=== PATIENT | female | born 1960 | race Caucasian/White ===

== ENCOUNTER 2017-08-28 04:09 | Inpatient (IN) | payer MEDICARE, MEDICAID ==
[2017-08-28] MEDS ORDERED: LORazepam INJ* 2 MG/ML 1 ML VIAL IV PUSH ONE ×2 (04:27→15:10)
[2017-08-28] MEDS ORDERED: Albuterol/Ipratropium NEB.SOL* Albuterol 2.5 MG/Ipratropium 0.5 MG 3 ML INH ONE (04:27)
[2017-08-28] MEDS ORDERED: NS 0.9% 1000 ML* 1,000 ML IV ONE (04:27)
[2017-08-28 05:10] LABS: Hematocrit 49 % (35-47); Hemoglobin 17.2 g/dl (12.0-16.0); Mean Corpuscular HGB Conc 35 g/dl (31-36); Mean Corpuscular Hemoglobin 32 pg (27-31); Mean Corpuscular Volume 91 fL (80-97); Red Blood Count 5.37 10^6/ul (4.00-5.40); Red Cell Distribution Width 15 % (10.5-15); White Blood Count 14.3 10^3/ul (3.5-10.8)
[2017-08-28 05:19] LABS: INR 1.14 (0.77-1.02)
[2017-08-28 05:28] LABS: EGFR Non-African American 117.2 (>60)
[2017-08-28 05:31] LABS: ABS Basophils 0 10^3/ul (0-0.2); ABS Eosinophils 0 10^3/ul (0-0.6); ABS Lymphocytes 0.9 10^3/ul (1.0-4.8); ABS Monocytes 0.6 10^3/ul (0-0.8); ABS Neutrophils 12.7 10^3/ul (1.5-7.7); ABS Nucleated RBC 0 10^3/ul; Eosinophil % 0.2 % (0-6); Lymphocyte % 6.5 % (25-47); Mean Platelet Volume 8.6 um3 (7.4-10.4); Nucleated Red Blood Cells % 0.1; Platelet Count 86 10^3/ul (150-450)
[2017-08-28] MEDS ORDERED: Aspirin 81 mg CHEW TAB* 81 MG TAB.CHEW PO ONE (05:32)
[2017-08-28] MEDS ORDERED: Metoprolol Tartrate IV* 1 MG/ML 5 ML VIAL IV ONE (05:37)
[2017-08-28] MEDS ORDERED: Azithromycin IV(*) 500 MG in NS 0.9% 250 ML* 250 ML IVPB ONE (05:37)
[2017-08-28] MEDS ORDERED: DOXYcycline IV* 100 MG in NS 0.9% 250 ML* 250 ML IVPB ONE (05:37)
[2017-08-28 05:42] LABS: Urine Appearance Cloudy; Urine Blood Negative (Negative); Urine Color Yellow; Urine Ketones 1+ (Negative); Urine Protein 2+(100 mg/dL) (Negative); Urine Red Blood Cell Trace(0-2/hpf) (Absent); Urine Specific Gravity 1.013 (1.010-1.030); Urine Urobilinogen Positive (Negative); Urine White Blood Cell Trace(0-5/hpf) (Absent)
[2017-08-28] MEDS ORDERED: Heparin DRIP 25,000 UNITS(*) 25,000 UNITS/500 ML BAG IV SCH (05:45)
[2017-08-28] MEDS ORDERED: Heparin DRIP 25,000 UNITS(*) 25,000 UNITS/500 ML BAG ONE (05:53)
[2017-08-28] MEDS ORDERED: Al Hydrox/Mg Hydrox/Simet LIQ* 30 ML UDC PO PRN (05:58)
[2017-08-28] MEDS ORDERED: Senna TAB PO PRN (05:58)
[2017-08-28] MEDS ORDERED: Docusate CAP* 100 MG PO PRN (05:58)
[2017-08-28] MEDS ORDERED: Albuterol/Ipratropium NEB.SOL* Albuterol 2.5 MG/Ipratropium 0.5 MG 3 ML INH PRN (06:01)
[2017-08-28] MEDS ORDERED: methylPREDNISolone 125 MG* 2 ML VIAL IV ONE (06:01)
[2017-08-28] MEDS ORDERED: Heparin VIAL(*) 5000 UNITS/ML VIAL (FIVE THOUSAND) ONE (06:04)
[2017-08-28] MEDS ORDERED: Heparin VIAL(*) 5000 UNITS/ML VIAL (FIVE THOUSAND) IV PRN (06:31)
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
--- NOTE | 2017-08-28 08:32 | RAD ---
INDICATION: Change in mental status. Possible seizure COMPARISON: CT brain March 23, 2015 TECHNIQUE: Noncontrast axial source images were acquired from the skull base to the vertex. There is minor motion artifact despite the fact that images were repeated. FINDINGS: Ventricles/sulci: The ventricles and cisterns are normal in size and configuration for age. Brain parenchyma: There is no focal parenchymal finding, evidence of intracranial mass, or intracranial mass effect. Intracranial hemorrhage:None. Extra-axial spaces: There are no abnormal extra axial fluid collections or evidence of extra-axial mass. Calvarium: There is no calvarial fracture or other calvarial abnormality. Scalp: There is no evidence of scalp or extracalvarial soft tissue abnormality. Paranasal sinuses/mastoid: The paranasal sinuses and mastoid air cells are clear. Other: None. IMPRESSION: MILDLY LIMITED EXAMINATION DUE TO MOTION ARTIFACT. NO ACUTE CT ABNORMALITIES ARE SEEN.
--- NOTE | 2017-08-28 08:34 | RAD ---
Indication: Nausea and vomiting. Question seizures. History of COPD. Comparison: March 23, 2015 Technique: Sitting AP chest 0532 hours Report: Elevated lung volumes and both diffuse moderate prominence of the interstitial markings and mild patchy rarefaction of the mid to upper lung zone interstitial markings. Asymmetric patchy alveolar consolidation at the RIGHT lung base is concerning for pneumonia. Negative for pleural effusion or pneumothorax. The heart, pulmonary vasculature, and mediastinal contours are unremarkable. IMPRESSION: 1. Patchy alveolar consolidation at the RIGHT lung base is concerning for pneumonia. 2. Chronic obstructive pulmonary disease.
--- NOTE | 2017-08-28 09:05 | ECHO ---
Patient: LAYO DE JESUS Rec#: [id number] : 1960 Date: 08/28/2017 Age: 57y Height: 162.56 cm / 64.0 in Weight: 63.5 kg / 140.0 lbs Sex: F BSA: 1.68 Room#: [id number] Admit Date#: 08/28/2017 Type: Inpatient Referring: Vicky Diaz Reading: Josefina Campbell MD Client Specialist: Rena Isbell RDCS CC: Abe Pino MD Transthoracic Echocardiogram Indication: Altered mental status, ACS BP: 135/81 HR: 98 Rhythm: NSR Findings History: Smoker, marijuana use, COPD, cirrhosis, seizures. Technical Comments: The study quality is fair. The study was technically limited due to the patient's inability to lay in the left lateral decubitus position. Completed at 0845. Left Ventricle: The left ventricular chamber size is normal. Mild concentric left ventricular hypertrophy is observed. There are multiple regional wall motion abnormalities. The base of the lateral and posterior perez is hyperdynamic. Akinesis and dyskinesis of the apical 2/3's of the inferior-posterior wall. Septum akinetic and dyskinetic. The apical portion of the anterior and lateral wall is hypokinetic. There is moderate to severely decreased left ventricular systolic function. The estimated ejection fraction is 35-40%. Abnormal left ventricular diastolic function is observed. Left Atrium: The left atrial chamber size is normal. Right Ventricle: The right ventricular cavity size is normal. The right ventricular global systolic function is low normal. Right Atrium: The right atrial cavity size is normal. Aortic Valve: The aortic valve is trileaflet. The aortic valve leaflets are mildly thickened. There is no evidence of aortic regurgitation. There is no evidence of aortic stenosis. Mitral Valve: The mitral valve leaflets are mildly thickened. There is mild to moderate mitral regurgitation. The mitral regurgitant jet is laterally directed. There is no evidence of mitral stenosis. Tricuspid Valve: The tricuspid valve leaflets are normal. There is mild tricuspid regurgitation. The right ventricular systolic pressure is estimated at 30 mmHg. There is evidence that pulmonary hypertension may be underestimated. There is no tricuspid stenosis. Pulmonic Valve: The pulmonic valve structure is not well visualized. There is a trace pulmonic regurgitation. There is no pulmonic stenosis. Pericardium: There is no significant pericardial effusion. Aorta: There is no dilatation of the ascending aorta. There is no dilatation of the aortic arch. The aortic root is normal in size. Pulmonary Artery: The main pulmonary artery is not well visualized. Venous: The inferior vena cava appears normal in size. There is a greater than 50% respiratory change in the inferior vena cava dimension. Conclusions The study was technically limited and difficult. Mild concentric left ventricular hypertrophy is observed. Inferior posterior infarct, hypokinesis of the anterior lateral wall, base of the heart is hyperdynamic. The estimated ejection fraction is 35-40%. The right ventricular global systolic function is low normal. The aortic valve leaflets are sclerotic. There is mild to moderate mitral regurgitation. There is mild tricuspid regurgitation. The right ventricular systolic pressure is estimated at 30 mmHg, possibly underestimated. Compared with prior echo of 10/03/14, EF has decreased from 60-65%, wall motion abnormalities are new, RV function decreased from normal, MR is new, TR has increased from trace. Measurements Name Value Normal Range RVIDd (AP) 2D 3 cm (0.9 - 2.6) RVDdMajor (2D) 3.5 cm (2.2 - 4.4) RAd ISD 4CH 4 cm (3.4 - 4.9) RA (A4C)W 4.2 cm (2.9 - 4.6) IVSd (2D) 1.1 cm (0.6 - 1) LVPWd (2D) 1.2 cm (0.6 - 1) LVIDd (2D) 3.9 cm (3.6 - 5.4) LVIDs (2D) 3 cm - LV FS (2D) 25 % (25 - 45) Aortic Annulus 2 cm (1.4 - 2.6) Ao root diameter (2D) 3.2 cm (2.1 - 3.5) Ascending Ao 2.9 cm (2.1 - 3.4) Aortic arch 2.4 cm (1.8 - 3.4) LA dimension (AP) 2D 3.7 cm (2.3 - 3.8) LAd ISD 4CH 3.9 cm (2.9 - 5.3) LA ISD 4CH W 3.3 cm (2.5 - 4.5) Name Value Normal Range LA ESV SP 4CH (A/L) 18 ml - LA ESV SP 2CH (A/L) 43 ml - LA ESV BP (A/L) 28 ml - LA ESV BP (A/L) index 17 ml/m2 - LA ESV SP 4CH (MOD) 17 ml - LA ESV SP 2CH (MOD) 37 ml - Name Value Normal Range MV E-wave Vmax 0.84 m/sec - MV deceleration time 211.5 msec - MV A-wave Vmax 0.33 m/sec - MV E:A ratio 2.5 ratio - LV septal e' Vmax 0.1 m/sec - LV lateral e' Vmax 0.09 m/sec - LV E:e' septal ratio 8.4 ratio - LV E:e' lateral ratio 9.33 ratio - Name Value Normal Range AV Vmax 1.1 m/sec - AV VTI 20 cm - AV peak gradient 4.26 mmHg - AV mean gradient 2.34 mmHg - LVOT Vmax 0.77 m/sec - LVOT VTI 14.27 cm - LVOT peak gradient 2.37 mmHg - LVOT mean gradient 1.36 mmHg - TONY Vmax 0.9 m/sec - Name Value Normal Range TR Vmax 2.6 m/sec - TR peak gradient 27 mmHg - RAP 3 mmHg - RVSP 30 mmHg - IVC diameter 1.9 cm - Name Value Normal Range PV Vmax 0.88 m/sec - PV peak gradient 3.11 mmHg -
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
--- NOTE | 2017-08-28 10:21 | PN ---
Subjective Date of Service: 08/28/17 Interval History: Pt reportedly has been speaking non-stop. She talks about things that seem to make sense but have no context to what I am trying to ask her. She states over and over that she is confused. She is able to tell me she stopped all of her medications about 2 weeks ago. Objective Active Medications: Acetaminophen (Tylenol Tab*) 650 mg PO Q4H PRN PRN Reason: FEVER/PAIN Al Hydrox/Mg Hydrox/Simethicone (Maalox Plus*) 30 ml PO Q6H PRN PRN Reason: INDIGESTION Albuterol (Ventolin 2.5 Mg/3 Ml Neb.Christin*) 2.5 mg INH Q2H PRN PRN Reason: SOB/WHEEZING Albuterol/Ipratropium (Duoneb (Albuterol 2.5 Mg/Ipratropium 0.5 Mg)) 1 neb INH Q4H PRN PRN Reason: SOB/WHEEZING Docusate Sodium (Colace Cap*) 100 mg PO BID PRN PRN Reason: CONSTIPATION Heparin Sodium (Porcine) (Heparin Vial(*)) 0 units IV .FOR BOLUSES PRN PRN Reason: HEPARIN DRIP BOLUSES Heparin Sodium/Dextrose (Heparin Drip 25,000 Units(*)) 25,000 units in 500 mls @ 0 mls/hr IV PER RATE SASKIA; Per Protocol PRN Reason: Protocol Last Admin: 08/28/17 05:56 Dose: 15 mls/hr Sodium Chloride (Ns 0.9% 1000 Ml*) 1,000 mls @ 100 mls/hr IV PER RATE SASKIA Morphine Sulfate (Morphine Vial*) 2 mg IV Q4H PRN PRN Reason: PAIN Ondansetron HCl (Zofran 40 Mg Vial*) 4 mg IV Q4H PRN PRN Reason: NAUSEA/VOMITING Prednisone (Deltasone Tab*) 40 mg PO DAILY SASKIA Senna (Senokot Tab*) 1 tab PO BID PRN PRN Reason: CONSTIPATION Vital Signs - 8 hr 08/28/17 08/28/17 08/28/17 06:09 06:17 06:19 Temperature 100.7 F 101.6 F Pulse Rate 91 96 94 Respiratory 25 25 27 Rate Blood Pressure 135/81 107/78 112/77 (mmHg) O2 Sat by Pulse 94 92 96 Oximetry 08/28/17 08/28/17 08/28/17 06:42 06:48 06:54 Temperature 100.7 F Pulse Rate 91 90 95 Respiratory 25 27 26 Rate Blood Pressure 135/81 123/78 112/77 (mmHg) O2 Sat by Pulse 94 94 96 Oximetry 08/28/17 08/28/17 08/28/17 07:00 07:30 07:47 Temperature Pulse Rate 98 96 94 Respiratory 24 28 39 Rate Blood Pressure 118/81 104/69 104/69 (mmHg) O2 Sat by Pulse 95 89 89 Oximetry 08/28/17 08/28/17 08/28/17 07:48 08:00 08:09 Temperature 102 F 102.7 F Pulse Rate 94 85 Respiratory 37 39 Rate Blood Pressure 104/69 101/68 (mmHg) O2 Sat by Pulse 88 96 Oximetry 08/28/17 08/28/17 08/28/17 08:30 08:32 08:36 Temperature Pulse Rate 84 85 88 Respiratory 24 22 27 Rate Blood Pressure 104/71 108/68 108/72 (mmHg) O2 Sat by Pulse 96 96 94 Oximetry 08/28/17 08/28/17 08/28/17 08:37 08:38 09:00 Temperature Pulse Rate 88 89 87 Respiratory 31 27 28 Rate Blood Pressure 111/69 106/68 106/70 (mmHg) O2 Sat by Pulse 95 96 97 Oximetry 08/28/17 09:30 Temperature Pulse Rate 93 Respiratory 24 Rate Blood Pressure 113/87 (mmHg) O2 Sat by Pulse 97 Oximetry Oxygen Devices in Use Now: High Flow Heated Nasal Cannula - 30L 40% FiO2; O2 sat 97% Appearance: Middle aged female sitting up in bed, nu complexion, confused, moderately tachypnic, but in NAD Eyes: No Scleral Icterus Ears/Nose/Mouth/Throat: Mucous Membranes Moist, - - poor oral dentition Respiratory: Symmetrical Chest Expansion and Respiratory Effort, - - coarse breath sounds heard on R side of chest Cardiovascular: RRR, No Edema Abdominal: NL Sounds; No Tenderness; No Distention Extremities: No Clubbing, Cyanosis Skin: No Nodules or Sclerosis, - - skin appears diffusely erythematous Neurological: - - alert, speaks almost continuously until I ask her to be quite so I can listen to her chest, later on during my eval the patient appears to have fragmented speech and difficulty getting her words out Result Diagrams: 08/28/17 05:02 08/28/17 05:02 Additional Lab and Data: Lab Results 08/28/17 Range/Units 04:45 ABG pH 7.44 (7.35-7.45) ABG pCO2 38 (35-45) mmHg ABG pO2 64 L (80-100) mmHg ABG HCO3 25.9 (19-31) mmol/L ABG O2 Saturation 95.5 (95-98) % ABG Base Excess 1.7 (-2.0-2.0) Microbiology and Other Data: Microbiology 08/28/17 08:40 Nasal Screen MRSA (PCR)([facility]) - Final Nasal Mrsa Not Detected Assess/Plan/Problems-Billing Ms Cruz is a 57 yo F who has a past h/o polysubstance abuse including alcohol, ongoing tobacco abuse, past h/o status epilepticus related to abrupt withdrawal of benzodiazepines, depression and alcoholic cirrhosis who presented to the ER with concerns for seizure and was admitted for evaluation of seizure, possible sepsis secondary to pneumonia and NSTEMI. - Patient Problems (1) Seizure Current Visit: Yes Status: Acute Code(s): R56.9 - UNSPECIFIED CONVULSIONS SNOMED Code(s): 91364925 Comment: The patient reportedly had a seizure at home and again once she arrived to the ER. She has had her EEG and the results are pending. She is not on any antiepileptics as previously her seizures have been felt to be secondary to benzodiazepine withdrawal. She was able to state she stopped all of her medications about 2 weeks ago including her xanax. Neurology consultation pending. (2) Sepsis Current Visit: Yes Status: Acute Comment: On admission the patient was felt to be severely septic secondary to possible RLL pneumonia. Check procalcitonin level. Continue doxycycline 100mg q12h and await ID consultation. Given her AMS , fever and seizure I feel she also needs a lumbar puncture to r/o meningitis. I spoke with Dr. Harris who has agreed to attempt the LP. (3) Pneumonia Current Visit: Yes Status: Acute Code(s): J18.9 - PNEUMONIA, UNSPECIFIED ORGANISM SNOMED Code(s): 981322139 Comment: Will continue doxycyline for now and await further input from Dr. Qureshi. Procalcitonin to be checked. Attempt to get sputum culture. (4) NSTEMI (non-ST elevated myocardial infarction) Current Visit: Yes Status: Acute Code(s): I21.4 - NON-ST ELEVATION (NSTEMI) MYOCARDIAL INFARCTION SNOMED Code(s): 352329544 Comment: The patient initially with trop of 0.79, now up to 2.4. She is on a heparin drip but this will need to be stopped for the LP. Cardiology consult has been requested especially given her changes on echo. (5) Alcohol abuse Current Visit: Yes Status: Acute Code(s): F10.10 - ALCOHOL ABUSE, UNCOMPLICATED SNOMED Code(s): 48119048 Comment: Pt reports no EtOH use for several years but the validity of her answer is questioned. (6) Cannabis abuse Current Visit: Yes Status: Acute Code(s): F12.10 - CANNABIS ABUSE, UNCOMPLICATED SNOMED Code(s): 15241970 Comment: Pt uses on a regular basis. (7) Depression Current Visit: Yes Status: Acute Priority: High Onset Date: 03/26/15 Code(s): F32.9 - MAJOR DEPRESSIVE DISORDER, SINGLE EPISODE, UNSPECIFIED SNOMED Code(s): 21218030 Comment: Pt was on celexa previously. Hold off on starting antidepressant currently. (8) DVT prophylaxis Current Visit: Yes Status: Acute Code(s): KNY5194 - SNOMED Code(s): 630819030 Comment: Heparin drip (stopped for LP) (9) Full code status Current Visit: Yes Status: Acute Code(s): Z78.9 - OTHER SPECIFIED HEALTH STATUS SNOMED Code(s): 184345058 Sepsis Event Evaluation Date of Evaluation: 08/28/17 Time of Evaluation: 10:30 Current Stage of Sepsis: Severe Sepsis Vital Signs - Last 12 Hours: Vital Signs - 12 hr Temp Pulse Resp BP Pulse Ox 08/28/17 10:00 87 26 103/68 96 08/28/17 09:51 23 08/28/17 09:30 93 24 113/87 97 08/28/17 09:00 87 28 106/70 97 08/28/17 08:38 89 27 106/68 96 08/28/17 08:37 88 31 111/69 95 08/28/17 08:36 88 27 108/72 94 08/28/17 08:32 85 22 108/68 96 08/28/17 08:30 84 24 104/71 96 08/28/17 08:09 102.7 F 08/28/17 08:00 102 F 85 39 101/68 96 08/28/17 07:48 94 37 104/69 88 08/28/17 07:47 94 39 104/69 89 08/28/17 07:30 96 28 104/69 89 08/28/17 07:00 98 24 118/81 95 08/28/17 06:54 95 26 112/77 96 08/28/17 06:48 90 27 123/78 94 08/28/17 06:42 100.7 F 91 25 135/81 94 08/28/17 06:19 101.6 F 94 27 112/77 96 08/28/17 06:17 96 25 107/78 92 08/28/17 06:09 100.7 F 91 25 135/81 94 Lactic Acid: 08/28/17 08:39 Lactic Acid 0.9 - Cardiopulmonary Exam Capillary Refill: < or = to 5 seconds Respiratory: Symmetrical Chest Expansion and Respiratory Effort, - - coarse breath sounds in R>L Cardiovascular: NL Sounds; No Murmurs; No JVD, RRR, No Edema - Peripheral Pulse Exam Radial Pulses: Bilateral Normal - Skin Exam Skin Exam: Flushed - Jesús Coma Scale Best Eye Response: 4 - Spontaneous Best Motor Response: 6 - Obeys Commands Best Verbal Response: 4 - Confused Coma Scale Total: 14
--- NOTE | 2017-08-28 13:20 | PN ---
Cardiology Progress Note Date of Service: 08/28/17 - CC: SOB, change in mentation Full noted dictated. Pt seen today. 57 yo presented with seizures, N/V, fever 102.7, mentation changes,?phycosis, low PO2, mildly elevate NH3, moderate to severe CM, mild elevation in troponins. PMHx of Alcoholic cirrhosis, COPD/active smoker, LBP with chronic narcotic and benzodiazipine use, orthopedic issues and hx orthopedic surgery. For elevated troponins: -Cardiac protection: consider ASA, beta roxy compatible with cirrhosis. Future cath vs stress testing, not a candidate now. -Consider V/Q or CTA to rule in or out PE. For CM: Beta roxy now. If BP improves ACEI and/or resume aldactone. Repeat echo in a week+, looks ischemic but metabolic issues could cause, contribute. Contributing considerations: -if benzodiazipine and narcotic w/drawel, this will increase the work/stress on the heart. -Oxygenation and infection will increase cardiac stress.
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
--- NOTE | 2017-08-28 15:44 | CONS ---
CONSULTATION REPORT: DATE OF CONSULTATION: 08/28/17. REQUESTING PHYSICIAN: Dr. Harris. CONSULTING SERVICE: Infectious Disease. REASON FOR CONSULTATION: Fever. IMPRESSION: 1. Recent seizures and encephalopathy, though she is awake and alert, answers some questions and follows commands. She is talking continuously and not making complete sense. She has no focal neurologic deficits. She has had fevers. Possibilities include, a central nervous system infection other than meningitis, i.e., encephalitis, which could be viral including [place] in this time year, she has some outdoor exposure; HSV1, or varicella, though this seems less likely. She could have a systemic infection causing central nervous system dysfunction, though so far no clear evidence of pneumonia or urinary tract infection. Her blood cultures are negative at this point. She cannot provide a ton of other details on any focal symptoms she is having. 2. Cirrhosis. 3. Acute hypoxemic respiratory failure. 4. Cardiomyopathy with ejection fraction 35% to 40% with wall motion abnormality. 5. Apparent recent discontinuation of benzodiazepine and history of alcohol abuse and cirrhosis. She denies recent alcohol use. RECOMMENDATIONS: 1. When she has a lumbar puncture include the [place] Encephalitis Panel , HSV1, and varicella PCR. 2. We will await the blood cultures. Continue doxycycline. 3. HIV antibody. HISTORY OF PRESENT ILLNESS: This 57-year-old woman with a history of alcohol abuse and cirrhosis, and long-standing benzodiazepine use, which she apparently stopped in the last week or two. She then had a seizure at home and a seizure in the [facility] emergency room. She was transferred here this morning, febrile to 102. She is awake, but not focused or able to make a lot of sense apparently. She was found to be hypoxic. S he is on high-flow oxygen now. She had a troponin that was initially 0.7, now 2.4. She had an echocardiogram that showed the decreased ejection fraction. Her C-reactive protein was 5. She cannot give as much history on recent substance use or discontinuation. Most of the history was obtained from review of the medical record and discussion with Dr. Harris. Her workup here included a white count of 14. Urinalysis that showed ketones. No white cells or red cells. Her creatinine is normal. Toxicology screen showed cannabinoids, otherwise negative. She does endorse significant amount of time outdoors this time of the year. She says she does not drink any alcohol and has not for years, and that she does not have cirrhosis. She notes living with her daughter and grandchildren, none of whom are ill. She has a new dog. No travel. PAST MEDICAL HISTORY: 1. Alcohol abuse, in remission. 2. Cirrhosis. 3. History of status epilepticus during benzodiazepine withdrawal. 4. History of depression with suicidal ideation. 5. Polysubstance abuse. 6. Cognitive impairment. 7. Chronic low back pain. 8. History of rotator cuff repair. 9. Status post right patellar fracture. MEDICATIONS: 1. Tylenol. 2. Albuterol inhaler. 3. Aspirin. 4. Docusate. 5. Doxycycline 100 mg by mouth twice daily. 6. Zofran. ALLERGIES: Listed as CARBAPENEM, CEPHALOSPORINS, CIPROFLOXACIN, PENICILLIN. FAMILY HISTORY: No tuberculosis or recurrent infections. She cannot provide much more than that. SOCIAL HISTORY: She lives in [place] with her daughter and grandchildren and a dog. No travel. No injection drugs. No alcohol. REVIEW OF SYSTEMS: Unobtainable. PHYSICAL EXAM: Vital Signs: Temperature 97, heart rate 80, respiratory rate 20 , blood pressure 108/73, oxygen saturation 97% with an FiO2 of 40% high-flow oxygen. General: She is awake, not in apparent distress. Neurologic: She is oriented x2. She is talking continuously and making some sense with some historical facts. She answers questions, some appropriately. She follows some commands. Moves all of her extremities. Would not participate with the cranial nerve exam. HEENT: There is no conjunctival hemorrhage. Oropharynx without lesions. Neck is supple without mass. There is no nuchal rigidity. Lymph Nodes: There is no cervical, supraclavicular, inguinal, axillary, or epitrochlear lymphadenopathy. Heart has a regular rate and rhythm without murmurs, rubs, or gallops. Lungs are clear to auscultation bilaterally. Abdomen: Soft, nontender, nondistended. There is bowel sounds present. Skin: There is no rash or splinter hemorrhages. Musculoskeletal: There is no spine tenderness to palpation. No joint synovitis. LABORATORY DATA: White blood cell count 14, hemoglobin 17, platelets 86, creatinine is 0.5. Troponin 2.4. Ammonia 62. Cortisol 20. INR 1. Bilirubin 1.9. Please see impressions and recommendations outlined above, which I have discussed with Dr. Harris. Thanks for asking me to see Ms. Cruz in consultation. [id number]/[facility] #: [id number] LALO
[2017-08-28] MEDS ORDERED: Lidocaine 2% PF * 5 ML VIAL ONE (17:46)
[2017-08-28 18:10] LABS: Body Fluid Source Cerebral Spinal
[2017-08-28] MEDS: NS 0.9% 1000 ML* 1,000 ML IV SCH (18:25)
[2017-08-28] MEDS: DOXYcycline CAP(*) 100 MG PO SCH (18:38)
[2017-08-28] MEDS ORDERED: Vancomycin(*) 1,000 MG in NS 0.9% 250 ML* 250 ML IVPB ONE ×2 (20:56→22:00)
[2017-08-28] MEDS: Aztreonam (*) 2 GM in NS 0.9% 50 ML* 50 ML IVPB SCH (21:46)
[2017-08-28] MEDS: Morphine VIAL* 4 MG/ML VIAL (1 ml vial) IV PRN (23:26)
[2017-08-29] MEDS: NS 0.9% 1000 ML* 1,000 ML IV SCH ×2 (03:21→14:30)
--- NOTE | 2017-08-29 05:23 | EEG ---
ELECTROENCEPHALOGRAPHY: DATE OF STUDY: 08/28/17 - ROOM #KICU-09 LOCATION: The patient is an inpatient. ORDERING PHYSICIAN: Dr. Diaz. CLINICAL PROBLEM: This is a 57-year-old woman with history of status epilepticus in 2016 related to benzodiazepine withdrawal. She was brought in to the emergency department yesterday reportedly with 2 seizure-like episodes witnessed at home. On arrival in the emergency department, she was diagnosed with pneumonia and has been febrile. She has also had elevated troponins and EKG changes. She was not able to contribute significantly to the history, was speaking gibberish and was given lorazepam in the emergency department. Give her history of status epilepticus, there was concern for possible nonconvulsive status epilepticus and EEG was requested to evaluate. MEDICATIONS: The patient received 1 mg of lorazepam in the emergency department at approximately 4:50 a.m. prior to the start of this EEG. She also received azithromycin, aspirin, and Solu-Medrol. Her home medications are listed as thiamine, oxycodone, multivitamin, gabapentin, folic acid, and alprazolam. REPORT: The waking background showed appropriate organization with clearly defined pqmsctbh-je-ykszspwpm voltage and frequency gradients. There was a well -defined posterior dominant rhythm of 9 Hz, which was symmetrical and showed normal reactivity. Anteriorly, there was an expected pattern of lower voltage, irregular, mixed faster frequencies. There was excess theta activity consistent with recent benzodiazepine administration. There was also frequent eye movement artifact as well as muscle artifact, which somewhat obscured the background in certain portions of the tracing. The patient did not become significantly drowsy during the study. Throughout the recording, there were no epileptiform discharges, focal features, paroxysmal features, or significant interhemispheric asymmetries. CLINICAL IMPRESSION: This is a normal waking EEG. There are no epileptiform abnormalities. [id number]/[facility] #: [id number] [facility]
[2017-08-29 05:46] LABS: ABS Basophils 0 10^3/ul (0-0.2); ABS Eosinophils 0 10^3/ul (0-0.6); ABS Lymphocytes 1.5 10^3/ul (1.0-4.8); ABS Monocytes 0.7 10^3/ul (0-0.8); ABS Neutrophils 7.8 10^3/ul (1.5-7.7); ABS Nucleated RBC 0 10^3/ul; Eosinophil % 0 % (0-6); Hematocrit 42 % (35-47); Hemoglobin 14.3 g/dl (12.0-16.0); Lymphocyte % 14.9 % (25-47); Mean Corpuscular HGB Conc 34 g/dl (31-36); Mean Corpuscular Hemoglobin 32 pg (27-31); Mean Corpuscular Volume 93 fL (80-97); Mean Platelet Volume 8.9 um3 (7.4-10.4); Nucleated Red Blood Cells % 0; Platelet Count 71 10^3/ul (150-450); Red Blood Count 4.51 10^6/ul (4.00-5.40); Red Cell Distribution Width 15 % (10.5-15)
[2017-08-29] MEDS: DOXYcycline CAP(*) 100 MG PO SCH ×2 (05:47→17:48)
[2017-08-29] MEDS: Aztreonam (*) 2 GM in NS 0.9% 50 ML* 50 ML IVPB SCH (05:47)
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
[2017-08-29] MEDS ORDERED: Vancomycin per Pharmacy* NOTE FOLLOW UP PRN (07:44)
[2017-08-29] MEDS ORDERED: VANCOMYCIN IVPB ONE ×2 (08:00)
--- NOTE | 2017-08-29 08:10 | RAD ---
HISTORY: eval for infiltrate COMPARISONS: August 28, 2017 VIEWS: 1: frontal portable view of the chest at 7:50 AM FINDINGS: LINES AND TUBES: None. CARDIOMEDIASTINAL SILHOUETTE: The cardiomediastinal silhouette is normal for portable technique. PLEURA: The costophrenic angles are sharp. No pleural abnormalities are noted. LUNG PARENCHYMA: There is persistent patchy alveolar opacification. ABDOMEN: The upper abdomen is clear. There is no subphrenic gas. BONES AND SOFT TISSUES: Degenerative changes are noted of the spine and shoulders. IMPRESSION: PERSISTENT PATCHY AIRSPACE DISEASE OF THE RIGHT LUNG BASE
[2017-08-29] MEDS ORDERED: predniSONE TAB* 20 MG PO SCH (09:00)
[2017-08-29] MEDS: Aspirin EC TAB* 81 MG TAB.EC PO SCH ×2 (11:02)
[2017-08-29] MEDS: Carvedilol TAB* 3.125 MG PO SCH ×2 (11:02→22:09)
[2017-08-29] MEDS: Nicotine Inhaler* 10 MG AMP INH PRN (14:00)
[2017-08-29] MEDS: Mouth Piece, Nicotine* 1 EACH CARTRIDGE INH PRN (14:01)
[2017-08-29] MEDS: Heparin VIAL(*) 5000 UNITS/ML VIAL (FIVE THOUSAND) SUBCUT SCH ×2 (14:19→22:09)
--- NOTE | 2017-08-29 14:42 | PRO ---
PROCEDURE NOTE: DATE OF PROCEDURE: 08/28/17 PROCEDURE: Lumbar puncture. INDICATIONS: The patient is a 57-year-old female admitted with fever and altered mental status. To rule out a ST[employer] STEW[employer] infectious process, a lumbar puncture was performed. PROCEDURE IN DETAIL: With the patient in the left lateral decubitus position, the L5-S1 interspace was entered after the area was cleaned and anesthetized with 2% lidocaine. Approximately 5 cc of clear fluid was collected without incident. There were no adverse events noted during, or immediately after the procedure. [id number]/[facility] #: [id number] [facility]
[2017-08-29] MEDS ORDERED: NS 0.9% 250 ML* 250 ML ONE (16:00)
[2017-08-29] MEDS: Vancomycin(*) 1,000 MG in NS 0.9% 250 ML* 250 ML IVPB SCH (16:32)
[2017-08-30] MEDS: Vancomycin(*) 1,000 MG in NS 0.9% 250 ML* 250 ML IVPB SCH ×2 (00:44→08:25)
[2017-08-30] MEDS: Heparin VIAL(*) 5000 UNITS/ML VIAL (FIVE THOUSAND) SUBCUT SCH ×3 (05:33→22:08)
[2017-08-30] MEDS: DOXYcycline CAP(*) 100 MG PO SCH ×2 (05:33→18:49)
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
[2017-08-30] MEDS: NS 0.9% 1000 ML* 1,000 ML IV SCH ×2 (07:15→18:50)
[2017-08-30] MEDS ORDERED: Vancomycin Trough Check NOTE FOLLOW UP ONE (07:30)
[2017-08-30] MEDS: Carvedilol TAB* 3.125 MG PO SCH ×2 (08:26→21:23)
[2017-08-30] MEDS: Aspirin EC TAB* 81 MG TAB.EC PO SCH (08:26)
--- NOTE | 2017-08-30 08:29 | PN ---
Subjective Date of Service: 08/30/17 Interval History: Pt is feeling ok. Nursing states overnight and again this AM the patient would have spells where she stares but tracks a person in the room with her eyes but will not follow commands or respond to questions. Objective Active Medications: Acetaminophen (Tylenol Tab*) 650 mg PO Q4H PRN PRN Reason: FEVER/PAIN Al Hydrox/Mg Hydrox/Simethicone (Maalox Plus*) 30 ml PO Q6H PRN PRN Reason: INDIGESTION Albuterol (Ventolin 2.5 Mg/3 Ml Neb.Christin*) 2.5 mg INH Q2H PRN PRN Reason: SOB/WHEEZING Aspirin (Aspirin Ec Tab*) 81 mg PO DAILY [facility] Last Admin: 08/29/17 11:02 Dose: 81 mg Carvedilol (Coreg Tab*) 3.125 mg PO BID [facility] Last Admin: 08/29/17 22:09 Dose: 3.125 mg Device (Nicotine Mouth Piece*) 1 each INH .USE WITH NICOTROL PRN PRN Reason: CRAVING Last Admin: 08/29/17 14:01 Dose: 1 each Docusate Sodium (Colace Cap*) 100 mg PO BID PRN PRN Reason: CONSTIPATION Doxycycline Hyclate (Vibramycin Cap(*)) 100 mg PO Q12H [facility] Last Admin: 08/30/17 05:33 Dose: 100 mg Heparin Sodium (Porcine) (Heparin Vial(*)) 5,000 units SUBCUT Q8HR [facility] Last Admin: 08/30/17 05:33 Dose: 5,000 units Sodium Chloride (Ns 0.9% 1000 Ml*) 1,000 mls @ 100 mls/hr IV PER RATE [facility] Last Admin: 08/30/17 07:15 Dose: 100 mls/hr Vancomycin HCl 1,000 mg/ (Sodium Chloride) 250 mls @ 166.667 mls/hr IVPB Q8H [facility] Last Admin: 08/30/17 00:44 Dose: 166.667 mls/hr Morphine Sulfate (Morphine Vial*) 2 mg IV Q4H PRN PRN Reason: PAIN Last Admin: 08/28/17 23:26 Dose: 2 mg Nicotine (Nicotine Inhaler*) 10 mg INH Q2H PRN PRN Reason: CRAVING Last Admin: 08/29/17 14:00 Dose: 10 mg Ondansetron HCl (Zofran 40 Mg Vial*) 4 mg IV Q4H PRN PRN Reason: NAUSEA/VOMITING Senna (Senokot Tab*) 1 tab PO BID PRN PRN Reason: CONSTIPATION Vital Signs - 8 hr 08/30/17 08/30/17 03:53 07:32 Temperature 98.4 F 98.5 F Pulse Rate 72 80 Respiratory 16 22 Rate Blood Pressure 122/68 130/68 (mmHg) O2 Sat by Pulse 92 91 Oximetry Oxygen Devices in Use Now: None Appearance: Middle aged female sitting up in bed, NAD Eyes: No Scleral Icterus Ears/Nose/Mouth/Throat: Mucous Membranes Moist Respiratory: Symmetrical Chest Expansion and Respiratory Effort, Clear to Auscultation Cardiovascular: NL Sounds; No Murmurs; No JVD, RRR, No Edema Abdominal: NL Sounds; No Tenderness; No Distention Extremities: No Clubbing, Cyanosis Skin: No Nodules or Sclerosis Neurological: - - oriented to being in a hospital, August, states 21st, poor historian, when asked what happended to land her here in the hospital shes states Pat (her ) when I asked her about him dying 3 years ago she states that is true but she is still having a hard time getting over his Result Diagrams: 08/29/17 05:22 08/29/17 05:22 Additional Lab and Data: Lab Results 08/28/17 Range/Units 04:45 ABG pH 7.44 (7.35-7.45) ABG pCO2 38 (35-45) mmHg ABG pO2 64 L (80-100) mmHg ABG HCO3 25.9 (19-31) mmol/L ABG O2 Saturation 95.5 (95-98) % ABG Base Excess 1.7 (-2.0-2.0) Microbiology and Other Data: Microbiology 08/28/17 08:40 Nasal Screen MRSA (PCR)([facility]) - Final Nasal Mrsa Not Detected Assess/Plan/Problems-Billing Ms Cruz is a 57 yo F who has a past h/o polysubstance abuse including alcohol, ongoing tobacco abuse, past h/o status epilepticus related to abrupt withdrawal of benzodiazepines, depression and alcoholic cirrhosis who presented to the ER with concerns for seizure and was admitted for evaluation of seizure, possible sepsis secondary to pneumonia and NSTEMI. - Patient Problems (1) Toxic metabolic encephalopathy Current Visit: Yes Status: Acute Code(s): G92 - TOXIC ENCEPHALOPATHY SNOMED Code(s): 705607636 Comment: The patient's mental status is dramatically better today than yesterday. The cause to her encephalopathy not completely clear. ? infectious source vs metabolic vs hyperammonemia vs benzodiazepine withdrawal. Additionally the patient finally slept yesterday afternoon into the evening after receiving ativan (had received a dose prior in the ER without the same response). (2) Seizure Current Visit: Yes Status: Acute Code(s): R56.9 - UNSPECIFIED CONVULSIONS SNOMED Code(s): 19449430 Comment: Likely benzodiazepine withdrawal. Pt should never have benzos again. She reportedly has been having starring spells overnight and this AM. ? seizure activity this AM. Will discuss with neuro. For now no antiepileptic medications. (3) Sepsis Current Visit: Yes Status: Acute Comment: On admission the patient was felt to be severely septic secondary to possible RLL pneumonia. The patient is now coughing up some yellowish sputum. She remains on vanco and doxycycline. Will discuss case with Dr. Qureshi. She also had acute hypoxic respiratory failure on admission requiring vapotherm. She has since been weaned from the vapotherm and is no longer requiring supplemental O2. (4) Pneumonia Current Visit: Yes Status: Acute Code(s): J18.9 - PNEUMONIA, UNSPECIFIED ORGANISM SNOMED Code(s): 820521349 Comment: Will continue doxycyline and vanco as above. Repeat CXR yesterday showed increase in RLL infiltrate. (5) NSTEMI (non-ST elevated myocardial infarction) Current Visit: Yes Status: Acute Code(s): I21.4 - NON-ST ELEVATION (NSTEMI) MYOCARDIAL INFARCTION SNOMED Code(s): 390587584 Comment: The patient's trop peaked at 2.4. Continue ASA and coreg. Monitor BP as it has been soft. If BP remains in good range will add low dose lisinopril. She will need repeat echo next week to eval wall motion abnormalities and EF as her infectious/metabolic derrangements could have contributed to her abnormal echo. If still abnormal will need ischemic work up. (6) Alcohol abuse Current Visit: Yes Status: Acute Code(s): F10.10 - ALCOHOL ABUSE, UNCOMPLICATED SNOMED Code(s): 52027208 Comment: Pt reports no EtOH use for several years. She has a h/o alcoholic cirrhosis and is on lactulose at home but unclear how frequently she was using that medication. (7) Cannabis abuse Current Visit: Yes Status: Acute Code(s): F12.10 - CANNABIS ABUSE, UNCOMPLICATED SNOMED Code(s): 16895788 Comment: Pt uses on a regular basis. (8) Depression Current Visit: Yes Status: Acute Onset Date: 03/26/15 Code(s): F32.9 - MAJOR DEPRESSIVE DISORDER, SINGLE EPISODE, UNSPECIFIED SNOMED Code(s): 01252168 Comment: Pt was on celexa previously. Will resume celexa at previous dose. (9) DVT prophylaxis Current Visit: Yes Status: Acute Code(s): TTB6997 - SNOMED Code(s): 360353265 Comment: SQ heparin (10) Full code status Current Visit: Yes Status: Acute Code(s): Z78.9 - OTHER SPECIFIED HEALTH STATUS SNOMED Code(s): 850050957
[2017-08-30] MEDS ORDERED: LORazepam INJ* 2 MG/ML 1 ML VIAL IV PUSH ONE ×2 (09:22→18:33)
[2017-08-30] MEDS ORDERED: LORazepam INJ* 2 MG/ML 1 ML VIAL ONE (09:27)
[2017-08-30] MEDS ORDERED: NS 0.9% IVPB ONE (12:30)
[2017-08-30] MEDS ORDERED: FOSPHENYTOIN IVPB ONE (12:30)
[2017-08-30] MEDS: Acyclovir IV(*) 500 MG in NS 0.9% 100 ML* 100 ML IVPB SCH ×2 (14:26→21:29)
[2017-08-30] MEDS: Fosphenytoin(*) 100 MG/2 ML VIAL IVPB SCH (21:42)
[2017-08-31] MEDS: Acyclovir IV(*) 500 MG in NS 0.9% 100 ML* 100 ML IVPB SCH (04:54)
[2017-08-31] MEDS: Fosphenytoin(*) 100 MG/2 ML VIAL IVPB SCH (04:55)
--- NOTE | 2017-08-31 05:29 | PN ---
PROGRESS NOTE: DATE OF FOLLOWUP: 08/30/17 HISTORY: Natalia has reportedly had a couple of unresponsive/staring spells this morning. The first was noted by her nurse and the second was noted by her daughter. Her daughter reports that they had been looking at the breakfast menu together when she suddenly stopped responding, began staring, could not speak and could not follow commands. Dr. Harris alerted me to this and I went and saw her during the time when was symptomatic. She was able to direct her gaze toward voices in the room and attempted to raise her arms on command, but was not fully able to do so and was very jerky in her movements. She was not able to casino worker on command. After about 10 minutes, the episode resolved, but she continued to say that she felt generally weak. MEDICATIONS: Reviewed and include: 1. Aspirin 81 mg daily. 2. Coreg 3.125 mg twice daily. 3. Doxycycline 100 mg twice daily. 4. Heparin 5000 units q.8 hours. 5. Normal saline at 100 mL per hour. 6. She also received vancomycin this morning at approximately 8:25. PHYSICAL EXAM: Vital Signs: Temperature 98.5, blood pressure 130/68, heart rate 80, oxygen saturation 91% on room air. On my initial evaluation, the patient was sitting in bed with her eyes open and her mouth partially open. She was able to direct her gauze toward the examiner' s voice and towards her daughter's voice as well as the nurse, but was not able to follow commands to close her eyes, protrude her tongue, raise her arms or squeeze. She was given a 2-word phrase to remember, blue ball. When asked to raise her arms, she was able to do so partially, but had some jerky movements and was not able to sustain them. She otherwise had no abnormal movements noted aside from when she was asked to follow commands. Later when I evaluated her after she had come out of the spell, she was fully conversant and stated that she remembers me talking with her but could not remember the phrase she was given. She said she still felt weak and so, she could not casino worker, but when asked to raise her hands and casino worker my hand, she had a strong casino worker. There were no focal deficits noted. DIAGNOSTIC STUDIES/LAB DATA: No new laboratory data is available today aside from a vanco trough of 18.2. Her CSF culture has shown no growth. I reviewed the first portion of her EEG, which was hooked up after she had come out of the spell and it showed a normally-organized background with clearly defined anterior to posterior voltage and frequency gradients and a normal posterior dominant rhythm. There were no areas of focal slowing or epileptiform discharges noted. IMPRESSION AND PLAN: Natalia Cruz is a 57-year-old woman with a history of status epilepticus in March 2015 related to benzodiazepine withdrawal who came in with encephalopathy and seizures in the setting of fever. She did have abnormal CSF studies, but had recovered quite a bit as of yesterday in terms of her mental status to the point where a viral encephalitis or meningitis is considered quite unlikely. She is now having recurrent episodes of possible focal seizure activity, though her EEG immediately after the spell was very normal. I confirmed with her daughter today that she has never been known to have seizures outside of attempting to reduce or stop her Xanax. We are going to keep the EEG running at this point in hopes of capturing another one of these spells since she has had two this morning. Lorazepam was ordered, but not given since she spontaneously came out of the spell, but her nurse is aware to administer this should she go into another of these spells. Staff is also aware of the button at the bedside to be pushed if she should have another spell. [id number]/[facility] #: [id number] [facility]
--- NOTE | 2017-08-31 05:56 | PN ---
FOLLOWUP NOTE: DATE OF FOLLOWUP: 08/30/17. HISTORY: The patient experienced an additional event of staring and unresponsiveness at approximately 11:15 this morning. This was accompanied by electrographic seizure activity, which on very brief review, appeared to emanate from the left hemisphere primarily, but then spread diffusely with bursts of polyspike activity. During this time, she was not normally responsive. She was given a milligram of Ativan and within about 3-4 minutes after that the seizure activity terminated with the EEG is now notable for frequent independent discharges in the bilateral temporal regions. On very brief exam, Natalia is sedated after the Ativan. She is able to wake up briefly to answer questions and has no clear focal deficits. No new vital signs have been taken since the last progress note. IMPRESSION: A 57-year-old woman, who is now having intermittent recurrent seizures documented on EEG characterized by unresponsiveness rather characterized by altered responsiveness. This activity terminated after a milligram of Ativan, but she now has bilateral independent discharges evident in her temporal regions. We are going to load her with 20 mg/kg of fosphenytoin and check a level 1 hour after the load. The goal for the level is between 10 and 20, and we will supplement if she does not attain this. We will then start fosphenytoin IV 100 mg 3 times daily. She will be transferred to the ICU for closer monitoring and continuation of her EEG monitoring to evaluate for whether she could be having any subclinical seizures. In addition , given her abnormal CSF and these recurrent seizures, which seem to be out of the appropriate timeframe for benzodiazepine withdrawal seizures, we will start empiric acyclovir treatment until her PCRs come back negative for HSV and VZV. [id number]/[facility] #: [id number] [facility]
[2017-08-31] MEDS: NS 0.9% 1000 ML* 1,000 ML IV SCH (06:16)
[2017-08-31] MEDS: Mouth Piece, Nicotine* 1 EACH CARTRIDGE INH PRN (06:28)
[2017-08-31] MEDS: Heparin VIAL(*) 5000 UNITS/ML VIAL (FIVE THOUSAND) SUBCUT SCH ×3 (06:31→21:09)
[2017-08-31] MEDS: DOXYcycline CAP(*) 100 MG PO SCH ×2 (06:32→17:57)
--- NOTE | 2017-08-31 06:36 | PN ---
Subjective Date of Service: 08/31/17 Interval History: Last night, she had another staring spell after phosphenytoin load. She was given ativan which broke the spell and I have started her on a standing order of Ativan for seizure like activity. 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 Nurse reports no further seizure activity. She has been afebrile and is without any major complaints this am. She does note right shoulder pain and left knee pain (more chronic). Afebrile. VSS Objective Active Medications: Acetaminophen (Tylenol Tab*) 650 mg PO Q4H PRN PRN Reason: FEVER/PAIN Al Hydrox/Mg Hydrox/Simethicone (Maalox Plus*) 30 ml PO Q6H PRN PRN Reason: INDIGESTION Albuterol (Ventolin 2.5 Mg/3 Ml Neb.Christin*) 2.5 mg INH Q2H PRN PRN Reason: SOB/WHEEZING Aspirin (Aspirin Ec Tab*) 81 mg PO DAILY [facility] Last Admin: 08/30/17 08:26 Dose: 81 mg Carvedilol (Coreg Tab*) 3.125 mg PO BID [facility] Last Admin: 08/30/17 21:23 Dose: Not Given Device (Nicotine Mouth Piece*) 1 each INH .USE WITH NICOTROL PRN PRN Reason: CRAVING Last Admin: 08/29/17 14:01 Dose: 1 each Docusate Sodium (Colace Cap*) 100 mg PO BID PRN PRN Reason: CONSTIPATION Doxycycline Hyclate (Vibramycin Cap(*)) 100 mg PO Q12H [facility] Last Admin: 08/30/17 18:49 Dose: 100 mg Heparin Sodium (Porcine) (Heparin Vial(*)) 5,000 units SUBCUT Q8HR [facility] Last Admin: 08/30/17 22:08 Dose: 5,000 units Sodium Chloride (Ns 0.9% 1000 Ml*) 1,000 mls @ 100 mls/hr IV PER RATE [facility] Last Admin: 08/31/17 06:16 Dose: 100 mls/hr Lorazepam (Ativan Inj*) 1 mg IV PUSH Q8H PRN PRN Reason: SEIZURE ACTIVITY Morphine Sulfate (Morphine Vial*) 2 mg IV Q4H PRN PRN Reason: PAIN Last Admin: 08/28/17 23:26 Dose: 2 mg Nicotine (Nicotine Inhaler*) 10 mg INH Q2H PRN PRN Reason: CRAVING Last Admin: 08/29/17 14:00 Dose: 10 mg Ondansetron HCl (Zofran 40 Mg Vial*) 4 mg IV Q4H PRN PRN Reason: NAUSEA/VOMITING Phenytoin Sodium (Dilantin Cap(*)) 300 mg PO BEDTIME [facility] Senna (Senokot Tab*) 1 tab PO BID PRN PRN Reason: CONSTIPATION Vital Signs 08/30/17 08/30/17 08/30/17 07:32 08:00 11:31 Temperature 98.5 F Pulse Rate 80 Respiratory 22 18 15 Rate Blood Pressure 130/68 (mmHg) O2 Sat by Pulse 91 91 Oximetry 08/30/17 08/30/17 08/30/17 13:18 13:29 13:30 Temperature 99.6 F Pulse Rate 79 67 69 Respiratory 22 20 20 Rate Blood Pressure 108/76 103/72 103/72 (mmHg) O2 Sat by Pulse 93 96 96 Oximetry 08/30/17 08/30/17 08/30/17 13:32 13:45 14:00 Temperature Pulse Rate 70 67 Respiratory 26 15 25 Rate Blood Pressure 100/71 (mmHg) O2 Sat by Pulse 97 98 Oximetry 08/30/17 08/30/17 08/30/17 14:01 14:31 14:46 Temperature Pulse Rate 65 92 79 Respiratory 21 32 21 Rate Blood Pressure 108/72 110/75 93/66 (mmHg) O2 Sat by Pulse 99 91 95 Oximetry 08/30/17 08/30/17 08/30/17 15:00 15:01 15:15 Temperature Pulse Rate 71 80 78 Respiratory 25 21 22 Rate Blood Pressure 85/58 90/53 (mmHg) O2 Sat by Pulse 96 96 96 Oximetry 08/30/17 08/30/17 08/30/17 15:31 15:45 15:47 Temperature Pulse Rate 72 71 83 Respiratory 25 22 15 Rate Blood Pressure 78/51 75/54 80/52 (mmHg) O2 Sat by Pulse 95 95 96 Oximetry 08/30/17 08/30/17 08/30/17 16:00 16:02 16:15 Temperature 97.7 F Pulse Rate 72 68 66 Respiratory 18 21 23 Rate Blood Pressure 83/54 83/58 (mmHg) O2 Sat by Pulse 95 96 97 Oximetry 08/30/17 08/30/17 08/30/17 16:31 16:46 17:00 Temperature Pulse Rate 67 69 67 Respiratory 22 18 25 Rate Blood Pressure 90/61 82/62 (mmHg) O2 Sat by Pulse 97 95 95 Oximetry 08/30/17 08/30/17 08/30/17 17:01 17:31 17:42 Temperature Pulse Rate 66 71 65 Respiratory 25 21 20 Rate Blood Pressure 86/45 87/53 (mmHg) O2 Sat by Pulse 95 96 95 Oximetry 08/30/17 08/30/17 08/30/17 18:00 18:30 18:49 Temperature Pulse Rate 76 71 Respiratory 27 24 20 Rate Blood Pressure 85/59 (mmHg) O2 Sat by Pulse 89 89 Oximetry 08/30/17 08/30/17 08/30/17 19:00 19:01 19:15 Temperature 99.3 F Pulse Rate 70 72 Respiratory 25 24 Rate Blood Pressure 84/48 (mmHg) O2 Sat by Pulse 91 90 Oximetry 08/30/17 08/30/17 08/30/17 19:30 20:00 20:30 Temperature Pulse Rate 71 67 67 Respiratory 22 23 24 Rate Blood Pressure 83/63 93/65 99/69 (mmHg) O2 Sat by Pulse 95 95 95 Oximetry 08/30/17 08/30/17 08/30/17 21:00 21:30 21:59 Temperature Pulse Rate 69 69 Respiratory 24 23 22 Rate Blood Pressure 89/65 95/68 (mmHg) O2 Sat by Pulse 94 94 Oximetry 08/30/17 08/30/17 08/30/17 22:00 22:31 23:00 Temperature Pulse Rate 75 70 68 Respiratory 24 18 17 Rate Blood Pressure 94/65 115/73 (mmHg) O2 Sat by Pulse 91 97 95 Oximetry 08/30/17 08/30/17 08/30/17 23:01 23:29 23:30 Temperature 98.4 F Pulse Rate 68 67 Respiratory 19 21 Rate Blood Pressure 93/54 83/63 (mmHg) O2 Sat by Pulse 95 96 Oximetry 08/31/17 08/31/17 08/31/17 00:00 00:10 00:31 Temperature Pulse Rate 73 69 69 Respiratory 23 19 17 Rate Blood Pressure 100/65 104/65 (mmHg) O2 Sat by Pulse 96 95 95 Oximetry 08/31/17 08/31/17 08/31/17 01:00 01:01 01:30 Temperature Pulse Rate 67 67 68 Respiratory 23 24 22 Rate Blood Pressure 96/54 97/70 (mmHg) O2 Sat by Pulse 95 94 96 Oximetry 08/31/17 08/31/17 08/31/17 02:00 02:30 03:00 Temperature Pulse Rate 71 67 95 Respiratory 25 26 16 Rate Blood Pressure 94/69 89/69 (mmHg) O2 Sat by Pulse 90 97 96 Oximetry 08/31/17 08/31/17 08/31/17 03:03 03:30 03:47 Temperature 97.2 F Pulse Rate 74 66 Respiratory 27 21 Rate Blood Pressure 91/73 98/76 (mmHg) O2 Sat by Pulse 93 93 Oximetry 08/31/17 08/31/17 08/31/17 04:00 04:30 04:56 Temperature Pulse Rate 67 70 Respiratory 21 20 20 Rate Blood Pressure 99/64 90/63 (mmHg) O2 Sat by Pulse 96 96 Oximetry 08/31/17 08/31/17 08/31/17 05:00 05:30 06:00 Temperature Pulse Rate 65 68 71 Respiratory 21 18 20 Rate Blood Pressure 87/62 102/68 89/61 (mmHg) O2 Sat by Pulse 96 96 92 Oximetry Oxygen Devices in Use Now: Nasal Cannula Neurology Exam: General: HEENT: Normocephelic/atraumatic, sclera anicteric, mucous membranes moist. Poor dentition. Disheveled Neck: Supple, No brutis Chest: Clear to auscultation bilaterally Cardiovascular: Regular rate and rhythm without murmurs, rubs, gallops Abdomen: Soft, nontender/nondistended Extremities: No clubbing, cyanosis, or edema. Prior surgery Left knee with pain. Some pain with rotation of the RUE Neurological Findings: Awake, Alert, Oriented x3 Speech: fluent without dysarthria, repetition intact, recall generally intact but does not remember events Cranial Nerve: PEERL, EOM intact, VFF, no nystagmus, face symmetric bilaterally , facial sensation intact, hearing intact to finger rub bilaterally, palate elevates symmetrically, tongue midline Motor: Antigravity with good effort, limited exam RUE due to shoulder pain. Generally 5/5 throughout otherwise with normal tone Sensation: intact to LT/PP bilaterally upper and lower extremities Deep Tendon Reflex: 1+ symmetric in the upper/lower extremities, Babinski - equivocal Finger to nose, rapid alternating movements intact without tremor, no dysdiadochokinesia Result Diagrams: 08/29/17 05:22 08/29/17 05:22 Additional Lab and Data: Lab Results 08/28/17 Range/Units 04:45 ABG pH 7.44 (7.35-7.45) ABG pCO2 38 (35-45) mmHg ABG pO2 64 L (80-100) mmHg ABG HCO3 25.9 (19-31) mmol/L ABG O2 Saturation 95.5 (95-98) % ABG Base Excess 1.7 (-2.0-2.0) Dilantin level: 24.3 Microbiology and Other Data: Microbiology 08/28/17 08:40 Nasal Screen MRSA (PCR)([facility]) - Final Nasal Mrsa Not Detected VZV and HSV negative CSF cultures negative Assessment/Plan 57 year old with a history of substance abuse, prior status earlier this year after abrupt BZD stopped. She has a history of alcoholic cirrhosis as well. Admitted with seizure like activity, fever, CSF with pleocytosis, initially thought to be infective but more likely reactive. Her CSF studies have otherwise been ok. Yesterday, a seizure was observed on continuous EEG, as well as bi-temporal spikes, she was loaded on phosphenytoin and started on maintenance with a level of 24. She had one further episode last night as shift change and was given Ativan which I changed to standing order prn seizure like activity. Overnight, she has had no further events: Plan: 1. Seizures --VZV and HSV negative: will d/c Acyclovir --Continued seizure activity of unknown origin: Unlikely due to encephalitis. Possible related to another attempted BZD withdraw. --Continue Dilantin as O/P. Will switch to PO today --Check level in am --If stable today, we can schedule o/p MRI with close neuro follow. --Given history of BZD abuse, I do not think she should go home on these. Monitor for response to Dilantin 2. NSTEMI: Medicine following. Blood pressures remain soft 3. PNA: On Doxycycline. Appears to be stable. 4. Depression: stable 5. History of polysubstance and BZD abuse: Will need outpatient follow. Avoid BZD at time of d/c
--- NOTE | 2017-08-31 07:45 | PN ---
Subjective Date of Service: 08/31/17 Interval History: Cough improved but still some yellow sputum. She denies SOB. Fair appetite. Anxious to go home. No pain, no bowel c/o. Objective Active Medications: Acetaminophen (Tylenol Tab*) 650 mg PO Q4H PRN PRN Reason: FEVER/PAIN Al Hydrox/Mg Hydrox/Simethicone (Maalox Plus*) 30 ml PO Q6H PRN PRN Reason: INDIGESTION Albuterol (Ventolin 2.5 Mg/3 Ml Neb.Christin*) 2.5 mg INH Q2H PRN PRN Reason: SOB/WHEEZING Aspirin (Aspirin Ec Tab*) 81 mg PO DAILY [facility] Last Admin: 08/30/17 08:26 Dose: 81 mg Carvedilol (Coreg Tab*) 3.125 mg PO BID [facility] Last Admin: 08/30/17 21:23 Dose: Not Given Device (Nicotine Mouth Piece*) 1 each INH .USE WITH NICOTROL PRN PRN Reason: CRAVING Last Admin: 08/31/17 06:28 Dose: 1 each Docusate Sodium (Colace Cap*) 100 mg PO BID PRN PRN Reason: CONSTIPATION Doxycycline Hyclate (Vibramycin Cap(*)) 100 mg PO Q12H [facility] Last Admin: 08/31/17 06:32 Dose: 100 mg Heparin Sodium (Porcine) (Heparin Vial(*)) 5,000 units SUBCUT Q8HR [facility] Last Admin: 08/31/17 06:31 Dose: 5,000 units Lactulose (Lactulose*) 15 ml PO BID [facility] Lorazepam (Ativan Inj*) 1 mg IV PUSH Q8H PRN PRN Reason: SEIZURE ACTIVITY Morphine Sulfate (Morphine Vial*) 2 mg IV Q4H PRN PRN Reason: PAIN Last Admin: 08/28/17 23:26 Dose: 2 mg Nicotine (Nicotine Inhaler*) 10 mg INH Q2H PRN PRN Reason: CRAVING Last Admin: 08/29/17 14:00 Dose: 10 mg Ondansetron HCl (Zofran 40 Mg Vial*) 4 mg IV Q4H PRN PRN Reason: NAUSEA/VOMITING Phenytoin Sodium (Dilantin Cap(*)) 300 mg PO BEDTIME [facility] Vital Signs - 8 hr 08/31/17 08/31/17 08/31/17 00:00 00:10 00:31 Temperature Pulse Rate 73 69 69 Respiratory 23 19 17 Rate Blood Pressure 100/65 104/65 (mmHg) O2 Sat by Pulse 96 95 95 Oximetry 08/31/17 08/31/17 08/31/17 01:00 01:01 01:30 Temperature Pulse Rate 67 67 68 Respiratory 23 24 22 Rate Blood Pressure 96/54 97/70 (mmHg) O2 Sat by Pulse 95 94 96 Oximetry 08/31/17 08/31/17 08/31/17 02:00 02:30 03:00 Temperature Pulse Rate 71 67 95 Respiratory 25 26 16 Rate Blood Pressure 94/69 89/69 (mmHg) O2 Sat by Pulse 90 97 96 Oximetry 08/31/17 08/31/17 08/31/17 03:03 03:30 03:47 Temperature 97.2 F Pulse Rate 74 66 Respiratory 27 21 Rate Blood Pressure 91/73 98/76 (mmHg) O2 Sat by Pulse 93 93 Oximetry 08/31/17 08/31/17 08/31/17 04:00 04:30 04:56 Temperature Pulse Rate 67 70 Respiratory 21 20 20 Rate Blood Pressure 99/64 90/63 (mmHg) O2 Sat by Pulse 96 96 Oximetry 08/31/17 08/31/17 08/31/17 05:00 05:30 06:00 Temperature Pulse Rate 65 68 71 Respiratory 21 18 20 Rate Blood Pressure 87/62 102/68 89/61 (mmHg) O2 Sat by Pulse 96 96 92 Oximetry Oxygen Devices in Use Now: Nasal Cannula Appearance: Alert, partly up on ICU bed. Somewhat irritable, depressed, otherwise looks comfortable. Eyes: No Scleral Icterus Respiratory: Symmetrical Chest Expansion and Respiratory Effort, Clear to Percussion, - - mild rhonchi BL Cardiovascular: NL Sounds; No Murmurs; No JVD, RRR, No Edema, - Extremities: No Edema, No Clubbing, Cyanosis, - Skin: No Rash or Ulcers, No Nodules or Sclerosis, - Neurological: Alert and Oriented x 3, NL Sensation - No tremor. Result Diagrams: 08/29/17 05:22 08/29/17 05:22 Additional Lab and Data: Lab Results 08/28/17 Range/Units 04:45 ABG pH 7.44 (7.35-7.45) ABG pCO2 38 (35-45) mmHg ABG pO2 64 L (80-100) mmHg ABG HCO3 25.9 (19-31) mmol/L ABG O2 Saturation 95.5 (95-98) % ABG Base Excess 1.7 (-2.0-2.0) Dilantin level: 24.3 Microbiology and Other Data: Microbiology 08/28/17 08:40 Nasal Screen MRSA (PCR)([facility]) - Final Nasal Mrsa Not Detected VZV and HSV negative CSF cultures negative Assess/Plan/Problems-Billing 57 year old with a history of substance abuse, prior status earlier this year after abrupt BZD stopped. She has a history of alcoholic cirrhosis as well. Admitted with seizure like activity, fever, CSF with pleocytosis, initially thought to be infective but more likely reactive. Her CSF studies have otherwise been ok. Yesterday, a seizure was observed on continuous EEG, as well as bi-temporal spikes, she was loaded on phosphenytoin and started on maintenance with a level of 24. She had one further episode last night as shift change and was given Ativan which I changed to standing order prn seizure like activity. Overnight, she has had no further events: Plan: 1. Seizures --VZV and HSV negative: will d/c Acyclovir --Continued seizure activity of unknown origin: Unlikely due to encephalitis. Possible related to another attempted BZD withdraw. --Continue Dilantin as O/P. Will switch to PO today --Check level in am --If stable today, we can schedule o/p MRI with close neuro follow. --Given history of BZD abuse, I do not think she should go home on these. Monitor for response to Dilantin 2. NSTEMI: Medicine following. Blood pressures remain soft 3. PNA: On Doxycycline. Appears to be stable. 4. Depression: stable 5. History of polysubstance and BZD abuse: Will need outpatient follow. Avoid BZD at time of d/c - Patient Problems (1) Seizure Current Visit: Yes Status: Acute Code(s): R56.9 - UNSPECIFIED CONVULSIONS SNOMED Code(s): 69969880 Comment: Likely benzodiazepine withdrawal. Seizure documented on EEG. Fosphenytoin given total 1500 mg IV 08/30 through 08/31 04:55 hrs. Phenytoin level 24.3 after initial 1300 mg load. Repeat level 08/31 1500 hrs. I will discuss with Dr. Khan. (2) Alcohol abuse Current Visit: Yes Status: Acute Code(s): F10.10 - ALCOHOL ABUSE, UNCOMPLICATED SNOMED Code(s): 91537515 Comment: Pt reports no EtOH use for several years. She has a h/o alcoholic cirrhosis and is on lactulose at home but unclear how frequently she was using that medication. Start lactulose 15 ml bid 08/31 AM. Note NH4+ level 62 on 08/28. (3) NSTEMI (non-ST elevated myocardial infarction) Current Visit: Yes Status: Acute Code(s): I21.4 - NON-ST ELEVATION (NSTEMI) MYOCARDIAL INFARCTION SNOMED Code(s): 202969887 Comment: The patient's trop peaked at 2.4. Continue ASA and carvdilol. Echo 08/28 showed LVEF 35-40%. AWMI uncertain age. Dr. Campbell recommended against statin or heparin. Eventually will need either stress test or cath. (4) Tobacco abuse Current Visit: Yes Status: Acute Code(s): Z72.0 - TOBACCO USE SNOMED Code( s): 769339727 Comment: Continue PRN nicotine inhaler. (5) COPD (chronic obstructive pulmonary disease) Current Visit: Yes Status: Acute Code(s): J44.9 - CHRONIC OBSTRUCTIVE PULMONARY DISEASE, UNSPECIFIED SNOMED Code(s): 08445512 Comment: Patient does not want inhaled pulm meds.
[2017-08-31] MEDS: Aspirin EC TAB* 81 MG TAB.EC PO SCH (09:00)
[2017-08-31] MEDS: Lactulose* 15 ML UDC PO SCH ×2 (09:01→20:56)
[2017-08-31] MEDS: Carvedilol TAB* 3.125 MG PO SCH ×2 (09:01→20:56)
[2017-08-31 16:46] LABS: ABS Basophils 0 10^3/ul (0-0.2); ABS Eosinophils 0.1 10^3/ul (0-0.6); ABS Lymphocytes 1.4 10^3/ul (1.0-4.8); ABS Monocytes 0.4 10^3/ul (0-0.8); ABS Nucleated RBC 0 10^3/ul; Eosinophil % 1.7 % (0-6); Hematocrit 47 % (35-47); Hemoglobin 16.4 g/dl (12.0-16.0); Lymphocyte % 23.7 % (25-47); Mean Corpuscular HGB Conc 35 g/dl (31-36); Mean Corpuscular Hemoglobin 32 pg (27-31); Mean Corpuscular Volume 93 fL (80-97); Mean Platelet Volume 8.8 um3 (7.4-10.4); Nucleated Red Blood Cells % 0.1; Platelet Count 67 10^3/ul (150-450); Red Cell Distribution Width 15 % (10.5-15); White Blood Count 5.9 10^3/ul (3.5-10.8)
[2017-08-31 16:48] LABS: EGFR Non-African American 112.4 (>60)
[2017-08-31] MEDS: Potassium Chlor TAB* 20 MEQ TAB.ER PO SCH (17:57)
[2017-08-31] MEDS: Phenytoin CAP(*) 100 MG CAP.ER PO SCH (21:09)
[2017-09-01] MEDS: Heparin VIAL(*) 5000 UNITS/ML VIAL (FIVE THOUSAND) SUBCUT SCH ×3 (05:49→21:59)
[2017-09-01] MEDS: DOXYcycline CAP(*) 100 MG PO SCH ×2 (05:49→17:31)
[2017-09-01] MEDS: Nicotine Inhaler* 10 MG AMP INH PRN (05:54)
[2017-09-01] MEDS: Mouth Piece, Nicotine* 1 EACH CARTRIDGE INH PRN (05:54)
--- NOTE | 2017-09-01 07:10 | PN ---
Subjective Date of Service: 09/01/17 Interval History: Overnight stable but nurse reports several episodes on day shift. When I asked her about them, she states she "spaces out" at times. No GTC activity reported. Her dilantin is therapeutic this am. Tolerating medication. No ativan given overnight. The daughter called yesterday concerned that the patient was not making sense on the phone. Episode of incontinence with liquid stool. No reported seizure activity at the time. She has been ambulating to the bedside toilet. Objective Active Medications: Acetaminophen (Tylenol Tab*) 650 mg PO Q4H PRN PRN Reason: FEVER/PAIN Al Hydrox/Mg Hydrox/Simethicone (Maalox Plus*) 30 ml PO Q6H PRN PRN Reason: INDIGESTION Albuterol (Ventolin 2.5 Mg/3 Ml Neb.Christin*) 2.5 mg INH Q2H PRN PRN Reason: SOB/WHEEZING Aspirin (Aspirin Ec Tab*) 81 mg PO DAILY [facility] Last Admin: 08/31/17 09:00 Dose: 81 mg Carvedilol (Coreg Tab*) 3.125 mg PO BID [facility] Last Admin: 08/31/17 20:56 Dose: Not Given Device (Nicotine Mouth Piece*) 1 each INH .USE WITH NICOTROL PRN PRN Reason: CRAVING Last Admin: 09/01/17 05:54 Dose: 1 each Docusate Sodium (Colace Cap*) 100 mg PO BID PRN PRN Reason: CONSTIPATION Doxycycline Hyclate (Vibramycin Cap(*)) 100 mg PO Q12H [facility] Last Admin: 09/01/17 05:49 Dose: 100 mg Heparin Sodium (Porcine) (Heparin Vial(*)) 5,000 units SUBCUT Q8HR [facility] Last Admin: 09/01/17 05:49 Dose: 5,000 units Lactulose (Lactulose*) 15 ml PO BID [facility] Last Admin: 08/31/17 20:56 Dose: Not Given Lorazepam (Ativan Inj*) 1 mg IV PUSH Q8H PRN PRN Reason: SEIZURE ACTIVITY Morphine Sulfate (Morphine Vial*) 2 mg IV Q4H PRN PRN Reason: PAIN Last Admin: 08/28/17 23:26 Dose: 2 mg Nicotine (Nicotine Inhaler*) 10 mg INH Q2H PRN PRN Reason: CRAVING Last Admin: 09/01/17 05:54 Dose: 10 mg Ondansetron HCl (Zofran 40 Mg Vial*) 4 mg IV Q4H PRN PRN Reason: NAUSEA/VOMITING Phenytoin Sodium (Dilantin Cap(*)) 300 mg PO BEDTIME [facility] Last Admin: 08/31/17 21:09 Dose: 300 mg Potassium Chloride (Klor Con Er Tab*) 20 meq PO DAILY [facility] Last Admin: 08/31/17 17:57 Dose: 20 meq Vital Signs 08/31/17 08/31/17 08/31/17 07:00 07:31 07:43 Temperature Pulse Rate 71 91 Respiratory 23 24 24 Rate Blood Pressure 99/61 84/75 (mmHg) O2 Sat by Pulse 100 100 100 Oximetry 08/31/17 08/31/17 08/31/17 08:00 08:30 09:00 Temperature 100.3 F Pulse Rate 65 73 Respiratory 16 28 Rate Blood Pressure 97/62 107/79 (mmHg) O2 Sat by Pulse 100 93 Oximetry 08/31/17 08/31/17 08/31/17 09:01 10:00 10:01 Temperature Pulse Rate 81 77 71 Respiratory 17 23 18 Rate Blood Pressure 101/64 96/66 (mmHg) O2 Sat by Pulse 94 94 94 Oximetry 08/31/17 08/31/17 08/31/17 11:00 11:01 11:34 Temperature Pulse Rate 67 68 Respiratory 22 14 14 Rate Blood Pressure 104/75 (mmHg) O2 Sat by Pulse 97 95 Oximetry 08/31/17 08/31/17 08/31/17 12:00 13:00 14:00 Temperature 98.7 F Pulse Rate 67 75 Respiratory 22 22 22 Rate Blood Pressure 110/73 94/72 (mmHg) O2 Sat by Pulse 96 97 Oximetry 08/31/17 08/31/17 08/31/17 15:00 16:00 17:00 Temperature 98.7 F Pulse Rate 76 Respiratory 28 19 23 Rate Blood Pressure 85/64 100/62 (mmHg) O2 Sat by Pulse 93 Oximetry 08/31/17 08/31/17 08/31/17 17:08 17:09 18:00 Temperature Pulse Rate 73 77 73 Respiratory 21 23 18 Rate Blood Pressure 106/76 (mmHg) O2 Sat by Pulse 95 93 95 Oximetry 08/31/17 08/31/17 08/31/17 18:01 19:00 19:25 Temperature 98.4 F Pulse Rate 73 82 Respiratory 16 21 Rate Blood Pressure 95/64 (mmHg) O2 Sat by Pulse 95 93 Oximetry 08/31/17 08/31/17 08/31/17 20:00 20:05 21:00 Temperature Pulse Rate 76 73 74 Respiratory 23 22 24 Rate Blood Pressure 87/59 (mmHg) O2 Sat by Pulse 94 92 98 Oximetry 08/31/17 08/31/17 08/31/17 21:01 21:52 22:00 Temperature Pulse Rate 75 73 Respiratory 20 24 23 Rate Blood Pressure 79/44 (mmHg) O2 Sat by Pulse 94 98 Oximetry 08/31/17 08/31/17 08/31/17 22:01 22:03 22:06 Temperature Pulse Rate 78 75 69 Respiratory 17 25 16 Rate Blood Pressure 63/31 75/35 90/61 (mmHg) O2 Sat by Pulse 98 99 97 Oximetry 08/31/17 09/01/17 09/01/17 23:00 00:00 00:05 Temperature 97.8 F Pulse Rate 67 65 69 Respiratory 27 23 27 Rate Blood Pressure 93/59 101/64 (mmHg) O2 Sat by Pulse 93 95 94 Oximetry 09/01/17 09/01/17 09/01/17 01:00 02:00 03:00 Temperature Pulse Rate 65 71 63 Respiratory 23 24 24 Rate Blood Pressure 89/59 102/68 93/60 (mmHg) O2 Sat by Pulse 94 94 97 Oximetry 09/01/17 09/01/17 09/01/17 03:17 03:24 04:00 Temperature 97.4 F Pulse Rate 67 69 Respiratory 20 18 Rate Blood Pressure (mmHg) O2 Sat by Pulse 94 98 Oximetry 09/01/17 09/01/17 09/01/17 05:00 05:01 05:52 Temperature Pulse Rate 67 73 Respiratory 10 12 19 Rate Blood Pressure 94/59 (mmHg) O2 Sat by Pulse 96 97 Oximetry 09/01/17 06:00 Temperature Pulse Rate 70 Respiratory 19 Rate Blood Pressure 101/69 (mmHg) O2 Sat by Pulse 96 Oximetry Oxygen Devices in Use Now: Nasal Cannula Neurology Exam: General: HEENT: Normocephalic/atraumatic, sclera anicteric, mucous membranes moist Neck: Supple Chest: Clear to auscultation bilaterally Cardiovascular: Regular rate and rhythm without murmurs, rubs, gallops Abdomen: Soft, nontender/nondistended Extremities: No clubbing, cyanosis, or edema Neurological Findings: Awake, Alert, Oriented x3 Speech: fluent without dysarthria, repetition intact. Following all commands. Pleasant but slightly anxious this am Cranial Nerve: PEERL, EOM intact, VFF, no nystagmus, face symmetric bilaterally , facial sensation intact, hearing intact to finger rub bilaterally, palate elevates symmetrically, tongue midline Motor: Good resistance throughout with normal tone. Has some pain in the left knee limiting exam of that extremity Sensation: intact to LT/PP bilaterally upper and lower extremities Deep Tendon Reflex: 1+ symmetric in the upper/lower extremities, symmetric, equivocal Babinski Finger to nose, rapid alternating movements intact without tremor Result Diagrams: 08/31/17 15:19 08/31/17 15:19 Additional Lab and Data: Lab Results 08/28/17 Range/Units 04:45 ABG pH 7.44 (7.35-7.45) ABG pCO2 38 (35-45) mmHg ABG pO2 64 L (80-100) mmHg ABG HCO3 25.9 (19-31) mmol/L ABG O2 Saturation 95.5 (95-98) % ABG Base Excess 1.7 (-2.0-2.0) Dilantin level: 24.3 Microbiology and Other Data: Microbiology 08/28/17 08:40 Nasal Screen MRSA (PCR)([facility]) - Final Nasal Mrsa Not Detected VZV and HSV negative CSF cultures negative Assessment/Plan 57 year old with a history of substance abuse, prior status earlier this year after abrupt BZD stopped. She has a history of alcoholic cirrhosis as well. Admitted with seizure like activity, fever, CSF with pleocytosis, initially thought to be infective but more likely reactive. Her CSF studies have otherwise been ok now off Acyclovir after HSV/VZV negative, culture negative. 2 days ago, a seizure was observed on continuous EEG, as well as bi-temporal spikes, she was loaded on phosphenytoin and started on maintenance with a level of 24. She is now therapeutic but has had several suspicious episodes yesterday and notes occasional "spacing out" spells. She is anxious to go home but is reasonable about the timing. Plan: 1. Seizures: CPS with history of GTC as well. --VZV and HSV negative: now off Acyclovir --Prior history of seizures likely secondary to BZD w/d. My suspicion that these are W/D remains low but is certainly possible --Dilantin level therapeutic. Continue 300mg qhs --Plan for MRI tomorrow with contrast --She has Ativan for sustained seizure activity in ICU but no BZD on d/c due to history of abuse 2. NSTEMI: Medicine following. Stable. Watching BPs 3. PNA: On Doxycycline. Stable 4. Depression: stable 5. History of polysubstance and BZD abuse: Will need outpatient follow. At this point, she may be having some continued seizure activity, the semiology is unclear. I would like to monitor her one more day in ICU for further activity. If she continues to have these, consider another EEG tomorrow. We will go ahead and schedule for MRI as well since she will be here. She does have family at home that will be monitoring her. We discussed seizure precautions including: no driving, no baths, only showers, no swimming, no heights and no open flames/campfires. She verbalized understanding.
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
[2017-09-01] MEDS: Carvedilol TAB* 3.125 MG PO SCH ×2 (09:06→21:58)
[2017-09-01] MEDS: Aspirin EC TAB* 81 MG TAB.EC PO SCH (09:07)
[2017-09-01] MEDS: Potassium Chlor TAB* 20 MEQ TAB.ER PO SCH (09:07)
[2017-09-01] MEDS: Lactulose* 15 ML UDC PO SCH ×3 (09:07→22:01)
[2017-09-01] MEDS: Phenytoin CAP(*) 100 MG CAP.ER PO SCH (21:58)
[2017-09-02] MEDS: DOXYcycline CAP(*) 100 MG PO SCH (05:49)
[2017-09-02] MEDS: Heparin VIAL(*) 5000 UNITS/ML VIAL (FIVE THOUSAND) SUBCUT SCH ×3 (05:52→22:04)
[2017-09-02] MEDS: Mouth Piece, Nicotine* 1 EACH CARTRIDGE INH PRN ×2 (05:55→12:19)
[2017-09-02] MEDS: Nicotine Inhaler* 10 MG AMP INH PRN ×2 (05:56→12:19)
[2017-09-02 06:17] LABS: EGFR Non-African American 125.2 (>60)
[2017-09-02] MEDS ORDERED: LORazepam INJ* 2 MG/ML 1 ML VIAL IV PUSH PRN (08:56)
[2017-09-02] MEDS: Lactulose* 15 ML UDC PO SCH ×2 (09:30→23:05)
[2017-09-02] MEDS: Potassium Chlor TAB* 20 MEQ TAB.ER PO SCH (09:30)
[2017-09-02] MEDS: Aspirin EC TAB* 81 MG TAB.EC PO SCH (09:31)
[2017-09-02] MEDS: Carvedilol TAB* 3.125 MG PO SCH ×2 (09:31→22:08)
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
[2017-09-02] MEDS: Ondansetron 40 MG VIAL* 2 MG/ML 20 ML VIAL IV PRN (11:58)
[2017-09-02] MEDS: ZONISAMIDE 50 MG PO SCH (12:55)
[2017-09-02] MEDS ORDERED: Gadoteridol* (CONTRAST) 279.3 MG/ML 10 ML IV ONE (13:34)
[2017-09-02] MEDS ORDERED: Haloperidol INJ IV/IM* 5 MG/ML AMP IM PRN (14:04)
--- NOTE | 2017-09-02 14:43 | PN ---
Subjective Date of Service: 09/02/17 Interval History: Pt seen and examined. Meds and labs reviewed. Been called earlier in the AM by RN given pt wants to leave AMA. On visit, found daughter at bedside who mentions that her mother needs psychiatric help for her medication non- compliance that she feels maybe due to some form of psychiatric d/o. She did have previous history of depression and anxiety that needed hospitalization in the past. She requests a psych consult prior to any disposition plan. Pt was convinced not to sign out AMA. ROS: Denied BARROW/dizziness, F/C, N/V, CP, SOB, increased cough, sputum production , abd pain, diarrhea, constipation, dysuria, myalgias, arthralgias, throat pain , and new skin lesions. The rest of the 14 point ROS are unremarkable. PHYSICAL EXAM: GEN APPEARANCE: Awake, not in acute distress HEENT: NC/AT, PERRLA, moist oral mucosa, (-) throat erythema NECK: Soft, supple, (-) cervical LAD, (-)JVD HEART: S1S2 WNL, RRR, No MRG CHEST: CTA, BL, GAE, No W/R/R ABD: Soft, ND/NT, NABS 4x Q EXT: No C/C/E SKIN: Warm to touch PSYCH: Pt very anxious about MRI giving her cancer; pt reassured as to risks and benefits Objective Active Medications: Acetaminophen (Tylenol Tab*) 650 mg PO Q4H PRN PRN Reason: FEVER/PAIN Al Hydrox/Mg Hydrox/Simethicone (Maalox Plus*) 30 ml PO Q6H PRN PRN Reason: INDIGESTION Albuterol (Ventolin 2.5 Mg/3 Ml Neb.Christin*) 2.5 mg INH Q2H PRN PRN Reason: SOB/WHEEZING Aspirin (Aspirin Ec Tab*) 81 mg PO DAILY [facility] Last Admin: 09/02/17 09:31 Dose: 81 mg Carvedilol (Coreg Tab*) 3.125 mg PO BID SASKIA Last Admin: 09/02/17 09:31 Dose: 3.125 mg Device (Nicotine Mouth Piece*) 1 each INH .USE WITH NICOTROL PRN PRN Reason: CRAVING Last Admin: 09/02/17 12:19 Dose: 1 each Docusate Sodium (Colace Cap*) 100 mg PO BID PRN PRN Reason: CONSTIPATION Haloperidol Lactate (Haldol Inj Iv/Im*) 2.5 mg IM ONCE PRN PRN Reason: AGITATION Heparin Sodium (Porcine) (Heparin Vial(*)) 5,000 units SUBCUT Q8HR [facility] Last Admin: 09/02/17 14:13 Dose: 5,000 units Lactulose (Lactulose*) 15 ml PO BID [facility] Last Admin: 09/02/17 09:30 Dose: 15 ml Lorazepam (Ativan Inj*) 1 mg IV PUSH Q8H PRN PRN Reason: SEIZURE ACTIVITY Lorazepam (Ativan Inj*) 1 mg IV PUSH ONCE PRN PRN Reason: ANXIETY Last Admin: 09/02/17 14:11 Dose: 1 mg Morphine Sulfate (Morphine Vial*) 2 mg IV Q4H PRN PRN Reason: PAIN Last Admin: 08/28/17 23:26 Dose: 2 mg Nicotine (Nicotine Inhaler*) 10 mg INH Q2H PRN PRN Reason: CRAVING Last Admin: 09/02/17 12:19 Dose: 10 mg Ondansetron HCl (Zofran 40 Mg Vial*) 4 mg IV Q4H PRN PRN Reason: NAUSEA/VOMITING Last Admin: 09/02/17 11:58 Dose: 4 mg Phenytoin Sodium (Dilantin Cap(*)) 300 mg PO BEDTIME [facility] Last Admin: 09/01/17 21:58 Dose: 300 mg Potassium Chloride (Klor Con Er Tab*) 20 meq PO DAILY [facility] Last Admin: 09/02/17 09:30 Dose: 20 meq Rifaximin (Xifaxan*) 550 mg PO BID [facility] Zonisamide (Zonegran (Nf)) 100 mg PO DAILY [facility] Last Admin: 09/02/17 12:55 Dose: Not Given Vital Signs - 8 hr 09/02/17 09/02/17 09/02/17 07:00 07:01 08:00 Temperature 99.6 F Pulse Rate 76 67 88 Respiratory 18 20 16 Rate Blood Pressure 131/81 (mmHg) O2 Sat by Pulse 98 96 91 Oximetry 09/02/17 09/02/17 09/02/17 08:49 09:00 10:00 Temperature Pulse Rate 80 82 69 Respiratory 19 26 20 Rate Blood Pressure 104/64 102/94 (mmHg) O2 Sat by Pulse 93 96 94 Oximetry 0609/02/17 09/02/17 11:00 12:00 13:00 Temperature 98.5 F Pulse Rate 71 72 75 Respiratory 22 14 21 Rate Blood Pressure 93/66 104/67 100/76 (mmHg) O2 Sat by Pulse 96 95 95 Oximetry 09/02/17 14:11 Temperature Pulse Rate Respiratory 22 Rate Blood Pressure (mmHg) O2 Sat by Pulse Oximetry Oxygen Devices in Use Now: None, Nasal Cannula Result Diagrams: 08/31/17 15:19 09/02/17 05:40 Additional Lab and Data: Lab Results 08/28/17 Range/Units 04:45 ABG pH 7.44 (7.35-7.45) ABG pCO2 38 (35-45) mmHg ABG pO2 64 L (80-100) mmHg ABG HCO3 25.9 (19-31) mmol/L ABG O2 Saturation 95.5 (95-98) % ABG Base Excess 1.7 (-2.0-2.0) Dilantin level: 16 Microbiology and Other Data: Microbiology 08/28/17 08:40 Nasal Screen MRSA (PCR)(GLORIA) - Final Nasal Mrsa Not Detected VZV and HSV negative CSF cultures negative Diagnostic Imaging: No new imaging. Pending MRI brain study Assess/Plan/Problems-Billing Ms. Natalia Cruz is a 57-year-old female with a history of depression, anxiety, and polysubstance abuse who had status epilepticus related to benzodiazepine withdrawal in 2016 who presented on August 28, 2017 with recurrent seizure likel activity. The patient was found to have electrographic seizures correlating with the clinical symptoms of staring and unresponsive spells lasting from 4-15 minutes. She had a CSF analysis that revealed pleocytosis that was thought to be related to reactivity from her seizures. Her neurological examination has improved the last few days especially since starting phenytoin on 08/31/2017. the phenytoin level is within therapeutic range. The patient continues to have less seizure episodes but she did have an event this morning lasting for about 4 minutes. She is being treated for pneumonia and NSTEMI. - Patient Problems (1) Seizure Current Visit: Yes Status: Acute Code(s): R56.9 - UNSPECIFIED CONVULSIONS SNOMED Code(s): 88691561 Comment: -Recurrent -May have been triggered by BZD non-compliance due to possible uncontrolled psychiatric issues such as anxiety and known depression? -Appreciate Dr. Jones F/U; pt started on Zonisamide 100 mg daily today, which can be increased to 200 mg if she still has seizures; Continue Phenytoin -Continue Lorazepam q8H -Left a message in Dr. Faith voicemail and informed physician office secretary of consult elsa await any future recommendations (2) Anxiety disorder, unspecified Current Visit: No Status: Acute Priority: High Onset Date: 10/03/14 Code (s): F41.9 - ANXIETY DISORDER, UNSPECIFIED SNOMED Code(s): 587235682 Comment: -Please see above discussion -Psych eval pending -Will give extra PRN Ativan and 2.5 mgPRN x1 of Haldol prior to planned MRI of head today (3) Cirrhosis Current Visit: Yes Status: Acute Comment: -Will order INR and CMP in AM to calculate for MELD score -Although with mildly elevated ammonia level, subsequent repeat was normal and pt has no asterixis consistent with hepatic encephalopathy at this time -Continue to encourage PO lactulose -Will add Xifaxan given non-compliance with lactulose -Likely cause of thrombocytopenia (4) Alcohol abuse Current Visit: Yes Status: Acute Code(s): F10.10 - ALCOHOL ABUSE, UNCOMPLICATED SNOMED Code(s): 43866971 Comment: -Pt reports no EtOH use for several years. She has a h/o alcoholic cirrhosis and is on lactulose at home but unclear how frequently she was using that medication. Start lactulose 15 ml bid 08/31 AM. Note NH4+ level 62 on 08/28/17. Patient refused all doses of lactulose as of 09/01 AM. Repeat ammonia level . (5) NSTEMI (non-ST elevated myocardial infarction) Current Visit: Yes Status: Acute Code(s): I21.4 - NON-ST ELEVATION (NSTEMI) MYOCARDIAL INFARCTION SNOMED Code(s): 770292455 Comment: -The patient's trop peaked at 2.4. Continue ASA and carvdilol. Echo 08/28 showed LVEF 35-40%. AWMI uncertain age. Dr. Campbell recommended against statin or heparin. Eventually will need either stress test or cath---which can be done as an outpatient (6) Tobacco abuse Current Visit: Yes Status: Acute Code(s): Z72.0 - TOBACCO USE SNOMED Code( s): 509191087 Comment: -Continue PRN nicotine inhaler. (7) COPD (chronic obstructive pulmonary disease) Current Visit: Yes Status: Acute Code(s): J44.9 - CHRONIC OBSTRUCTIVE PULMONARY DISEASE, UNSPECIFIED SNOMED Code(s): 69384781 Comment: -Patient does not want inhaled pulm meds. Status and Disposition: -Spoke and touched base with daughter today at bedside who agrees with the above assessment and plan -As above
--- NOTE | 2017-09-02 16:57 | RAD ---
Indication: Seizures. Image Sequences: Sagittal and axial T1, axial T2, FLAIR, diffusion and susceptibility weighted images of the brain were obtained. Thirteen mL of ProHance was injected and axial, sagittal and coronal T1-weighted postcontrast images were obtained. Ventricular structures are midline. No midline shift is noted. Central and cortical atrophy is noted. There is no restriction of diffusion. Coronal images demonstrate no evidence of hippocampal abnormality. Postcontrast images demonstrate no evidence of abnormally enhancing lesions. The orbits and paranasal sinuses are otherwise unremarkable. IMPRESSION: No intracranial lesion is identified.
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
[2017-09-02] MEDS: RiFAXimin* 550 MG TAB PO SCH (22:05)
[2017-09-02] MEDS: Mirtazapine TAB* 15 MG PO SCH (22:05)
[2017-09-02] MEDS: Phenytoin CAP(*) 100 MG CAP.ER PO SCH (22:11)
[2017-09-03] MEDS: LORazepam INJ* 2 MG/ML 1 ML VIAL IV PUSH PRN ×2 (00:21→15:21)
[2017-09-03] MEDS: Heparin VIAL(*) 5000 UNITS/ML VIAL (FIVE THOUSAND) SUBCUT SCH ×3 (06:18→20:56)
[2017-09-03] MEDS: Mouth Piece, Nicotine* 1 EACH CARTRIDGE INH PRN (06:19)
[2017-09-03] MEDS: Nicotine Inhaler* 10 MG AMP INH PRN (06:19)
[2017-09-03 07:07] LABS: INR 0.91 (0.77-1.02)
[2017-09-03 07:24] LABS: EGFR Non-African American 107.9 (>60)
[2017-09-03 07:29] LABS: Hematocrit 46 % (35-47); Hemoglobin 16.1 g/dl (12.0-16.0); Mean Corpuscular HGB Conc 35 g/dl (31-36); Mean Corpuscular Hemoglobin 32 pg (27-31); Mean Corpuscular Volume 94 fL (80-97); Mean Platelet Volume 9.6 um3 (7.4-10.4); Platelet Count 83 10^3/ul (150-450); Red Blood Count 4.96 10^6/ul (4.00-5.40); Red Cell Distribution Width 15 % (10.5-15); White Blood Count 6.2 10^3/ul (3.5-10.8)
--- NOTE | 2017-09-03 08:59 | EEG ---
[facility] VIDEO/EEG MONITORING - Monitoring Monitoring Start Date: 08/30/17 Current Monitoring Session: 08/30/17 from 09:29 to 13:03 and 13:20 to 17:59 EEG Clinical Indication: Natalia Cruz is a 57 year-old woman admitted on 08/28/17 with seizures and fever. CSF is abnormal. She has a history of status epilepticus related to benzodiazepine withdrawal in 2016. This morning, 08/30/17 around 0830, Pt began having episodes of suddenly not being able to follow commands or respond to questions. Pt's eyes would remain open and she would be able to track people in the room. EEG is requested to evaluate for epileptiform abnormalities and characterize these spells. Introduction: INTRODUCTION: The EEG was monitored from 19 scalp electrodes which consisted of the standard parasagittal, temporal and midline leads of the International 10-20 system. EEG data were recorded on an [employer] system with simultaneous MPEG-4 digital video recording of patient behavior. EEG recording was in a monopolar montage with all electrodes referenced to FCz. Significant behavioral events were signaled by an event button, or putative electrical seizure events were detected by a computer program. All EEG data were reviewed in their entirety on a monitor with reconstruction of montages and adjustments of sensitivity and filtering. Simultaneous patient behavior was viewed on an adjacent monitor and correlated with the EEG. - Medications Active Medications: aspirin (81mg) ventolin maalox acetaminophen carvedilol doxycycline docusate nicotine inhaler ondansetron senna morphine vancomycin heparin - Description Background: The waking background showed appropriate organization with clearly defined anterior-posterior voltage and frequency gradients. There was a defined posterior dominant rhythm of 9 Hertz, which was symmetrical and showed normal reactivity. Anteriorly, there was the expected pattern of lower voltage and more irregular theta and beta rhythms. The sleep background was appropriately organized with well-developed spindles and vertex waves indicative of stage 2 sleep. These sleep transients showed appropriate morphology and were bilaterally synchronous and symmetrical. Deeper stages of sleep were not observed during this recording. Intericatal Epileptiform Activity: After the patient experienced the seizure described below and was administered Ativan, she fell asleep and independent, bilateral epileptiform discharges were seen. These were of moderate voltage with spike and sometimes polyspike morphology. They were maximal on the left at F7, T3 with a field to T5 and sometimes more frontally to FP1 and F3. On the right, discharges exhibited a homologous distribution with maximal expression at F8, T4 with a field to T6 and sometimes more frontally to FP2 and F4. Ictal Activity: The patient experienced a seizure which began around 11:14. She was alone in the room and did not seem to have any warning prior to the onset. Electrographically, the seizure began with a gradual buildup of low to moderate voltage 3 to 4 Hz rhythmic activity in the left frontal region at F3 and FP1. After about 30 seconds, this spread to involve the left temporal and central regions and began to spread to the right frontal region as well. After another 30 seconds, the ictal activity evolved into rhythmic 1 to 2 Hz spike and slow wave which was maximal in the left frontal region. This activity increased in amplitude, spread to the right frontal region and polyspike activity replaced the spiking activity. After another 1.5 to 2 minutes, this activity became diffusely represented but remained maximal in the frontocentral regions, with 6- 10 Hz polyspike activity followed by aftergoing slow waves. After another 2 to 3 minutes, this activity was noted in bursts lasting less than 1 second followed by periods of diffuse voltage suppression lasting 0.5 to 1 second. A nurse entered the room and noted her abnormal behavior around 11:29 and 1mg IV lorazepam was given at 11:33. Almost immediately, the ictal activity began to break up, first with the return of mixed frequency background activity in between bursts of epileptiform activity. As the ictal activity waned, it remained maximal in the left hemisphere with rhythmic moderate voltage 5 Hz activity which eventually was most prominently expressed in the left frontal region before finally terminating completely. The background quickly returned to normal after the seizure ended, with the exception of emergence of bilateral , independent discharges in the temporal regions as described above. The seizure lasted about 25 minutes. Clinically, she was alone in the room and still for the majority of the seizure. More than 10 minutes into the seizure, she was noted to intermittently hold her left arm extended out in front of her, then would put it down, then extend it again. She sometimes readjusted her blankets with her left hand. When the nurse entered the room around 11:28, the patient could not respond to him but was able to direct her gaze toward him, and he pressed the event button. Later in the seizure, prior to Ativan being given, she was given a recall phrase and later could not recall it. She was not able to appropriately answer questions and sometimes said "um" in a delayed fashion, but was able to ask "will it hurt" after Ativan was given but seizure activity had not yet terminated. Speech was slurred and sometimes difficult to understand. - Impression Impression: This is an abnormal long-term monitoring session. The patient experienced a prolonged electroclinical seizure lasting 25 minutes which appeared to arise from the left frontal region, but then was diffusely represented with polyspike and slow wave discharges. As the ictal activity waned , it was last noted to maximally expressed in the left frontal region. Clinically, the patient was staring and confused, unable to appropriately respond and answer questions, and sometimes had purposeless, slow and sustained movements of the left arm. After lorazepam was administered and the patient fell asleep, the interictal EEG was notable for bilateral, independent epileptiform discharges in the temporal regions. These findings are suggestive of bilateral, independent increased epileptic potential in the temporal regions and a single, prolonged seizure arising from the left hemisphere, initially maximal in the left frontal region but then diffusely represented.
[2017-09-03] MEDS: Carvedilol TAB* 3.125 MG PO SCH ×2 (09:51→20:55)
[2017-09-03] MEDS: Aspirin EC TAB* 81 MG TAB.EC PO SCH (09:51)
[2017-09-03] MEDS: Potassium Chlor TAB* 20 MEQ TAB.ER PO SCH (09:51)
[2017-09-03] MEDS: RiFAXimin* 550 MG TAB PO SCH ×2 (09:52→20:55)
[2017-09-03] MEDS: ZONISAMIDE 50 MG PO SCH (09:52)
[2017-09-03] MEDS: Lactulose* 15 ML UDC PO SCH ×2 (09:53→20:55)
[2017-09-03] MEDS: Morphine VIAL* 4 MG/ML VIAL (1 ml vial) IV PRN (11:16)
--- NOTE | 2017-09-03 12:55 | CONSULT ---
Identification - Patient Identification Reason for Psychiatric Consultation: Incapacitating Symptoms -: Patient is a 57 year old, F admitted on 08/28/17. - MHU Identification Employment Status: Disabled Hx Psychiatric Hospitalization: Yes History - Objective HPI: Psychiatry returns to see Natalia today and she is found in her new hospital room on . Her nurse, Paty, indicates that the patient has been consistently requesting discharge and has needed encouragement to be adherent with anti-seizure medications. On exam the patient remembers me from yesterday but cannot recall my role on the team. She is unable to answer questions related to day, date, month, year or even season. She is able to state that [facility] but is unaware of the town, county, State or floor. "It 's the damn meds" she complains. The patient continues to endorse depressive symptoms but denies SI. "No, I want to live. I want to see my grandchildren. I'm done with the drugs. The only thing I want to take is medical marijuana. My doctor won't give it to me but I can get a new doctor." She goes on to say that she knows that she needs to see a mental health provider, but is anxious about leaving her home in [place], [place], explaining that she is basically a shut-in because of her anxiety. "Is there a psychiatrist who can see me at home ?" I inform her about [facility] and that I will make inquiries as to her eligibility for that service. Lab Results: Laboratory Tests 08/28/17 08/28/17 08/28/17 04:45 05:02 05:02 WBC 14.3 H RBC 5.37 Hgb 17.2 H Hct 49 H MCV 91 MCH 32 H MCHC 35 RDW 15 Plt Count 86 L MPV 8.6 Neut % (Auto) 88.8 H Lymph % (Auto) 6.5 L [place] % (Auto) 4.3 Eos % (Auto) 0.2 Baso % (Auto) 0.2 Absolute Neuts (auto) 12.7 H Absolute Lymphs (auto) 0.9 L Absolute Monos (auto) 0.6 Absolute Eos (auto) 0 Absolute Basos (auto) 0 Absolute Nucleated RBC 0 Nucleated RBC % 0.1 INR (Anticoag Therapy) 1.14 H APTT 27.8 ABG pH 7.44 ABG pCO2 38 ABG pO2 64 L ABG HCO3 25.9 ABG O2 Saturation 95.5 ABG Base Excess 1.7 Sodium Potassium Chloride Carbon Dioxide Anion Gap BUN Creatinine Est GFR ( Amer) Est GFR (Non-Af Amer) BUN/Creatinine Ratio Glucose Lactic Acid Calcium Phosphorus Magnesium Total Bilirubin AST ALT Alkaline Phosphatase Ammonia Troponin I C-Reactive Protein B-Natriuretic Peptide Total Protein Albumin Globulin Albumin/Globulin Ratio Triglycerides Cholesterol LDL Cholesterol HDL Cholesterol Procalcitonin Cortisol Urine Color Urine Appearance Urine pH Ur Specific [place] Urine Protein Urine Ketones Urine Blood Urine Nitrate Urine Bilirubin Urine Urobilinogen Ur Leukocyte Esterase Urine WBC (Auto) Urine RBC (Auto) Ur Squamous Epith Cells Amorphous Crystals Urine Bacteria Urine Glucose Fluid Source Fluid Volume Fluid Color Fluid Appearance Fluid WBC Fluid RBC Fluid Tot Cell Count Fluid Neutrophils Fluid Band Neutrophils Fluid Lymphocytes Fluid Monocytes Fluid Metamyelocytes Fluid Cell Count Rvw By CSF Cell Count Tube # CSF Glucose CSF Total Protein CSF HSV I (PCR) CSF Herpes II DNA (PCR) Vancomycin Trough Salicylates Urine Opiates Screen Acetaminophen Ur Barbiturates Screen Phenytoin Ur Phencyclidine Scrn Ur Amphetamines Screen U Benzodiazepines Scrn Urine Cocaine Screen U Cannabinoids Screen Serum Alcohol HIV-1 RNA (PCR) VZV DNA (PCR) 08/28/17 08/28/17 08/28/17 05:02 05:02 05:02 WBC RBC Hgb Hct MCV MCH MCHC RDW Plt Count MPV Neut % (Auto) Lymph % (Auto) [place] % (Auto) Eos % (Auto) Baso % (Auto) Absolute Neuts (auto) Absolute Lymphs (auto) Absolute Monos (auto) Absolute Eos (auto) Absolute Basos (auto) Absolute Nucleated RBC Nucleated RBC % INR (Anticoag Therapy) APTT ABG pH ABG pCO2 ABG pO2 ABG HCO3 ABG O2 Saturation ABG Base Excess Sodium 135 Potassium 3.5 Chloride 98 L Carbon Dioxide 25 Anion Gap 12 H BUN 9 Creatinine 0.54 Est GFR ( Amer) 150.7 Est GFR (Non-Af Amer) 117.2 BUN/Creatinine Ratio 16.7 Glucose 137 H Lactic Acid 1.6 Calcium 9.0 Phosphorus Magnesium Total Bilirubin 1.90 H AST 24 ALT 13 Alkaline Phosphatase 58 Ammonia Troponin I 0.79 H* C-Reactive Protein 6.81 B-Natriuretic Peptide 142 H Total Protein 6.8 Albumin 4.1 Globulin 2.7 Albumin/Globulin Ratio 1.5 Triglycerides Cholesterol LDL Cholesterol HDL Cholesterol Procalcitonin Cortisol Urine Color Urine Appearance Urine pH Ur Specific [place] Urine Protein Urine Ketones Urine Blood Urine Nitrate Urine Bilirubin Urine Urobilinogen Ur Leukocyte Esterase Urine WBC (Auto) Urine RBC (Auto) Ur Squamous Epith Cells Amorphous Crystals Urine Bacteria Urine Glucose Fluid Source Fluid Volume Fluid Color Fluid Appearance Fluid WBC Fluid RBC Fluid Tot Cell Count Fluid Neutrophils Fluid Band Neutrophils Fluid Lymphocytes Fluid Monocytes Fluid Metamyelocytes Fluid Cell Count Rvw By CSF Cell Count Tube # CSF Glucose CSF Total Protein CSF HSV I (PCR) CSF Herpes II DNA (PCR) Vancomycin Trough Salicylates < 2.50 Urine Opiates Screen Acetaminophen < 15 Ur Barbiturates Screen Phenytoin Ur Phencyclidine Scrn Ur Amphetamines Screen U Benzodiazepines Scrn Urine Cocaine Screen U Cannabinoids Screen Serum Alcohol HIV-1 RNA (PCR) VZV DNA (PCR) 08/28/17 08/28/17 08/28/17 05:02 05:26 05:26 WBC RBC Hgb Hct MCV MCH MCHC RDW Plt Count MPV Neut % (Auto) Lymph % (Auto) [place] % (Auto) Eos % (Auto) Baso % (Auto) Absolute Neuts (auto) Absolute Lymphs (auto) Absolute Monos (auto) Absolute Eos (auto) Absolute Basos (auto) Absolute Nucleated RBC Nucleated RBC % INR (Anticoag Therapy) APTT ABG pH ABG pCO2 ABG pO2 ABG HCO3 ABG O2 Saturation ABG Base Excess Sodium Potassium Chloride Carbon Dioxide Anion Gap BUN Creatinine Est GFR ( Amer) Est GFR (Non-Af Amer) BUN/Creatinine Ratio Glucose Lactic Acid Calcium Phosphorus Magnesium Total Bilirubin AST ALT Alkaline Phosphatase Ammonia Troponin I C-Reactive Protein B-Natriuretic Peptide Total Protein Albumin Globulin Albumin/Globulin Ratio Triglycerides Cholesterol LDL Cholesterol HDL Cholesterol Procalcitonin Cortisol Urine Color Yellow Urine Appearance Cloudy Urine pH 7.0 Ur Specific [place] 1.013 Urine Protein 2+(100 mg/dl) A Urine Ketones 1+ A Urine Blood Negative Urine Nitrate Negative Urine Bilirubin Negative Urine Urobilinogen Positive A Ur Leukocyte Esterase Negative Urine WBC (Auto) Trace(0-5/hpf) Urine RBC (Auto) Trace(0-2/hpf) Ur Squamous Epith Cells Present A Amorphous Crystals Present A Urine Bacteria Absent Urine Glucose Negative Fluid Source Fluid Volume Fluid Color Fluid Appearance Fluid WBC Fluid RBC Fluid Tot Cell Count Fluid Neutrophils Fluid Band Neutrophils Fluid Lymphocytes Fluid Monocytes Fluid Metamyelocytes Fluid Cell Count Rvw By CSF Cell Count Tube # CSF Glucose CSF Total Protein CSF HSV I (PCR) CSF Herpes II DNA (PCR) Vancomycin Trough Salicylates Urine Opiates Screen None detected Acetaminophen Ur Barbiturates Screen None detected Phenytoin Ur Phencyclidine Scrn None detected Ur Amphetamines Screen None detected U Benzodiazepines Scrn None detected Urine Cocaine Screen None detected U Cannabinoids Screen Presumptive positive A Serum Alcohol HIV-1 RNA (PCR) Undetected VZV DNA (PCR) 08/28/17 08/28/17 08/28/17 06:07 06:07 06:07 WBC RBC Hgb Hct MCV MCH MCHC RDW Plt Count MPV Neut % (Auto) Lymph % (Auto) [place] % (Auto) Eos % (Auto) Baso % (Auto) Absolute Neuts (auto) Absolute Lymphs (auto) Absolute Monos (auto) Absolute Eos (auto) Absolute Basos (auto) Absolute Nucleated RBC Nucleated RBC % INR (Anticoag Therapy) APTT ABG pH ABG pCO2 ABG pO2 ABG HCO3 ABG O2 Saturation ABG Base Excess Sodium Potassium Chloride Carbon Dioxide Anion Gap BUN Creatinine Est GFR ( Amer) Est GFR (Non-Af Amer) BUN/Creatinine Ratio Glucose Lactic Acid Calcium Phosphorus Magnesium Total Bilirubin AST ALT Alkaline Phosphatase Ammonia 62 H Troponin I C-Reactive Protein B-Natriuretic Peptide Total Protein Albumin Globulin Albumin/Globulin Ratio Triglycerides Cholesterol LDL Cholesterol HDL Cholesterol Procalcitonin < 0.1 Cortisol Urine Color Urine Appearance Urine pH Ur Specific [place] Urine Protein Urine Ketones Urine Blood Urine Nitrate Urine Bilirubin Urine Urobilinogen Ur Leukocyte Esterase Urine WBC (Auto) Urine RBC (Auto) Ur Squamous Epith Cells Amorphous Crystals Urine Bacteria Urine Glucose Fluid Source Fluid Volume Fluid Color Fluid Appearance Fluid WBC Fluid RBC Fluid Tot Cell Count Fluid Neutrophils Fluid Band Neutrophils Fluid Lymphocytes Fluid Monocytes Fluid Metamyelocytes Fluid Cell Count Rvw By CSF Cell Count Tube # CSF Glucose CSF Total Protein CSF HSV I (PCR) CSF Herpes II DNA (PCR) Vancomycin Trough Salicylates Urine Opiates Screen Acetaminophen Ur Barbiturates Screen Phenytoin Ur Phencyclidine Scrn Ur Amphetamines Screen U Benzodiazepines Scrn Urine Cocaine Screen U Cannabinoids Screen Serum Alcohol < 10 HIV-1 RNA (PCR) VZV DNA (PCR) 08/28/17 08/28/17 08/28/17 08:39 08:39 11:27 WBC RBC Hgb Hct MCV MCH MCHC RDW Plt Count MPV Neut % (Auto) Lymph % (Auto) [place] % (Auto) Eos % (Auto) Baso % (Auto) Absolute Neuts (auto) Absolute Lymphs (auto) Absolute Monos (auto) Absolute Eos (auto) Absolute Basos (auto) Absolute Nucleated RBC Nucleated RBC % INR (Anticoag Therapy) APTT ABG pH ABG pCO2 ABG pO2 ABG HCO3 ABG O2 Saturation ABG Base Excess Sodium Potassium Chloride Carbon Dioxide Anion Gap BUN Creatinine Est GFR ( Amer) Est GFR (Non-Af Amer) BUN/Creatinine Ratio Glucose Lactic Acid 0.9 Calcium Phosphorus Magnesium Total Bilirubin AST ALT Alkaline Phosphatase Ammonia Troponin I 2.40 H* C-Reactive Protein B-Natriuretic Peptide Total Protein Albumin Globulin Albumin/Globulin Ratio Triglycerides 50 Cholesterol 118 LDL Cholesterol 65 HDL Cholesterol 43.4 Procalcitonin Cortisol 20.60 Urine Color Urine Appearance Urine pH Ur Specific [place] Urine Protein Urine Ketones Urine Blood Urine Nitrate Urine Bilirubin Urine Urobilinogen Ur Leukocyte Esterase Urine WBC (Auto) Urine RBC (Auto) Ur Squamous Epith Cells Amorphous Crystals Urine Bacteria Urine Glucose Fluid Source Fluid Volume Fluid Color Fluid Appearance Fluid WBC Fluid RBC Fluid Tot Cell Count Fluid Neutrophils Fluid Band Neutrophils Fluid Lymphocytes Fluid Monocytes Fluid Metamyelocytes Fluid Cell Count Rvw By CSF Cell Count Tube # CSF Glucose CSF Total Protein CSF HSV I (PCR) CSF Herpes II DNA (PCR) Vancomycin Trough Salicylates Urine Opiates Screen Acetaminophen Ur Barbiturates Screen Phenytoin Ur Phencyclidine Scrn Ur Amphetamines Screen U Benzodiazepines Scrn Urine Cocaine Screen U Cannabinoids Screen Serum Alcohol HIV-1 RNA (PCR) VZV DNA (PCR) 08/28/17 08/28/17 08/28/17 15:45 17:55 17:55 WBC RBC Hgb Hct MCV MCH MCHC RDW Plt Count MPV Neut % (Auto) Lymph % (Auto) [place] % (Auto) Eos % (Auto) Baso % (Auto) Absolute Neuts (auto) Absolute Lymphs (auto) Absolute Monos (auto) Absolute Eos (auto) Absolute Basos (auto) Absolute Nucleated RBC Nucleated RBC % INR (Anticoag Therapy) APTT 30.2 ABG pH ABG pCO2 ABG pO2 ABG HCO3 ABG O2 Saturation ABG Base Excess Sodium Potassium Chloride Carbon Dioxide Anion Gap BUN Creatinine Est GFR ( Amer) Est GFR (Non-Af Amer) BUN/Creatinine Ratio Glucose Lactic Acid Calcium Phosphorus Magnesium Total Bilirubin AST ALT Alkaline Phosphatase Ammonia Troponin I C-Reactive Protein B-Natriuretic Peptide Total Protein Albumin Globulin Albumin/Globulin Ratio Triglycerides Cholesterol LDL Cholesterol HDL Cholesterol Procalcitonin Cortisol Urine Color Urine Appearance Urine pH Ur Specific [place] Urine Protein Urine Ketones Urine Blood Urine Nitrate Urine Bilirubin Urine Urobilinogen Ur Leukocyte Esterase Urine WBC (Auto) Urine RBC (Auto) Ur Squamous Epith Cells Amorphous Crystals Urine Bacteria Urine Glucose Fluid Source Cerebral spinal Fluid Volume 1.3 Fluid Color Colorless Fluid Appearance Clear Fluid WBC 36 H* Fluid RBC 3 Fluid Tot Cell Count 100 Fluid Neutrophils 89 Fluid Band Neutrophils 2 Fluid Lymphocytes 2 Fluid Monocytes 3 Fluid Metamyelocytes 4 Fluid Cell Count Rvw By CSF Cell Count Tube # 2 CSF Glucose 86 H CSF Total Protein 50 H CSF HSV I (PCR) CSF Herpes II DNA (PCR) Vancomycin Trough Salicylates Urine Opiates Screen Acetaminophen Ur Barbiturates Screen Phenytoin Ur Phencyclidine Scrn Ur Amphetamines Screen U Benzodiazepines Scrn Urine Cocaine Screen U Cannabinoids Screen Serum Alcohol HIV-1 RNA (PCR) VZV DNA (PCR) 08/28/17 08/28/17 08/28/17 17:55 17:55 18:34 WBC RBC Hgb Hct MCV MCH MCHC RDW Plt Count MPV Neut % (Auto) Lymph % (Auto) [place] % (Auto) Eos % (Auto) Baso % (Auto) Absolute Neuts (auto) Absolute Lymphs (auto) Absolute Monos (auto) Absolute Eos (auto) Absolute Basos (auto) Absolute Nucleated RBC Nucleated RBC % INR (Anticoag Therapy) APTT ABG pH ABG pCO2 ABG pO2 ABG HCO3 ABG O2 Saturation ABG Base Excess Sodium Potassium Chloride Carbon Dioxide Anion Gap BUN Creatinine Est GFR ( Amer) Est GFR (Non-Af Amer) BUN/Creatinine Ratio Glucose Lactic Acid Calcium Phosphorus Magnesium Total Bilirubin AST ALT Alkaline Phosphatase Ammonia Troponin I 1.77 H* C-Reactive Protein B-Natriuretic Peptide Total Protein Albumin Globulin Albumin/Globulin Ratio Triglycerides Cholesterol LDL Cholesterol HDL Cholesterol Procalcitonin Cortisol Urine Color Urine Appearance Urine pH Ur Specific [place] Urine Protein Urine Ketones Urine Blood Urine Nitrate Urine Bilirubin Urine Urobilinogen Ur Leukocyte Esterase Urine WBC (Auto) Urine RBC (Auto) Ur Squamous Epith Cells Amorphous Crystals Urine Bacteria Urine Glucose Fluid Source Fluid Volume Fluid Color Fluid Appearance Fluid WBC Fluid RBC Fluid Tot Cell Count Fluid Neutrophils Fluid Band Neutrophils Fluid Lymphocytes Fluid Monocytes Fluid Metamyelocytes Fluid Cell Count Rvw By CSF Cell Count Tube # CSF Glucose CSF Total Protein CSF HSV I (PCR) Negative CSF Herpes II DNA (PCR) Negative Vancomycin Trough Salicylates Urine Opiates Screen Acetaminophen Ur Barbiturates Screen Phenytoin Ur Phencyclidine Scrn Ur Amphetamines Screen U Benzodiazepines Scrn Urine Cocaine Screen U Cannabinoids Screen Serum Alcohol HIV-1 RNA (PCR) VZV DNA (PCR) Negative 08/29/17 08/29/17 08/30/17 05:22 05:22 06:59 WBC 10.0 RBC 4.51 Hgb 14.3 Hct 42 MCV 93 MCH 32 H MCHC 34 RDW 15 Plt Count 71 L MPV 8.9 Neut % (Auto) 78.1 Lymph % (Auto) 14.9 L [place] % (Auto) 6.8 Eos % (Auto) 0 Baso % (Auto) 0.2 Absolute Neuts (auto) 7.8 H Absolute Lymphs (auto) 1.5 Absolute Monos (auto) 0.7 Absolute Eos (auto) 0 Absolute Basos (auto) 0 Absolute Nucleated RBC 0 Nucleated RBC % 0 INR (Anticoag Therapy) APTT ABG pH ABG pCO2 ABG pO2 ABG HCO3 ABG O2 Saturation ABG Base Excess Sodium 138 Potassium 3.6 Chloride 108 Carbon Dioxide 24 Anion Gap 6 BUN 13 Creatinine 0.46 L Est GFR ( Amer) 170.7 Est GFR (Non-Af Amer) 141.0 BUN/Creatinine Ratio 28.3 H Glucose 103 H Lactic Acid Calcium 7.9 L Phosphorus Magnesium Total Bilirubin AST ALT Alkaline Phosphatase Ammonia Troponin I C-Reactive Protein B-Natriuretic Peptide Total Protein Albumin Globulin Albumin/Globulin Ratio Triglycerides Cholesterol LDL Cholesterol HDL Cholesterol Procalcitonin Cortisol Urine Color Urine Appearance Urine pH Ur Specific [place] Urine Protein Urine Ketones Urine Blood Urine Nitrate Urine Bilirubin Urine Urobilinogen Ur Leukocyte Esterase Urine WBC (Auto) Urine RBC (Auto) Ur Squamous Epith Cells Amorphous Crystals Urine Bacteria Urine Glucose Fluid Source Fluid Volume Fluid Color Fluid Appearance Fluid WBC Fluid RBC Fluid Tot Cell Count Fluid Neutrophils Fluid Band Neutrophils Fluid Lymphocytes Fluid Monocytes Fluid Metamyelocytes Fluid Cell Count Rvw By CSF Cell Count Tube # CSF Glucose CSF Total Protein CSF HSV I (PCR) CSF Herpes II DNA (PCR) Vancomycin Trough 18.2 Salicylates Urine Opiates Screen Acetaminophen Ur Barbiturates Screen Phenytoin Ur Phencyclidine Scrn Ur Amphetamines Screen U Benzodiazepines Scrn Urine Cocaine Screen U Cannabinoids Screen Serum Alcohol HIV-1 RNA (PCR) VZV DNA (PCR) 08/30/17 08/31/17 08/31/17 14:34 15:19 15:19 WBC 5.9 RBC 5.10 Hgb 16.4 H Hct 47 MCV 93 MCH 32 H MCHC 35 RDW 15 Plt Count 67 L MPV 8.8 Neut % (Auto) 67.6 Lymph % (Auto) 23.7 L [place] % (Auto) 6.4 Eos % (Auto) 1.7 Baso % (Auto) 0.6 Absolute Neuts (auto) 4.0 Absolute Lymphs (auto) 1.4 Absolute Monos (auto) 0.4 Absolute Eos (auto) 0.1 Absolute Basos (auto) 0 Absolute Nucleated RBC 0 Nucleated RBC % 0.1 INR (Anticoag Therapy) APTT ABG pH ABG pCO2 ABG pO2 ABG HCO3 ABG O2 Saturation ABG Base Excess Sodium 138 Potassium 3.3 L Chloride 102 Carbon Dioxide 28 Anion Gap 8 BUN 11 Creatinine 0.56 Est GFR ( Amer) 136.0 Est GFR (Non-Af Amer) 112.4 BUN/Creatinine Ratio 19.6 Glucose 105 H Lactic Acid Calcium 8.6 Phosphorus Magnesium Total Bilirubin AST ALT Alkaline Phosphatase Ammonia Troponin I C-Reactive Protein B-Natriuretic Peptide Total Protein Albumin Globulin Albumin/Globulin Ratio Triglycerides Cholesterol LDL Cholesterol HDL Cholesterol Procalcitonin Cortisol Urine Color Urine Appearance Urine pH Ur Specific [place] Urine Protein Urine Ketones Urine Blood Urine Nitrate Urine Bilirubin Urine Urobilinogen Ur Leukocyte Esterase Urine WBC (Auto) Urine RBC (Auto) Ur Squamous Epith Cells Amorphous Crystals Urine Bacteria Urine Glucose Fluid Source Fluid Volume Fluid Color Fluid Appearance Fluid WBC Fluid RBC Fluid Tot Cell Count Fluid Neutrophils Fluid Band Neutrophils Fluid Lymphocytes Fluid Monocytes Fluid Metamyelocytes Fluid Cell Count Rvw By CSF Cell Count Tube # CSF Glucose CSF Total Protein CSF HSV I (PCR) CSF Herpes II DNA (PCR) Vancomycin Trough Salicylates Urine Opiates Screen Acetaminophen Ur Barbiturates Screen Phenytoin 24.3 H 16.2 Ur Phencyclidine Scrn Ur Amphetamines Screen U Benzodiazepines Scrn Urine Cocaine Screen U Cannabinoids Screen Serum Alcohol HIV-1 RNA (PCR) VZV DNA (PCR) 09/01/17 09/02/17 09/02/17 04:10 05:40 05:40 WBC RBC Hgb Hct MCV MCH MCHC RDW Plt Count MPV Neut % (Auto) Lymph % (Auto) [place] % (Auto) Eos % (Auto) Baso % (Auto) Absolute Neuts (auto) Absolute Lymphs (auto) Absolute Monos (auto) Absolute Eos (auto) Absolute Basos (auto) Absolute Nucleated RBC Nucleated RBC % INR (Anticoag Therapy) APTT ABG pH ABG pCO2 ABG pO2 ABG HCO3 ABG O2 Saturation ABG Base Excess Sodium 141 Potassium 3.6 Chloride 106 Carbon Dioxide 28 Anion Gap 7 BUN 9 Creatinine 0.51 Est GFR ( Amer) 151.5 Est GFR (Non-Af Amer) 125.2 BUN/Creatinine Ratio 17.6 Glucose 125 H Lactic Acid Calcium 9.0 Phosphorus Magnesium Total Bilirubin AST ALT Alkaline Phosphatase Ammonia 49 Troponin I C-Reactive Protein B-Natriuretic Peptide Total Protein Albumin Globulin Albumin/Globulin Ratio Triglycerides Cholesterol LDL Cholesterol HDL Cholesterol Procalcitonin Cortisol Urine Color Urine Appearance Urine pH Ur Specific [place] Urine Protein Urine Ketones Urine Blood Urine Nitrate Urine Bilirubin Urine Urobilinogen Ur Leukocyte Esterase Urine WBC (Auto) Urine RBC (Auto) Ur Squamous Epith Cells Amorphous Crystals Urine Bacteria Urine Glucose Fluid Source Fluid Volume Fluid Color Fluid Appearance Fluid WBC Fluid RBC Fluid Tot Cell Count Fluid Neutrophils Fluid Band Neutrophils Fluid Lymphocytes Fluid Monocytes Fluid Metamyelocytes Fluid Cell Count Rvw By CSF Cell Count Tube # CSF Glucose CSF Total Protein CSF HSV I (PCR) CSF Herpes II DNA (PCR) Vancomycin Trough Salicylates Urine Opiates Screen Acetaminophen Ur Barbiturates Screen Phenytoin 16.0 Ur Phencyclidine Scrn Ur Amphetamines Screen U Benzodiazepines Scrn Urine Cocaine Screen U Cannabinoids Screen Serum Alcohol HIV-1 RNA (PCR) VZV DNA (PCR) 09/03/17 09/03/17 09/03/17 06:24 06:24 06:24 WBC 6.2 RBC 4.96 Hgb 16.1 H Hct 46 MCV 94 MCH 32 H MCHC 35 RDW 15 Plt Count 83 L MPV 9.6 Neut % (Auto) Lymph % (Auto) [place] % (Auto) Eos % (Auto) Baso % (Auto) Absolute Neuts (auto) Absolute Lymphs (auto) Absolute Monos (auto) Absolute Eos (auto) Absolute Basos (auto) Absolute Nucleated RBC Nucleated RBC % INR (Anticoag Therapy) 0.91 APTT ABG pH ABG pCO2 ABG pO2 ABG HCO3 ABG O2 Saturation ABG Base Excess Sodium 141 Potassium 4.0 Chloride 105 Carbon Dioxide 28 Anion Gap 8 BUN 12 Creatinine 0.58 Est GFR ( Amer) 130.6 Est GFR (Non-Af Amer) 107.9 BUN/Creatinine Ratio 20.7 H Glucose 95 Lactic Acid Calcium 8.7 Phosphorus 5.1 H Magnesium 1.7 L Total Bilirubin 0.60 AST 21 ALT 19 Alkaline Phosphatase 69 Ammonia Troponin I C-Reactive Protein B-Natriuretic Peptide Total Protein 5.6 L Albumin 3.3 Globulin 2.3 Albumin/Globulin Ratio 1.4 Triglycerides Cholesterol LDL Cholesterol HDL Cholesterol Procalcitonin Cortisol Urine Color Urine Appearance Urine pH Ur Specific [place] Urine Protein Urine Ketones Urine Blood Urine Nitrate Urine Bilirubin Urine Urobilinogen Ur Leukocyte Esterase Urine WBC (Auto) Urine RBC (Auto) Ur Squamous Epith Cells Amorphous Crystals Urine Bacteria Urine Glucose Fluid Source Fluid Volume Fluid Color Fluid Appearance Fluid WBC Fluid RBC Fluid Tot Cell Count Fluid Neutrophils Fluid Band Neutrophils Fluid Lymphocytes Fluid Monocytes Fluid Metamyelocytes Fluid Cell Count Rvw By CSF Cell Count Tube # CSF Glucose CSF Total Protein CSF HSV I (PCR) CSF Herpes II DNA (PCR) Vancomycin Trough Salicylates Urine Opiates Screen Acetaminophen Ur Barbiturates Screen Phenytoin 10.6 Ur Phencyclidine Scrn Ur Amphetamines Screen U Benzodiazepines Scrn Urine Cocaine Screen U Cannabinoids Screen Serum Alcohol HIV-1 RNA (PCR) VZV DNA (PCR) Exam Appearance: Well Developed/Nourished Hygiene: Normal Grooming: Disheveled Psychomotor Activities: Normal Exhibits Abnormal Movement: No Attitude and Relatedness: Cooperative Eye Contact: Fair - Speech Quality: Unpressured Latencies: Normal Quantity: Appropriate Patient's Decription of Mood: "Sad" Observed Affect: Depressed Affect Consistent with: Dysphoria Patient's Thought Process: Circumstantial Thought Content: No Passive Wish, No Suicidal Planning, No Homicidal Ideation, No Paranoid Ideation Experiencing Hallucinations: No, Sensorium is Clear Type of Hallucinations: Visual: No, Auditory: No, Command: No Level of Consciousness: Alert Orientation: Yes Intact, Yes Orientated to Time, Yes Orientated to Place, Yes Orientated to Person Impulse Control: Tenuous Insight and Judgement: Poor - likely close to baseline Impression - Impression Clinical Impression: 57 y.o. , white female with a history of chronic alcoholism, now in sustained remission, cirrhosis, anxiety and depression, several psychiatric hospitalizations as well as serial non-adherence with outpatient mental health services, who is currently admitted to the hospitalist service due to seizures related to rapid self-discontinuation of prescribed alprazolam treatment. Inpatient DSM-V Dx: R41.0 Problem List - U Problems Type of Problem: Mood Status of Problem: Active Plan - Treatment Plan Treatment Plan: The patient has been started on a trial of mirtazapine 15mg PO qhs. She is skeptical about her ability to follow through with standard outpatient care at [facility]. We will explore referral to the [facility] Treatment team. I've given their office number ([phone]) to unit [facility] to explore referral. The patient remains delirious and lacks capacity to choose discharge AMA. Psychiatry will continue to follow. Continued Medication Management: Start Medication Medications: Current Medications Acetaminophen (Tylenol Tab*) 650 mg PO Q4H PRN PRN Reason: FEVER/PAIN Al Hydrox/Mg Hydrox/Simethicone (Maalox Plus*) 30 ml PO Q6H PRN PRN Reason: INDIGESTION Albuterol (Ventolin 2.5 Mg/3 Ml Neb.Christin*) 2.5 mg INH Q2H PRN PRN Reason: SOB/WHEEZING Aspirin (Aspirin Ec Tab*) 81 mg PO DAILY [facility] Last Admin: 09/03/17 09:51 Dose: 81 mg Carvedilol (Coreg Tab*) 3.125 mg PO BID [facility] Last Admin: 09/03/17 09:51 Dose: 3.125 mg Device (Nicotine Mouth Piece*) 1 each INH .USE WITH NICOTROL PRN PRN Reason: CRAVING Last Admin: 09/03/17 06:19 Dose: 1 each Docusate Sodium (Colace Cap*) 100 mg PO BID PRN PRN Reason: CONSTIPATION Haloperidol Lactate (Haldol Inj Iv/Im*) 2.5 mg IM ONCE PRN PRN Reason: AGITATION Heparin Sodium (Porcine) (Heparin Vial(*)) 5,000 units SUBCUT Q8HR [facility] Last Admin: 09/03/17 06:18 Dose: 5,000 units Lactulose (Lactulose*) 15 ml PO BID [facility] Last Admin: 09/03/17 09:53 Dose: 15 ml Lorazepam (Ativan Inj*) 1 mg IV PUSH Q8H PRN PRN Reason: SEIZURE ACTIVITY Last Admin: 09/03/17 00:21 Dose: 1 mg Lorazepam (Ativan Inj*) 1 mg IV PUSH ONCE PRN PRN Reason: ANXIETY Last Admin: 09/02/17 14:11 Dose: 1 mg Mirtazapine (Remeron Tab*) 15 mg PO BEDTIME [facility] Last Admin: 09/02/17 22:05 Dose: 15 mg Morphine Sulfate (Morphine Vial*) 2 mg IV Q4H PRN PRN Reason: PAIN Last Admin: 09/03/17 11:16 Dose: 2 mg Nicotine (Nicotine Inhaler*) 10 mg INH Q2H PRN PRN Reason: CRAVING Last Admin: 09/03/17 06:19 Dose: 10 mg Ondansetron HCl (Zofran 40 Mg Vial*) 4 mg IV Q4H PRN PRN Reason: NAUSEA/VOMITING Last Admin: 09/02/17 11:58 Dose: 4 mg Phenytoin Sodium (Dilantin Cap(*)) 300 mg PO BEDTIME SASKIA Last Admin: 09/02/17 22:11 Dose: 300 mg Potassium Chloride (Klor Con Er Tab*) 20 meq PO DAILY [facility] Last Admin: 09/03/17 09:51 Dose: 20 meq Rifaximin (Xifaxan*) 550 mg PO BID [facility] Last Admin: 09/03/17 09:52 Dose: 550 mg Zonisamide (Zonegran (Nf)) 100 mg PO DAILY [facility] Last Admin: 09/03/17 09:52 Dose: 100 mg
--- NOTE | 2017-09-03 15:50 | PN ---
Subjective Date of Service: 09/03/17 Interval History: Pt seen and examined. Meds and labs reviewed. ROS: Denied BARROW/dizziness, F/C, N/V, CP, SOB, increased cough, sputum production , abd pain, diarrhea, constipation, dysuria, myalgias, arthralgias, throat pain , and new skin lesions. The rest of the 14 point ROS are unremarkable. PHYSICAL EXAM: GEN APPEARANCE: Awake, not in acute distress HEENT: NC/AT, PERRLA, moist oral mucosa, (-) throat erythema NECK: Soft, supple, (-) cervical LAD, (-)JVD HEART: S1S2 WNL, RRR, No MRG CHEST: CTA, BL, GAE, No W/R/R ABD: Soft, ND/NT, NABS 4x Q EXT: No C/C/E SKIN: Warm to touch PSYCH: No active psychosis, hallucinations, depression, SI/HI Objective Active Medications: Acetaminophen (Tylenol Tab*) 650 mg PO Q4H PRN PRN Reason: FEVER/PAIN Al Hydrox/Mg Hydrox/Simethicone (Maalox Plus*) 30 ml PO Q6H PRN PRN Reason: INDIGESTION Albuterol (Ventolin 2.5 Mg/3 Ml Neb.Christin*) 2.5 mg INH Q2H PRN PRN Reason: SOB/WHEEZING Aspirin (Aspirin Ec Tab*) 81 mg PO DAILY [facility] Last Admin: 09/03/17 09:51 Dose: 81 mg Carvedilol (Coreg Tab*) 3.125 mg PO BID [facility] Last Admin: 09/03/17 09:51 Dose: 3.125 mg Device (Nicotine Mouth Piece*) 1 each INH .USE WITH NICOTROL PRN PRN Reason: CRAVING Last Admin: 09/03/17 06:19 Dose: 1 each Docusate Sodium (Colace Cap*) 100 mg PO BID PRN PRN Reason: CONSTIPATION Haloperidol Lactate (Haldol Inj Iv/Im*) 2.5 mg IM ONCE PRN PRN Reason: AGITATION Last Admin: 09/03/17 15:11 Dose: 2.5 mg Heparin Sodium (Porcine) (Heparin Vial(*)) 5,000 units SUBCUT Q8HR [facility] Last Admin: 09/03/17 15:02 Dose: 5,000 units Lactulose (Lactulose*) 15 ml PO BID [facility] Last Admin: 06/26/18 09:53 Dose: 15 ml Lorazepam (Ativan Inj*) 1 mg IV PUSH Q8H PRN PRN Reason: SEIZURE ACTIVITY Last Admin: 09/03/17 15:21 Dose: 1 mg Lorazepam (Ativan Inj*) 1 mg IV PUSH ONCE PRN PRN Reason: ANXIETY Last Admin: 09/02/17 14:11 Dose: 1 mg Mirtazapine (Remeron Tab*) 15 mg PO BEDTIME [facility] Last Admin: 09/02/17 22:05 Dose: 15 mg Morphine Sulfate (Morphine Vial*) 2 mg IV Q4H PRN PRN Reason: PAIN Last Admin: 09/03/17 11:16 Dose: 2 mg Nicotine (Nicotine Inhaler*) 10 mg INH Q2H PRN PRN Reason: CRAVING Last Admin: 09/03/17 06:19 Dose: 10 mg Ondansetron HCl (Zofran 40 Mg Vial*) 4 mg IV Q4H PRN PRN Reason: NAUSEA/VOMITING Last Admin: 09/02/17 11:58 Dose: 4 mg Phenytoin Sodium (Dilantin Cap(*)) 300 mg PO BEDTIME [facility] Last Admin: 09/02/17 22:11 Dose: 300 mg Potassium Chloride (Klor Con Er Tab*) 20 meq PO DAILY [facility] Last Admin: 09/03/17 09:51 Dose: 20 meq Rifaximin (Xifaxan*) 550 mg PO BID [facility] Last Admin: 09/03/17 09:52 Dose: 550 mg Zonisamide (Zonegran (Nf)) 100 mg PO DAILY [facility] Last Admin: 09/03/17 09:52 Dose: 100 mg Vital Signs - 8 hr 09/03/17 09/03/17 09/03/17 09:00 09:49 11:16 Temperature 99.3 F Pulse Rate 103 Respiratory 18 18 20 Rate Blood Pressure 102/58 (mmHg) O2 Sat by Pulse 96 96 Oximetry 09/03/17 15:21 Temperature Pulse Rate Respiratory 20 Rate Blood Pressure (mmHg) O2 Sat by Pulse Oximetry Oxygen Devices in Use Now: None Result Diagrams: 09/03/17 06:24 09/03/17 06:24 Additional Lab and Data: Lab Results 08/28/17 Range/Units 04:45 ABG pH 7.44 (7.35-7.45) ABG pCO2 38 (35-45) mmHg ABG pO2 64 L (80-100) mmHg ABG HCO3 25.9 (19-31) mmol/L ABG O2 Saturation 95.5 (95-98) % ABG Base Excess 1.7 (-2.0-2.0) Dilantin level: 16 Microbiology and Other Data: Microbiology 08/28/17 08:40 Nasal Screen MRSA (PCR)([facility]) - Final Nasal Mrsa Not Detected VZV and HSV negative CSF cultures negative Diagnostic Imaging: No new imaging. Pending MRI brain study Assess/Plan/Problems-Billing Ms. Natalia Cruz is a 57-year-old female with a history of depression, anxiety, and polysubstance abuse who had status epilepticus related to benzodiazepine withdrawal in 2016 who presented on August 28, 2017 with recurrent seizure likel activity. The patient was found to have electrographic seizures correlating with the clinical symptoms of staring and unresponsive spells lasting from 4-15 minutes. She had a CSF analysis that revealed pleocytosis that was thought to be related to reactivity from her seizures. Her neurological examination has improved the last few days especially since starting phenytoin on 08/31/2017. the phenytoin level is within therapeutic range. The patient continues to have less seizure episodes but she did have an event this morning lasting for about 4 minutes. She is being treated for pneumonia and NSTEMI. - Patient Problems (1) Seizure Current Visit: Yes Status: Acute Code(s): R56.9 - UNSPECIFIED CONVULSIONS SNOMED Code(s): 71658063 Comment: -Recurrent -May have been triggered by BZD non-compliance due to possible uncontrolled psychiatric issues such as anxiety and known depression? -Continue on Zonisamide 100 mg daily today, which can be increased to 200 mg if she still has seizures; Continue Phenytoin -Continue Lorazepam q8H (2) Anxiety disorder, unspecified Current Visit: No Status: Acute Priority: High Onset Date: 10/03/14 Code (s): F41.9 - ANXIETY DISORDER, UNSPECIFIED SNOMED Code(s): 573452973 Comment: -Please see above discussion -Appreciate Dr. Faith input -Continue Mirtazapine -Dr. Brush exploring referral to [facility] team and will defer (3) Cirrhosis Current Visit: Yes Status: Acute Comment: -Well-compensated with MELD =5 -Will order INR and CMP in AM to calculate for MELD score -Although with mildly elevated ammonia level, subsequent repeat was normal and pt has no asterixis consistent with hepatic encephalopathy at this time -Continue to encourage PO lactulose -Continue Xifaxan given non-compliance with lactulose -Likely cause of thrombocytopenia (4) Alcohol abuse Current Visit: Yes Status: Acute Code(s): F10.10 - ALCOHOL ABUSE, UNCOMPLICATED SNOMED Code(s): 64633230 Comment: -Pt reports no EtOH use for several years. She has a h/o alcoholic cirrhosis and is on lactulose at home but unclear how frequently she was using that medication. Start lactulose 15 ml bid 08/31 AM. Note NH4+ level 62 on 08/28/17. Patient refused all doses of lactulose as of 09/01 AM. Repeat ammonia level . (5) NSTEMI (non-ST elevated myocardial infarction) Current Visit: Yes Status: Acute Code(s): I21.4 - NON-ST ELEVATION (NSTEMI) MYOCARDIAL INFARCTION SNOMED Code(s): 478905170 Comment: -The patient's trop peaked at 2.4. Continue ASA and carvdilol. Echo 08/28 showed LVEF 35-40%. AWMI uncertain age. Dr. Campbell recommended against statin or heparin. Eventually will need either stress test or cath---which can be done as an outpatient (6) Tobacco abuse Current Visit: Yes Status: Acute Code(s): Z72.0 - TOBACCO USE SNOMED Code( s): 578409718 Comment: -Continue PRN nicotine inhaler. (7) COPD (chronic obstructive pulmonary disease) Current Visit: Yes Status: Acute Code(s): J44.9 - CHRONIC OBSTRUCTIVE PULMONARY DISEASE, UNSPECIFIED SNOMED Code(s): 41375248 Comment: -Patient does not want inhaled pulm meds. Status and Disposition: -As above
[2017-09-03] MEDS: Phenytoin CAP(*) 100 MG CAP.ER PO SCH (20:55)
[2017-09-03] MEDS: Mirtazapine TAB* 15 MG PO SCH (20:55)
[2017-09-03] MEDS ORDERED: Phenytoin CHEW TAB(*) 50 MG PO SCH (21:00)
[2017-09-04] MEDS: Mouth Piece, Nicotine* 1 EACH CARTRIDGE INH PRN (03:47)
[2017-09-04] MEDS: Nicotine Inhaler* 10 MG AMP INH PRN ×3 (03:47→16:34)
[2017-09-04] MEDS: Heparin VIAL(*) 5000 UNITS/ML VIAL (FIVE THOUSAND) SUBCUT SCH ×3 (05:28→21:48)
[2017-09-04] MEDS: RiFAXimin* 550 MG TAB PO SCH (09:36)
[2017-09-04] MEDS: Potassium Chlor TAB* 20 MEQ TAB.ER PO SCH (09:40)
[2017-09-04] MEDS: Aspirin EC TAB* 81 MG TAB.EC PO SCH (09:41)
[2017-09-04] MEDS: CMC:Zonisamide (NF) 50 MG CAP PO SCH (09:42)
[2017-09-04] MEDS: Carvedilol TAB* 3.125 MG PO SCH ×2 (09:42→20:16)
[2017-09-04] MEDS ORDERED: Fosphenytoin(*) 100 MG/2 ML VIAL IVPB ONE (10:00)
[2017-09-04] MEDS ORDERED: Fosphenytoin(*) 400 MG in NS 0.9% 50 ML* 50 ML IVPB ONE (10:00)
[2017-09-04] MEDS: Lactulose* 15 ML UDC PO SCH (10:06)
--- NOTE | 2017-09-04 11:22 | PN ---
NEUROLOGY PROGRESS NOTE: DATE OF SERVICE: 09/03/17 PRIMARY PROVIDER: Js Membreno MD Neurology is following for the evaluation and treatment of seizures. SUBJECTIVE: The patient is awake today and states that she has not had any seizure- like activity. She refused to take zonisamide last night, but does not recall and thinks that she was having seizures at that time. She wants to go home. She relayed complete compliance and adherence to her medications once she is discharged. REVIEW OF SYSTEMS: The patient denied any chest pain, shortness of breath, or palpitations. She denied any focal weakness or paresthesias. She was walking around with the nursing staff. MEDICATIONS: 1. Acetaminophen. 2. Albuterol. 3. Aspirin. 4. Carvedilol. 5. Haldol 2.5 mg IV once p.r.n. for agitation, the patient received Haldol today at 1511. 6. Lorazepam 1 mg IV push for seizure activity where the patient did receive it today as well at 1521. 7. Ondansetron. 8. Phenytoin 300 mg at nighttime. 9. Zonisamide 100 mg p.o. daily, she received the dose today at 9:52. PHYSICAL EXAMINATION: Frail ill-appearing female, in no acute distress. She is resting in a chair without any complaints. Neck is supple with no nuchal rigidity. Atraumatic, normocephalic. Chest: Crackles in the bibasilar region bilaterally. Extremities: No hammertoes or high arches. Neurological Findings : Awake, alert, oriented to person, place, time and general circumstances. She does have tangential and circumferential speech. Cranial Nerves: Pupils are equal, round, reactive to light with no nystagmus. No facial asymmetry. Motor : 5/5 throughout without any asymmetry except for restriction in range of motion of the right shoulder. Sensation is intact to light touch in the upper and lower extremities. Deep tendon reflexes 2+ and symmetric in the upper and lower extremities with flexor plantar response bilaterally. [id number] and rapid alternating movement was intact. Gait was wide based with no ataxia. LABORATORY FINDINGS: WBC 6.2, hemoglobin of 16, hematocrit of 46, platelet count of 83,000. INR 0.91, ammonia 49, glucose 95, phenytoin 10.6. The patient had an MRI of the brain with and without contrast completed on 09/02. There were no intracranial lesions identified. ASSESSMENT AND PLAN: 1. Ms. Natalia Cruz is a 57-year-old female with a history of depression, anxiety , polysubstance abuse who had status epilepticus related to benzodiazepine withdrawal in 2016, who presented on 08/28/17 with recurrent seizure-like activity. The patient continues to have both behavioral abnormalities, agitation, and possible seizure-like activity with staring spells. Her last spell was last night. It is very difficult to discern between possible behavioral problems or are these spells actual seizures. She refused her zonisamide last night, but was able to take it today. Her phenytoin level was within lower range of normal. I recommend given her dose of 350 mg of phenytoin today and rechecking the level tomorrow morning. In addition, I have increased the zonisamide to 200 mg tomorrow. I recommend seizure precautions. Continue the Ativan 1 mg p.r.n. for seizure activity that lasts longer than 5 minutes. 2. Depression and anxiety. She is being evaluated by Psychiatry. She was started on antidepressant. I will continue to follow. [id number]/CPS #: [id number] LALO
[2017-09-04] MEDS: Acetaminophen TAB* 325 MG PO PRN ×2 (11:48→20:16)
--- NOTE | 2017-09-04 13:27 | CONSULT ---
Identification - Patient Identification Reason for Psychiatric Consultation: Incapacitating Symptoms -: Patient is a 57 year old, F admitted on 08/28/17. - MHU Identification Employment Status: Disabled Hx Psychiatric Hospitalization: Yes History - Objective HPI: Psychiatry returns to see Natalia and I find her in her room, accompanied by her daughter, Erendira. The patient remains confused. For example, she cannot recall seeing her attending physician today, despite Dr. Membreno having just left her room 30 minutes prior, per daughter. I ask her basic orienting questions, including the date, and she cannot answer, even when referred to the calendar on the wall. There are several times during the encounter that she will stop speaking, mid-sentence, appearing to lose her train of thought. Mrs. Cruz reiterates her desire to be discharged home and needs redirecting by myself and her daughter as to why this would be unsafe. "I'll get better in my own bed. I 'm not going to take the opioids or none of that anymore." The patient and her daughter are given some basic information about the [facility] ACT team and express an interest. I was able to touch base with unit SW Haley Crawford, who indicates that the SPOA application has been submitted and that the patient should qualify for ACT, given her previous failure with intensive case management services when served by one of the [facility] in [facility]. Natalia continues to deny SI or HI. Lab Results: Laboratory Tests 08/28/17 08/28/17 08/28/17 04:45 05:02 05:02 WBC 14.3 H RBC 5.37 Hgb 17.2 H Hct 49 H MCV 91 MCH 32 H MCHC 35 RDW 15 Plt Count 86 L MPV 8.6 Neut % (Auto) 88.8 H Lymph % (Auto) 6.5 L [place] % (Auto) 4.3 Eos % (Auto) 0.2 Baso % (Auto) 0.2 Absolute Neuts (auto) 12.7 H Absolute Lymphs (auto) 0.9 L Absolute Monos (auto) 0.6 Absolute Eos (auto) 0 Absolute Basos (auto) 0 Absolute Nucleated RBC 0 Nucleated RBC % 0.1 INR (Anticoag Therapy) 1.14 H APTT 27.8 ABG pH 7.44 ABG pCO2 38 ABG pO2 64 L ABG HCO3 25.9 ABG O2 Saturation 95.5 ABG Base Excess 1.7 Sodium Potassium Chloride Carbon Dioxide Anion Gap BUN Creatinine Est GFR ( Amer) Est GFR (Non-Af Amer) BUN/Creatinine Ratio Glucose Lactic Acid Calcium Phosphorus Magnesium Total Bilirubin AST ALT Alkaline Phosphatase Ammonia Troponin I C-Reactive Protein B-Natriuretic Peptide Total Protein Albumin Globulin Albumin/Globulin Ratio Triglycerides Cholesterol LDL Cholesterol HDL Cholesterol Procalcitonin Cortisol Urine Color Urine Appearance Urine pH Ur Specific [place] Urine Protein Urine Ketones Urine Blood Urine Nitrate Urine Bilirubin Urine Urobilinogen Ur Leukocyte Esterase Urine WBC (Auto) Urine RBC (Auto) Ur Squamous Epith Cells Amorphous Crystals Urine Bacteria Urine Glucose Fluid Source Fluid Volume Fluid Color Fluid Appearance Fluid WBC Fluid RBC Fluid Tot Cell Count Fluid Neutrophils Fluid Band Neutrophils Fluid Lymphocytes Fluid Monocytes Fluid Metamyelocytes Fluid Cell Count Rvw By CSF Cell Count Tube # CSF Glucose CSF Total Protein CSF HSV I (PCR) CSF Herpes II DNA (PCR) Vancomycin Trough Salicylates Urine Opiates Screen Acetaminophen Ur Barbiturates Screen Phenytoin Ur Phencyclidine Scrn Ur Amphetamines Screen U Benzodiazepines Scrn Urine Cocaine Screen U Cannabinoids Screen Serum Alcohol HIV-1 RNA (PCR) VZV DNA (PCR) 08/28/17 08/28/17 08/28/17 05:02 05:02 05:02 WBC RBC Hgb Hct MCV MCH MCHC RDW Plt Count MPV Neut % (Auto) Lymph % (Auto) Con[place] % (Auto) Eos % (Auto) Baso % (Auto) Absolute Neuts (auto) Absolute Lymphs (auto) Absolute Monos (auto) Absolute Eos (auto) Absolute Basos (auto) Absolute Nucleated RBC Nucleated RBC % INR (Anticoag Therapy) APTT ABG pH ABG pCO2 ABG pO2 ABG HCO3 ABG O2 Saturation ABG Base Excess Sodium 135 Potassium 3.5 Chloride 98 L Carbon Dioxide 25 Anion Gap 12 H BUN 9 Creatinine 0.54 Est GFR ( Amer) 150.7 Est GFR (Non-Af Amer) 117.2 BUN/Creatinine Ratio 16.7 Glucose 137 H Lactic Acid 1.6 Calcium 9.0 Phosphorus Magnesium Total Bilirubin 1.90 H AST 24 ALT 13 Alkaline Phosphatase 58 Ammonia Troponin I 0.79 H* C-Reactive Protein 6.81 B-Natriuretic Peptide 142 H Total Protein 6.8 Albumin 4.1 Globulin 2.7 Albumin/Globulin Ratio 1.5 Triglycerides Cholesterol LDL Cholesterol HDL Cholesterol Procalcitonin Cortisol Urine Color Urine Appearance Urine pH Ur Specific [place] Urine Protein Urine Ketones Urine Blood Urine Nitrate Urine Bilirubin Urine Urobilinogen Ur Leukocyte Esterase Urine WBC (Auto) Urine RBC (Auto) Ur Squamous Epith Cells Amorphous Crystals Urine Bacteria Urine Glucose Fluid Source Fluid Volume Fluid Color Fluid Appearance Fluid WBC Fluid RBC Fluid Tot Cell Count Fluid Neutrophils Fluid Band Neutrophils Fluid Lymphocytes Fluid Monocytes Fluid Metamyelocytes Fluid Cell Count Rvw By CSF Cell Count Tube # CSF Glucose CSF Total Protein CSF HSV I (PCR) CSF Herpes II DNA (PCR) Vancomycin Trough Salicylates < 2.50 Urine Opiates Screen Acetaminophen < 15 Ur Barbiturates Screen Phenytoin Ur Phencyclidine Scrn Ur Amphetamines Screen U Benzodiazepines Scrn Urine Cocaine Screen U Cannabinoids Screen Serum Alcohol HIV-1 RNA (PCR) VZV DNA (PCR) 08/28/17 08/28/17 08/28/17 05:02 05:26 05:26 WBC RBC Hgb Hct MCV MCH MCHC RDW Plt Count MPV Neut % (Auto) Lymph % (Auto) [place] % (Auto) Eos % (Auto) Baso % (Auto) Absolute Neuts (auto) Absolute Lymphs (auto) Absolute Monos (auto) Absolute Eos (auto) Absolute Basos (auto) Absolute Nucleated RBC Nucleated RBC % INR (Anticoag Therapy) APTT ABG pH ABG pCO2 ABG pO2 ABG HCO3 ABG O2 Saturation ABG Base Excess Sodium Potassium Chloride Carbon Dioxide Anion Gap BUN Creatinine Est GFR ( Amer) Est GFR (Non-Af Amer) BUN/Creatinine Ratio Glucose Lactic Acid Calcium Phosphorus Magnesium Total Bilirubin AST ALT Alkaline Phosphatase Ammonia Troponin I C-Reactive Protein B-Natriuretic Peptide Total Protein Albumin Globulin Albumin/Globulin Ratio Triglycerides Cholesterol LDL Cholesterol HDL Cholesterol Procalcitonin Cortisol Urine Color Yellow Urine Appearance Cloudy Urine pH 7.0 Ur Specific [place] 1.013 Urine Protein 2+(100 mg/dl) A Urine Ketones 1+ A Urine Blood Negative Urine Nitrate Negative Urine Bilirubin Negative Urine Urobilinogen Positive A Ur Leukocyte Esterase Negative Urine WBC (Auto) Trace(0-5/hpf) Urine RBC (Auto) Trace(0-2/hpf) Ur Squamous Epith Cells Present A Amorphous Crystals Present A Urine Bacteria Absent Urine Glucose Negative Fluid Source Fluid Volume Fluid Color Fluid Appearance Fluid WBC Fluid RBC Fluid Tot Cell Count Fluid Neutrophils Fluid Band Neutrophils Fluid Lymphocytes Fluid Monocytes Fluid Metamyelocytes Fluid Cell Count Rvw By CSF Cell Count Tube # CSF Glucose CSF Total Protein CSF HSV I (PCR) CSF Herpes II DNA (PCR) Vancomycin Trough Salicylates Urine Opiates Screen None detected Acetaminophen Ur Barbiturates Screen None detected Phenytoin Ur Phencyclidine Scrn None detected Ur Amphetamines Screen None detected U Benzodiazepines Scrn None detected Urine Cocaine Screen None detected U Cannabinoids Screen Presumptive positive A Serum Alcohol HIV-1 RNA (PCR) Undetected VZV DNA (PCR) 08/28/17 08/28/17 08/28/17 06:07 06:07 06:07 WBC RBC Hgb Hct MCV MCH MCHC RDW Plt Count MPV Neut % (Auto) Lymph % (Auto) Con[place] % (Auto) Eos % (Auto) Baso % (Auto) Absolute Neuts (auto) Absolute Lymphs (auto) Absolute Monos (auto) Absolute Eos (auto) Absolute Basos (auto) Absolute Nucleated RBC Nucleated RBC % INR (Anticoag Therapy) APTT ABG pH ABG pCO2 ABG pO2 ABG HCO3 ABG O2 Saturation ABG Base Excess Sodium Potassium Chloride Carbon Dioxide Anion Gap BUN Creatinine Est GFR ( Amer) Est GFR (Non-Af Amer) BUN/Creatinine Ratio Glucose Lactic Acid Calcium Phosphorus Magnesium Total Bilirubin AST ALT Alkaline Phosphatase Ammonia 62 H Troponin I C-Reactive Protein B-Natriuretic Peptide Total Protein Albumin Globulin Albumin/Globulin Ratio Triglycerides Cholesterol LDL Cholesterol HDL Cholesterol Procalcitonin < 0.1 Cortisol Urine Color Urine Appearance Urine pH Ur Specific [place] Urine Protein Urine Ketones Urine Blood Urine Nitrate Urine Bilirubin Urine Urobilinogen Ur Leukocyte Esterase Urine WBC (Auto) Urine RBC (Auto) Ur Squamous Epith Cells Amorphous Crystals Urine Bacteria Urine Glucose Fluid Source Fluid Volume Fluid Color Fluid Appearance Fluid WBC Fluid RBC Fluid Tot Cell Count Fluid Neutrophils Fluid Band Neutrophils Fluid Lymphocytes Fluid Monocytes Fluid Metamyelocytes Fluid Cell Count Rvw By CSF Cell Count Tube # CSF Glucose CSF Total Protein CSF HSV I (PCR) CSF Herpes II DNA (PCR) Vancomycin Trough Salicylates Urine Opiates Screen Acetaminophen Ur Barbiturates Screen Phenytoin Ur Phencyclidine Scrn Ur Amphetamines Screen U Benzodiazepines Scrn Urine Cocaine Screen U Cannabinoids Screen Serum Alcohol < 10 HIV-1 RNA (PCR) VZV DNA (PCR) 08/28/17 08/28/17 08/28/17 08:39 08:39 11:27 WBC RBC Hgb Hct MCV MCH MCHC RDW Plt Count MPV Neut % (Auto) Lymph % (Auto) [place] % (Auto) Eos % (Auto) Baso % (Auto) Absolute Neuts (auto) Absolute Lymphs (auto) Absolute Monos (auto) Absolute Eos (auto) Absolute Basos (auto) Absolute Nucleated RBC Nucleated RBC % INR (Anticoag Therapy) APTT ABG pH ABG pCO2 ABG pO2 ABG HCO3 ABG O2 Saturation ABG Base Excess Sodium Potassium Chloride Carbon Dioxide Anion Gap BUN Creatinine Est GFR ( Amer) Est GFR (Non-Af Amer) BUN/Creatinine Ratio Glucose Lactic Acid 0.9 Calcium Phosphorus Magnesium Total Bilirubin AST ALT Alkaline Phosphatase Ammonia Troponin I 2.40 H* C-Reactive Protein B-Natriuretic Peptide Total Protein Albumin Globulin Albumin/Globulin Ratio Triglycerides 50 Cholesterol 118 LDL Cholesterol 65 HDL Cholesterol 43.4 Procalcitonin Cortisol 20.60 Urine Color Urine Appearance Urine pH Ur Specific [place] Urine Protein Urine Ketones Urine Blood Urine Nitrate Urine Bilirubin Urine Urobilinogen Ur Leukocyte Esterase Urine WBC (Auto) Urine RBC (Auto) Ur Squamous Epith Cells Amorphous Crystals Urine Bacteria Urine Glucose Fluid Source Fluid Volume Fluid Color Fluid Appearance Fluid WBC Fluid RBC Fluid Tot Cell Count Fluid Neutrophils Fluid Band Neutrophils Fluid Lymphocytes Fluid Monocytes Fluid Metamyelocytes Fluid Cell Count Rvw By CSF Cell Count Tube # CSF Glucose CSF Total Protein CSF HSV I (PCR) CSF Herpes II DNA (PCR) Vancomycin Trough Salicylates Urine Opiates Screen Acetaminophen Ur Barbiturates Screen Phenytoin Ur Phencyclidine Scrn Ur Amphetamines Screen U Benzodiazepines Scrn Urine Cocaine Screen U Cannabinoids Screen Serum Alcohol HIV-1 RNA (PCR) VZV DNA (PCR) 08/28/17 08/28/17 08/28/17 15:45 17:55 17:55 WBC RBC Hgb Hct MCV MCH MCHC RDW Plt Count MPV Neut % (Auto) Lymph % (Auto) Con[place] % (Auto) Eos % (Auto) Baso % (Auto) Absolute Neuts (auto) Absolute Lymphs (auto) Absolute Monos (auto) Absolute Eos (auto) Absolute Basos (auto) Absolute Nucleated RBC Nucleated RBC % INR (Anticoag Therapy) APTT 30.2 ABG pH ABG pCO2 ABG pO2 ABG HCO3 ABG O2 Saturation ABG Base Excess Sodium Potassium Chloride Carbon Dioxide Anion Gap BUN Creatinine Est GFR ( Amer) Est GFR (Non-Af Amer) BUN/Creatinine Ratio Glucose Lactic Acid Calcium Phosphorus Magnesium Total Bilirubin AST ALT Alkaline Phosphatase Ammonia Troponin I C-Reactive Protein B-Natriuretic Peptide Total Protein Albumin Globulin Albumin/Globulin Ratio Triglycerides Cholesterol LDL Cholesterol HDL Cholesterol Procalcitonin Cortisol Urine Color Urine Appearance Urine pH Ur Specific [place] Urine Protein Urine Ketones Urine Blood Urine Nitrate Urine Bilirubin Urine Urobilinogen Ur Leukocyte Esterase Urine WBC (Auto) Urine RBC (Auto) Ur Squamous Epith Cells Amorphous Crystals Urine Bacteria Urine Glucose Fluid Source Cerebral spinal Fluid Volume 1.3 Fluid Color Colorless Fluid Appearance Clear Fluid WBC 36 H* Fluid RBC 3 Fluid Tot Cell Count 100 Fluid Neutrophils 89 Fluid Band Neutrophils 2 Fluid Lymphocytes 2 Fluid Monocytes 3 Fluid Metamyelocytes 4 Fluid Cell Count Rvw By CSF Cell Count Tube # 2 CSF Glucose 86 H CSF Total Protein 50 H CSF HSV I (PCR) CSF Herpes II DNA (PCR) Vancomycin Trough Salicylates Urine Opiates Screen Acetaminophen Ur Barbiturates Screen Phenytoin Ur Phencyclidine Scrn Ur Amphetamines Screen U Benzodiazepines Scrn Urine Cocaine Screen U Cannabinoids Screen Serum Alcohol HIV-1 RNA (PCR) VZV DNA (PCR) 08/28/17 08/28/17 08/28/17 17:55 17:55 18:34 WBC RBC Hgb Hct MCV MCH MCHC RDW Plt Count MPV Neut % (Auto) Lymph % (Auto) Con[place] % (Auto) Eos % (Auto) Baso % (Auto) Absolute Neuts (auto) Absolute Lymphs (auto) Absolute Monos (auto) Absolute Eos (auto) Absolute Basos (auto) Absolute Nucleated RBC Nucleated RBC % INR (Anticoag Therapy) APTT ABG pH ABG pCO2 ABG pO2 ABG HCO3 ABG O2 Saturation ABG Base Excess Sodium Potassium Chloride Carbon Dioxide Anion Gap BUN Creatinine Est GFR ( Amer) Est GFR (Non-Af Amer) BUN/Creatinine Ratio Glucose Lactic Acid Calcium Phosphorus Magnesium Total Bilirubin AST ALT Alkaline Phosphatase Ammonia Troponin I 1.77 H* C-Reactive Protein B-Natriuretic Peptide Total Protein Albumin Globulin Albumin/Globulin Ratio Triglycerides Cholesterol LDL Cholesterol HDL Cholesterol Procalcitonin Cortisol Urine Color Urine Appearance Urine pH Ur Specific [place] Urine Protein Urine Ketones Urine Blood Urine Nitrate Urine Bilirubin Urine Urobilinogen Ur Leukocyte Esterase Urine WBC (Auto) Urine RBC (Auto) Ur Squamous Epith Cells Amorphous Crystals Urine Bacteria Urine Glucose Fluid Source Fluid Volume Fluid Color Fluid Appearance Fluid WBC Fluid RBC Fluid Tot Cell Count Fluid Neutrophils Fluid Band Neutrophils Fluid Lymphocytes Fluid Monocytes Fluid Metamyelocytes Fluid Cell Count Rvw By CSF Cell Count Tube # CSF Glucose CSF Total Protein CSF HSV I (PCR) Negative CSF Herpes II DNA (PCR) Negative Vancomycin Trough Salicylates Urine Opiates Screen Acetaminophen Ur Barbiturates Screen Phenytoin Ur Phencyclidine Scrn Ur Amphetamines Screen U Benzodiazepines Scrn Urine Cocaine Screen U Cannabinoids Screen Serum Alcohol HIV-1 RNA (PCR) VZV DNA (PCR) Negative 08/29/17 08/29/17 08/30/17 05:22 05:22 06:59 WBC 10.0 RBC 4.51 Hgb 14.3 Hct 42 MCV 93 MCH 32 H MCHC 34 RDW 15 Plt Count 71 L MPV 8.9 Neut % (Auto) 78.1 Lymph % (Auto) 14.9 L Con[place] % (Auto) 6.8 Eos % (Auto) 0 Baso % (Auto) 0.2 Absolute Neuts (auto) 7.8 H Absolute Lymphs (auto) 1.5 Absolute Monos (auto) 0.7 Absolute Eos (auto) 0 Absolute Basos (auto) 0 Absolute Nucleated RBC 0 Nucleated RBC % 0 INR (Anticoag Therapy) APTT ABG pH ABG pCO2 ABG pO2 ABG HCO3 ABG O2 Saturation ABG Base Excess Sodium 138 Potassium 3.6 Chloride 108 Carbon Dioxide 24 Anion Gap 6 BUN 13 Creatinine 0.46 L Est GFR ( Amer) 170.7 Est GFR (Non-Af Amer) 141.0 BUN/Creatinine Ratio 28.3 H Glucose 103 H Lactic Acid Calcium 7.9 L Phosphorus Magnesium Total Bilirubin AST ALT Alkaline Phosphatase Ammonia Troponin I C-Reactive Protein B-Natriuretic Peptide Total Protein Albumin Globulin Albumin/Globulin Ratio Triglycerides Cholesterol LDL Cholesterol HDL Cholesterol Procalcitonin Cortisol Urine Color Urine Appearance Urine pH Ur Specific [place] Urine Protein Urine Ketones Urine Blood Urine Nitrate Urine Bilirubin Urine Urobilinogen Ur Leukocyte Esterase Urine WBC (Auto) Urine RBC (Auto) Ur Squamous Epith Cells Amorphous Crystals Urine Bacteria Urine Glucose Fluid Source Fluid Volume Fluid Color Fluid Appearance Fluid WBC Fluid RBC Fluid Tot Cell Count Fluid Neutrophils Fluid Band Neutrophils Fluid Lymphocytes Fluid Monocytes Fluid Metamyelocytes Fluid Cell Count Rvw By CSF Cell Count Tube # CSF Glucose CSF Total Protein CSF HSV I (PCR) CSF Herpes II DNA (PCR) Vancomycin Trough 18.2 Salicylates Urine Opiates Screen Acetaminophen Ur Barbiturates Screen Phenytoin Ur Phencyclidine Scrn Ur Amphetamines Screen U Benzodiazepines Scrn Urine Cocaine Screen U Cannabinoids Screen Serum Alcohol HIV-1 RNA (PCR) VZV DNA (PCR) 08/30/17 08/31/17 08/31/17 14:34 15:19 15:19 WBC 5.9 RBC 5.10 Hgb 16.4 H Hct 47 MCV 93 MCH 32 H MCHC 35 RDW 15 Plt Count 67 L MPV 8.8 Neut % (Auto) 67.6 Lymph % (Auto) 23.7 L [place] % (Auto) 6.4 Eos % (Auto) 1.7 Baso % (Auto) 0.6 Absolute Neuts (auto) 4.0 Absolute Lymphs (auto) 1.4 Absolute Monos (auto) 0.4 Absolute Eos (auto) 0.1 Absolute Basos (auto) 0 Absolute Nucleated RBC 0 Nucleated RBC % 0.1 INR (Anticoag Therapy) APTT ABG pH ABG pCO2 ABG pO2 ABG HCO3 ABG O2 Saturation ABG Base Excess Sodium 138 Potassium 3.3 L Chloride 102 Carbon Dioxide 28 Anion Gap 8 BUN 11 Creatinine 0.56 Est GFR ( Amer) 136.0 Est GFR (Non-Af Amer) 112.4 BUN/Creatinine Ratio 19.6 Glucose 105 H Lactic Acid Calcium 8.6 Phosphorus Magnesium Total Bilirubin AST ALT Alkaline Phosphatase Ammonia Troponin I C-Reactive Protein B-Natriuretic Peptide Total Protein Albumin Globulin Albumin/Globulin Ratio Triglycerides Cholesterol LDL Cholesterol HDL Cholesterol Procalcitonin Cortisol Urine Color Urine Appearance Urine pH Ur Specific [place] Urine Protein Urine Ketones Urine Blood Urine Nitrate Urine Bilirubin Urine Urobilinogen Ur Leukocyte Esterase Urine WBC (Auto) Urine RBC (Auto) Ur Squamous Epith Cells Amorphous Crystals Urine Bacteria Urine Glucose Fluid Source Fluid Volume Fluid Color Fluid Appearance Fluid WBC Fluid RBC Fluid Tot Cell Count Fluid Neutrophils Fluid Band Neutrophils Fluid Lymphocytes Fluid Monocytes Fluid Metamyelocytes Fluid Cell Count Rvw By CSF Cell Count Tube # CSF Glucose CSF Total Protein CSF HSV I (PCR) CSF Herpes II DNA (PCR) Vancomycin Trough Salicylates Urine Opiates Screen Acetaminophen Ur Barbiturates Screen Phenytoin 24.3 H 16.2 Ur Phencyclidine Scrn Ur Amphetamines Screen U Benzodiazepines Scrn Urine Cocaine Screen U Cannabinoids Screen Serum Alcohol HIV-1 RNA (PCR) VZV DNA (PCR) 09/01/17 09/02/17 09/02/17 04:10 05:40 05:40 WBC RBC Hgb Hct MCV MCH MCHC RDW Plt Count MPV Neut % (Auto) Lymph % (Auto) [place] % (Auto) Eos % (Auto) Baso % (Auto) Absolute Neuts (auto) Absolute Lymphs (auto) Absolute Monos (auto) Absolute Eos (auto) Absolute Basos (auto) Absolute Nucleated RBC Nucleated RBC % INR (Anticoag Therapy) APTT ABG pH ABG pCO2 ABG pO2 ABG HCO3 ABG O2 Saturation ABG Base Excess Sodium 141 Potassium 3.6 Chloride 106 Carbon Dioxide 28 Anion Gap 7 BUN 9 Creatinine 0.51 Est GFR ( Amer) 151.5 Est GFR (Non-Af Amer) 125.2 BUN/Creatinine Ratio 17.6 Glucose 125 H Lactic Acid Calcium 9.0 Phosphorus Magnesium Total Bilirubin AST ALT Alkaline Phosphatase Ammonia 49 Troponin I C-Reactive Protein B-Natriuretic Peptide Total Protein Albumin Globulin Albumin/Globulin Ratio Triglycerides Cholesterol LDL Cholesterol HDL Cholesterol Procalcitonin Cortisol Urine Color Urine Appearance Urine pH Ur Specific [place] Urine Protein Urine Ketones Urine Blood Urine Nitrate Urine Bilirubin Urine Urobilinogen Ur Leukocyte Esterase Urine WBC (Auto) Urine RBC (Auto) Ur Squamous Epith Cells Amorphous Crystals Urine Bacteria Urine Glucose Fluid Source Fluid Volume Fluid Color Fluid Appearance Fluid WBC Fluid RBC Fluid Tot Cell Count Fluid Neutrophils Fluid Band Neutrophils Fluid Lymphocytes Fluid Monocytes Fluid Metamyelocytes Fluid Cell Count Rvw By CSF Cell Count Tube # CSF Glucose CSF Total Protein CSF HSV I (PCR) CSF Herpes II DNA (PCR) Vancomycin Trough Salicylates Urine Opiates Screen Acetaminophen Ur Barbiturates Screen Phenytoin 16.0 Ur Phencyclidine Scrn Ur Amphetamines Screen U Benzodiazepines Scrn Urine Cocaine Screen U Cannabinoids Screen Serum Alcohol HIV-1 RNA (PCR) VZV DNA (PCR) 09/03/17 09/03/17 09/03/17 06:24 06:24 06:24 WBC 6.2 RBC 4.96 Hgb 16.1 H Hct 46 MCV 94 MCH 32 H MCHC 35 RDW 15 Plt Count 83 L MPV 9.6 Neut % (Auto) Lymph % (Auto) [place] % (Auto) Eos % (Auto) Baso % (Auto) Absolute Neuts (auto) Absolute Lymphs (auto) Absolute Monos (auto) Absolute Eos (auto) Absolute Basos (auto) Absolute Nucleated RBC Nucleated RBC % INR (Anticoag Therapy) 0.91 APTT ABG pH ABG pCO2 ABG pO2 ABG HCO3 ABG O2 Saturation ABG Base Excess Sodium 141 Potassium 4.0 Chloride 105 Carbon Dioxide 28 Anion Gap 8 BUN 12 Creatinine 0.58 Est GFR ( Amer) 130.6 Est GFR (Non-Af Amer) 107.9 BUN/Creatinine Ratio 20.7 H Glucose 95 Lactic Acid Calcium 8.7 Phosphorus 5.1 H Magnesium 1.7 L Total Bilirubin 0.60 AST 21 ALT 19 Alkaline Phosphatase 69 Ammonia Troponin I C-Reactive Protein B-Natriuretic Peptide Total Protein 5.6 L Albumin 3.3 Globulin 2.3 Albumin/Globulin Ratio 1.4 Triglycerides Cholesterol LDL Cholesterol HDL Cholesterol Procalcitonin Cortisol Urine Color Urine Appearance Urine pH Ur Specific [place] Urine Protein Urine Ketones Urine Blood Urine Nitrate Urine Bilirubin Urine Urobilinogen Ur Leukocyte Esterase Urine WBC (Auto) Urine RBC (Auto) Ur Squamous Epith Cells Amorphous Crystals Urine Bacteria Urine Glucose Fluid Source Fluid Volume Fluid Color Fluid Appearance Fluid WBC Fluid RBC Fluid Tot Cell Count Fluid Neutrophils Fluid Band Neutrophils Fluid Lymphocytes Fluid Monocytes Fluid Metamyelocytes Fluid Cell Count Rvw By CSF Cell Count Tube # CSF Glucose CSF Total Protein CSF HSV I (PCR) CSF Herpes II DNA (PCR) Vancomycin Trough Salicylates Urine Opiates Screen Acetaminophen Ur Barbiturates Screen Phenytoin 10.6 Ur Phencyclidine Scrn Ur Amphetamines Screen U Benzodiazepines Scrn Urine Cocaine Screen U Cannabinoids Screen Serum Alcohol HIV-1 RNA (PCR) VZV DNA (PCR) 09/04/17 09/04/17 05:35 09:53 WBC RBC Hgb Hct MCV MCH MCHC RDW Plt Count MPV Neut % (Auto) Lymph % (Auto) [place] % (Auto) Eos % (Auto) Baso % (Auto) Absolute Neuts (auto) Absolute Lymphs (auto) Absolute Monos (auto) Absolute Eos (auto) Absolute Basos (auto) Absolute Nucleated RBC Nucleated RBC % INR (Anticoag Therapy) APTT ABG pH ABG pCO2 ABG pO2 ABG HCO3 ABG O2 Saturation ABG Base Excess Sodium Potassium Chloride Carbon Dioxide Anion Gap BUN Creatinine Est GFR ( Amer) Est GFR (Non-Af Amer) BUN/Creatinine Ratio Glucose Lactic Acid Calcium Phosphorus Magnesium Total Bilirubin AST ALT Alkaline Phosphatase Ammonia Troponin I C-Reactive Protein B-Natriuretic Peptide Total Protein Albumin Globulin Albumin/Globulin Ratio Triglycerides Cholesterol LDL Cholesterol HDL Cholesterol Procalcitonin Cortisol Urine Color Urine Appearance Urine pH Ur Specific [place] Urine Protein Urine Ketones Urine Blood Urine Nitrate Urine Bilirubin Urine Urobilinogen Ur Leukocyte Esterase Urine WBC (Auto) Urine RBC (Auto) Ur Squamous Epith Cells Amorphous Crystals Urine Bacteria Urine Glucose Fluid Source Fluid Volume Fluid Color Fluid Appearance Fluid WBC Fluid RBC Fluid Tot Cell Count Fluid Neutrophils Fluid Band Neutrophils Fluid Lymphocytes Fluid Monocytes Fluid Metamyelocytes Fluid Cell Count Rvw By CSF Cell Count Tube # CSF Glucose CSF Total Protein CSF HSV I (PCR) CSF Herpes II DNA (PCR) Vancomycin Trough Salicylates Urine Opiates Screen Acetaminophen Ur Barbiturates Screen Phenytoin 7.6 L 10.3 Ur Phencyclidine Scrn Ur Amphetamines Screen U Benzodiazepines Scrn Urine Cocaine Screen U Cannabinoids Screen Serum Alcohol HIV-1 RNA (PCR) VZV DNA (PCR) Exam Appearance: Well Developed/Nourished Hygiene: Normal Grooming: Disheveled Psychomotor Activities: Normal Exhibits Abnormal Movement: No Attitude and Relatedness: Cooperative Eye Contact: Fair - Speech Quality: Unpressured Latencies: Normal Quantity: Appropriate Patient's Decription of Mood: "Sad" Observed Affect: Depressed Affect Consistent with: Dysphoria Patient's Thought Process: Circumstantial Thought Content: No Passive Wish, No Suicidal Planning, No Homicidal Ideation, No Paranoid Ideation Experiencing Hallucinations: No, Sensorium is Clear Type of Hallucinations: Visual: No, Auditory: No, Command: No Level of Consciousness: Alert Orientation: Yes Orientated to Person, No Intact, No Orientated to Time, No Orientated to Place Impulse Control: Tenuous Insight and Judgement: Poor - likely close to baseline Impression - Impression Clinical Impression: 57 y.o. , white female with a history of chronic alcoholism, now in sustained remission, cirrhosis, anxiety and depression, several psychiatric hospitalizations as well as serial non-adherence with outpatient mental health services, who is currently admitted to the hospitalist service due to seizures related to rapid self-discontinuation of prescribed alprazolam treatment. Inpatient DSM-V Dx: R41.0 Merits Inpatient Hospitalization: No Plan - Treatment Plan Treatment Plan: The patient has been started on a trial of mirtazapine 15mg PO qhs. She would benefit from [facility] at her home in [place], [place]. Social work is working on the referral process, which could take at least a week. For now, the patient remains delirious and lacks capacity to choose discharge AMA. Psychiatry will continue to follow. Uncertain whether patient is still having seizures. Neurology is following. Continued Medication Management: Start Medication Medications: Current Medications Acetaminophen (Tylenol Tab*) 650 mg PO Q4H PRN PRN Reason: FEVER/PAIN Last Admin: 09/04/17 11:48 Dose: 650 mg Al Hydrox/Mg Hydrox/Simethicone (Maalox Plus*) 30 ml PO Q6H PRN PRN Reason: INDIGESTION Albuterol (Ventolin 2.5 Mg/3 Ml Neb.Christin*) 2.5 mg INH Q2H PRN PRN Reason: SOB/WHEEZING Aspirin (Aspirin Ec Tab*) 81 mg PO DAILY [facility] Last Admin: 09/04/17 09:41 Dose: 81 mg Carvedilol (Coreg Tab*) 3.125 mg PO BID [facility] Last Admin: 09/04/17 09:42 Dose: 3.125 mg Device (Nicotine Mouth Piece*) 1 each INH .USE WITH NICOTROL PRN PRN Reason: CRAVING Last Admin: 09/04/17 03:47 Dose: 1 each Docusate Sodium (Colace Cap*) 100 mg PO BID PRN PRN Reason: CONSTIPATION Haloperidol Lactate (Haldol Inj Iv/Im*) 2.5 mg IM ONCE PRN PRN Reason: AGITATION Last Admin: 09/03/17 15:11 Dose: 2.5 mg Heparin Sodium (Porcine) (Heparin Vial(*)) 5,000 units SUBCUT Q8HR [facility] Last Admin: 09/04/17 05:28 Dose: 5,000 units Lorazepam (Ativan Inj*) 1 mg IV PUSH Q8H PRN PRN Reason: SEIZURE ACTIVITY Last Admin: 09/03/17 15:21 Dose: 1 mg Lorazepam (Ativan Inj*) 1 mg IV PUSH ONCE PRN PRN Reason: ANXIETY Last Admin: 09/02/17 14:11 Dose: 1 mg Mirtazapine (Remeron Tab*) 15 mg PO BEDTIME [facility] Last Admin: 09/03/17 20:55 Dose: 15 mg Nicotine (Nicotine Inhaler*) 10 mg INH Q2H PRN PRN Reason: CRAVING Last Admin: 09/04/17 10:49 Dose: 10 mg Ondansetron HCl (Zofran 40 Mg Vial*) 4 mg IV Q4H PRN PRN Reason: NAUSEA/VOMITING Last Admin: 09/02/17 11:58 Dose: 4 mg Phenytoin Sodium (Dilantin Cap(*)) 300 mg PO BEDTIME [facility] Last Admin: 09/03/17 20:55 Dose: 300 mg Potassium Chloride (Klor Con Er Tab*) 20 meq PO DAILY [facility] Last Admin: 09/04/17 09:40 Dose: 20 meq Zonisamide (Zonegran (Nf)) 200 mg PO DAILY [facility] Last Admin: 09/04/17 09:42 Dose: 200 mg - Discharge Plan Discharge Plan: Outpatient Follow Up Outpatient Program: [facility] ACT Team
[2017-09-04] MEDS: LORazepam INJ* 2 MG/ML 1 ML VIAL IV PUSH PRN (16:34)
--- NOTE | 2017-09-04 17:03 | PN ---
Subjective Date of Service: 09/04/17 Interval History: Pt seen and examined. Meds and labs reviewed. ROS: Denied BARROW/dizziness, F/C, N/V, CP, SOB, increased cough, sputum production , abd pain, diarrhea, constipation, dysuria, myalgias, arthralgias, throat pain , and new skin lesions. The rest of the 14 point ROS are unremarkable. PHYSICAL EXAM: GEN APPEARANCE: Awake, not in acute distress HEENT: NC/AT, PERRLA, moist oral mucosa, (-) throat erythema NECK: Soft, supple, (-) cervical LAD, (-)JVD HEART: S1S2 WNL, RRR, No MRG CHEST: CTA, BL, GAE, No W/R/R ABD: Soft, ND/NT, NABS 4x Q EXT: No C/C/E SKIN: Warm to touch PSYCH: No active psychosis, hallucinations, depression, SI/HI Objective Active Medications: Acetaminophen (Tylenol Tab*) 650 mg PO Q4H PRN PRN Reason: FEVER/PAIN Last Admin: 09/04/17 11:48 Dose: 650 mg Al Hydrox/Mg Hydrox/Simethicone (Maalox Plus*) 30 ml PO Q6H PRN PRN Reason: INDIGESTION Albuterol (Ventolin 2.5 Mg/3 Ml Neb.Christin*) 2.5 mg INH Q2H PRN PRN Reason: SOB/WHEEZING Aspirin (Aspirin Ec Tab*) 81 mg PO DAILY REPLACED BY [facility] Last Admin: 09/04/17 09:41 Dose: 81 mg Carvedilol (Coreg Tab*) 3.125 mg PO BID [facility]PL[facility] Last Admin: 09/04/17 09:42 Dose: 3.125 mg Device (Nicotine Mouth Piece*) 1 each INH .USE WITH NICOTROL PRN PRN Reason: CRAVING Last Admin: 09/04/17 03:47 Dose: 1 each Docusate Sodium (Colace Cap*) 100 mg PO BID PRN PRN Reason: CONSTIPATION Haloperidol Lactate (Haldol Inj Iv/Im*) 2.5 mg IM ONCE PRN PRN Reason: AGITATION Last Admin: 09/03/17 15:11 Dose: 2.5 mg Heparin Sodium (Porcine) (Heparin Vial(*)) 5,000 units SUBCUT Q8HR [facility]PL[facility] Last Admin: 09/04/17 13:52 Dose: 5,000 units Lorazepam (Ativan Inj*) 1 mg IV PUSH Q8H PRN PRN Reason: SEIZURE ACTIVITY Last Admin: 09/04/17 16:34 Dose: 1 mg Lorazepam (Ativan Inj*) 1 mg IV PUSH ONCE PRN PRN Reason: ANXIETY Last Admin: 09/02/17 14:11 Dose: 1 mg Mirtazapine (Remeron Tab*) 15 mg PO BEDTIME [facility] Last Admin: 09/03/17 20:55 Dose: 15 mg Nicotine (Nicotine Inhaler*) 10 mg INH Q2H PRN PRN Reason: CRAVING Last Admin: 09/04/17 16:34 Dose: 10 mg Ondansetron HCl (Zofran 40 Mg Vial*) 4 mg IV Q4H PRN PRN Reason: NAUSEA/VOMITING Last Admin: 09/02/17 11:58 Dose: 4 mg Phenytoin Sodium (Dilantin Cap(*)) 300 mg PO BEDTIME [facility] Last Admin: 09/03/17 20:55 Dose: 300 mg Potassium Chloride (Klor Con Er Tab*) 20 meq PO DAILY [facility] Last Admin: 09/04/17 09:40 Dose: 20 meq Zonisamide (Zonegran (Nf)) 200 mg PO DAILY [facility]PL[facility] Last Admin: 09/04/17 09:42 Dose: 200 mg Vital Signs - 8 hr 09/04/17 09/04/17 09/04/17 11:25 15:01 16:34 Temperature 97.9 F 97.4 F Pulse Rate 97 95 Respiratory 20 24 20 Rate Blood Pressure 111/67 106/67 (mmHg) O2 Sat by Pulse 95 96 Oximetry Oxygen Devices in Use Now: None Result Diagrams: 09/03/17 06:24 09/03/17 06:24 Additional Lab and Data: Lab Results 08/28/17 Range/Units 04:45 ABG pH 7.44 (7.35-7.45) ABG pCO2 38 (35-45) mmHg ABG pO2 64 L (80-100) mmHg ABG HCO3 25.9 (19-31) mmol/L ABG O2 Saturation 95.5 (95-98) % ABG Base Excess 1.7 (-2.0-2.0) Dilantin level: 16 Microbiology and Other Data: Microbiology 08/28/17 08:40 Nasal Screen MRSA (PCR)([facility]) - Final Nasal Mrsa Not Detected VZV and HSV negative CSF cultures negative Diagnostic Imaging: No new imaging. Pending MRI brain study Assess/Plan/Problems-Billing Ms. Natalia Cruz is a 57-year-old female with a history of depression, anxiety, and polysubstance abuse who had status epilepticus related to benzodiazepine withdrawal in 2016 who presented on August 28, 2017 with recurrent seizure likel activity. The patient was found to have electrographic seizures correlating with the clinical symptoms of staring and unresponsive spells lasting from 4-15 minutes. She had a CSF analysis that revealed pleocytosis that was thought to be related to reactivity from her seizures. Her neurological examination has improved the last few days especially since starting phenytoin on 08/31/2017. the phenytoin level is within therapeutic range. The patient continues to have less seizure episodes but she did have an event this morning lasting for about 4 minutes. She is being treated for pneumonia and NSTEMI. - Patient Problems (1) Seizure Current Visit: Yes Status: Acute Code(s): R56.9 - UNSPECIFIED CONVULSIONS SNOMED Code(s): 54838074 Comment: -Spoke with Dr. Singh and will d/C lactulose and xifaxan; he believes that xifaxan might be lowering the dose of Phenytoin -Reviewed video EEG with Dr. Singh who observed her this AM -Dr. Singh saw pt today where she stared for a few seconds in a distance then proceeded to go back to enjoy her breakfastalthough not on EEG is very similar to her recorded events in her video EEG, where a spike followed by a gradual decline of tracings were seen as she stares blanklyindicative of complex partial seizures -Dr. Brush spoke with MARILIN Crawford, who indicates that the SPOA application has been submitted and that the patient should qualify for ACT, given her previous failure with intensive case management services when served by one of the [facility]. -May have been triggered by BZD non-compliance due to possible uncontrolled psychiatric issues such as anxiety and known depression? -Continue on Zonisamide 200 mg daily today, which can be increased to 200 mg if she still has seizures; Continue Phenytoin -Continue Lorazepam q8H (2) Anxiety disorder, unspecified Current Visit: No Status: Acute Priority: High Onset Date: 10/03/14 Code (s): F41.9 - ANXIETY DISORDER, UNSPECIFIED SNOMED Code(s): 091934901 Comment: -Please see above discussion -Appreciate Dr. Faith input -Continue Mirtazapine -Dr. Brush exploring referral to the [facility] Treatment team and will defer (3) Cirrhosis Current Visit: Yes Status: Acute Comment: -Well-compensated with MELD =5 -Will order INR and CMP in AM to calculate for MELD score -Although with mildly elevated ammonia level, subsequent repeat was normal and pt has no asterixis consistent with hepatic encephalopathy at this time -Will D/C Lactulose given absence of astirexis and normal ammonia level and will D/C Xifaxan due to its effect on Phenytoin levels -Likely cause of thrombocytopenia (4) Alcohol abuse Current Visit: Yes Status: Acute Code(s): F10.10 - ALCOHOL ABUSE, UNCOMPLICATED SNOMED Code(s): 74929259 Comment: -Pt reports no EtOH use for several years. She has a h/o alcoholic cirrhosis and is on lactulose at home but unclear how frequently she was using that medication. Start lactulose 15 ml bid 08/31 AM. Note NH4+ level 62 on 08/28/17. Patient refused all doses of lactulose as of 09/01 AM. Repeat ammonia level . (5) NSTEMI (non-ST elevated myocardial infarction) Current Visit: Yes Status: Acute Code(s): I21.4 - NON-ST ELEVATION (NSTEMI) MYOCARDIAL INFARCTION SNOMED Code(s): 088322941 Comment: -The patient's trop peaked at 2.4. Continue ASA and carvdilol. Echo 08/28 showed LVEF 35-40%. AWMI uncertain age. Dr. Campbell recommended against statin or heparin. Eventually will need either stress test or cath---which can be done as an outpatient (6) Tobacco abuse Current Visit: Yes Status: Acute Code(s): Z72.0 - TOBACCO USE SNOMED Code( s): 750380368 Comment: -Continue PRN nicotine inhaler. (7) COPD (chronic obstructive pulmonary disease) Current Visit: Yes Status: Acute Code(s): J44.9 - CHRONIC OBSTRUCTIVE PULMONARY DISEASE, UNSPECIFIED SNOMED Code(s): 60962890 Comment: -Patient does not want inhaled pulm meds. Status and Disposition: -As above
[2017-09-04] MEDS: Phenytoin CAP(*) 100 MG CAP.ER PO SCH (20:16)
[2017-09-04] MEDS: Mirtazapine TAB* 15 MG PO SCH (20:16)
[2017-09-04] MEDS ORDERED: Lactulose* 15 ML UDC PO SCH (21:00)
[2017-09-05] MEDS: Acetaminophen TAB* 325 MG PO PRN (00:52)
--- NOTE | 2017-09-05 01:59 | PN ---
NEUROLOGY PROGRESS REPORT: DATE OF SERVICE: 09/04/17 - ROOM #438 PRIMARY PROVIDER: Js Membreno MD Neurology is following for the evaluation and management of seizures. CHIEF COMPLAINT: "I'm not taking any oxycodone or smoking marijuana ever again. " SUBJECTIVE: The patient is resting comfortably. She is having breakfast. She stated that she had an episode this morning lasted for about 1 minute. She still continues to have episodes of staring spell and confusions, but she reports these episodes have decreased in frequency and duration. She is taking Xifaxan and lactulose for hyperammonemia. She is tolerating zonisamide without any reported agitation or aggressive behavior. She took the dose of phenytoin 350 mg last night. Her total phenytoin level this morning is low at 7.6. MEDICATIONS: 1. Acetaminophen. 2. Albuterol. 3. Aspirin. 4. Carvedilol. 5. Docusate. 6. Haldol. 7. Lactulose. 8. Ativan. 9. Mirtazapine. 10. Ondansetron. 11. Phenytoin 350 mg p.o. at bedtime. 12. Xifaxan. 13. Zonisamide 200 mg p.o. daily. REVIEW OF SYSTEMS: The patient denied any chest pain, shortness of breath, or palpitations. PHYSICAL EXAMINATION: Vitals: Temperature of 97.3, pulse of 86, respiratory rate of 16, oxygen saturation 99% on room air, and blood pressure 131/78. General: Ill- appearing female, in no acute distress. She appears a little confused this morning, was having one of her episodes. Head is normocephalic without any obvious abnormality. Eyes: Conjunctivae/corneas are clear. Neck is supple and symmetrical without any nuchal rigidity. Cardiovascular: Regular rate and rhythm. Normal S1, S2. Neurological Examination: Mental Status: Awake. She is alert and oriented to self and place, but not year. She appears to be having one of her confusion spells that resolved after 1 minute. Then she was able to answer complex questions on command. Cranial Nerves: Pupils are equal, round, reactive to light. Extraocular muscles are intact. No facial asymmetry. Tongue is symmetrical with no atrophy. Motor Examination: She is able to move all 4 extremities. Reflexes: 2+ throughout the upper and lower extremities, 0 at the ankles. Sensation is intact to light touch and pinprick. Coordination: Normal [id number] bilaterally. Gait: Did not assess as the patient appears slightly disoriented this morning. ASSESSMENT AND PLAN: 1. Complex partial seizures - she continues to have brief seizures. It is difficult to assess which of her behavior is related to seizures or personality/ psychiatric related. I can say that the episodes where she stares off into space for a few seconds are likely small seizures. Her phenytoin level was subtherapeutic. I suspect the subtherapeutic level was related to rifaximin and lactulose. I spoke Dr. Membreno, who will discontinue the rifaximin and lactulose. I gave her a dose of fosphenytoin 400 mg IV x1. We will repeat total level 2 hours after the fosphenytoin dose. Continue zonisamide 200 mg daily. I decreased the phenytoin level to 300 mg nightly since the rifaximin has been discontinued. 2. Depression and anxiety - Psychiatry is following. 3. Encephalopathy, most likely related to recurrent seizures. Ammonia level is within normal range at this point. I will continue to follow. Disposition hopefully within the next 24 to 48 hours. This is a complicated patient with recurrent uncontrolled seizures at this point. She will need hospitalization until her seizures are under good control. TIME SPENT: I spent a total of 35 minutes and greater than 50% was spent directly reviewing the medical chart, examining the patient, and discussing the treatment plan with Dr. Membreno and the bedside nurse. [id number]/[facility] #: [id number] LALO
--- NOTE | 2017-09-05 03:48 | EEG ---
ELECTROENCEPHALOGRAPHY REPORT: DATE OF SERVICE: 09/04/17 - ROOM #438 DATE READ: 09/04/17 SEX: Female. ROOM: Inpatient. REFERRING PHYSICIAN: Nidia Singh MD MEDICATIONS: Include: 1. Acetaminophen. 2. Albuterol. 3. Aspirin. 4. Carvedilol. 5. Docusate. 6. Haldol. 7. Lorazepam. 8. Mirtazapine. 9. Ondansetron. 10. Phenytoin. 11. Zonisamide. TIME OF TRACING: From 1400 to 1420. CLINICAL PROBLEM: Mrs. Natalia Cruz is a 57-year-old female with history of polysubstance abuse, who abruptly discontinued benzodiazepine and had developed seizures and confusion episodes. The patient has a history of status epilepticus. She continues to have intermittent episodes where she stares into space and does not answer to examiner. This EEG was obtained to evaluate for epileptiform abnormalities or nonconvulsive seizures. CLINICAL STATE: Awake. REPORT: The waking background showed appropriate organization with clearly defined anterior-posterior voltage and frequency gradient. When she closes her eyes in rest, there was a well-defined posterior dominant rhythm of 9 Hz, which was symmetrical and showed normal activity. Anteriorly, there was an expected pattern of lower voltage, irregular, mixed faster frequencies. There was a paroxysm of semi-arrhythmic right frontal slowing at 14:16:34 that lasted for 7 seconds. The morphology of this pattern showed a sharp and slow wave activity with a frequency of 1-2 Hz maximally seen at Fz with field extending to C4 and FP2. There were multiple episodes where the patient stares off into space, does not respond to examiner quickly, substitute inappropriate words, and appears to be slightly confused during these intervals. There were no EEG changes of epileptiform abnormalities correlating with these intervals. Photic stimulation and hyperventilation were not performed. Single electrode EKG showed normal sinus rhythm with a rate of 100 beats per minute. Throughout the recording, there were no clear electrographic seizures. CLINICAL IMPRESSION: This is mildly abnormal awake EEG due to the presence of semi- arrhythmic polymorphic slowing in the right frontal lobe, which suggests focal neuronal dysfunction in that region. The paroxysm was too short to raise suspicion for seizures. The patient had multiple documented episodes where she was confused, not answering appropriately, and staring/glaring into space that was recorded and noted by the technologist. In a majority of these episodes, especially when she is talking and answering questions inappropriately, there were no EEG correlation or changes. [id number]/[facility] #: [id number] LALO
[2017-09-05] MEDS: Albuterol 2.5 MG/3 ML NEB.SOL* (0.083%) INH PRN ×2 (05:46→23:50)
[2017-09-05 05:54] LABS: ABS Basophils 0.1 10^3/ul (0-0.2); ABS Eosinophils 0.2 10^3/ul (0-0.6); ABS Lymphocytes 1.9 10^3/ul (1.0-4.8); ABS Monocytes 1.1 10^3/ul (0-0.8); ABS Neutrophils 7.7 10^3/ul (1.5-7.7); ABS Nucleated RBC 0 10^3/ul; Eosinophil % 1.9 % (0-6); Hematocrit 45 % (35-47); Hemoglobin 15.1 g/dl (12.0-16.0); Lymphocyte % 17.4 % (25-47); Mean Corpuscular HGB Conc 34 g/dl (31-36); Mean Corpuscular Hemoglobin 31 pg (27-31); Mean Corpuscular Volume 93 fL (80-97); Mean Platelet Volume 9.2 um3 (7.4-10.4); Nucleated Red Blood Cells % 0; Platelet Count 99 10^3/ul (150-450); Red Blood Count 4.84 10^6/ul (4.00-5.40); Red Cell Distribution Width 15 % (10.5-15)
[2017-09-05] MEDS: Heparin VIAL(*) 5000 UNITS/ML VIAL (FIVE THOUSAND) SUBCUT SCH ×3 (05:56→21:47)
[2017-09-05 06:03] LABS: EGFR Non-African American 128.1 (>60)
[2017-09-05] MEDS ORDERED: Magnesium Sulfate 1 GM IV* 1 GM/100 ML BAG IV ONE (09:05)
[2017-09-05] MEDS: Aspirin EC TAB* 81 MG TAB.EC PO SCH (09:33)
[2017-09-05] MEDS: Potassium Chlor TAB* 20 MEQ TAB.ER PO SCH (09:35)
[2017-09-05] MEDS: Carvedilol TAB* 3.125 MG PO SCH ×2 (09:36→21:47)
[2017-09-05] MEDS: CMC:Zonisamide (NF) 50 MG CAP PO SCH (09:37)
--- NOTE | 2017-09-05 09:45 | RAD ---
INDICATION: Confusion. Leukocytosis. COMPARISON: Chest x-ray August 29, 2017 TECHNIQUE: An AP portable view obtained at 0922 hours is submitted. FINDINGS: Bones/Soft Tissues: There are no acute bony findings. Cardiomediastinal: The cardiomediastinal silhouette is normal. Lungs: There are no infiltrates. Pleura: There are no pleural effusions. Other: None IMPRESSION: NO ACTIVE DISEASE.
[2017-09-05 11:12] LABS: Urine Appearance Clear; Urine Blood Negative (Negative); Urine Color Yellow; Urine Ketones Negative (Negative); Urine Protein Negative (Negative); Urine Specific Gravity 1.006 (1.010-1.030); Urine Urobilinogen Negative (Negative)
[2017-09-05] MEDS: Haloperidol INJ IV/IM* 5 MG/ML AMP IVPB PRN ×2 (14:34→23:29)
[2017-09-05] MEDS: Nicotine Inhaler* 10 MG AMP INH PRN (14:55)
[2017-09-05] MEDS: Mouth Piece, Nicotine* 1 EACH CARTRIDGE INH PRN (14:56)
[2017-09-05] MEDS ORDERED: NS 0.9% 500 ML* 500 ML IV ONE (15:49)
--- NOTE | 2017-09-05 16:01 | PN ---
Subjective Date of Service: 09/05/17 Interval History: Pt seen and examined. Meds and labs reviewed. ROS: Denied BARROW/dizziness, F/C, N/V, CP, SOB, increased cough, sputum production , abd pain, diarrhea, constipation, dysuria, myalgias, arthralgias, throat pain , and new skin lesions. The rest of the 14 point ROS are unremarkable. PHYSICAL EXAM: Mild hypotension noted this AM; ordered CXR, U/A, and repeat cultures. Please see discussion below GEN APPEARANCE: Awake, not in acute distress HEENT: NC/AT, PERRLA, moist oral mucosa, (-) throat erythema NECK: Soft, supple, (-) cervical LAD, (-)JVD HEART: S1S2 WNL, RRR, No MRG CHEST: CTA, BL, GAE, No W/R/R ABD: Soft, ND/NT, NABS 4x Q EXT: No C/C/E SKIN: Warm to touch PSYCH: No active psychosis, hallucinations, depression, SI/HI Objective Active Medications: Acetaminophen (Tylenol Tab*) 650 mg PO Q4H PRN PRN Reason: FEVER/PAIN Last Admin: 09/05/17 00:52 Dose: 650 mg Al Hydrox/Mg Hydrox/Simethicone (Maalox Plus*) 30 ml PO Q6H PRN PRN Reason: INDIGESTION Albuterol (Ventolin 2.5 Mg/3 Ml Neb.Christin*) 2.5 mg INH Q2H PRN PRN Reason: SOB/WHEEZING Last Admin: 09/05/17 05:46 Dose: 2.5 mg Aspirin (Aspirin Ec Tab*) 81 mg PO DAILY [facility] Last Admin: 09/05/17 09:33 Dose: 81 mg Carvedilol (Coreg Tab*) 3.125 mg PO BID [facility] Last Admin: 09/05/17 09:36 Dose: 3.125 mg Device (Nicotine Mouth Piece*) 1 each INH .USE WITH NICOTROL PRN PRN Reason: CRAVING Last Admin: 09/05/17 14:56 Dose: 1 each Docusate Sodium (Colace Cap*) 100 mg PO BID PRN PRN Reason: CONSTIPATION Haloperidol Lactate (Haldol Inj Iv/Im*) 2.5 mg IVPB Q6H PRN PRN Reason: AGITATION Last Admin: 09/05/17 14:34 Dose: 2.5 mg Heparin Sodium (Porcine) (Heparin Vial(*)) 5,000 units SUBCUT Q8HR [facility] Last Admin: 09/05/17 13:22 Dose: 5,000 units Sodium Chloride (Ns 0.9% 1000 Ml*) 1,000 mls @ 75 mls/hr IV PER RATE SASKIA Sodium Chloride (Ns 0.9% 500 Ml*) 500 mls @ 1,000 mls/hr IV ONCE ONE Stop: 09/05/17 16:18 Lorazepam (Ativan Inj*) 1 mg IV PUSH Q8H PRN PRN Reason: SEIZURE ACTIVITY Last Admin: 09/04/17 16:34 Dose: 1 mg Lorazepam (Ativan Inj*) 1 mg IV PUSH ONCE PRN PRN Reason: ANXIETY Last Admin: 09/02/17 14:11 Dose: 1 mg Mirtazapine (Remeron Tab*) 15 mg PO BEDTIME [facility] Last Admin: 09/04/17 20:16 Dose: 15 mg Nicotine (Nicotine Inhaler*) 10 mg INH Q2H PRN PRN Reason: CRAVING Last Admin: 09/05/17 14:55 Dose: 10 mg Ondansetron HCl (Zofran 40 Mg Vial*) 4 mg IV Q4H PRN PRN Reason: NAUSEA/VOMITING Last Admin: 09/02/17 11:58 Dose: 4 mg Phenytoin Sodium (Dilantin Cap(*)) 300 mg PO BEDTIME SASKIA Last Admin: 09/04/17 20:16 Dose: 300 mg Potassium Chloride (Klor Con Er Tab*) 20 meq PO DAILY [facility] Last Admin: 09/05/17 09:35 Dose: 20 meq Zonisamide (Zonegran (Nf)) 200 mg PO DAILY [facility] Last Admin: 09/05/17 09:37 Dose: 200 mg Vital Signs - 8 hr 09/05/17 09/05/17 09/05/17 08:00 11:23 12:17 Temperature 97.5 F Pulse Rate 89 99 Respiratory 20 20 Rate Blood Pressure 93/56 88/56 (mmHg) O2 Sat by Pulse 98 Oximetry 09/05/17 15:35 Temperature 98.9 F Pulse Rate 99 Respiratory 14 Rate Blood Pressure 92/80 (mmHg) O2 Sat by Pulse 99 Oximetry Oxygen Devices in Use Now: None Result Diagrams: 09/05/17 05:34 09/05/17 05:34 Additional Lab and Data: Lab Results 08/28/17 Range/Units 04:45 ABG pH 7.44 (7.35-7.45) ABG pCO2 38 (35-45) mmHg ABG pO2 64 L (80-100) mmHg ABG HCO3 25.9 (19-31) mmol/L ABG O2 Saturation 95.5 (95-98) % ABG Base Excess 1.7 (-2.0-2.0) Dilantin level: 16 Microbiology and Other Data: Microbiology 08/28/17 08:40 Nasal Screen MRSA (PCR)([place]ORIA) - Final Nasal Mrsa Not Detected VZV and HSV negative CSF cultures negative Diagnostic Imaging: No new imaging. Pending MRI brain study Assess/Plan/Problems-Billing Ms. Natalia Cruz is a 57-year-old female with a history of depression, anxiety, and polysubstance abuse who had status epilepticus related to benzodiazepine withdrawal in 2016 who presented on August 28, 2017 with recurrent seizure likel activity. The patient was found to have electrographic seizures correlating with the clinical symptoms of staring and unresponsive spells lasting from 4-15 minutes. She had a CSF analysis that revealed pleocytosis that was thought to be related to reactivity from her seizures. Her neurological examination has improved the last few days especially since starting phenytoin on 08/31/2017. the phenytoin level is within therapeutic range. The patient continues to have less seizure episodes but she did have an event this morning lasting for about 4 minutes. She is being treated for pneumonia and NSTEMI. - Patient Problems (1) Hypotension Current Visit: Yes Status: Acute Comment: -Pt otherwise asymptomatic and clinically looks no different than yesterday -Given her mild leukocytosis, sepsis W/U ordered during pre-rounds early in AM; subsequently RN reported mild hypotension of unclear cause -Possibly due to polypharmacy??? -Will await lactic acid level -CXR and U/A unremarkable -Repeat blood cultures pending -Give bolus of 500 cc NS x1 now then 75 cc/hr thereafter (2) Seizure Current Visit: Yes Status: Acute Code(s): R56.9 - UNSPECIFIED CONVULSIONS SNOMED Code(s): 79002076 Comment: -Spoke with Dr. Singh lactulose and xifaxan D/Cd; he believes that xifaxan might be lowering the dose of Phenytoin -Dr. Singh saw pt on 09/04, where she stared for a few seconds in a distance then proceeded to go back to enjoy her breakfastalthough not on EEG is very similar to her recorded events in her video EEG, where a spike followed by a gradual decline of tracings were seen as she stares blanklyindicative of complex partial seizures -Dr. Brush spoke with SW Haley Crawford, who indicates that the SPOA application has been submitted and that the patient should qualify for ACT, given her previous failure with intensive case management services when served by one of the [facility]. -May have been triggered by BZD non-compliance due to possible uncontrolled psychiatric issues such as anxiety and known depression? -Continue on Zonisamide 200 mg daily Continue Phenytoin at 300 mg -Continue Lorazepam q8H (3) Anxiety disorder, unspecified Current Visit: No Status: Acute Priority: High Onset Date: 10/03/14 Code (s): F41.9 - ANXIETY DISORDER, UNSPECIFIED SNOMED Code(s): 878271849 Comment: -Please see above discussion -Appreciate Dr. Faith input -Continue Mirtazapine -Dr. Brush exploring referral to the [facility] Treatment team and will defer (4) Cirrhosis Current Visit: Yes Status: Acute Comment: -Well-compensated with MELD =5 -Will order INR and CMP in AM to calculate for MELD score -Although with mildly elevated ammonia level, subsequent repeat was normal and pt has no asterixis consistent with hepatic encephalopathy at this time -Will D/C Lactulose given absence of astirexis and normal ammonia level and will D/C Xifaxan due to its effect on Phenytoin levels -Likely cause of thrombocytopenia (5) Alcohol abuse Current Visit: Yes Status: Acute Code(s): F10.10 - ALCOHOL ABUSE, UNCOMPLICATED SNOMED Code(s): 18818538 Comment: -Pt reports no EtOH use for several years. She has a h/o alcoholic cirrhosis and is on lactulose at home but unclear how frequently she was using that medication. Start lactulose 15 ml bid 08/31 AM. Note NH4+ level 62 on 08/28/17. Patient refused all doses of lactulose as of 09/01 AM. Repeat ammonia level . (6) NSTEMI (non-ST elevated myocardial infarction) Current Visit: Yes Status: Acute Code(s): I21.4 - NON-ST ELEVATION (NSTEMI) MYOCARDIAL INFARCTION SNOMED Code(s): 761937269 Comment: -The patient's trop peaked at 2.4. Continue ASA and carvdilol. Echo 08/28 showed LVEF 35-40%. AWMI uncertain age. Dr. Campbell recommended against statin or heparin. Eventually will need either stress test or cath---which can be done as an outpatient (7) Tobacco abuse Current Visit: Yes Status: Acute Code(s): Z72.0 - TOBACCO USE SNOMED Code( s): 605805053 Comment: -Continue PRN nicotine inhaler. (8) COPD (chronic obstructive pulmonary disease) Current Visit: Yes Status: Acute Code(s): J44.9 - CHRONIC OBSTRUCTIVE PULMONARY DISEASE, UNSPECIFIED SNOMED Code(s): 32207354 Comment: -Patient does not want inhaled pulm meds. Status and Disposition: -As above
[2017-09-05] MEDS: NS 0.9% 1000 ML* 1,000 ML IV SCH (18:30)
[2017-09-05] MEDS: Phenytoin CAP(*) 100 MG CAP.ER PO SCH (21:47)
[2017-09-05] MEDS: Mirtazapine TAB* 15 MG PO SCH (21:47)
--- NOTE | 2017-09-05 23:07 | PN ---
NEUROLOGY PROGRESS REPORT: DATE OF SERVICE: 09/05/17 PRIMARY PROVIDER: Dr. Js Membreno. CHIEF COMPLAINT: "I feel better now and I haven't had serious seizures." SUBJECTIVE: The patient is resting comfortably. She is more awake and cooperative this morning. She was able to walk over 3 laps with [id number] assist with occasionally using a walker. The patient is eager to go home. I have had a long discussion with the patient today. The patient relayed to me that she has been having seizures for well over a year now. Every time she senses that a seizure is coming, she would take a Xanax. This is not a new problem. I also discussed the case with Dr. Telles yesterday, who is concerned about her CSF analysis. The patient's WBC is not high enough nor does she have any evidence of viral or bacterial cultures growing to suspect an infectious process. A paraneoplastic syndrome is also in the case, but the issue is that the patient has been having seizures for quite some time now, but they were never controlled. So, I doubt that this is related to paraneoplastic syndrome in the absence of tumor or a source, although this can be the preceding neurologic problem prior to discovering malignancy. MEDICATIONS: 1. Albuterol 2.5 mg inhaler every 2 hours. 2. Aspirin 81 mg p.o. daily. 3. Coreg 3.125 p.o. b.i.d. 4. Heparin 5000 units every 8 hours. 5. Lorazepam 1 mg IV push p.r.n. for seizure activity; she has used lorazepam yesterday at 16:34. 6. Mirtazapine 15 mg p.o. at bedtime. 7. Phenytoin 300 p.o. at bedtime. 8. Zonisamide 200 mg p.o. daily. 9. Potassium chloride 20 mEq p.o. daily. REVIEW OF SYSTEMS: She denied any headaches, visual disturbance, or focal weakness/paresthesias. PHYSICAL EXAMINATION: Vitals: Temperature of 97.9, pulse rate 101, respiratory rate 20, oxygen saturation 97% and blood pressure 106/67. General: Frail- appearing female, in no acute distress. She is more awake and cooperative this morning. She still has flight of ideas and tangential thought process. She was telling me how she is going to be staying with her daughter, but making sure that she is not a burden on her daughter's life. Head is normocephalic without any obvious abnormality. Neurological Examination: She is awake. She is alert and oriented to self, place, year, and time. She did not have any episodes of confusion while I was there today. Pupils are equal, round, and reactive to light. Extraocular muscles are intact. No facial asymmetry. Tongue is symmetrical without no atrophy. She is able to move all 4 extremities with full strength and symmetrical. Reflexes are 2+ throughout the upper and lower extremities. 0 at the ankles. Sensation is intact to light touch and pinprick. Coordination: Normal [id number]. Gait is wide- based with minimal to no assist, but does use a walker when needed. LABORATORY DATA: The patient has a WBC of 11, platelets of 99. Sodium level of 133, magnesium of 1.8. Phenytoin level this morning is 14.9. ASSESSMENT AND PLAN: 1. This is a 57-year-old female with complex partial seizures manifesting as staring spells. Her seizure frequency and duration had significantly improved since phenytoin is within therapeutic range and after increasing zonisamide to 200 mg daily. It is difficult to discern between the episode of seizures vs her psychiatric behavior. It is clear that the EEG yesterday captured 2 certain types of behavior. The patient had a staring spell that lasted about 8 seconds that was correlating with semi-rhythmic epileptiform discharges that seemed similar to the epileptiform discharges seen when she had the recorded electrographic seizure on long-term monitoring. The semi-rhythmic activity though did not evolve this time and was not long enough to be called an ictal phenomenon. Then, she has had episodes where she is rambling off gibberishly and sometimes incoherently. This behavior did not correlate with any electrographic seizures. At this point, from the Neurology standpoint, we will continue the phenytoin as 300 mg at night and zonisamide 200 mg a day. She needs to follow up with Dr. Adrian Khan as an outpatient. We discussed seizures precautions, which include no alcohol use, discontinuing any drug use. She should not be on benzodiazepine on discharge and she should not operate any heavy machinery, swim unattended, bathe unattended, or try to climb rooftops or ladders. She should not be driving. There are concerns regarding medical compliance which is going to be an issue, but I made it clear that if she doesn' t take her seizure medications then she will be back with seizures. I don't suspect she has any underlying infection or autoimmune condition as the patient has had seizures on and off that are not treated for well over a year. 2. Depression and anxiety. She is on mirtazapine. Psychiatry is following. Defer capacity testing to Psychiatry. 3. Encephalopathy. Slowly improving. This is most likely related to her recurrent seizures. 4. Mild leukocytosis- defer to Dr. Membreno. I will sign off. Please again schedule an appointment with Dr. Adrian Khan in 6 to 8 weeks for followup. The patient can contact [facility] for an appointment. [id number]/[facility] #: [id number] LALO
[2017-09-06] MEDS: Acetaminophen TAB* 325 MG PO PRN ×2 (01:21→08:23)
[2017-09-06] MEDS ORDERED: Ziprasidone IM INJ* 20 MG/ML VIAL IM ONE ×2 (03:19→20:27)
[2017-09-06] MEDS: Heparin VIAL(*) 5000 UNITS/ML VIAL (FIVE THOUSAND) SUBCUT SCH ×3 (05:43→21:09)
[2017-09-06 06:02] LABS: Hematocrit 38 % (35-47); Hemoglobin 12.8 g/dl (12.0-16.0); Mean Corpuscular HGB Conc 34 g/dl (31-36); Mean Corpuscular Hemoglobin 31 pg (27-31); Mean Corpuscular Volume 94 fL (80-97); Mean Platelet Volume 8.8 um3 (7.4-10.4); Platelet Count 80 10^3/ul (150-450); Red Blood Count 4.07 10^6/ul (4.00-5.40); Red Cell Distribution Width 15 % (10.5-15)
[2017-09-06] MEDS: NS 0.9% 1000 ML* 1,000 ML IV SCH ×2 (08:22→21:06)
[2017-09-06] MEDS: Potassium Chlor TAB* 20 MEQ TAB.ER PO SCH (08:24)
[2017-09-06] MEDS: Carvedilol TAB* 3.125 MG PO SCH ×2 (08:24→21:09)
[2017-09-06] MEDS: CMC:Zonisamide (NF) 50 MG CAP PO SCH (08:25)
[2017-09-06] MEDS: Aspirin EC TAB* 81 MG TAB.EC PO SCH (08:25)
[2017-09-06] MEDS: hydrOXYzine HCL TAB* 25 MG PO PRN ×2 (13:19→19:35)
--- NOTE | 2017-09-06 15:38 | PN ---
NEUROLOGY PROGRESS REPORT: DATE OF SERVICE: 09/06/17 PRIMARY PROVIDER: Js Membreno MD CHIEF COMPLAINT: "I feel better now, I would like to go home. Neurology is following for the evalua tion of seizures." SUBJECTIVE: The patient is resting comfortably. She had her breakfast this morning. She is clearin g up every single day I see her. She is definitely much more better in regards to being appropriate and having a long conversation without any interruption or pauses. She offered me breakfast. She wo uld like to go home. MEDICATIONS: 1. Albuterol 2.5 mg. 2. Aspirin 81 mg p.o. daily. 3. Coreg 3.125 p.o. twice daily. 4. Heparin 5000 units every 8 hours. 5. Lorazepam 1 mg IV push p.r.n. for seizure activity. 6. Mirtazapine 50 mg p.o. at bedtime. 7. Phenytoin 300 mg p.o. at bedtime. 8. Zonisamide 200 mg p.o. daily. REVIEW OF SYSTEMS: The patient denied any headaches, visual disturbances or focal weakness. She is concerned that she still has intermittent episodes of confusion that are less now in frequency and in duration. LABORATORY DATA: WBC 5.0, this has improved from 11 on yesterday. Hemoglobin of 12.8, hematocrit of 38, platelets of 80,000. Sodium 140, potassium 3.9, chloride 110, carbon dioxide of 23 and creatini ne of 0.46. Magnesium level is low at 1.8. Free phenytoin level is 1.1. Total phenytoin level was 1 1.3. This was on 09/04/17. Last phenytoin level was 14.9 on 09/05/17. PHYSICAL EXAMINATION: Vitals: Temperature 97.9, pulse rate of 70, respiratory rate of 20, oxygen sa turation 99%, blood pressure 101/59. General: Frail appearing female in no acute distress. She is cooperative this morning. Minimal flight of ideas or circumferential thought process. Neurological Examination: She is awake, oriented to person, place, time and year. She has no episodes of confusi on while I was there today. Pupils are equal, round, reactive to light. Extraocular muscles are inta ct. There is no facial asymmetry. She is moving all 4 extremities with normal strength and symmetry . Gait is wide based requiring minimal to no assist. ASSESSMENT AND PLAN: Mrs. Natalia Cruz is a 57-year-old female with complex partial seizures manifestin g as staring spells. Seizure frequency and duration had significantly improved. She is much more aw gena and cooperative on examination. She still has a slight anxiety and intermittent episodes of confu latosha that she has noticed and she informed me that are getting better. She is tolerating both zonisa mide and phenytoin. What we recommend at this point is continue the zonisamide 200 mg a day and phen ytoin 300 mg nightly. She needs a followup with Dr. Adrian Khan as an outpatient. Please provi de her contact information for the [facility] to schedule an appointment. Seizure pre cautions were discussed in detail. I informed her it is so important to be compliant with the seizur e medications to prevent any further episodes of confusion. We do not have any further recommendations from the neurology standpoint. The patient should be eval uated by Psychiatry to assess for capacity testing and see if she would be okay with going home. Oth claude, she may be a candidate for physical therapy. [id number]/[facility] #: [id number]
--- NOTE | 2017-09-06 16:07 | PN ---
Subjective Date of Service: 09/06/17 Interval History: Pt seen and examined. Meds and labs reviewed. ROS: Denied BARROW/dizziness, F/C, N/V, CP, SOB, increased cough, sputum production , abd pain, diarrhea, constipation, dysuria, myalgias, arthralgias, throat pain , and new skin lesions. The rest of the 14 point ROS are unremarkable. PHYSICAL EXAM: GEN APPEARANCE: Awake, Oriented x3, not in acute distress HEENT: NC/AT, PERRLA, moist oral mucosa, (-) throat erythema NECK: Soft, supple, (-) cervical LAD, (-)JVD HEART: S1S2 WNL, RRR, No MRG CHEST: CTA, BL, GAE, No W/R/R ABD: Soft, ND/NT, NABS 4x Q EXT: No C/C/E SKIN: Warm to touch PSYCH: No active psychosis, hallucinations, depression, SI/HI Objective Active Medications: Acetaminophen (Tylenol Tab*) 650 mg PO Q4H PRN PRN Reason: FEVER/PAIN Last Admin: 09/06/17 08:23 Dose: 650 mg Al Hydrox/Mg Hydrox/Simethicone (Maalox Plus*) 30 ml PO Q6H PRN PRN Reason: INDIGESTION Albuterol (Ventolin 2.5 Mg/3 Ml Neb.Christin*) 2.5 mg INH Q2H PRN PRN Reason: SOB/WHEEZING Last Admin: 09/05/17 23:50 Dose: 2.5 mg Aspirin (Aspirin Ec Tab*) 81 mg PO DAILY [facility] Last Admin: 09/06/17 08:25 Dose: 81 mg Carvedilol (Coreg Tab*) 3.125 mg PO BID [facility] Last Admin: 09/06/17 08:24 Dose: 3.125 mg Device (Nicotine Mouth Piece*) 1 each INH .USE WITH NICOTROL PRN PRN Reason: CRAVING Last Admin: 09/05/17 14:56 Dose: 1 each Docusate Sodium (Colace Cap*) 100 mg PO BID PRN PRN Reason: CONSTIPATION Heparin Sodium (Porcine) (Heparin Vial(*)) 5,000 units SUBCUT Q8HR [facility] Last Admin: 09/06/17 13:19 Dose: 5,000 units Hydroxyzine HCl (Atarax Tab*) 25 mg PO Q6H PRN PRN Reason: ANXIETY Last Admin: 09/06/17 13:19 Dose: 25 mg Sodium Chloride (Ns 0.9% 1000 Ml*) 1,000 mls @ 75 mls/hr IV PER RATE [facility] Last Admin: 09/06/17 08:22 Dose: 75 mls/hr Lorazepam (Ativan Inj*) 1 mg IV PUSH Q8H PRN PRN Reason: SEIZURE ACTIVITY Last Admin: 09/04/17 16:34 Dose: 1 mg Lorazepam (Ativan Inj*) 1 mg IV PUSH ONCE PRN PRN Reason: ANXIETY Last Admin: 09/02/17 14:11 Dose: 1 mg Mirtazapine (Remeron Tab*) 15 mg PO BEDTIME [facility] Last Admin: 09/05/17 21:47 Dose: 15 mg Nicotine (Nicotine Inhaler*) 10 mg INH Q2H PRN PRN Reason: CRAVING Last Admin: 09/05/17 14:55 Dose: 10 mg Ondansetron HCl (Zofran 40 Mg Vial*) 4 mg IV Q4H PRN PRN Reason: NAUSEA/VOMITING Last Admin: 09/02/17 11:58 Dose: 4 mg Phenytoin Sodium (Dilantin Cap(*)) 300 mg PO BEDTIME [facility] Last Admin: 09/05/17 21:47 Dose: 300 mg Potassium Chloride (Klor Con Er Tab*) 20 meq PO DAILY [facility] Last Admin: 09/06/17 08:24 Dose: 20 meq Zonisamide (Zonegran (Nf)) 200 mg PO DAILY [facility] Last Admin: 09/06/17 08:25 Dose: 200 mg Vital Signs - 8 hr 09/06/17 12:38 Temperature 97.9 F Pulse Rate 78 Respiratory 16 Rate Blood Pressure 107/62 (mmHg) O2 Sat by Pulse 100 Oximetry Oxygen Devices in Use Now: None Result Diagrams: 09/06/17 05:41 09/06/17 05:41 Additional Lab and Data: Lab Results 08/28/17 Range/Units 04:45 ABG pH 7.44 (7.35-7.45) ABG pCO2 38 (35-45) mmHg ABG pO2 64 L (80-100) mmHg ABG HCO3 25.9 (19-31) mmol/L ABG O2 Saturation 95.5 (95-98) % ABG Base Excess 1.7 (-2.0-2.0) Dilantin level: 16 Microbiology and Other Data: Microbiology 08/28/17 08:40 Nasal Screen MRSA (PCR)([facility]) - Final Nasal Mrsa Not Detected VZV and HSV negative CSF cultures negative Diagnostic Imaging: No new imaging. Pending MRI brain study Assess/Plan/Problems-Billing Ms. Natalia Cruz is a 57-year-old female with a history of depression, anxiety, and polysubstance abuse who had status epilepticus related to benzodiazepine withdrawal in 2016 who presented on August 28, 2017 with recurrent seizure likel activity. The patient was found to have electrographic seizures correlating with the clinical symptoms of staring and unresponsive spells lasting from 4-15 minutes. She had a CSF analysis that revealed pleocytosis that was thought to be related to reactivity from her seizures. Her neurological examination has improved the last few days especially since starting phenytoin on 08/31/2017. the phenytoin level is within therapeutic range. The patient continues to have less seizure episodes but she did have an event this morning lasting for about 4 minutes. She is being treated for pneumonia and NSTEMI. - Patient Problems (1) Hypotension Current Visit: Yes Status: Acute Comment: -Resolved -Likely pre-renal in the setting of polypharmacy (2) Seizure Current Visit: Yes Status: Acute Code(s): R56.9 - UNSPECIFIED CONVULSIONS SNOMED Code(s): 17554971 Comment: -Complex partial seizures improved today and patient more oriented and reasonable -Will await for any further psych recommendations -Spoke with Dr. Singh lactulose and xifaxan D/Cd; he believes that xifaxan might be lowering the dose of Phenytoin -Dr. Singh saw pt on 09/04, where she stared for a few seconds in a distance then proceeded to go back to enjoy her breakfastalthough not on EEG is very similar to her recorded events in her video EEG, where a spike followed by a gradual decline of tracings were seen as she stares blanklyindicative of complex partial seizures -Dr. Brush spoke with MARILIN Crawford, who indicates that the SPOA application has been submitted and that the patient should qualify for ACT, given her previous failure with intensive case management services when served by one of the [facility]. -May have been triggered by BZD non-compliance due to possible uncontrolled psychiatric issues such as anxiety and known depression? -Continue on Zonisamide 200 mg daily Continue Phenytoin at 300 mg -Continue Lorazepam q8H (3) Anxiety disorder, unspecified Current Visit: No Status: Acute Priority: High Onset Date: 10/03/14 Code (s): F41.9 - ANXIETY DISORDER, UNSPECIFIED SNOMED Code(s): 960574154 Comment: -Please see above discussion -Appreciate Dr. Faith input -Continue Mirtazapine -Dr. Brush exploring referral to the [facility] Treatment team and will defer (4) Cirrhosis Current Visit: Yes Status: Acute Comment: -Well-compensated with MELD =5 -Will order INR and CMP in AM to calculate for MELD score -Although with mildly elevated ammonia level, subsequent repeat was normal and pt has no asterixis consistent with hepatic encephalopathy at this time -Will D/C Lactulose given absence of astirexis and normal ammonia level and will D/C Xifaxan due to its effect on Phenytoin levels -Likely cause of thrombocytopenia (5) Alcohol abuse Current Visit: Yes Status: Acute Code(s): F10.10 - ALCOHOL ABUSE, UNCOMPLICATED SNOMED Code(s): 12246541 Comment: -Pt reports no EtOH use for several years. She has a h/o alcoholic cirrhosis and is on lactulose at home but unclear how frequently she was using that medication. Start lactulose 15 ml bid 08/31 AM. Note NH4+ level 62 on 08/28/17. Patient refused all doses of lactulose as of 09/01 AM. Repeat ammonia level . (6) NSTEMI (non-ST elevated myocardial infarction) Current Visit: Yes Status: Acute Code(s): I21.4 - NON-ST ELEVATION (NSTEMI) MYOCARDIAL INFARCTION SNOMED Code(s): 325319969 Comment: -The patient's trop peaked at 2.4. Continue ASA and carvdilol. Echo 08/28 showed LVEF 35-40%. AWMI uncertain age. Dr. Campbell recommended against statin or heparin. Eventually will need either stress test or cath---which can be done as an outpatient (7) Tobacco abuse Current Visit: Yes Status: Acute Code(s): Z72.0 - TOBACCO USE SNOMED Code( s): 459908133 Comment: -Continue PRN nicotine inhaler. (8) COPD (chronic obstructive pulmonary disease) Current Visit: Yes Status: Acute Code(s): J44.9 - CHRONIC OBSTRUCTIVE PULMONARY DISEASE, UNSPECIFIED SNOMED Code(s): 13605614 Comment: -Patient does not want inhaled pulm meds. Status and Disposition: -As above -Will ask Psych to re-evaluate pt prior to possible D/C
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
[2017-09-06] MEDS: Ondansetron 40 MG VIAL* 2 MG/ML 20 ML VIAL IV PRN (21:07)
[2017-09-06] MEDS: Phenytoin CAP(*) 100 MG CAP.ER PO SCH (21:09)
[2017-09-06] MEDS: Mirtazapine TAB* 15 MG PO SCH (21:09)
[2017-09-07 05:32] LABS: Hematocrit 39 % (35-47); Hemoglobin 13.3 g/dl (12.0-16.0); Mean Corpuscular HGB Conc 34 g/dl (31-36); Mean Corpuscular Hemoglobin 32 pg (27-31); Mean Corpuscular Volume 94 fL (80-97); Mean Platelet Volume 8.6 um3 (7.4-10.4); Platelet Count 94 10^3/ul (150-450); Red Blood Count 4.13 10^6/ul (4.00-5.40); Red Cell Distribution Width 15 % (10.5-15); White Blood Count 5.2 10^3/ul (3.5-10.8)
[2017-09-07 05:45] LABS: EGFR Non-African American 114.8 (>60)
[2017-09-07] MEDS: Heparin VIAL(*) 5000 UNITS/ML VIAL (FIVE THOUSAND) SUBCUT SCH ×3 (05:54→20:14)
[2017-09-07] MEDS: hydrOXYzine HCL TAB* 25 MG PO PRN (05:54)
[2017-09-07] MEDS: Carvedilol TAB* 3.125 MG PO SCH ×2 (08:44→20:14)
[2017-09-07] MEDS: Potassium Chlor TAB* 20 MEQ TAB.ER PO SCH (08:44)
[2017-09-07] MEDS: CMC:Zonisamide (NF) 50 MG CAP PO SCH (08:44)
[2017-09-07] MEDS: Aspirin EC TAB* 81 MG TAB.EC PO SCH (08:44)
--- NOTE | 2017-09-07 13:05 | CONS ---
NEUROLOGY FOLLOWUP NOTE AND CONSULTATION: DATE OF CONSULT: 09/07/17 LOCATION: She is inpatient, room 438. HOSPITALIST: Dr. Membreno. CHIEF COMPLAINT: Seizures, confusion. INTERVAL HISTORY: I was asked to reevaluate Natalia because of continued delirium and difficulty decidi ng disposition. She has been evaluated by Psychiatry and felt not to have adequate capacity to sign out against medical advice. MEDICATIONS: Medications are reviewed and she is currently on: 1. Mirtazapine 15 mg p.o. q.h.s. 2. Zofran 4 mg IV q.4 hours as needed for nausea. 3. Phenytoin 300 mg p.o. q.h.s. 4. Zonisamide 200 mg p.o. every day. 5. Potassium supplementation. 6. Hydroxyzine 25 mg p.o. q.6 hours as needed for anxiety. 7. Heparin 5000 units subcu q.8 hours. 8. Colace 100 mg p.o. b.i.d. 9. Coreg 3.125 mg p.o. b.i.d. 10. Aspirin 81 mg p.o. every day. PHYSICAL EXAM: On examination, most recent blood pressure 104/75, temperature 100.4 by temporal scan , heart rate 80 and regular, respiratory rate 18. Oxygen saturation is 96% on room air. Neurological exam: She is awake and alert. She is extremely tangential, but does answer direct ques tions. She covers her eyes and says that she cannot look at me because I am a man. I do not see any asterixis, but she is not very cooperative. There are no lapses in attention and concentration césar g my visit with her. She knows that she is in the hospital and says that she wants to go home. She tells me that her son and the family are out boating on the [place] as she looks out the window at the [place]. She makes several comments completely out of context. LABORATORY DATA: Laboratory data today is notable for ammonia level elevated at 81, glucose 119 toda y. Liver enzymes when checked on 09/03/17 were normal. INR on 09/03/17 was 0.91. IMPRESSION: History of seizures but no clinical events recently. She has nonepileptic staring spell s in some of her EEG recordings. She also had epileptic discharges earlier in her hospitalization. Currently she just seems very confused and tangential. She has hyperammonemia and cirrhosis and that should be addressed. I would also recommend stopping Remeron as it can lower seizure threshold. I w ill continue to follow her along with you. I would not recommend changing her anticonvulsant regimen at this point as she does not appear to be having any clinical seizures. [id number]/[facility] #: [id number]
--- NOTE | 2017-09-07 17:11 | PN ---
Subjective Date of Service: 09/07/17 Interval History: Pt seen and examined. Meds and labs reviewed. Pt seen today in pts room and looks and acts very differently from yesterday. Sent for ammonia levels this AM and touched base with Dr. Ybarra and left message in Psych unit for F/U with Dr. Balderas. Called again later in the afternoon. Please see discussion below. ROS: Denied BARROW/dizziness, F/C, N/V, CP, SOB, increased cough, sputum production , abd pain, diarrhea, constipation, dysuria, myalgias, arthralgias, throat pain , and new skin lesions. The rest of the 14 point ROS are unremarkable. PHYSICAL EXAM: GEN APPEARANCE: Awake, not in acute distress HEENT: NC/AT, PERRLA, moist oral mucosa, (-) throat erythema NECK: Soft, supple, (-) cervical LAD, (-)JVD HEART: S1S2 WNL, RRR, No MRG CHEST: CTA, BL, GAE, No W/R/R ABD: Soft, ND/NT, NABS 4x Q EXT: No C/C/E SKIN: Warm to touch PSYCH: Pt has flights of ideas and with disorganized thoughts, re-directable but will have to repeat instructions for her to follow Objective Active Medications: Acetaminophen (Tylenol Tab*) 650 mg PO Q4H PRN PRN Reason: FEVER/PAIN Last Admin: 09/06/17 08:23 Dose: 650 mg Al Hydrox/Mg Hydrox/Simethicone (Maalox Plus*) 30 ml PO Q6H PRN PRN Reason: INDIGESTION Albuterol (Ventolin 2.5 Mg/3 Ml Neb.Christin*) 2.5 mg INH Q2H PRN PRN Reason: SOB/WHEEZING Last Admin: 09/05/17 23:50 Dose: 2.5 mg Aspirin (Aspirin Ec Tab*) 81 mg PO DAILY [facility] Last Admin: 09/07/17 08:44 Dose: 81 mg Carvedilol (Coreg Tab*) 3.125 mg PO BID [facility] Last Admin: 09/07/17 08:44 Dose: 3.125 mg Device (Nicotine Mouth Piece*) 1 each INH .USE WITH NICOTROL PRN PRN Reason: CRAVING Last Admin: 09/05/17 14:56 Dose: 1 each Docusate Sodium (Colace Cap*) 100 mg PO BID PRN PRN Reason: CONSTIPATION Heparin Sodium (Porcine) (Heparin Vial(*)) 5,000 units SUBCUT Q8HR [facility] Last Admin: 09/07/17 13:49 Dose: 5,000 units Hydroxyzine HCl (Atarax Tab*) 25 mg PO Q6H PRN PRN Reason: ANXIETY Last Admin: 09/07/17 05:54 Dose: 25 mg Sodium Chloride (Ns 0.9% 1000 Ml*) 1,000 mls @ 75 mls/hr IV PER RATE [facility] Last Admin: 09/06/17 21:06 Dose: 75 mls/hr Lactulose (Lactulose*) 30 ml PO QID [facility] Last Admin: 09/07/17 16:33 Dose: 30 ml Lorazepam (Ativan Inj*) 1 mg IV PUSH ONCE PRN PRN Reason: ANXIETY Last Admin: 09/02/17 14:11 Dose: 1 mg Nicotine (Nicotine Inhaler*) 10 mg INH Q2H PRN PRN Reason: CRAVING Last Admin: 09/05/17 14:55 Dose: 10 mg Ondansetron HCl (Zofran 40 Mg Vial*) 4 mg IV Q4H PRN PRN Reason: NAUSEA/VOMITING Last Admin: 09/06/17 21:07 Dose: 4 mg Phenytoin Sodium (Dilantin Cap(*)) 300 mg PO BEDTIME [facility] Last Admin: 09/06/17 21:09 Dose: 300 mg Potassium Chloride (Klor Con Er Tab*) 20 meq PO DAILY [facility] Last Admin: 09/07/17 08:44 Dose: 20 meq Zonisamide (Zonegran (Nf)) 200 mg PO DAILY [facility] Last Admin: 09/07/17 08:44 Dose: 200 mg Vital Signs - 8 hr 09/07/17 11:26 Temperature 99.5 F Pulse Rate 77 Respiratory 16 Rate Blood Pressure 89/64 (mmHg) O2 Sat by Pulse 98 Oximetry Oxygen Devices in Use Now: None Result Diagrams: 09/07/17 05:22 09/07/17 05:22 Additional Lab and Data: Lab Results 08/28/17 Range/Units 04:45 ABG pH 7.44 (7.35-7.45) ABG pCO2 38 (35-45) mmHg ABG pO2 64 L (80-100) mmHg ABG HCO3 25.9 (19-31) mmol/L ABG O2 Saturation 95.5 (95-98) % ABG Base Excess 1.7 (-2.0-2.0) Dilantin level: 16 Microbiology and Other Data: Microbiology 08/28/17 08:40 Nasal Screen MRSA (PCR)([facility]) - Final Nasal Mrsa Not Detected VZV and HSV negative CSF cultures negative Diagnostic Imaging: No new imaging. Pending MRI brain study Assess/Plan/Problems-Billing Ms. Natalia Cruz is a 57-year-old female with a history of depression, anxiety, and polysubstance abuse who had status epilepticus related to benzodiazepine withdrawal in 2016 who presented on August 28, 2017 with recurrent seizure likel activity. The patient was found to have electrographic seizures correlating with the clinical symptoms of staring and unresponsive spells lasting from 4-15 minutes. She had a CSF analysis that revealed pleocytosis that was thought to be related to reactivity from her seizures. Her neurological examination has improved the last few days especially since starting phenytoin on 08/31/2017. the phenytoin level is within therapeutic range. The patient continues to have less seizure episodes but she did have an event this morning lasting for about 4 minutes. She is being treated for pneumonia and NSTEMI. - Patient Problems (1) Mental status change Current Visit: Yes Status: Acute Code(s): R41.82 - ALTERED MENTAL STATUS, UNSPECIFIED SNOMED Code(s): 789887592 Comment: -Likely multifactorial as there seems to be at least 3 issues causing mental status change among which are: -Hepatic encephalopathy: Lactulose D/Cd per reccomendations of Dr. Singh along with Xifaxan given minimally elevated ammonia level on presentation and pt s continued non-compliance. Given non-compliance pt was subsequently placed on Xifaxan which likely caused her Phenytoin level to decrease; however, acute confusion today with elevated ammonia level suggests need to treat encephalopathy. D/W Dr. Ybarra who mentioned that Lactulose would not have significant effects with levels and will therefore re-order -Post-ictal confusion due to complex partial seizures: Pts hospital course is clear that pt was behavioral when her recurrent seizures were previously uncontrolled -Unknown psychiatric behavioral issue: Recent review of EEG by Dr. Ferguson suggests that she also has episodes of blank stares that are not associated with epileptiform changes; pt does have history of depression and wonders whether pt may have depression with psychotic features; Left messages at psych unit and will await further recommendations from psych in regards to medications. -Per Dr. Ybarra, psych meds to avoid that are known to interact with seizure meds are: Trazodone, Remeron, and Clozaril (2) Seizure Current Visit: Yes Status: Acute Code(s): R56.9 - UNSPECIFIED CONVULSIONS SNOMED Code(s): 85846673 Comment: -May have been triggered by BZD non-compliance due to possible uncontrolled psychiatric issues such as anxiety and known depression? -As above; please see previous notes for details -Continue on Zonisamide 200 mg daily Continue Phenytoin at 300 mg -Continue Lorazepam q8H (3) Anxiety disorder, unspecified Current Visit: No Status: Acute Priority: High Onset Date: 10/03/14 Code (s): F41.9 - ANXIETY DISORDER, UNSPECIFIED SNOMED Code(s): 442459789 Comment: -Please see above discussion -Appreciate Dr. Faith input -Mirtazapine D/Cd as discussed -Dr. Brush exploring referral to the [facility] Treatment team and will defer (4) Cirrhosis Current Visit: Yes Status: Acute Comment: -Well-compensated with MELD =5 -Will order INR and CMP in AM to calculate for MELD score -Although with mildly elevated ammonia level, subsequent repeat was normal and pt has no asterixis consistent with hepatic encephalopathy at this time -Will reinstituted Lactulose -Likely cause of thrombocytopenia (5) Alcohol abuse Current Visit: Yes Status: Acute Code(s): F10.10 - ALCOHOL ABUSE, UNCOMPLICATED SNOMED Code(s): 29579324 Comment: -Pt reports no EtOH use for several years. She has a h/o alcoholic cirrhosis and is on lactulose at home but unclear how frequently she was using that medication. Start lactulose 15 ml bid 08/31 AM. Note NH4+ level 62 on 08/28/17. Patient refused all doses of lactulose as of 09/01 AM. Repeat ammonia level . (6) NSTEMI (non-ST elevated myocardial infarction) Current Visit: Yes Status: Acute Code(s): I21.4 - NON-ST ELEVATION (NSTEMI) MYOCARDIAL INFARCTION SNOMED Code(s): 863494100 Comment: -The patient's trop peaked at 2.4. Continue ASA and carvdilol. Echo 08/28 showed LVEF 35-40%. AWMI uncertain age. Dr. Campbell recommended against statin or heparin. Eventually will need either stress test or cath---which can be done as an outpatient (7) Tobacco abuse Current Visit: Yes Status: Acute Code(s): Z72.0 - TOBACCO USE SNOMED Code( s): 406930823 Comment: -Continue PRN nicotine inhaler. (8) COPD (chronic obstructive pulmonary disease) Current Visit: Yes Status: Acute Code(s): J44.9 - CHRONIC OBSTRUCTIVE PULMONARY DISEASE, UNSPECIFIED SNOMED Code(s): 08146922 Comment: -Patient does not want inhaled pulm meds. Status and Disposition: -As above -Will ask Psych to re-evaluate pt prior to possible D/C
[2017-09-07] MEDS: Phenytoin CAP(*) 100 MG CAP.ER PO SCH (20:13)
[2017-09-07] MEDS: Acetaminophen TAB* 325 MG PO PRN (20:20)
[2017-09-07] MEDS ORDERED: Ziprasidone IM INJ* 20 MG/ML VIAL IM ONE (21:13)
[2017-09-08] MEDS: NS 0.9% 1000 ML* 1,000 ML IV SCH ×2 (00:08→14:00)
[2017-09-08] MEDS: hydrOXYzine HCL TAB* 25 MG PO PRN (01:53)
[2017-09-08] MEDS ORDERED: LORazepam INJ* 2 MG/ML 1 ML VIAL IV PUSH ONE ×2 (04:00→21:19)
[2017-09-08] MEDS: Heparin VIAL(*) 5000 UNITS/ML VIAL (FIVE THOUSAND) SUBCUT SCH ×3 (06:07→20:16)
[2017-09-08] MEDS: Carvedilol TAB* 3.125 MG PO SCH ×2 (08:37→20:16)
[2017-09-08] MEDS: Aspirin EC TAB* 81 MG TAB.EC PO SCH (08:37)
[2017-09-08] MEDS: Potassium Chlor TAB* 20 MEQ TAB.ER PO SCH (08:37)
[2017-09-08] MEDS: CMC:Zonisamide (NF) 50 MG CAP PO SCH (08:44)
[2017-09-08] MEDS ORDERED: Haloperidol INJ IV/IM* 5 MG/ML AMP IV SLOW PU ONE (10:02)
[2017-09-08 10:17] LABS: ABS Basophils 0 10^3/ul (0-0.2); ABS Eosinophils 0.2 10^3/ul (0-0.6); ABS Lymphocytes 1.2 10^3/ul (1.0-4.8); ABS Monocytes 0.5 10^3/ul (0-0.8); ABS Neutrophils 4.8 10^3/ul (1.5-7.7); ABS Nucleated RBC 0 10^3/ul; Eosinophil % 2.6 % (0-6); Hematocrit 43 % (35-47); Hemoglobin 14.2 g/dl (12.0-16.0); Lymphocyte % 18.5 % (25-47); Mean Corpuscular HGB Conc 33 g/dl (31-36); Mean Corpuscular Hemoglobin 31 pg (27-31); Mean Corpuscular Volume 94 fL (80-97); Mean Platelet Volume 8.4 um3 (7.4-10.4); Nucleated Red Blood Cells % 0.1; Platelet Count 108 10^3/ul (150-450); Red Blood Count 4.56 10^6/ul (4.00-5.40); Red Cell Distribution Width 15 % (10.5-15); White Blood Count 6.7 10^3/ul (3.5-10.8)
[2017-09-08 10:32] LABS: EGFR Non-African American 137.6 (>60)
[2017-09-08] MEDS ORDERED: Magnesium Sulfate IV* 0.5 GM/ML 2 ML VIAL (1 GM) IVPB ONE (11:00)
[2017-09-08] MEDS ORDERED: Magnesium Sulfate 2 GM IV IVPB ONE (11:30)
--- NOTE | 2017-09-08 12:57 | CONS ---
NEUROLOGY FOLLOWUP NOTE: DATE OF CONSULT: 09/08/17 LOCATION: She is an inpatient in room 438. CHIEF COMPLAINT: Seizures, delirium. INTERVAL HISTORY: Since yesterday, Natalia is about the same. She is talking a blue streak. She is not having any episodes of seizures clinically. She remains on Dilantin and zonisamide. She is now on lactulose as well. MEDICATIONS: Reviewed and she is on: 1. Zonisamide 200 mg p.o. daily. 2. Dilantin 300 mg p.o. q. h.s. 3. Aspirin 81 mg p.o. daily. 4. Acetaminophen 650 mg q. 4 hours as needed for pain. 5. Coreg 3.125 mg p.o. b.i.d. 6. Colace 100 mg p.o. b.i.d. 7. Lactulose 30 mL p.o. q.i.d. 8. Atarax 25 mg p.o. q. 6 hours p.r.n. anxiety. 9. Nicotine inhaler. 10. Potassium. PHYSICAL EXAM: She is awake and alert and somewhat manic. Temperature is 98.5 , blood pressure 87/55, heart rate 92 and regular. She is hyperalert and talks incessantly. She does answer questions but immediately switches off to a tangential topic. She exhibits religiosity. She repeatedly asked that she wants to go home. She admits to having diarrhea. LABORATORY DATA: From today notable for chemistries with an ammonia down to 63 , CBC notable for platelet count up to 108,000. Liver enzymes have spiked with a AST to 109 and ALT to 119 and alkaline phosphatase to 120. Sodium is borderline low at 134. Magnesium is low at 1.7. IMPRESSION: Impression is that of possible delirium, history of bipolar disorder, focal onset seizures currently without any evidence of recurrence. I put in an order to check her phenytoin level tomorrow. I have discontinued acetaminophen because of a rising liver enzymes in the phase of cirrhosis. I would continue lactulose. I wrote orders for supplemental magnesium sulfate and that should be followed as well as it can low her lower seizure threshold if it is too low. We will continue to follow with you. [id number]/[facility] #: [id number] [facility]
--- NOTE | 2017-09-08 15:47 | CONSULT ---
Identification - Patient Identification Reason for Psychiatric Consultation: Other - Acute mental status change. -: Patient is a 57 year old, F admitted on 08/28/17. History - Objective HPI: This is a 57 y/o , WF with remote h/o alcoholism, ongoing depression, anxiety and cirrhosis currently admitted to medical unit due to acute mental status change secondary to possible seizures and high Ammonia level. As of this morning her medical conditions are to totally resolved but she has been exhibiting certain behaviors requiring help from psychiatry. This is 3rd psychiatry FU consult. On todays evaluation Natalia appears to be disorganized in her thinking with total lack of understanding of her medical condition and believes if she just could go home, sleep in her bed and smoke pot she is going to be fine. Moreover we( doctors/ nurses) have been over medicating her and she needs to stop taking them. Psychiatrically she is pressured with rambling speech, disorganized with flight of ideas, tengentiality and circumstantiality. Reports that she cannot fall asleep. Denies hallucinations, delusions, SI or HI. Lab Results: Laboratory Tests 08/28/17 08/28/17 08/28/17 04:45 05:02 05:02 WBC 14.3 H RBC 5.37 Hgb 17.2 H Hct 49 H MCV 91 MCH 32 H MCHC 35 RDW 15 Plt Count 86 L MPV 8.6 Neut % (Auto) 88.8 H Lymph % (Auto) 6.5 L [place] % (Auto) 4.3 Eos % (Auto) 0.2 Baso % (Auto) 0.2 Absolute Neuts (auto) 12.7 H Absolute Lymphs (auto) 0.9 L Absolute Monos (auto) 0.6 Absolute Eos (auto) 0 Absolute Basos (auto) 0 Absolute Nucleated RBC 0 Nucleated RBC % 0.1 INR (Anticoag Therapy) 1.14 H APTT 27.8 ABG pH 7.44 ABG pCO2 38 ABG pO2 64 L ABG HCO3 25.9 ABG O2 Saturation 95.5 ABG Base Excess 1.7 Sodium Potassium Chloride Carbon Dioxide Anion Gap BUN Creatinine Est GFR ( Amer) Est GFR (Non-Af Amer) BUN/Creatinine Ratio Glucose Lactic Acid Calcium Phosphorus Magnesium Total Bilirubin AST ALT Alkaline Phosphatase Ammonia Troponin I C-Reactive Protein B-Natriuretic Peptide Total Protein Albumin Globulin Albumin/Globulin Ratio Triglycerides Cholesterol LDL Cholesterol HDL Cholesterol Procalcitonin Cortisol Urine Color Urine Appearance Urine pH Ur Specific Francis Urine Protein Urine Ketones Urine Blood Urine Nitrate Urine Bilirubin Urine Urobilinogen Ur Leukocyte Esterase Urine WBC (Auto) Urine RBC (Auto) Ur Squamous Epith Cells Amorphous Crystals Urine Bacteria Urine Glucose Fluid Source Fluid Volume Fluid Color Fluid Appearance Fluid WBC Fluid RBC Fluid Tot Cell Count Fluid Neutrophils Fluid Band Neutrophils Fluid Lymphocytes Fluid Monocytes Fluid Metamyelocytes Fluid Cell Count Rvw By CSF Cell Count Tube # CSF Glucose CSF Total Protein CSF HSV I (PCR) CSF Herpes II DNA (PCR) Vancomycin Trough Salicylates Urine Opiates Screen Acetaminophen Ur Barbiturates Screen Phenytoin Free Phenytoin Total Phenytoin Ur Phencyclidine Scrn Ur Amphetamines Screen U Benzodiazepines Scrn Urine Cocaine Screen U Cannabinoids Screen Serum Alcohol HIV-1 RNA (PCR) VZV DNA (PCR) 08/28/17 08/28/17 08/28/17 05:02 05:02 05:02 WBC RBC Hgb Hct MCV MCH MCHC RDW Plt Count MPV Neut % (Auto) Lymph % (Auto) [place] % (Auto) Eos % (Auto) Baso % (Auto) Absolute Neuts (auto) Absolute Lymphs (auto) Absolute Monos (auto) Absolute Eos (auto) Absolute Basos (auto) Absolute Nucleated RBC Nucleated RBC % INR (Anticoag Therapy) APTT ABG pH ABG pCO2 ABG pO2 ABG HCO3 ABG O2 Saturation ABG Base Excess Sodium 135 Potassium 3.5 Chloride 98 L Carbon Dioxide 25 Anion Gap 12 H BUN 9 Creatinine 0.54 Est GFR ( Amer) 150.7 Est GFR (Non-Af Amer) 117.2 BUN/Creatinine Ratio 16.7 Glucose 137 H Lactic Acid 1.6 Calcium 9.0 Phosphorus Magnesium Total Bilirubin 1.90 H AST 24 ALT 13 Alkaline Phosphatase 58 Ammonia Troponin I 0.79 H* C-Reactive Protein 6.81 B-Natriuretic Peptide 142 H Total Protein 6.8 Albumin 4.1 Globulin 2.7 Albumin/Globulin Ratio 1.5 Triglycerides Cholesterol LDL Cholesterol HDL Cholesterol Procalcitonin Cortisol Urine Color Urine Appearance Urine pH Ur Specific Francis Urine Protein Urine Ketones Urine Blood Urine Nitrate Urine Bilirubin Urine Urobilinogen Ur Leukocyte Esterase Urine WBC (Auto) Urine RBC (Auto) Ur Squamous Epith Cells Amorphous Crystals Urine Bacteria Urine Glucose Fluid Source Fluid Volume Fluid Color Fluid Appearance Fluid WBC Fluid RBC Fluid Tot Cell Count Fluid Neutrophils Fluid Band Neutrophils Fluid Lymphocytes Fluid Monocytes Fluid Metamyelocytes Fluid Cell Count Rvw By CSF Cell Count Tube # CSF Glucose CSF Total Protein CSF HSV I (PCR) CSF Herpes II DNA (PCR) Vancomycin Trough Salicylates < 2.50 Urine Opiates Screen Acetaminophen < 15 Ur Barbiturates Screen Phenytoin Free Phenytoin Total Phenytoin Ur Phencyclidine Scrn Ur Amphetamines Screen U Benzodiazepines Scrn Urine Cocaine Screen U Cannabinoids Screen Serum Alcohol HIV-1 RNA (PCR) VZV DNA (PCR) 08/28/17 08/28/17 08/28/17 05:02 05:26 05:26 WBC RBC Hgb Hct MCV MCH MCHC RDW Plt Count MPV Neut % (Auto) Lymph % (Auto) [place] % (Auto) Eos % (Auto) Baso % (Auto) Absolute Neuts (auto) Absolute Lymphs (auto) Absolute Monos (auto) Absolute Eos (auto) Absolute Basos (auto) Absolute Nucleated RBC Nucleated RBC % INR (Anticoag Therapy) APTT ABG pH ABG pCO2 ABG pO2 ABG HCO3 ABG O2 Saturation ABG Base Excess Sodium Potassium Chloride Carbon Dioxide Anion Gap BUN Creatinine Est GFR ( Amer) Est GFR (Non-Af Amer) BUN/Creatinine Ratio Glucose Lactic Acid Calcium Phosphorus Magnesium Total Bilirubin AST ALT Alkaline Phosphatase Ammonia Troponin I C-Reactive Protein B-Natriuretic Peptide Total Protein Albumin Globulin Albumin/Globulin Ratio Triglycerides Cholesterol LDL Cholesterol HDL Cholesterol Procalcitonin Cortisol Urine Color Yellow Urine Appearance Cloudy Urine pH 7.0 Ur Specific Francis 1.013 Urine Protein 2+(100 mg/dl) A Urine Ketones 1+ A Urine Blood Negative Urine Nitrate Negative Urine Bilirubin Negative Urine Urobilinogen Positive A Ur Leukocyte Esterase Negative Urine WBC (Auto) Trace(0-5/hpf) Urine RBC (Auto) Trace(0-2/hpf) Ur Squamous Epith Cells Present A Amorphous Crystals Present A Urine Bacteria Absent Urine Glucose Negative Fluid Source Fluid Volume Fluid Color Fluid Appearance Fluid WBC Fluid RBC Fluid Tot Cell Count Fluid Neutrophils Fluid Band Neutrophils Fluid Lymphocytes Fluid Monocytes Fluid Metamyelocytes Fluid Cell Count Rvw By CSF Cell Count Tube # CSF Glucose CSF Total Protein CSF HSV I (PCR) CSF Herpes II DNA (PCR) Vancomycin Trough Salicylates Urine Opiates Screen None detected Acetaminophen Ur Barbiturates Screen None detected Phenytoin Free Phenytoin Total Phenytoin Ur Phencyclidine Scrn None detected Ur Amphetamines Screen None detected U Benzodiazepines Scrn None detected Urine Cocaine Screen None detected U Cannabinoids Screen Presumptive positive A Serum Alcohol HIV-1 RNA (PCR) Undetected VZV DNA (PCR) 08/28/17 08/28/17 08/28/17 06:07 06:07 06:07 WBC RBC Hgb Hct MCV MCH MCHC RDW Plt Count MPV Neut % (Auto) Lymph % (Auto) [place] % (Auto) Eos % (Auto) Baso % (Auto) Absolute Neuts (auto) Absolute Lymphs (auto) Absolute Monos (auto) Absolute Eos (auto) Absolute Basos (auto) Absolute Nucleated RBC Nucleated RBC % INR (Anticoag Therapy) APTT ABG pH ABG pCO2 ABG pO2 ABG HCO3 ABG O2 Saturation ABG Base Excess Sodium Potassium Chloride Carbon Dioxide Anion Gap BUN Creatinine Est GFR ( Amer) Est GFR (Non-Af Amer) BUN/Creatinine Ratio Glucose Lactic Acid Calcium Phosphorus Magnesium Total Bilirubin AST ALT Alkaline Phosphatase Ammonia 62 H Troponin I C-Reactive Protein B-Natriuretic Peptide Total Protein Albumin Globulin Albumin/Globulin Ratio Triglycerides Cholesterol LDL Cholesterol HDL Cholesterol Procalcitonin < 0.1 Cortisol Urine Color Urine Appearance Urine pH Ur Specific Francis Urine Protein Urine Ketones Urine Blood Urine Nitrate Urine Bilirubin Urine Urobilinogen Ur Leukocyte Esterase Urine WBC (Auto) Urine RBC (Auto) Ur Squamous Epith Cells Amorphous Crystals Urine Bacteria Urine Glucose Fluid Source Fluid Volume Fluid Color Fluid Appearance Fluid WBC Fluid RBC Fluid Tot Cell Count Fluid Neutrophils Fluid Band Neutrophils Fluid Lymphocytes Fluid Monocytes Fluid Metamyelocytes Fluid Cell Count Rvw By CSF Cell Count Tube # CSF Glucose CSF Total Protein CSF HSV I (PCR) CSF Herpes II DNA (PCR) Vancomycin Trough Salicylates Urine Opiates Screen Acetaminophen Ur Barbiturates Screen Phenytoin Free Phenytoin Total Phenytoin Ur Phencyclidine Scrn Ur Amphetamines Screen U Benzodiazepines Scrn Urine Cocaine Screen U Cannabinoids Screen Serum Alcohol < 10 HIV-1 RNA (PCR) VZV DNA (PCR) 08/28/17 08/28/17 08/28/17 08:39 08:39 11:27 WBC RBC Hgb Hct MCV MCH MCHC RDW Plt Count MPV Neut % (Auto) Lymph % (Auto) [place] % (Auto) Eos % (Auto) Baso % (Auto) Absolute Neuts (auto) Absolute Lymphs (auto) Absolute Monos (auto) Absolute Eos (auto) Absolute Basos (auto) Absolute Nucleated RBC Nucleated RBC % INR (Anticoag Therapy) APTT ABG pH ABG pCO2 ABG pO2 ABG HCO3 ABG O2 Saturation ABG Base Excess Sodium Potassium Chloride Carbon Dioxide Anion Gap BUN Creatinine Est GFR ( Amer) Est GFR (Non-Af Amer) BUN/Creatinine Ratio Glucose Lactic Acid 0.9 Calcium Phosphorus Magnesium Total Bilirubin AST ALT Alkaline Phosphatase Ammonia Troponin I 2.40 H* C-Reactive Protein B-Natriuretic Peptide Total Protein Albumin Globulin Albumin/Globulin Ratio Triglycerides 50 Cholesterol 118 LDL Cholesterol 65 HDL Cholesterol 43.4 Procalcitonin Cortisol 20.60 Urine Color Urine Appearance Urine pH Ur Specific Francis Urine Protein Urine Ketones Urine Blood Urine Nitrate Urine Bilirubin Urine Urobilinogen Ur Leukocyte Esterase Urine WBC (Auto) Urine RBC (Auto) Ur Squamous Epith Cells Amorphous Crystals Urine Bacteria Urine Glucose Fluid Source Fluid Volume Fluid Color Fluid Appearance Fluid WBC Fluid RBC Fluid Tot Cell Count Fluid Neutrophils Fluid Band Neutrophils Fluid Lymphocytes Fluid Monocytes Fluid Metamyelocytes Fluid Cell Count Rvw By CSF Cell Count Tube # CSF Glucose CSF Total Protein CSF HSV I (PCR) CSF Herpes II DNA (PCR) Vancomycin Trough Salicylates Urine Opiates Screen Acetaminophen Ur Barbiturates Screen Phenytoin Free Phenytoin Total Phenytoin Ur Phencyclidine Scrn Ur Amphetamines Screen U Benzodiazepines Scrn Urine Cocaine Screen U Cannabinoids Screen Serum Alcohol HIV-1 RNA (PCR) VZV DNA (PCR) 08/28/17 08/28/17 08/28/17 15:45 17:55 17:55 WBC RBC Hgb Hct MCV MCH MCHC RDW Plt Count MPV Neut % (Auto) Lymph % (Auto) [place] % (Auto) Eos % (Auto) Baso % (Auto) Absolute Neuts (auto) Absolute Lymphs (auto) Absolute Monos (auto) Absolute Eos (auto) Absolute Basos (auto) Absolute Nucleated RBC Nucleated RBC % INR (Anticoag Therapy) APTT 30.2 ABG pH ABG pCO2 ABG pO2 ABG HCO3 ABG O2 Saturation ABG Base Excess Sodium Potassium Chloride Carbon Dioxide Anion Gap BUN Creatinine Est GFR ( Amer) Est GFR (Non-Af Amer) BUN/Creatinine Ratio Glucose Lactic Acid Calcium Phosphorus Magnesium Total Bilirubin AST ALT Alkaline Phosphatase Ammonia Troponin I C-Reactive Protein B-Natriuretic Peptide Total Protein Albumin Globulin Albumin/Globulin Ratio Triglycerides Cholesterol LDL Cholesterol HDL Cholesterol Procalcitonin Cortisol Urine Color Urine Appearance Urine pH Ur Specific Francis Urine Protein Urine Ketones Urine Blood Urine Nitrate Urine Bilirubin Urine Urobilinogen Ur Leukocyte Esterase Urine WBC (Auto) Urine RBC (Auto) Ur Squamous Epith Cells Amorphous Crystals Urine Bacteria Urine Glucose Fluid Source Cerebral spinal Fluid Volume 1.3 Fluid Color Colorless Fluid Appearance Clear Fluid WBC 36 H* Fluid RBC 3 Fluid Tot Cell Count 100 Fluid Neutrophils 89 Fluid Band Neutrophils 2 Fluid Lymphocytes 2 Fluid Monocytes 3 Fluid Metamyelocytes 4 Fluid Cell Count Rvw By CSF Cell Count Tube # 2 CSF Glucose 86 H CSF Total Protein 50 H CSF HSV I (PCR) CSF Herpes II DNA (PCR) Vancomycin Trough Salicylates Urine Opiates Screen Acetaminophen Ur Barbiturates Screen Phenytoin Free Phenytoin Total Phenytoin Ur Phencyclidine Scrn Ur Amphetamines Screen U Benzodiazepines Scrn Urine Cocaine Screen U Cannabinoids Screen Serum Alcohol HIV-1 RNA (PCR) VZV DNA (PCR) 08/28/17 08/28/17 08/28/17 17:55 17:55 18:34 WBC RBC Hgb Hct MCV MCH MCHC RDW Plt Count MPV Neut % (Auto) Lymph % (Auto) [place] % (Auto) Eos % (Auto) Baso % (Auto) Absolute Neuts (auto) Absolute Lymphs (auto) Absolute Monos (auto) Absolute Eos (auto) Absolute Basos (auto) Absolute Nucleated RBC Nucleated RBC % INR (Anticoag Therapy) APTT ABG pH ABG pCO2 ABG pO2 ABG HCO3 ABG O2 Saturation ABG Base Excess Sodium Potassium Chloride Carbon Dioxide Anion Gap BUN Creatinine Est GFR ( Amer) Est GFR (Non-Af Amer) BUN/Creatinine Ratio Glucose Lactic Acid Calcium Phosphorus Magnesium Total Bilirubin AST ALT Alkaline Phosphatase Ammonia Troponin I 1.77 H* C-Reactive Protein B-Natriuretic Peptide Total Protein Albumin Globulin Albumin/Globulin Ratio Triglycerides Cholesterol LDL Cholesterol HDL Cholesterol Procalcitonin Cortisol Urine Color Urine Appearance Urine pH Ur Specific Francis Urine Protein Urine Ketones Urine Blood Urine Nitrate Urine Bilirubin Urine Urobilinogen Ur Leukocyte Esterase Urine WBC (Auto) Urine RBC (Auto) Ur Squamous Epith Cells Amorphous Crystals Urine Bacteria Urine Glucose Fluid Source Fluid Volume Fluid Color Fluid Appearance Fluid WBC Fluid RBC Fluid Tot Cell Count Fluid Neutrophils Fluid Band Neutrophils Fluid Lymphocytes Fluid Monocytes Fluid Metamyelocytes Fluid Cell Count Rvw By CSF Cell Count Tube # CSF Glucose CSF Total Protein CSF HSV I (PCR) Negative CSF Herpes II DNA (PCR) Negative Vancomycin Trough Salicylates Urine Opiates Screen Acetaminophen Ur Barbiturates Screen Phenytoin Free Phenytoin Total Phenytoin Ur Phencyclidine Scrn Ur Amphetamines Screen U Benzodiazepines Scrn Urine Cocaine Screen U Cannabinoids Screen Serum Alcohol HIV-1 RNA (PCR) VZV DNA (PCR) Negative 08/29/17 08/29/17 08/30/17 05:22 05:22 06:59 WBC 10.0 RBC 4.51 Hgb 14.3 Hct 42 MCV 93 MCH 32 H MCHC 34 RDW 15 Plt Count 71 L MPV 8.9 Neut % (Auto) 78.1 Lymph % (Auto) 14.9 L [place] % (Auto) 6.8 Eos % (Auto) 0 Baso % (Auto) 0.2 Absolute Neuts (auto) 7.8 H Absolute Lymphs (auto) 1.5 Absolute Monos (auto) 0.7 Absolute Eos (auto) 0 Absolute Basos (auto) 0 Absolute Nucleated RBC 0 Nucleated RBC % 0 INR (Anticoag Therapy) APTT ABG pH ABG pCO2 ABG pO2 ABG HCO3 ABG O2 Saturation ABG Base Excess Sodium 138 Potassium 3.6 Chloride 108 Carbon Dioxide 24 Anion Gap 6 BUN 13 Creatinine 0.46 L Est GFR ( Amer) 170.7 Est GFR (Non-Af Amer) 141.0 BUN/Creatinine Ratio 28.3 H Glucose 103 H Lactic Acid Calcium 7.9 L Phosphorus Magnesium Total Bilirubin AST ALT Alkaline Phosphatase Ammonia Troponin I C-Reactive Protein B-Natriuretic Peptide Total Protein Albumin Globulin Albumin/Globulin Ratio Triglycerides Cholesterol LDL Cholesterol HDL Cholesterol Procalcitonin Cortisol Urine Color Urine Appearance Urine pH Ur Specific Francis Urine Protein Urine Ketones Urine Blood Urine Nitrate Urine Bilirubin Urine Urobilinogen Ur Leukocyte Esterase Urine WBC (Auto) Urine RBC (Auto) Ur Squamous Epith Cells Amorphous Crystals Urine Bacteria Urine Glucose Fluid Source Fluid Volume Fluid Color Fluid Appearance Fluid WBC Fluid RBC Fluid Tot Cell Count Fluid Neutrophils Fluid Band Neutrophils Fluid Lymphocytes Fluid Monocytes Fluid Metamyelocytes Fluid Cell Count Rvw By CSF Cell Count Tube # CSF Glucose CSF Total Protein CSF HSV I (PCR) CSF Herpes II DNA (PCR) Vancomycin Trough 18.2 Salicylates Urine Opiates Screen Acetaminophen Ur Barbiturates Screen Phenytoin Free Phenytoin Total Phenytoin Ur Phencyclidine Scrn Ur Amphetamines Screen U Benzodiazepines Scrn Urine Cocaine Screen U Cannabinoids Screen Serum Alcohol HIV-1 RNA (PCR) VZV DNA (PCR) 08/30/17 08/31/17 08/31/17 14:34 15:19 15:19 WBC 5.9 RBC 5.10 Hgb 16.4 H Hct 47 MCV 93 MCH 32 H MCHC 35 RDW 15 Plt Count 67 L MPV 8.8 Neut % (Auto) 67.6 Lymph % (Auto) 23.7 L [place] % (Auto) 6.4 Eos % (Auto) 1.7 Baso % (Auto) 0.6 Absolute Neuts (auto) 4.0 Absolute Lymphs (auto) 1.4 Absolute Monos (auto) 0.4 Absolute Eos (auto) 0.1 Absolute Basos (auto) 0 Absolute Nucleated RBC 0 Nucleated RBC % 0.1 INR (Anticoag Therapy) APTT ABG pH ABG pCO2 ABG pO2 ABG HCO3 ABG O2 Saturation ABG Base Excess Sodium 138 Potassium 3.3 L Chloride 102 Carbon Dioxide 28 Anion Gap 8 BUN 11 Creatinine 0.56 Est GFR ( Amer) 136.0 Est GFR (Non-Af Amer) 112.4 BUN/Creatinine Ratio 19.6 Glucose 105 H Lactic Acid Calcium 8.6 Phosphorus Magnesium Total Bilirubin AST ALT Alkaline Phosphatase Ammonia Troponin I C-Reactive Protein B-Natriuretic Peptide Total Protein Albumin Globulin Albumin/Globulin Ratio Triglycerides Cholesterol LDL Cholesterol HDL Cholesterol Procalcitonin Cortisol Urine Color Urine Appearance Urine pH Ur Specific Francis Urine Protein Urine Ketones Urine Blood Urine Nitrate Urine Bilirubin Urine Urobilinogen Ur Leukocyte Esterase Urine WBC (Auto) Urine RBC (Auto) Ur Squamous Epith Cells Amorphous Crystals Urine Bacteria Urine Glucose Fluid Source Fluid Volume Fluid Color Fluid Appearance Fluid WBC Fluid RBC Fluid Tot Cell Count Fluid Neutrophils Fluid Band Neutrophils Fluid Lymphocytes Fluid Monocytes Fluid Metamyelocytes Fluid Cell Count Rvw By CSF Cell Count Tube # CSF Glucose CSF Total Protein CSF HSV I (PCR) CSF Herpes II DNA (PCR) Vancomycin Trough Salicylates Urine Opiates Screen Acetaminophen Ur Barbiturates Screen Phenytoin 24.3 H 16.2 Free Phenytoin Total Phenytoin Ur Phencyclidine Scrn Ur Amphetamines Screen U Benzodiazepines Scrn Urine Cocaine Screen U Cannabinoids Screen Serum Alcohol HIV-1 RNA (PCR) VZV DNA (PCR) 09/01/17 09/02/17 09/02/17 04:10 05:40 05:40 WBC RBC Hgb Hct MCV MCH MCHC RDW Plt Count MPV Neut % (Auto) Lymph % (Auto) [place] % (Auto) Eos % (Auto) Baso % (Auto) Absolute Neuts (auto) Absolute Lymphs (auto) Absolute Monos (auto) Absolute Eos (auto) Absolute Basos (auto) Absolute Nucleated RBC Nucleated RBC % INR (Anticoag Therapy) APTT ABG pH ABG pCO2 ABG pO2 ABG HCO3 ABG O2 Saturation ABG Base Excess Sodium 141 Potassium 3.6 Chloride 106 Carbon Dioxide 28 Anion Gap 7 BUN 9 Creatinine 0.51 Est GFR ( Amer) 151.5 Est GFR (Non-Af Amer) 125.2 BUN/Creatinine Ratio 17.6 Glucose 125 H Lactic Acid Calcium 9.0 Phosphorus Magnesium Total Bilirubin AST ALT Alkaline Phosphatase Ammonia 49 Troponin I C-Reactive Protein B-Natriuretic Peptide Total Protein Albumin Globulin Albumin/Globulin Ratio Triglycerides Cholesterol LDL Cholesterol HDL Cholesterol Procalcitonin Cortisol Urine Color Urine Appearance Urine pH Ur Specific Francis Urine Protein Urine Ketones Urine Blood Urine Nitrate Urine Bilirubin Urine Urobilinogen Ur Leukocyte Esterase Urine WBC (Auto) Urine RBC (Auto) Ur Squamous Epith Cells Amorphous Crystals Urine Bacteria Urine Glucose Fluid Source Fluid Volume Fluid Color Fluid Appearance Fluid WBC Fluid RBC Fluid Tot Cell Count Fluid Neutrophils Fluid Band Neutrophils Fluid Lymphocytes Fluid Monocytes Fluid Metamyelocytes Fluid Cell Count Rvw By CSF Cell Count Tube # CSF Glucose CSF Total Protein CSF HSV I (PCR) CSF Herpes II DNA (PCR) Vancomycin Trough Salicylates Urine Opiates Screen Acetaminophen Ur Barbiturates Screen Phenytoin 16.0 Free Phenytoin Total Phenytoin Ur Phencyclidine Scrn Ur Amphetamines Screen U Benzodiazepines Scrn Urine Cocaine Screen U Cannabinoids Screen Serum Alcohol HIV-1 RNA (PCR) VZV DNA (PCR) 09/03/17 09/03/17 09/03/17 06:24 06:24 06:24 WBC 6.2 RBC 4.96 Hgb 16.1 H Hct 46 MCV 94 MCH 32 H MCHC 35 RDW 15 Plt Count 83 L MPV 9.6 Neut % (Auto) Lymph % (Auto) [place] % (Auto) Eos % (Auto) Baso % (Auto) Absolute Neuts (auto) Absolute Lymphs (auto) Absolute Monos (auto) Absolute Eos (auto) Absolute Basos (auto) Absolute Nucleated RBC Nucleated RBC % INR (Anticoag Therapy) 0.91 APTT ABG pH ABG pCO2 ABG pO2 ABG HCO3 ABG O2 Saturation ABG Base Excess Sodium 141 Potassium 4.0 Chloride 105 Carbon Dioxide 28 Anion Gap 8 BUN 12 Creatinine 0.58 Est GFR ( Amer) 130.6 Est GFR (Non-Af Amer) 107.9 BUN/Creatinine Ratio 20.7 H Glucose 95 Lactic Acid Calcium 8.7 Phosphorus 5.1 H Magnesium 1.7 L Total Bilirubin 0.60 AST 21 ALT 19 Alkaline Phosphatase 69 Ammonia Troponin I C-Reactive Protein B-Natriuretic Peptide Total Protein 5.6 L Albumin 3.3 Globulin 2.3 Albumin/Globulin Ratio 1.4 Triglycerides Cholesterol LDL Cholesterol HDL Cholesterol Procalcitonin Cortisol Urine Color Urine Appearance Urine pH Ur Specific Francis Urine Protein Urine Ketones Urine Blood Urine Nitrate Urine Bilirubin Urine Urobilinogen Ur Leukocyte Esterase Urine WBC (Auto) Urine RBC (Auto) Ur Squamous Epith Cells Amorphous Crystals Urine Bacteria Urine Glucose Fluid Source Fluid Volume Fluid Color Fluid Appearance Fluid WBC Fluid RBC Fluid Tot Cell Count Fluid Neutrophils Fluid Band Neutrophils Fluid Lymphocytes Fluid Monocytes Fluid Metamyelocytes Fluid Cell Count Rvw By CSF Cell Count Tube # CSF Glucose CSF Total Protein CSF HSV I (PCR) CSF Herpes II DNA (PCR) Vancomycin Trough Salicylates Urine Opiates Screen Acetaminophen Ur Barbiturates Screen Phenytoin 10.6 Free Phenytoin Total Phenytoin Ur Phencyclidine Scrn Ur Amphetamines Screen U Benzodiazepines Scrn Urine Cocaine Screen U Cannabinoids Screen Serum Alcohol HIV-1 RNA (PCR) VZV DNA (PCR) 09/04/17 09/04/17 09/04/17 05:35 09:53 09:53 WBC RBC Hgb Hct MCV MCH MCHC RDW Plt Count MPV Neut % (Auto) Lymph % (Auto) [place] % (Auto) Eos % (Auto) Baso % (Auto) Absolute Neuts (auto) Absolute Lymphs (auto) Absolute Monos (auto) Absolute Eos (auto) Absolute Basos (auto) Absolute Nucleated RBC Nucleated RBC % INR (Anticoag Therapy) APTT ABG pH ABG pCO2 ABG pO2 ABG HCO3 ABG O2 Saturation ABG Base Excess Sodium Potassium Chloride Carbon Dioxide Anion Gap BUN Creatinine Est GFR ( Amer) Est GFR (Non-Af Amer) BUN/Creatinine Ratio Glucose Lactic Acid Calcium Phosphorus Magnesium Total Bilirubin AST ALT Alkaline Phosphatase Ammonia Troponin I C-Reactive Protein B-Natriuretic Peptide Total Protein Albumin Globulin Albumin/Globulin Ratio Triglycerides Cholesterol LDL Cholesterol HDL Cholesterol Procalcitonin Cortisol Urine Color Urine Appearance Urine pH Ur Specific Francis Urine Protein Urine Ketones Urine Blood Urine Nitrate Urine Bilirubin Urine Urobilinogen Ur Leukocyte Esterase Urine WBC (Auto) Urine RBC (Auto) Ur Squamous Epith Cells Amorphous Crystals Urine Bacteria Urine Glucose Fluid Source Fluid Volume Fluid Color Fluid Appearance Fluid WBC Fluid RBC Fluid Tot Cell Count Fluid Neutrophils Fluid Band Neutrophils Fluid Lymphocytes Fluid Monocytes Fluid Metamyelocytes Fluid Cell Count Rvw By CSF Cell Count Tube # CSF Glucose CSF Total Protein CSF HSV I (PCR) CSF Herpes II DNA (PCR) Vancomycin Trough Salicylates Urine Opiates Screen Acetaminophen Ur Barbiturates Screen Phenytoin 7.6 L 10.3 Free Phenytoin 1.1 Total Phenytoin 11.3 Ur Phencyclidine Scrn Ur Amphetamines Screen U Benzodiazepines Scrn Urine Cocaine Screen U Cannabinoids Screen Serum Alcohol HIV-1 RNA (PCR) VZV DNA (PCR) 09/04/17 09/05/17 09/05/17 13:49 05:34 05:34 WBC 11.0 H RBC 4.84 Hgb 15.1 Hct 45 MCV 93 MCH 31 MCHC 34 RDW 15 Plt Count 99 L MPV 9.2 Neut % (Auto) 70.2 Lymph % (Auto) 17.4 L [place] % (Auto) 9.8 H Eos % (Auto) 1.9 Baso % (Auto) 0.7 Absolute Neuts (auto) 7.7 Absolute Lymphs (auto) 1.9 Absolute Monos (auto) 1.1 H Absolute Eos (auto) 0.2 Absolute Basos (auto) 0.1 Absolute Nucleated RBC 0 Nucleated RBC % 0 INR (Anticoag Therapy) APTT ABG pH ABG pCO2 ABG pO2 ABG HCO3 ABG O2 Saturation ABG Base Excess Sodium 133 L D Potassium 4.4 Chloride 104 Carbon Dioxide 22 Anion Gap 7 BUN 10 Creatinine 0.50 L Est GFR ( Amer) 155.0 Est GFR (Non-Af Amer) 128.1 BUN/Creatinine Ratio 20.0 Glucose 110 H Lactic Acid Calcium 8.8 Phosphorus 3.7 Magnesium 1.8 L Total Bilirubin AST ALT Alkaline Phosphatase Ammonia Troponin I C-Reactive Protein B-Natriuretic Peptide Total Protein Albumin Globulin Albumin/Globulin Ratio Triglycerides Cholesterol LDL Cholesterol HDL Cholesterol Procalcitonin Cortisol Urine Color Urine Appearance Urine pH Ur Specific Francis Urine Protein Urine Ketones Urine Blood Urine Nitrate Urine Bilirubin Urine Urobilinogen Ur Leukocyte Esterase Urine WBC (Auto) Urine RBC (Auto) Ur Squamous Epith Cells Amorphous Crystals Urine Bacteria Urine Glucose Fluid Source Fluid Volume Fluid Color Fluid Appearance Fluid WBC Fluid RBC Fluid Tot Cell Count Fluid Neutrophils Fluid Band Neutrophils Fluid Lymphocytes Fluid Monocytes Fluid Metamyelocytes Fluid Cell Count Rvw By CSF Cell Count Tube # CSF Glucose CSF Total Protein CSF HSV I (PCR) CSF Herpes II DNA (PCR) Vancomycin Trough Salicylates Urine Opiates Screen Acetaminophen Ur Barbiturates Screen Phenytoin 15.9 14.9 Free Phenytoin Total Phenytoin Ur Phencyclidine Scrn Ur Amphetamines Screen U Benzodiazepines Scrn Urine Cocaine Screen U Cannabinoids Screen Serum Alcohol HIV-1 RNA (PCR) VZV DNA (PCR) 09/05/17 09/06/17 09/06/17 10:14 05:41 05:41 WBC 5.0 RBC 4.07 Hgb 12.8 Hct 38 MCV 94 MCH 31 MCHC 34 RDW 15 Plt Count 80 L MPV 8.8 Neut % (Auto) Lymph % (Auto) [place] % (Auto) Eos % (Auto) Baso % (Auto) Absolute Neuts (auto) Absolute Lymphs (auto) Absolute Monos (auto) Absolute Eos (auto) Absolute Basos (auto) Absolute Nucleated RBC Nucleated RBC % INR (Anticoag Therapy) APTT ABG pH ABG pCO2 ABG pO2 ABG HCO3 ABG O2 Saturation ABG Base Excess Sodium 140 Potassium 3.9 Chloride 110 Carbon Dioxide 23 Anion Gap 7 BUN 8 Creatinine 0.46 L Est GFR ( Amer) 170.7 Est GFR (Non-Af Amer) 141.0 BUN/Creatinine Ratio 17.4 Glucose 110 H Lactic Acid Calcium 8.4 L Phosphorus Magnesium 1.8 L Total Bilirubin AST ALT Alkaline Phosphatase Ammonia Troponin I C-Reactive Protein B-Natriuretic Peptide Total Protein Albumin Globulin Albumin/Globulin Ratio Triglycerides Cholesterol LDL Cholesterol HDL Cholesterol Procalcitonin Cortisol Urine Color Yellow Urine Appearance Clear Urine pH 7.0 Ur Specific Francis 1.006 L Urine Protein Negative Urine Ketones Negative Urine Blood Negative Urine Nitrate Negative Urine Bilirubin Negative Urine Urobilinogen Negative Ur Leukocyte Esterase Negative Urine WBC (Auto) Urine RBC (Auto) Ur Squamous Epith Cells Amorphous Crystals Urine Bacteria Urine Glucose Negative Fluid Source Fluid Volume Fluid Color Fluid Appearance Fluid WBC Fluid RBC Fluid Tot Cell Count Fluid Neutrophils Fluid Band Neutrophils Fluid Lymphocytes Fluid Monocytes Fluid Metamyelocytes Fluid Cell Count Rvw By CSF Cell Count Tube # CSF Glucose CSF Total Protein CSF HSV I (PCR) CSF Herpes II DNA (PCR) Vancomycin Trough Salicylates Urine Opiates Screen Acetaminophen Ur Barbiturates Screen Phenytoin Free Phenytoin Total Phenytoin Ur Phencyclidine Scrn Ur Amphetamines Screen U Benzodiazepines Scrn Urine Cocaine Screen U Cannabinoids Screen Serum Alcohol HIV-1 RNA (PCR) VZV DNA (PCR) 09/07/17 09/07/17 09/07/17 05:22 05:22 11:33 WBC 5.2 RBC 4.13 Hgb 13.3 Hct 39 MCV 94 MCH 32 H MCHC 34 RDW 15 Plt Count 94 L MPV 8.6 Neut % (Auto) Lymph % (Auto) [place] % (Auto) Eos % (Auto) Baso % (Auto) Absolute Neuts (auto) Absolute Lymphs (auto) Absolute Monos (auto) Absolute Eos (auto) Absolute Basos (auto) Absolute Nucleated RBC Nucleated RBC % INR (Anticoag Therapy) APTT ABG pH ABG pCO2 ABG pO2 ABG HCO3 ABG O2 Saturation ABG Base Excess Sodium 139 Potassium 3.9 Chloride 108 Carbon Dioxide 24 Anion Gap 7 BUN 7 Creatinine 0.55 Est GFR ( Amer) 138.9 Est GFR (Non-Af Amer) 114.8 BUN/Creatinine Ratio 12.7 Glucose 119 H Lactic Acid Calcium 8.8 Phosphorus Magnesium Total Bilirubin AST ALT Alkaline Phosphatase Ammonia 81 H Troponin I C-Reactive Protein B-Natriuretic Peptide Total Protein Albumin Globulin Albumin/Globulin Ratio Triglycerides Cholesterol LDL Cholesterol HDL Cholesterol Procalcitonin Cortisol Urine Color Urine Appearance Urine pH Ur Specific Francis Urine Protein Urine Ketones Urine Blood Urine Nitrate Urine Bilirubin Urine Urobilinogen Ur Leukocyte Esterase Urine WBC (Auto) Urine RBC (Auto) Ur Squamous Epith Cells Amorphous Crystals Urine Bacteria Urine Glucose Fluid Source Fluid Volume Fluid Color Fluid Appearance Fluid WBC Fluid RBC Fluid Tot Cell Count Fluid Neutrophils Fluid Band Neutrophils Fluid Lymphocytes Fluid Monocytes Fluid Metamyelocytes Fluid Cell Count Rvw By CSF Cell Count Tube # CSF Glucose CSF Total Protein CSF HSV I (PCR) CSF Herpes II DNA (PCR) Vancomycin Trough Salicylates Urine Opiates Screen Acetaminophen Ur Barbiturates Screen Phenytoin Free Phenytoin Total Phenytoin Ur Phencyclidine Scrn Ur Amphetamines Screen U Benzodiazepines Scrn Urine Cocaine Screen U Cannabinoids Screen Serum Alcohol HIV-1 RNA (PCR) VZV DNA (PCR) 09/08/17 09/08/17 09/08/17 09:55 09:55 09:55 WBC 6.7 RBC 4.56 Hgb 14.2 Hct 43 MCV 94 MCH 31 MCHC 33 RDW 15 Plt Count 108 L MPV 8.4 Neut % (Auto) 70.9 Lymph % (Auto) 18.5 L [place] % (Auto) 7.4 H Eos % (Auto) 2.6 Baso % (Auto) 0.6 Absolute Neuts (auto) 4.8 Absolute Lymphs (auto) 1.2 Absolute Monos (auto) 0.5 Absolute Eos (auto) 0.2 Absolute Basos (auto) 0 Absolute Nucleated RBC 0 Nucleated RBC % 0.1 INR (Anticoag Therapy) APTT ABG pH ABG pCO2 ABG pO2 ABG HCO3 ABG O2 Saturation ABG Base Excess Sodium 134 L Potassium 3.8 Chloride 103 Carbon Dioxide 22 Anion Gap 9 BUN 6 Creatinine 0.47 L Est GFR ( Amer) 166.5 Est GFR (Non-Af Amer) 137.6 BUN/Creatinine Ratio 12.8 Glucose 116 H Lactic Acid Calcium 9.3 Phosphorus 4.4 Magnesium 1.7 L Total Bilirubin 0.60 AST 109 H ALT 119 H Alkaline Phosphatase 120 H Ammonia 63 H Troponin I C-Reactive Protein B-Natriuretic Peptide Total Protein 6.5 Albumin 3.6 Globulin 2.9 Albumin/Globulin Ratio 1.2 Triglycerides Cholesterol LDL Cholesterol HDL Cholesterol Procalcitonin Cortisol Urine Color Urine Appearance Urine pH Ur Specific Francis Urine Protein Urine Ketones Urine Blood Urine Nitrate Urine Bilirubin Urine Urobilinogen Ur Leukocyte Esterase Urine WBC (Auto) Urine RBC (Auto) Ur Squamous Epith Cells Amorphous Crystals Urine Bacteria Urine Glucose Fluid Source Fluid Volume Fluid Color Fluid Appearance Fluid WBC Fluid RBC Fluid Tot Cell Count Fluid Neutrophils Fluid Band Neutrophils Fluid Lymphocytes Fluid Monocytes Fluid Metamyelocytes Fluid Cell Count Rvw By CSF Cell Count Tube # CSF Glucose CSF Total Protein CSF HSV I (PCR) CSF Herpes II DNA (PCR) Vancomycin Trough Salicylates Urine Opiates Screen Acetaminophen Ur Barbiturates Screen Phenytoin Free Phenytoin Total Phenytoin Ur Phencyclidine Scrn Ur Amphetamines Screen U Benzodiazepines Scrn Urine Cocaine Screen U Cannabinoids Screen Serum Alcohol HIV-1 RNA (PCR) VZV DNA (PCR) Exam Appearance: Well Developed/Nourished, Healthy Appearing, Other - Ill appearing Hygiene: Normal Grooming: Fairly Well Kept Psychomotor Activities: Abnormal-Increased Exhibits Abnormal Movement: No Attitude and Relatedness: Psychotically Related Eye Contact: Fair - Speech Quality: Pressured Latencies: Short Quantity: Copious Patient's Decription of Mood: "Great" Observed Affect: Expansive Affect Consistent with: Euphoria Patient's Thought Process: Disorganized, Tangential, Circumstantial, Over Inclusive Thought Content: No Passive Wish, No Suicidal Planning, No Homicidal Ideation, No Paranoid Ideation Experiencing Hallucinations: No, Sensorium is Clear Type of Hallucinations: Visual: No, Auditory: No, Command: No Level of Consciousness: Alert Orientation: Yes Intact, Yes Orientated to Place, Yes Orientated to Person, No Orientated to Time Impulse Control: Tenuous Insight and Judgement: Impaired Impression - Impression Clinical Impression: 57 y/o WF with nkown h/o depression and anxiety, nonadherence to treatment, a remote h/o alcohol use d/o resulting in cirrhosis currently on medical floor due to acute change os mental status secondary to seizures and high Ammonia level. Although her medical condition is better it is not clear how much that is contributing to her current presentation. Inpatient DSM-V Dx: R41.0 Merits Inpatient Hospitalization: No Problem List - MHU Problems Type of Problem: Mood Status of Problem: Active Type of Problem: Medication Management Status of Problem: Active Type of Problem: Affect Status of Problem: Active Plan - Treatment Plan Treatment Plan: May consider [place] 150mg po BID. Continued Medication Management: Consider Medication Medications: Current Medications Al Hydrox/Mg Hydrox/Simethicone (Maalox Plus*) 30 ml PO Q6H PRN PRN Reason: INDIGESTION Albuterol (Ventolin 2.5 Mg/3 Ml Neb.Christin*) 2.5 mg INH Q2H PRN PRN Reason: SOB/WHEEZING Last Admin: 09/05/17 23:50 Dose: 2.5 mg Aspirin (Aspirin Ec Tab*) 81 mg PO DAILY [facility] Last Admin: 09/08/17 08:37 Dose: 81 mg Carvedilol (Coreg Tab*) 3.125 mg PO BID [facility] Last Admin: 09/08/17 08:37 Dose: Not Given Device (Nicotine Mouth Piece*) 1 each INH .USE WITH NICOTROL PRN PRN Reason: CRAVING Last Admin: 09/05/17 14:56 Dose: 1 each Docusate Sodium (Colace Cap*) 100 mg PO BID PRN PRN Reason: CONSTIPATION Heparin Sodium (Porcine) (Heparin Vial(*)) 5,000 units SUBCUT Q8HR [facility] Last Admin: 09/08/17 14:00 Dose: 5,000 units Hydroxyzine HCl (Atarax Tab*) 25 mg PO Q6H PRN PRN Reason: ANXIETY Last Admin: 09/08/17 01:53 Dose: 25 mg Sodium Chloride (Ns 0.9% 1000 Ml*) 1,000 mls @ 75 mls/hr IV PER RATE [facility] Last Admin: 09/08/17 00:08 Dose: 75 mls/hr Sodium Chloride (Ns 0.9% 1000 Ml*) 1,000 mls @ 100 mls/hr IV PER [facility]ATE [facility] Last Admin: 09/08/17 14:00 Dose: 100 mls/hr Lactulose (Lactulose*) 30 ml PO QID [facility] Last Admin: 09/08/17 14:00 Dose: 30 ml Lorazepam (Ativan Inj*) 1 mg IV PUSH ONCE PRN PRN Reason: ANXIETY Last Admin: 09/02/17 14:11 Dose: 1 mg Nicotine (Nicotine Inhaler*) 10 mg INH Q2H PRN PRN Reason: CRAVING Last Admin: 09/05/17 14:55 Dose: 10 mg Ondansetron HCl (Zofran 40 Mg Vial*) 4 mg IV Q4H PRN PRN Reason: NAUSEA/VOMITING Last Admin: 09/06/17 21:07 Dose: 4 mg Phenytoin Sodium (Dilantin Cap(*)) 300 mg PO BEDTIME [facility] Last Admin: 09/07/17 20:13 Dose: 300 mg Potassium Chloride (Klor Con Er Tab*) 20 meq PO DAILY [facility] Last Admin: 09/08/17 08:37 Dose: 20 meq Zonisamide (Zonegran (Nf)) 200 mg PO DAILY [facility] Last Admin: 09/08/17 08:44 Dose: 200 mg - Discharge Plan Discharge Plan: Outpatient Follow Up Outpatient Program: [facility]
--- NOTE | 2017-09-08 16:10 | PN ---
Objective Active Medications: Al Hydrox/Mg Hydrox/Simethicone (Maalox Plus*) 30 ml PO Q6H PRN PRN Reason: INDIGESTION Albuterol (Ventolin 2.5 Mg/3 Ml Neb.Christin*) 2.5 mg INH Q2H PRN PRN Reason: SOB/WHEEZING Last Admin: 09/05/17 23:50 Dose: 2.5 mg Aspirin (Aspirin Ec Tab*) 81 mg PO DAILY [facility] Last Admin: 09/08/17 08:37 Dose: 81 mg Carvedilol (Coreg Tab*) 3.125 mg PO BID [facility] Last Admin: 09/08/17 08:37 Dose: Not Given Device (Nicotine Mouth Piece*) 1 each INH .USE WITH NICOTROL PRN PRN Reason: CRAVING Last Admin: 09/05/17 14:56 Dose: 1 each Docusate Sodium (Colace Cap*) 100 mg PO BID PRN PRN Reason: CONSTIPATION Heparin Sodium (Porcine) (Heparin Vial(*)) 5,000 units SUBCUT Q8HR [facility] Last Admin: 09/08/17 14:00 Dose: 5,000 units Hydroxyzine HCl (Atarax Tab*) 25 mg PO Q6H PRN PRN Reason: ANXIETY Last Admin: 09/08/17 01:53 Dose: 25 mg Sodium Chloride (Ns 0.9% 1000 Ml*) 1,000 mls @ 75 mls/hr IV PER RATE [facility] Last Admin: 09/08/17 00:08 Dose: 75 mls/hr Sodium Chloride (Ns 0.9% 1000 Ml*) 1,000 mls @ 100 mls/hr IV PER RATE [facility] Last Admin: 09/08/17 14:00 Dose: 100 mls/hr Lactulose (Lactulose*) 30 ml PO QID [facility] Last Admin: 09/08/17 14:00 Dose: 30 ml Lorazepam (Ativan Inj*) 1 mg IV PUSH ONCE PRN PRN Reason: ANXIETY Last Admin: 09/02/17 14:11 Dose: 1 mg Nicotine (Nicotine Inhaler*) 10 mg INH Q2H PRN PRN Reason: CRAVING Last Admin: 09/05/17 14:55 Dose: 10 mg Ondansetron HCl (Zofran 40 Mg Vial*) 4 mg IV Q4H PRN PRN Reason: NAUSEA/VOMITING Last Admin: 09/06/17 21:07 Dose: 4 mg Phenytoin Sodium (Dilantin Cap(*)) 300 mg PO BEDTIME [facility] Last Admin: 09/07/17 20:13 Dose: 300 mg Potassium Chloride (Klor Con Er Tab*) 20 meq PO DAILY [facility] Last Admin: 09/08/17 08:37 Dose: 20 meq Zonisamide (Zonegran (Nf)) 200 mg PO DAILY [facility] Last Admin: 09/08/17 08:44 Dose: 200 mg Oxygen Devices in Use Now: None Result Diagrams: 09/08/17 09:55 09/08/17 09:55 Additional Lab and Data: Lab Results 08/28/17 Range/Units 04:45 ABG pH 7.44 (7.35-7.45) ABG pCO2 38 (35-45) mmHg ABG pO2 64 L (80-100) mmHg ABG HCO3 25.9 (19-31) mmol/L ABG O2 Saturation 95.5 (95-98) % ABG Base Excess 1.7 (-2.0-2.0) Dilantin level: 16 Microbiology and Other Data: Microbiology 08/28/17 08:40 Nasal Screen MRSA (PCR)([facility]OR[facility]) - Final Nasal Mrsa Not Detected VZV and HSV negative CSF cultures negative Diagnostic Imaging: No new imaging. Pending MRI brain study Assess/Plan/Problems-Billing Ms. Natalia Cruz is a 57-year-old female with a history of depression, anxiety, and polysubstance abuse who had status epilepticus related to benzodiazepine withdrawal in 2016 who presented on August 28, 2017 with recurrent seizure likel activity. The patient was found to have electrographic seizures correlating with the clinical symptoms of staring and unresponsive spells lasting from 4-15 minutes. She had a CSF analysis that revealed pleocytosis that was thought to be related to reactivity from her seizures. Her neurological examination has improved the last few days especially since starting phenytoin on 08/31/2017. the phenytoin level is within therapeutic range. The patient continues to have less seizure episodes but she did have an event this morning lasting for about 4 minutes. She is being treated for pneumonia and NSTEMI. - Patient Problems (1) Mental status change Current Visit: Yes Status: Acute Code(s): R41.82 - ALTERED MENTAL STATUS, UNSPECIFIED SNOMED Code(s): 179246583 Comment: -Given increased liver enzymes Tylenol was D/C by Dr. Ybarra earlier, however, has not had that much Tylenol ordered as PRN to begin with -Suspect that this is her normal liver enzyme fluctuation; however, given med changes, drug-induced liver injury should be in the differential as well -Sent for STAT Tylenol level -Obtain abd U/S -Continue to follow LFT trend -Hypomagnesemia corrected -Place on IVF -Appreciate Dr. Johnson input; Will hold off on [place] for now until W/U of elevated LFTs described above transpires---consider lithium for possible bipolar depression with psychotic features??? -Likely multifactorial as there seems to be at least 3 issues causing mental status change among which are: -Hepatic encephalopathy: Lactulose D/Cd per reccomendations of Dr. Singh along with Xifaxan given minimally elevated ammonia level on presentation and pt s continued non-compliance. Given non-compliance pt was subsequently placed on Xifaxan which likely caused her Phenytoin level to decrease; however, acute confusion today with elevated ammonia level suggests need to treat encephalopathy. D/W Dr. Ybarra who mentioned that Lactulose would not have significant effects with levels and therefore will continue -Ammonia level improved from yesterday -Post-ictal confusion due to complex partial seizures: Pts hospital course is clear that pt was behavioral when her recurrent seizures were previously uncontrolled -Unknown psychiatric behavioral issue: Recent review of EEG by Dr. Ferguson suggests that she also has episodes of blank stares that are not associated with epileptiform changes; pt does have history of depression and wonders whether pt may have depression with psychotic features; Left messages at psych unit and will await further recommendations from psych in regards to medications. -Per Dr. Ybarra, psych meds to avoid that are known to interact with seizure meds are: Trazodone, Remeron, and Clozaril (2) Seizure Current Visit: Yes Status: Acute Code(s): R56.9 - UNSPECIFIED CONVULSIONS SNOMED Code(s): 99909563 Comment: -May have been triggered by BZD non-compliance due to possible uncontrolled psychiatric issues such as anxiety and known depression? -As above; please see previous notes for details -Continue on Zonisamide 200 mg daily Continue Phenytoin at 300 mg -Continue Lorazepam q8H (3) Anxiety disorder, unspecified Current Visit: No Status: Acute Priority: High Onset Date: 10/03/14 Code (s): F41.9 - ANXIETY DISORDER, UNSPECIFIED SNOMED Code(s): 096726787 Comment: -Please see above discussion -Appreciate Dr. Faith input -Mirtazapine D/Cd as discussed -Dr. Brush exploring referral to the [facility] Treatment team and will defer (4) Cirrhosis Current Visit: Yes Status: Acute Comment: -Well-compensated with MELD =5 -Will order INR and CMP in AM to calculate for MELD score -Likely cause of thrombocytopenia (5) Alcohol abuse Current Visit: Yes Status: Acute Code(s): F10.10 - ALCOHOL ABUSE, UNCOMPLICATED SNOMED Code(s): 36734454 Comment: -Pt reports no EtOH use for several years. She has a h/o alcoholic cirrhosis and is on lactulose at home but unclear how frequently she was using that medication. Start lactulose 15 ml bid 08/31 AM. Note NH4+ level 62 on 08/28/17. Patient refused all doses of lactulose as of 09/01 AM. Repeat ammonia level . (6) NSTEMI (non-ST elevated myocardial infarction) Current Visit: Yes Status: Acute Code(s): I21.4 - NON-ST ELEVATION (NSTEMI) MYOCARDIAL INFARCTION SNOMED Code(s): 845083548 Comment: -The patient's trop peaked at 2.4. Continue ASA and carvdilol. Echo 08/28 showed LVEF 35-40%. AWMI uncertain age. Dr. Campbell recommended against statin or heparin. Eventually will need either stress test or cath---which can be done as an outpatient (7) Tobacco abuse Current Visit: Yes Status: Acute Code(s): Z72.0 - TOBACCO USE SNOMED Code( s): 220693853 Comment: -Continue PRN nicotine inhaler. (8) COPD (chronic obstructive pulmonary disease) Current Visit: Yes Status: Acute Code(s): J44.9 - CHRONIC OBSTRUCTIVE PULMONARY DISEASE, UNSPECIFIED SNOMED Code(s): 12767761 Comment: -Patient does not want inhaled pulm meds. Status and Disposition: -As above
[2017-09-08] MEDS: Nicotine Inhaler* 10 MG AMP INH PRN ×2 (17:48→20:25)
[2017-09-08] MEDS: Mouth Piece, Nicotine* 1 EACH CARTRIDGE INH PRN (17:48)
[2017-09-08] MEDS: Phenytoin CAP(*) 100 MG CAP.ER PO SCH (20:16)
[2017-09-09] MEDS: NS 0.9% 1000 ML* 1,000 ML IV SCH (00:03)
[2017-09-09] MEDS ORDERED: Ibuprofen TAB* 600 MG PO ONE (02:54)
[2017-09-09] MEDS: Nicotine Inhaler* 10 MG AMP INH PRN ×2 (03:59→14:37)
[2017-09-09] MEDS: Heparin VIAL(*) 5000 UNITS/ML VIAL (FIVE THOUSAND) SUBCUT SCH ×2 (05:00→14:59)
[2017-09-09] MEDS: hydrOXYzine HCL TAB* 25 MG PO PRN ×2 (05:35→11:57)
[2017-09-09 05:55] LABS: ABS Basophils 0 10^3/ul (0-0.2); ABS Eosinophils 0.1 10^3/ul (0-0.6); ABS Lymphocytes 1.3 10^3/ul (1.0-4.8); ABS Monocytes 0.5 10^3/ul (0-0.8); ABS Neutrophils 4.8 10^3/ul (1.5-7.7); ABS Nucleated RBC 0 10^3/ul; Eosinophil % 2.2 % (0-6); Hematocrit 38 % (35-47); Lymphocyte % 19.5 % (25-47); Mean Corpuscular HGB Conc 34 g/dl (31-36); Mean Corpuscular Hemoglobin 32 pg (27-31); Mean Corpuscular Volume 94 fL (80-97); Mean Platelet Volume 7.9 um3 (7.4-10.4); Nucleated Red Blood Cells % 0; Platelet Count 101 10^3/ul (150-450); Red Blood Count 4.08 10^6/ul (4.00-5.40); Red Cell Distribution Width 15 % (10.5-15); White Blood Count 6.7 10^3/ul (3.5-10.8)
[2017-09-09] MEDS ORDERED: Magnesium Sulfate IV* 3 GM in NS 0.9% 100 ML* 100 ML IVPB ONE (08:27)
[2017-09-09] MEDS: CMC:Zonisamide (NF) 50 MG CAP PO SCH (08:34)
[2017-09-09] MEDS: Potassium Chlor TAB* 20 MEQ TAB.ER PO SCH (08:35)
[2017-09-09] MEDS: Aspirin EC TAB* 81 MG TAB.EC PO SCH (08:35)
[2017-09-09 08:39] LABS: EGFR Non-African American 222.4 (>60)
[2017-09-09] MEDS: Carvedilol TAB* 3.125 MG PO SCH (09:54)
--- NOTE | 2017-09-09 09:59 | RAD ---
HISTORY: Elevated LFTs COMPARISONS: CT dated March 14, 2015 TECHNIQUE: Multiple transverse and longitudinal ultrasound images were obtained of the abdomen using grayscale, color Doppler, and spectral Doppler imaging. FINDINGS: LIVER: The liver is normal in shape, size, contour, and echogenicity. There are no focal parenchymal masses. There is normal hepatopedal flow of the portal vein on Doppler imaging. BILIARY TREE: There is no intrahepatic or extrahepatic biliary dilatation. The common duct measures 0.5 cm. GALLBLADDER: There is a wall echo shadow complex. There is no sonographic Goodman sign. There is no periprostatic fluid. There is mild gallbladder wall thickening. PANCREAS: The head of the pancreas is unremarkable. The tail of the pancreas is not well visualized secondary to overlying bowel gas. SPLEEN: The spleen is at the upper limits of normal in size. The spleen measures 13 x 6.7 x 6.1 cm. RIGHT KIDNEY: The right kidney is normal in shape, size, contour, and echogenicity. There is no hydronephrosis or nephrolithiasis. The right kidney measures 11.3 x 4.2 x 5.6 cm. LEFT KIDNEY: There is a 2 cm exophytic simple cyst of the lower left kidney. There is no hydronephrosis or nephrolithiasis. The left kidney measures 10.5 x 5.2 x 5.1 cm. AORTA AND IVC: The aorta and IVC are unremarkable. FLUID: There are no pleural effusions. There is no free fluid within the hepatorenal recess. OTHER FINDINGS: None. IMPRESSION: CHOLELITHIASIS WITH MILD GALLBLADDER WALL THICKENING.
[2017-09-09] MEDS ORDERED: Phenytoin CAP(*) 100 MG CAP.ER PO ONE (10:30)
--- NOTE | 2017-09-09 13:40 | CONSULT ---
Identification - Patient Identification Reason for Psychiatric Consultation: Incapacitating Symptoms -: Patient is a 57 year old, F admitted on 08/28/17. - MHU Identification Employment Status: Disabled Hx Psychiatric Hospitalization: Yes History - Objective HPI: Psychiatry returns to see Natalia for follow up. Prior to seeing her, I note that staff documentation seems to describe a change in her presentation since my last interaction with her last , September 05. Her behavior seems more pressured, hyperverbal, grandiose and intrusive than the quiet confusion she presented with earlier in her hospital course. This presentation is seconded by current medical attending, Darrius aSntos, and neurologist Kwasi Ybarra. On exam the patient demonstrates multiple symptoms of acute larry, including intense distractability, indiscretion, grandiosity, flight of ideas, hyperkinesis, sleeplessness and over productive speech. "I have to go in less than 24 hours. My daughter won the award as the best nurse in the [facility] and she needs me now!" She denies SI or HI but is quite impaired in her thinking and reacts immediately to any noise heard in the hallway or on the unit underneath her. Lab Results: Laboratory Tests 08/28/17 08/28/17 08/28/17 04:45 05:02 05:02 WBC 14.3 H RBC 5.37 Hgb 17.2 H Hct 49 H MCV 91 MCH 32 H MCHC 35 RDW 15 Plt Count 86 L MPV 8.6 Neut % (Auto) 88.8 H Lymph % (Auto) 6.5 L [place] % (Auto) 4.3 Eos % (Auto) 0.2 Baso % (Auto) 0.2 Absolute Neuts (auto) 12.7 H Absolute Lymphs (auto) 0.9 L Absolute Monos (auto) 0.6 Absolute Eos (auto) 0 Absolute Basos (auto) 0 Absolute Nucleated RBC 0 Nucleated RBC % 0.1 INR (Anticoag Therapy) 1.14 H APTT 27.8 ABG pH 7.44 ABG pCO2 38 ABG pO2 64 L ABG HCO3 25.9 ABG O2 Saturation 95.5 ABG Base Excess 1.7 Sodium Potassium Chloride Carbon Dioxide Anion Gap BUN Creatinine Est GFR ( Amer) Est GFR (Non-Af Amer) BUN/Creatinine Ratio Glucose Lactic Acid Calcium Phosphorus Magnesium Total Bilirubin AST ALT Alkaline Phosphatase Ammonia Troponin I C-Reactive Protein B-Natriuretic Peptide Total Protein Albumin Globulin Albumin/Globulin Ratio Triglycerides Cholesterol LDL Cholesterol HDL Cholesterol Procalcitonin Cortisol Urine Color Urine Appearance Urine pH Ur Specific [place] Urine Protein Urine Ketones Urine Blood Urine Nitrate Urine Bilirubin Urine Urobilinogen Ur Leukocyte Esterase Urine WBC (Auto) Urine RBC (Auto) Ur Squamous Epith Cells Amorphous Crystals Urine Bacteria Urine Glucose Fluid Source Fluid Volume Fluid Color Fluid Appearance Fluid WBC Fluid RBC Fluid Tot Cell Count Fluid Neutrophils Fluid Band Neutrophils Fluid Lymphocytes Fluid Monocytes Fluid Metamyelocytes Fluid Cell Count Rvw By CSF Cell Count Tube # CSF Glucose CSF Total Protein CSF HSV I (PCR) CSF Herpes II DNA (PCR) Vancomycin Trough Salicylates Urine Opiates Screen Acetaminophen Ur Barbiturates Screen Phenytoin Free Phenytoin Total Phenytoin Ur Phencyclidine Scrn Ur Amphetamines Screen U Benzodiazepines Scrn Urine Cocaine Screen U Cannabinoids Screen Serum Alcohol HIV-1 RNA (PCR) VZV DNA (PCR) 08/28/17 08/28/17 08/28/17 05:02 05:02 05:02 WBC RBC Hgb Hct MCV MCH MCHC RDW Plt Count MPV Neut % (Auto) Lymph % (Auto) [place] % (Auto) Eos % (Auto) Baso % (Auto) Absolute Neuts (auto) Absolute Lymphs (auto) Absolute Monos (auto) Absolute Eos (auto) Absolute Basos (auto) Absolute Nucleated RBC Nucleated RBC % INR (Anticoag Therapy) APTT ABG pH ABG pCO2 ABG pO2 ABG HCO3 ABG O2 Saturation ABG Base Excess Sodium 135 Potassium 3.5 Chloride 98 L Carbon Dioxide 25 Anion Gap 12 H BUN 9 Creatinine 0.54 Est GFR ( Amer) 150.7 Est GFR (Non-Af Amer) 117.2 BUN/Creatinine Ratio 16.7 Glucose 137 H Lactic Acid 1.6 Calcium 9.0 Phosphorus Magnesium Total Bilirubin 1.90 H AST 24 ALT 13 Alkaline Phosphatase 58 Ammonia Troponin I 0.79 H* C-Reactive Protein 6.81 B-Natriuretic Peptide 142 H Total Protein 6.8 Albumin 4.1 Globulin 2.7 Albumin/Globulin Ratio 1.5 Triglycerides Cholesterol LDL Cholesterol HDL Cholesterol Procalcitonin Cortisol Urine Color Urine Appearance Urine pH Ur Specific [place] Urine Protein Urine Ketones Urine Blood Urine Nitrate Urine Bilirubin Urine Urobilinogen Ur Leukocyte Esterase Urine WBC (Auto) Urine RBC (Auto) Ur Squamous Epith Cells Amorphous Crystals Urine Bacteria Urine Glucose Fluid Source Fluid Volume Fluid Color Fluid Appearance Fluid WBC Fluid RBC Fluid Tot Cell Count Fluid Neutrophils Fluid Band Neutrophils Fluid Lymphocytes Fluid Monocytes Fluid Metamyelocytes Fluid Cell Count Rvw By CSF Cell Count Tube # CSF Glucose CSF Total Protein CSF HSV I (PCR) CSF Herpes II DNA (PCR) Vancomycin Trough Salicylates < 2.50 Urine Opiates Screen Acetaminophen < 15 Ur Barbiturates Screen Phenytoin Free Phenytoin Total Phenytoin Ur Phencyclidine Scrn Ur Amphetamines Screen U Benzodiazepines Scrn Urine Cocaine Screen U Cannabinoids Screen Serum Alcohol HIV-1 RNA (PCR) VZV DNA (PCR) 08/28/17 08/28/17 08/28/17 05:02 05:26 05:26 WBC RBC Hgb Hct MCV MCH MCHC RDW Plt Count MPV Neut % (Auto) Lymph % (Auto) [place] % (Auto) Eos % (Auto) Baso % (Auto) Absolute Neuts (auto) Absolute Lymphs (auto) Absolute Monos (auto) Absolute Eos (auto) Absolute Basos (auto) Absolute Nucleated RBC Nucleated RBC % INR (Anticoag Therapy) APTT ABG pH ABG pCO2 ABG pO2 ABG HCO3 ABG O2 Saturation ABG Base Excess Sodium Potassium Chloride Carbon Dioxide Anion Gap BUN Creatinine Est GFR ( Amer) Est GFR (Non-Af Amer) BUN/Creatinine Ratio Glucose Lactic Acid Calcium Phosphorus Magnesium Total Bilirubin AST ALT Alkaline Phosphatase Ammonia Troponin I C-Reactive Protein B-Natriuretic Peptide Total Protein Albumin Globulin Albumin/Globulin Ratio Triglycerides Cholesterol LDL Cholesterol HDL Cholesterol Procalcitonin Cortisol Urine Color Yellow Urine Appearance Cloudy Urine pH 7.0 Ur Specific [place] 1.013 Urine Protein 2+(100 mg/dl) A Urine Ketones 1+ A Urine Blood Negative Urine Nitrate Negative Urine Bilirubin Negative Urine Urobilinogen Positive A Ur Leukocyte Esterase Negative Urine WBC (Auto) Trace(0-5/hpf) Urine RBC (Auto) Trace(0-2/hpf) Ur Squamous Epith Cells Present A Amorphous Crystals Present A Urine Bacteria Absent Urine Glucose Negative Fluid Source Fluid Volume Fluid Color Fluid Appearance Fluid WBC Fluid RBC Fluid Tot Cell Count Fluid Neutrophils Fluid Band Neutrophils Fluid Lymphocytes Fluid Monocytes Fluid Metamyelocytes Fluid Cell Count Rvw By CSF Cell Count Tube # CSF Glucose CSF Total Protein CSF HSV I (PCR) CSF Herpes II DNA (PCR) Vancomycin Trough Salicylates Urine Opiates Screen None detected Acetaminophen Ur Barbiturates Screen None detected Phenytoin Free Phenytoin Total Phenytoin Ur Phencyclidine Scrn None detected Ur Amphetamines Screen None detected U Benzodiazepines Scrn None detected Urine Cocaine Screen None detected U Cannabinoids Screen Presumptive positive A Serum Alcohol HIV-1 RNA (PCR) Undetected VZV DNA (PCR) 08/28/17 08/28/17 08/28/17 06:07 06:07 06:07 WBC RBC Hgb Hct MCV MCH MCHC RDW Plt Count MPV Neut % (Auto) Lymph % (Auto) [place] % (Auto) Eos % (Auto) Baso % (Auto) Absolute Neuts (auto) Absolute Lymphs (auto) Absolute Monos (auto) Absolute Eos (auto) Absolute Basos (auto) Absolute Nucleated RBC Nucleated RBC % INR (Anticoag Therapy) APTT ABG pH ABG pCO2 ABG pO2 ABG HCO3 ABG O2 Saturation ABG Base Excess Sodium Potassium Chloride Carbon Dioxide Anion Gap BUN Creatinine Est GFR ( Amer) Est GFR (Non-Af Amer) BUN/Creatinine Ratio Glucose Lactic Acid Calcium Phosphorus Magnesium Total Bilirubin AST ALT Alkaline Phosphatase Ammonia 62 H Troponin I C-Reactive Protein B-Natriuretic Peptide Total Protein Albumin Globulin Albumin/Globulin Ratio Triglycerides Cholesterol LDL Cholesterol HDL Cholesterol Procalcitonin < 0.1 Cortisol Urine Color Urine Appearance Urine pH Ur Specific [place] Urine Protein Urine Ketones Urine Blood Urine Nitrate Urine Bilirubin Urine Urobilinogen Ur Leukocyte Esterase Urine WBC (Auto) Urine RBC (Auto) Ur Squamous Epith Cells Amorphous Crystals Urine Bacteria Urine Glucose Fluid Source Fluid Volume Fluid Color Fluid Appearance Fluid WBC Fluid RBC Fluid Tot Cell Count Fluid Neutrophils Fluid Band Neutrophils Fluid Lymphocytes Fluid Monocytes Fluid Metamyelocytes Fluid Cell Count Rvw By CSF Cell Count Tube # CSF Glucose CSF Total Protein CSF HSV I (PCR) CSF Herpes II DNA (PCR) Vancomycin Trough Salicylates Urine Opiates Screen Acetaminophen Ur Barbiturates Screen Phenytoin Free Phenytoin Total Phenytoin Ur Phencyclidine Scrn Ur Amphetamines Screen U Benzodiazepines Scrn Urine Cocaine Screen U Cannabinoids Screen Serum Alcohol < 10 HIV-1 RNA (PCR) VZV DNA (PCR) 08/28/17 08/28/17 08/28/17 08:39 08:39 11:27 WBC RBC Hgb Hct MCV MCH MCHC RDW Plt Count MPV Neut % (Auto) Lymph % (Auto) [place] % (Auto) Eos % (Auto) Baso % (Auto) Absolute Neuts (auto) Absolute Lymphs (auto) Absolute Monos (auto) Absolute Eos (auto) Absolute Basos (auto) Absolute Nucleated RBC Nucleated RBC % INR (Anticoag Therapy) APTT ABG pH ABG pCO2 ABG pO2 ABG HCO3 ABG O2 Saturation ABG Base Excess Sodium Potassium Chloride Carbon Dioxide Anion Gap BUN Creatinine Est GFR ( Amer) Est GFR (Non-Af Amer) BUN/Creatinine Ratio Glucose Lactic Acid 0.9 Calcium Phosphorus Magnesium Total Bilirubin AST ALT Alkaline Phosphatase Ammonia Troponin I 2.40 H* C-Reactive Protein B-Natriuretic Peptide Total Protein Albumin Globulin Albumin/Globulin Ratio Triglycerides 50 Cholesterol 118 LDL Cholesterol 65 HDL Cholesterol 43.4 Procalcitonin Cortisol 20.60 Urine Color Urine Appearance Urine pH Ur Specific [place] Urine Protein Urine Ketones Urine Blood Urine Nitrate Urine Bilirubin Urine Urobilinogen Ur Leukocyte Esterase Urine WBC (Auto) Urine RBC (Auto) Ur Squamous Epith Cells Amorphous Crystals Urine Bacteria Urine Glucose Fluid Source Fluid Volume Fluid Color Fluid Appearance Fluid WBC Fluid RBC Fluid Tot Cell Count Fluid Neutrophils Fluid Band Neutrophils Fluid Lymphocytes Fluid Monocytes Fluid Metamyelocytes Fluid Cell Count Rvw By CSF Cell Count Tube # CSF Glucose CSF Total Protein CSF HSV I (PCR) CSF Herpes II DNA (PCR) Vancomycin Trough Salicylates Urine Opiates Screen Acetaminophen Ur Barbiturates Screen Phenytoin Free Phenytoin Total Phenytoin Ur Phencyclidine Scrn Ur Amphetamines Screen U Benzodiazepines Scrn Urine Cocaine Screen U Cannabinoids Screen Serum Alcohol HIV-1 RNA (PCR) VZV DNA (PCR) 08/28/17 08/28/17 08/28/17 15:45 17:55 17:55 WBC RBC Hgb Hct MCV MCH MCHC RDW Plt Count MPV Neut % (Auto) Lymph % (Auto) [place] % (Auto) Eos % (Auto) Baso % (Auto) Absolute Neuts (auto) Absolute Lymphs (auto) Absolute Monos (auto) Absolute Eos (auto) Absolute Basos (auto) Absolute Nucleated RBC Nucleated RBC % INR (Anticoag Therapy) APTT 30.2 ABG pH ABG pCO2 ABG pO2 ABG HCO3 ABG O2 Saturation ABG Base Excess Sodium Potassium Chloride Carbon Dioxide Anion Gap BUN Creatinine Est GFR ( Amer) Est GFR (Non-Af Amer) BUN/Creatinine Ratio Glucose Lactic Acid Calcium Phosphorus Magnesium Total Bilirubin AST ALT Alkaline Phosphatase Ammonia Troponin I C-Reactive Protein B-Natriuretic Peptide Total Protein Albumin Globulin Albumin/Globulin Ratio Triglycerides Cholesterol LDL Cholesterol HDL Cholesterol Procalcitonin Cortisol Urine Color Urine Appearance Urine pH Ur Specific [place] Urine Protein Urine Ketones Urine Blood Urine Nitrate Urine Bilirubin Urine Urobilinogen Ur Leukocyte Esterase Urine WBC (Auto) Urine RBC (Auto) Ur Squamous Epith Cells Amorphous Crystals Urine Bacteria Urine Glucose Fluid Source Cerebral spinal Fluid Volume 1.3 Fluid Color Colorless Fluid Appearance Clear Fluid WBC 36 H* Fluid RBC 3 Fluid Tot Cell Count 100 Fluid Neutrophils 89 Fluid Band Neutrophils 2 Fluid Lymphocytes 2 Fluid Monocytes 3 Fluid Metamyelocytes 4 Fluid Cell Count Rvw By CSF Cell Count Tube # 2 CSF Glucose 86 H CSF Total Protein 50 H CSF HSV I (PCR) CSF Herpes II DNA (PCR) Vancomycin Trough Salicylates Urine Opiates Screen Acetaminophen Ur Barbiturates Screen Phenytoin Free Phenytoin Total Phenytoin Ur Phencyclidine Scrn Ur Amphetamines Screen U Benzodiazepines Scrn Urine Cocaine Screen U Cannabinoids Screen Serum Alcohol HIV-1 RNA (PCR) VZV DNA (PCR) 08/28/17 08/28/17 08/28/17 17:55 17:55 18:34 WBC RBC Hgb Hct MCV MCH MCHC RDW Plt Count MPV Neut % (Auto) Lymph % (Auto) [place] % (Auto) Eos % (Auto) Baso % (Auto) Absolute Neuts (auto) Absolute Lymphs (auto) Absolute Monos (auto) Absolute Eos (auto) Absolute Basos (auto) Absolute Nucleated RBC Nucleated RBC % INR (Anticoag Therapy) APTT ABG pH ABG pCO2 ABG pO2 ABG HCO3 ABG O2 Saturation ABG Base Excess Sodium Potassium Chloride Carbon Dioxide Anion Gap BUN Creatinine Est GFR ( Amer) Est GFR (Non-Af Amer) BUN/Creatinine Ratio Glucose Lactic Acid Calcium Phosphorus Magnesium Total Bilirubin AST ALT Alkaline Phosphatase Ammonia Troponin I 1.77 H* C-Reactive Protein B-Natriuretic Peptide Total Protein Albumin Globulin Albumin/Globulin Ratio Triglycerides Cholesterol LDL Cholesterol HDL Cholesterol Procalcitonin Cortisol Urine Color Urine Appearance Urine pH Ur Specific [place] Urine Protein Urine Ketones Urine Blood Urine Nitrate Urine Bilirubin Urine Urobilinogen Ur Leukocyte Esterase Urine WBC (Auto) Urine RBC (Auto) Ur Squamous Epith Cells Amorphous Crystals Urine Bacteria Urine Glucose Fluid Source Fluid Volume Fluid Color Fluid Appearance Fluid WBC Fluid RBC Fluid Tot Cell Count Fluid Neutrophils Fluid Band Neutrophils Fluid Lymphocytes Fluid Monocytes Fluid Metamyelocytes Fluid Cell Count Rvw By CSF Cell Count Tube # CSF Glucose CSF Total Protein CSF HSV I (PCR) Negative CSF Herpes II DNA (PCR) Negative Vancomycin Trough Salicylates Urine Opiates Screen Acetaminophen Ur Barbiturates Screen Phenytoin Free Phenytoin Total Phenytoin Ur Phencyclidine Scrn Ur Amphetamines Screen U Benzodiazepines Scrn Urine Cocaine Screen U Cannabinoids Screen Serum Alcohol HIV-1 RNA (PCR) VZV DNA (PCR) Negative 08/29/17 08/29/17 08/30/17 05:22 05:22 06:59 WBC 10.0 RBC 4.51 Hgb 14.3 Hct 42 MCV 93 MCH 32 H MCHC 34 RDW 15 Plt Count 71 L MPV 8.9 Neut % (Auto) 78.1 Lymph % (Auto) 14.9 L [place] % (Auto) 6.8 Eos % (Auto) 0 Baso % (Auto) 0.2 Absolute Neuts (auto) 7.8 H Absolute Lymphs (auto) 1.5 Absolute Monos (auto) 0.7 Absolute Eos (auto) 0 Absolute Basos (auto) 0 Absolute Nucleated RBC 0 Nucleated RBC % 0 INR (Anticoag Therapy) APTT ABG pH ABG pCO2 ABG pO2 ABG HCO3 ABG O2 Saturation ABG Base Excess Sodium 138 Potassium 3.6 Chloride 108 Carbon Dioxide 24 Anion Gap 6 BUN 13 Creatinine 0.46 L Est GFR ( Amer) 170.7 Est GFR (Non-Af Amer) 141.0 BUN/Creatinine Ratio 28.3 H Glucose 103 H Lactic Acid Calcium 7.9 L Phosphorus Magnesium Total Bilirubin AST ALT Alkaline Phosphatase Ammonia Troponin I C-Reactive Protein B-Natriuretic Peptide Total Protein Albumin Globulin Albumin/Globulin Ratio Triglycerides Cholesterol LDL Cholesterol HDL Cholesterol Procalcitonin Cortisol Urine Color Urine Appearance Urine pH Ur Specific [place] Urine Protein Urine Ketones Urine Blood Urine Nitrate Urine Bilirubin Urine Urobilinogen Ur Leukocyte Esterase Urine WBC (Auto) Urine RBC (Auto) Ur Squamous Epith Cells Amorphous Crystals Urine Bacteria Urine Glucose Fluid Source Fluid Volume Fluid Color Fluid Appearance Fluid WBC Fluid RBC Fluid Tot Cell Count Fluid Neutrophils Fluid Band Neutrophils Fluid Lymphocytes Fluid Monocytes Fluid Metamyelocytes Fluid Cell Count Rvw By CSF Cell Count Tube # CSF Glucose CSF Total Protein CSF HSV I (PCR) CSF Herpes II DNA (PCR) Vancomycin Trough 18.2 Salicylates Urine Opiates Screen Acetaminophen Ur Barbiturates Screen Phenytoin Free Phenytoin Total Phenytoin Ur Phencyclidine Scrn Ur Amphetamines Screen U Benzodiazepines Scrn Urine Cocaine Screen U Cannabinoids Screen Serum Alcohol HIV-1 RNA (PCR) VZV DNA (PCR) 08/30/17 08/31/17 08/31/17 14:34 15:19 15:19 WBC 5.9 RBC 5.10 Hgb 16.4 H Hct 47 MCV 93 MCH 32 H MCHC 35 RDW 15 Plt Count 67 L MPV 8.8 Neut % (Auto) 67.6 Lymph % (Auto) 23.7 L [place] % (Auto) 6.4 Eos % (Auto) 1.7 Baso % (Auto) 0.6 Absolute Neuts (auto) 4.0 Absolute Lymphs (auto) 1.4 Absolute Monos (auto) 0.4 Absolute Eos (auto) 0.1 Absolute Basos (auto) 0 Absolute Nucleated RBC 0 Nucleated RBC % 0.1 INR (Anticoag Therapy) APTT ABG pH ABG pCO2 ABG pO2 ABG HCO3 ABG O2 Saturation ABG Base Excess Sodium 138 Potassium 3.3 L Chloride 102 Carbon Dioxide 28 Anion Gap 8 BUN 11 Creatinine 0.56 Est GFR ( Amer) 136.0 Est GFR (Non-Af Amer) 112.4 BUN/Creatinine Ratio 19.6 Glucose 105 H Lactic Acid Calcium 8.6 Phosphorus Magnesium Total Bilirubin AST ALT Alkaline Phosphatase Ammonia Troponin I C-Reactive Protein B-Natriuretic Peptide Total Protein Albumin Globulin Albumin/Globulin Ratio Triglycerides Cholesterol LDL Cholesterol HDL Cholesterol Procalcitonin Cortisol Urine Color Urine Appearance Urine pH Ur Specific [place] Urine Protein Urine Ketones Urine Blood Urine Nitrate Urine Bilirubin Urine Urobilinogen Ur Leukocyte Esterase Urine WBC (Auto) Urine RBC (Auto) Ur Squamous Epith Cells Amorphous Crystals Urine Bacteria Urine Glucose Fluid Source Fluid Volume Fluid Color Fluid Appearance Fluid WBC Fluid RBC Fluid Tot Cell Count Fluid Neutrophils Fluid Band Neutrophils Fluid Lymphocytes Fluid Monocytes Fluid Metamyelocytes Fluid Cell Count Rvw By CSF Cell Count Tube # CSF Glucose CSF Total Protein CSF HSV I (PCR) CSF Herpes II DNA (PCR) Vancomycin Trough Salicylates Urine Opiates Screen Acetaminophen Ur Barbiturates Screen Phenytoin 24.3 H 16.2 Free Phenytoin Total Phenytoin Ur Phencyclidine Scrn Ur Amphetamines Screen U Benzodiazepines Scrn Urine Cocaine Screen U Cannabinoids Screen Serum Alcohol HIV-1 RNA (PCR) VZV DNA (PCR) 09/01/17 09/02/17 09/02/17 04:10 05:40 05:40 WBC RBC Hgb Hct MCV MCH MCHC RDW Plt Count MPV Neut % (Auto) Lymph % (Auto) [place] % (Auto) Eos % (Auto) Baso % (Auto) Absolute Neuts (auto) Absolute Lymphs (auto) Absolute Monos (auto) Absolute Eos (auto) Absolute Basos (auto) Absolute Nucleated RBC Nucleated RBC % INR (Anticoag Therapy) APTT ABG pH ABG pCO2 ABG pO2 ABG HCO3 ABG O2 Saturation ABG Base Excess Sodium 141 Potassium 3.6 Chloride 106 Carbon Dioxide 28 Anion Gap 7 BUN 9 Creatinine 0.51 Est GFR ( Amer) 151.5 Est GFR (Non-Af Amer) 125.2 BUN/Creatinine Ratio 17.6 Glucose 125 H Lactic Acid Calcium 9.0 Phosphorus Magnesium Total Bilirubin AST ALT Alkaline Phosphatase Ammonia 49 Troponin I C-Reactive Protein B-Natriuretic Peptide Total Protein Albumin Globulin Albumin/Globulin Ratio Triglycerides Cholesterol LDL Cholesterol HDL Cholesterol Procalcitonin Cortisol Urine Color Urine Appearance Urine pH Ur Specific [place] Urine Protein Urine Ketones Urine Blood Urine Nitrate Urine Bilirubin Urine Urobilinogen Ur Leukocyte Esterase Urine WBC (Auto) Urine RBC (Auto) Ur Squamous Epith Cells Amorphous Crystals Urine Bacteria Urine Glucose Fluid Source Fluid Volume Fluid Color Fluid Appearance Fluid WBC Fluid RBC Fluid Tot Cell Count Fluid Neutrophils Fluid Band Neutrophils Fluid Lymphocytes Fluid Monocytes Fluid Metamyelocytes Fluid Cell Count Rvw By CSF Cell Count Tube # CSF Glucose CSF Total Protein CSF HSV I (PCR) CSF Herpes II DNA (PCR) Vancomycin Trough Salicylates Urine Opiates Screen Acetaminophen Ur Barbiturates Screen Phenytoin 16.0 Free Phenytoin Total Phenytoin Ur Phencyclidine Scrn Ur Amphetamines Screen U Benzodiazepines Scrn Urine Cocaine Screen U Cannabinoids Screen Serum Alcohol HIV-1 RNA (PCR) VZV DNA (PCR) 09/03/17 09/03/17 09/03/17 06:24 06:24 06:24 WBC 6.2 RBC 4.96 Hgb 16.1 H Hct 46 MCV 94 MCH 32 H MCHC 35 RDW 15 Plt Count 83 L MPV 9.6 Neut % (Auto) Lymph % (Auto) [place] % (Auto) Eos % (Auto) Baso % (Auto) Absolute Neuts (auto) Absolute Lymphs (auto) Absolute Monos (auto) Absolute Eos (auto) Absolute Basos (auto) Absolute Nucleated RBC Nucleated RBC % INR (Anticoag Therapy) 0.91 APTT ABG pH ABG pCO2 ABG pO2 ABG HCO3 ABG O2 Saturation ABG Base Excess Sodium 141 Potassium 4.0 Chloride 105 Carbon Dioxide 28 Anion Gap 8 BUN 12 Creatinine 0.58 Est GFR ( Amer) 130.6 Est GFR (Non-Af Amer) 107.9 BUN/Creatinine Ratio 20.7 H Glucose 95 Lactic Acid Calcium 8.7 Phosphorus 5.1 H Magnesium 1.7 L Total Bilirubin 0.60 AST 21 ALT 19 Alkaline Phosphatase 69 Ammonia Troponin I C-Reactive Protein B-Natriuretic Peptide Total Protein 5.6 L Albumin 3.3 Globulin 2.3 Albumin/Globulin Ratio 1.4 Triglycerides Cholesterol LDL Cholesterol HDL Cholesterol Procalcitonin Cortisol Urine Color Urine Appearance Urine pH Ur Specific [place] Urine Protein Urine Ketones Urine Blood Urine Nitrate Urine Bilirubin Urine Urobilinogen Ur Leukocyte Esterase Urine WBC (Auto) Urine RBC (Auto) Ur Squamous Epith Cells Amorphous Crystals Urine Bacteria Urine Glucose Fluid Source Fluid Volume Fluid Color Fluid Appearance Fluid WBC Fluid RBC Fluid Tot Cell Count Fluid Neutrophils Fluid Band Neutrophils Fluid Lymphocytes Fluid Monocytes Fluid Metamyelocytes Fluid Cell Count Rvw By CSF Cell Count Tube # CSF Glucose CSF Total Protein CSF HSV I (PCR) CSF Herpes II DNA (PCR) Vancomycin Trough Salicylates Urine Opiates Screen Acetaminophen Ur Barbiturates Screen Phenytoin 10.6 Free Phenytoin Total Phenytoin Ur Phencyclidine Scrn Ur Amphetamines Screen U Benzodiazepines Scrn Urine Cocaine Screen U Cannabinoids Screen Serum Alcohol HIV-1 RNA (PCR) VZV DNA (PCR) 09/04/17 09/04/17 09/04/17 05:35 09:53 09:53 WBC RBC Hgb Hct MCV MCH MCHC RDW Plt Count MPV Neut % (Auto) Lymph % (Auto) [place] % (Auto) Eos % (Auto) Baso % (Auto) Absolute Neuts (auto) Absolute Lymphs (auto) Absolute Monos (auto) Absolute Eos (auto) Absolute Basos (auto) Absolute Nucleated RBC Nucleated RBC % INR (Anticoag Therapy) APTT ABG pH ABG pCO2 ABG pO2 ABG HCO3 ABG O2 Saturation ABG Base Excess Sodium Potassium Chloride Carbon Dioxide Anion Gap BUN Creatinine Est GFR ( Amer) Est GFR (Non-Af Amer) BUN/Creatinine Ratio Glucose Lactic Acid Calcium Phosphorus Magnesium Total Bilirubin AST ALT Alkaline Phosphatase Ammonia Troponin I C-Reactive Protein B-Natriuretic Peptide Total Protein Albumin Globulin Albumin/Globulin Ratio Triglycerides Cholesterol LDL Cholesterol HDL Cholesterol Procalcitonin Cortisol Urine Color Urine Appearance Urine pH Ur Specific [place] Urine Protein Urine Ketones Urine Blood Urine Nitrate Urine Bilirubin Urine Urobilinogen Ur Leukocyte Esterase Urine WBC (Auto) Urine RBC (Auto) Ur Squamous Epith Cells Amorphous Crystals Urine Bacteria Urine Glucose Fluid Source Fluid Volume Fluid Color Fluid Appearance Fluid WBC Fluid RBC Fluid Tot Cell Count Fluid Neutrophils Fluid Band Neutrophils Fluid Lymphocytes Fluid Monocytes Fluid Metamyelocytes Fluid Cell Count Rvw By CSF Cell Count Tube # CSF Glucose CSF Total Protein CSF HSV I (PCR) CSF Herpes II DNA (PCR) Vancomycin Trough Salicylates Urine Opiates Screen Acetaminophen Ur Barbiturates Screen Phenytoin 7.6 L 10.3 Free Phenytoin 1.1 Total Phenytoin 11.3 Ur Phencyclidine Scrn Ur Amphetamines Screen U Benzodiazepines Scrn Urine Cocaine Screen U Cannabinoids Screen Serum Alcohol HIV-1 RNA (PCR) VZV DNA (PCR) 09/04/17 09/05/17 09/05/17 13:49 05:34 05:34 WBC 11.0 H RBC 4.84 Hgb 15.1 Hct 45 MCV 93 MCH 31 MCHC 34 RDW 15 Plt Count 99 L MPV 9.2 Neut % (Auto) 70.2 Lymph % (Auto) 17.4 L [place] % (Auto) 9.8 H Eos % (Auto) 1.9 Baso % (Auto) 0.7 Absolute Neuts (auto) 7.7 Absolute Lymphs (auto) 1.9 Absolute Monos (auto) 1.1 H Absolute Eos (auto) 0.2 Absolute Basos (auto) 0.1 Absolute Nucleated RBC 0 Nucleated RBC % 0 INR (Anticoag Therapy) APTT ABG pH ABG pCO2 ABG pO2 ABG HCO3 ABG O2 Saturation ABG Base Excess Sodium 133 L D Potassium 4.4 Chloride 104 Carbon Dioxide 22 Anion Gap 7 BUN 10 Creatinine 0.50 L Est GFR ( Amer) 155.0 Est GFR (Non-Af Amer) 128.1 BUN/Creatinine Ratio 20.0 Glucose 110 H Lactic Acid Calcium 8.8 Phosphorus 3.7 Magnesium 1.8 L Total Bilirubin AST ALT Alkaline Phosphatase Ammonia Troponin I C-Reactive Protein B-Natriuretic Peptide Total Protein Albumin Globulin Albumin/Globulin Ratio Triglycerides Cholesterol LDL Cholesterol HDL Cholesterol Procalcitonin Cortisol Urine Color Urine Appearance Urine pH Ur Specific [place] Urine Protein Urine Ketones Urine Blood Urine Nitrate Urine Bilirubin Urine Urobilinogen Ur Leukocyte Esterase Urine WBC (Auto) Urine RBC (Auto) Ur Squamous Epith Cells Amorphous Crystals Urine Bacteria Urine Glucose Fluid Source Fluid Volume Fluid Color Fluid Appearance Fluid WBC Fluid RBC Fluid Tot Cell Count Fluid Neutrophils Fluid Band Neutrophils Fluid Lymphocytes Fluid Monocytes Fluid Metamyelocytes Fluid Cell Count Rvw By CSF Cell Count Tube # CSF Glucose CSF Total Protein CSF HSV I (PCR) CSF Herpes II DNA (PCR) Vancomycin Trough Salicylates Urine Opiates Screen Acetaminophen Ur Barbiturates Screen Phenytoin 15.9 14.9 Free Phenytoin Total Phenytoin Ur Phencyclidine Scrn Ur Amphetamines Screen U Benzodiazepines Scrn Urine Cocaine Screen U Cannabinoids Screen Serum Alcohol HIV-1 RNA (PCR) VZV DNA (PCR) 09/05/17 09/06/17 09/06/17 10:14 05:41 05:41 WBC 5.0 RBC 4.07 Hgb 12.8 Hct 38 MCV 94 MCH 31 MCHC 34 RDW 15 Plt Count 80 L MPV 8.8 Neut % (Auto) Lymph % (Auto) [place] % (Auto) Eos % (Auto) Baso % (Auto) Absolute Neuts (auto) Absolute Lymphs (auto) Absolute Monos (auto) Absolute Eos (auto) Absolute Basos (auto) Absolute Nucleated RBC Nucleated RBC % INR (Anticoag Therapy) APTT ABG pH ABG pCO2 ABG pO2 ABG HCO3 ABG O2 Saturation ABG Base Excess Sodium 140 Potassium 3.9 Chloride 110 Carbon Dioxide 23 Anion Gap 7 BUN 8 Creatinine 0.46 L Est GFR ( Amer) 170.7 Est GFR (Non-Af Amer) 141.0 BUN/Creatinine Ratio 17.4 Glucose 110 H Lactic Acid Calcium 8.4 L Phosphorus Magnesium 1.8 L Total Bilirubin AST ALT Alkaline Phosphatase Ammonia Troponin I C-Reactive Protein B-Natriuretic Peptide Total Protein Albumin Globulin Albumin/Globulin Ratio Triglycerides Cholesterol LDL Cholesterol HDL Cholesterol Procalcitonin Cortisol Urine Color Yellow Urine Appearance Clear Urine pH 7.0 Ur Specific [place] 1.006 L Urine Protein Negative Urine Ketones Negative Urine Blood Negative Urine Nitrate Negative Urine Bilirubin Negative Urine Urobilinogen Negative Ur Leukocyte Esterase Negative Urine WBC (Auto) Urine RBC (Auto) Ur Squamous Epith Cells Amorphous Crystals Urine Bacteria Urine Glucose Negative Fluid Source Fluid Volume Fluid Color Fluid Appearance Fluid WBC Fluid RBC Fluid Tot Cell Count Fluid Neutrophils Fluid Band Neutrophils Fluid Lymphocytes Fluid Monocytes Fluid Metamyelocytes Fluid Cell Count Rvw By CSF Cell Count Tube # CSF Glucose CSF Total Protein CSF HSV I (PCR) CSF Herpes II DNA (PCR) Vancomycin Trough Salicylates Urine Opiates Screen Acetaminophen Ur Barbiturates Screen Phenytoin Free Phenytoin Total Phenytoin Ur Phencyclidine Scrn Ur Amphetamines Screen U Benzodiazepines Scrn Urine Cocaine Screen U Cannabinoids Screen Serum Alcohol HIV-1 RNA (PCR) VZV DNA (PCR) 09/07/17 09/07/17 09/07/17 05:22 05:22 11:33 WBC 5.2 RBC 4.13 Hgb 13.3 Hct 39 MCV 94 MCH 32 H MCHC 34 RDW 15 Plt Count 94 L MPV 8.6 Neut % (Auto) Lymph % (Auto) [place] % (Auto) Eos % (Auto) Baso % (Auto) Absolute Neuts (auto) Absolute Lymphs (auto) Absolute Monos (auto) Absolute Eos (auto) Absolute Basos (auto) Absolute Nucleated RBC Nucleated RBC % INR (Anticoag Therapy) APTT ABG pH ABG pCO2 ABG pO2 ABG HCO3 ABG O2 Saturation ABG Base Excess Sodium 139 Potassium 3.9 Chloride 108 Carbon Dioxide 24 Anion Gap 7 BUN 7 Creatinine 0.55 Est GFR ( Amer) 138.9 Est GFR (Non-Af Amer) 114.8 BUN/Creatinine Ratio 12.7 Glucose 119 H Lactic Acid Calcium 8.8 Phosphorus Magnesium Total Bilirubin AST ALT Alkaline Phosphatase Ammonia 81 H Troponin I C-Reactive Protein B-Natriuretic Peptide Total Protein Albumin Globulin Albumin/Globulin Ratio Triglycerides Cholesterol LDL Cholesterol HDL Cholesterol Procalcitonin Cortisol Urine Color Urine Appearance Urine pH Ur Specific [place] Urine Protein Urine Ketones Urine Blood Urine Nitrate Urine Bilirubin Urine Urobilinogen Ur Leukocyte Esterase Urine WBC (Auto) Urine RBC (Auto) Ur Squamous Epith Cells Amorphous Crystals Urine Bacteria Urine Glucose Fluid Source Fluid Volume Fluid Color Fluid Appearance Fluid WBC Fluid RBC Fluid Tot Cell Count Fluid Neutrophils Fluid Band Neutrophils Fluid Lymphocytes Fluid Monocytes Fluid Metamyelocytes Fluid Cell Count Rvw By CSF Cell Count Tube # CSF Glucose CSF Total Protein CSF HSV I (PCR) CSF Herpes II DNA (PCR) Vancomycin Trough Salicylates Urine Opiates Screen Acetaminophen Ur Barbiturates Screen Phenytoin Free Phenytoin Total Phenytoin Ur Phencyclidine Scrn Ur Amphetamines Screen U Benzodiazepines Scrn Urine Cocaine Screen U Cannabinoids Screen Serum Alcohol HIV-1 RNA (PCR) VZV DNA (PCR) 09/08/17 09/08/17 09/08/17 09:55 09:55 09:55 WBC 6.7 RBC 4.56 Hgb 14.2 Hct 43 MCV 94 MCH 31 MCHC 33 RDW 15 Plt Count 108 L MPV 8.4 Neut % (Auto) 70.9 Lymph % (Auto) 18.5 L [place] % (Auto) 7.4 H Eos % (Auto) 2.6 Baso % (Auto) 0.6 Absolute Neuts (auto) 4.8 Absolute Lymphs (auto) 1.2 Absolute Monos (auto) 0.5 Absolute Eos (auto) 0.2 Absolute Basos (auto) 0 Absolute Nucleated RBC 0 Nucleated RBC % 0.1 INR (Anticoag Therapy) APTT ABG pH ABG pCO2 ABG pO2 ABG HCO3 ABG O2 Saturation ABG Base Excess Sodium 134 L Potassium 3.8 Chloride 103 Carbon Dioxide 22 Anion Gap 9 BUN 6 Creatinine 0.47 L Est GFR ( Amer) 166.5 Est GFR (Non-Af Amer) 137.6 BUN/Creatinine Ratio 12.8 Glucose 116 H Lactic Acid Calcium 9.3 Phosphorus 4.4 Magnesium 1.7 L Total Bilirubin 0.60 AST 109 H ALT 119 H Alkaline Phosphatase 120 H Ammonia 63 H Troponin I C-Reactive Protein B-Natriuretic Peptide Total Protein 6.5 Albumin 3.6 Globulin 2.9 Albumin/Globulin Ratio 1.2 Triglycerides Cholesterol LDL Cholesterol HDL Cholesterol Procalcitonin Cortisol Urine Color Urine Appearance Urine pH Ur Specific [place] Urine Protein Urine Ketones Urine Blood Urine Nitrate Urine Bilirubin Urine Urobilinogen Ur Leukocyte Esterase Urine WBC (Auto) Urine RBC (Auto) Ur Squamous Epith Cells Amorphous Crystals Urine Bacteria Urine Glucose Fluid Source Fluid Volume Fluid Color Fluid Appearance Fluid WBC Fluid RBC Fluid Tot Cell Count Fluid Neutrophils Fluid Band Neutrophils Fluid Lymphocytes Fluid Monocytes Fluid Metamyelocytes Fluid Cell Count Rvw By CSF Cell Count Tube # CSF Glucose CSF Total Protein CSF HSV I (PCR) CSF Herpes II DNA (PCR) Vancomycin Trough Salicylates Urine Opiates Screen Acetaminophen Ur Barbiturates Screen Phenytoin Free Phenytoin Total Phenytoin Ur Phencyclidine Scrn Ur Amphetamines Screen U Benzodiazepines Scrn Urine Cocaine Screen U Cannabinoids Screen Serum Alcohol HIV-1 RNA (PCR) VZV DNA (PCR) 09/08/17 09/09/17 09/09/17 16:58 05:45 05:45 WBC 6.7 RBC 4.08 Hgb 13.0 Hct 38 MCV 94 MCH 32 H MCHC 34 RDW 15 Plt Count 101 L MPV 7.9 Neut % (Auto) 70.6 Lymph % (Auto) 19.5 L [place] % (Auto) 7.1 H Eos % (Auto) 2.2 Baso % (Auto) 0.6 Absolute Neuts (auto) 4.8 Absolute Lymphs (auto) 1.3 Absolute Monos (auto) 0.5 Absolute Eos (auto) 0.1 Absolute Basos (auto) 0 Absolute Nucleated RBC 0 Nucleated RBC % 0 INR (Anticoag Therapy) APTT ABG pH ABG pCO2 ABG pO2 ABG HCO3 ABG O2 Saturation ABG Base Excess Sodium Potassium Chloride Carbon Dioxide Anion Gap BUN Creatinine Est GFR ( Amer) Est GFR (Non-Af Amer) BUN/Creatinine Ratio Glucose Lactic Acid Calcium Phosphorus Magnesium Total Bilirubin AST ALT Alkaline Phosphatase Ammonia Troponin I C-Reactive Protein B-Natriuretic Peptide Total Protein Albumin Globulin Albumin/Globulin Ratio Triglycerides Cholesterol LDL Cholesterol HDL Cholesterol Procalcitonin Cortisol Urine Color Urine Appearance Urine pH Ur Specific [place] Urine Protein Urine Ketones Urine Blood Urine Nitrate Urine Bilirubin Urine Urobilinogen Ur Leukocyte Esterase Urine WBC (Auto) Urine RBC (Auto) Ur Squamous Epith Cells Amorphous Crystals Urine Bacteria Urine Glucose Fluid Source Fluid Volume Fluid Color Fluid Appearance Fluid WBC Fluid RBC Fluid Tot Cell Count Fluid Neutrophils Fluid Band Neutrophils Fluid Lymphocytes Fluid Monocytes Fluid Metamyelocytes Fluid Cell Count Rvw By CSF Cell Count Tube # CSF Glucose CSF Total Protein CSF HSV I (PCR) CSF Herpes II DNA (PCR) Vancomycin Trough Salicylates Urine Opiates Screen Acetaminophen < 15 Ur Barbiturates Screen Phenytoin 4.4 L Free Phenytoin Total Phenytoin Ur Phencyclidine Scrn Ur Amphetamines Screen U Benzodiazepines Scrn Urine Cocaine Screen U Cannabinoids Screen Serum Alcohol HIV-1 RNA (PCR) VZV DNA (PCR) 09/09/17 05:45 WBC RBC Hgb Hct MCV MCH MCHC RDW Plt Count MPV Neut % (Auto) Lymph % (Auto) [place] % (Auto) Eos % (Auto) Baso % (Auto) Absolute Neuts (auto) Absolute Lymphs (auto) Absolute Monos (auto) Absolute Eos (auto) Absolute Basos (auto) Absolute Nucleated RBC Nucleated RBC % INR (Anticoag Therapy) APTT ABG pH ABG pCO2 ABG pO2 ABG HCO3 ABG O2 Saturation ABG Base Excess Sodium 134 L Potassium 3.9 Chloride 104 Carbon Dioxide 21 L Anion Gap 9 BUN 7 Creatinine 0.31 L Est GFR ( Amer) 269.1 Est GFR (Non-Af Amer) 222.4 BUN/Creatinine Ratio 22.6 H Glucose 98 Lactic Acid Calcium 8.9 Phosphorus 4.3 Magnesium 1.8 L Total Bilirubin 0.70 AST 66 H ALT 106 H Alkaline Phosphatase 108 H Ammonia Troponin I C-Reactive Protein B-Natriuretic Peptide Total Protein 6.0 L Albumin 3.0 L Globulin 3.0 Albumin/Globulin Ratio 1.0 Triglycerides Cholesterol LDL Cholesterol HDL Cholesterol Procalcitonin Cortisol Urine Color Urine Appearance Urine pH Ur Specific [place] Urine Protein Urine Ketones Urine Blood Urine Nitrate Urine Bilirubin Urine Urobilinogen Ur Leukocyte Esterase Urine WBC (Auto) Urine RBC (Auto) Ur Squamous Epith Cells Amorphous Crystals Urine Bacteria Urine Glucose Fluid Source Fluid Volume Fluid Color Fluid Appearance Fluid WBC Fluid RBC Fluid Tot Cell Count Fluid Neutrophils Fluid Band Neutrophils Fluid Lymphocytes Fluid Monocytes Fluid Metamyelocytes Fluid Cell Count Rvw By CSF Cell Count Tube # CSF Glucose CSF Total Protein CSF HSV I (PCR) CSF Herpes II DNA (PCR) Vancomycin Trough Salicylates Urine Opiates Screen Acetaminophen Ur Barbiturates Screen Phenytoin Free Phenytoin Total Phenytoin Ur Phencyclidine Scrn Ur Amphetamines Screen U Benzodiazepines Scrn Urine Cocaine Screen U Cannabinoids Screen Serum Alcohol HIV-1 RNA (PCR) VZV DNA (PCR) Exam Appearance: Well Developed/Nourished, Healthy Appearing, Other - Ill appearing Hygiene: Normal Grooming: Fairly Well Kept Psychomotor Activities: Abnormal-Increased Exhibits Abnormal Movement: No Attitude and Relatedness: Psychotically Related Eye Contact: Fair - Speech Quality: Pressured Latencies: Short Quantity: Copious Patient's Decription of Mood: "Great" Observed Affect: Expansive Affect Consistent with: Euphoria Patient's Thought Process: Disorganized, Filght of Ideas, Over Inclusive Thought Content: Yes Paranoid Ideation, No Passive Wish, No Suicidal Planning, No Homicidal Ideation Experiencing Hallucinations: No, Sensorium is Clear Type of Hallucinations: Visual: No, Auditory: No, Command: No Level of Consciousness: Agitated Orientation: Yes Intact, Yes Orientated to Place, Yes Orientated to Person, No Orientated to Time Impulse Control: Poor Insight and Judgement: Impaired Impression - Impression Clinical Impression: 57 y.o. , white female with a history of chronic alcoholism, now in sustained remission, cirrhosis, anxiety and depression, several psychiatric hospitalizations as well as serial non-adherence with outpatient mental health services, who is currently admitted to the hospitalist service due to seizures related to rapid self-discontinuation of prescribed alprazolam treatment. Inpatient DSM-V Dx: F31.13 Merits Inpatient Hospitalization: Yes Problem List - MHU Problems Type of Problem: Affect Status of Problem: Active Plan - Treatment Plan Treatment Plan: The patient's presentation has dramatically shifted since last week and I'm comfortable at this point referring to this as a bipolar larry episode, most likely unmasked by the discontinuation of benzodiazepines. I have discussed with the Hospitalist and Neurology services switching her anticonvulsant from phenytoin to carbamazepine. Additionally, we will start a trial of quetiapine 100mg PO qhs. There would be a rationale for transferring her downstairs to the [facility], however, medicine wants to review her lab results to rule out encephalitis. Psychiatry will continue to follow. Continued Medication Management: Different Medication Medications: Current Medications Al Hydrox/Mg Hydrox/Simethicone (Maalox Plus*) 30 ml PO Q6H PRN PRN Reason: INDIGESTION Albuterol (Ventolin 2.5 Mg/3 Ml Neb.Christin*) 2.5 mg INH Q2H PRN PRN Reason: SOB/WHEEZING Last Admin: 09/05/17 23:50 Dose: 2.5 mg Alprazolam (Xanax Tab*) 0.5 mg PO BID PRN PRN Reason: AGITATION Aspirin (Aspirin Ec Tab*) 81 mg PO DAILY [facility] Last Admin: 09/09/17 08:35 Dose: 81 mg Carbamazepine (Tegretol Tab(*)) 200 mg PO BID [facility] Carvedilol (Coreg Tab*) 3.125 mg PO BID [facility] Last Admin: 09/09/17 09:54 Dose: Not Given Device (Nicotine Mouth Piece*) 1 each INH .USE WITH NICOTROL PRN PRN Reason: CRAVING Last Admin: 09/08/17 17:48 Dose: 1 each Docusate Sodium (Colace Cap*) 100 mg PO BID PRN PRN Reason: CONSTIPATION Heparin Sodium (Porcine) (Heparin Vial(*)) 5,000 units SUBCUT Q8HR [facility] Last Admin: 09/09/17 05:00 Dose: 5,000 units Hydroxyzine HCl (Atarax Tab*) 25 mg PO Q6H PRN PRN Reason: ANXIETY Last Admin: 09/09/17 11:57 Dose: 25 mg Lactulose (Lactulose*) 30 ml PO QID [facility] Last Admin: 09/09/17 11:58 Dose: 30 ml Nicotine (Nicotine Inhaler*) 10 mg INH Q2H PRN PRN Reason: CRAVING Last Admin: 09/09/17 03:59 Dose: 10 mg Ondansetron HCl (Zofran 40 Mg Vial*) 4 mg IV Q4H PRN PRN Reason: NAUSEA/VOMITING Last Admin: 09/06/17 21:07 Dose: 4 mg Phenytoin Sodium (Dilantin Cap(*)) 300 mg PO BEDTIME [facility] Potassium Chloride (Klor Con Er Tab*) 20 meq PO DAILY [facility] Last Admin: 09/09/17 08:35 Dose: 20 meq Zonisamide (Zonegran (Nf)) 200 mg PO DAILY [facility] Last Admin: 09/09/17 08:34 Dose: 200 mg - Discharge Plan Discharge Plan: Inpatient Hospitalization
--- NOTE | 2017-09-09 13:47 | PN ---
FOLLOWUP NOTE: DATE OF FOLLOWUP: 09/09/17 LOCATION: She is on room 438. HOSPITALIST: RADHA Church CHIEF COMPLAINT: Seizures. INTERVAL HISTORY: Since last visit yesterday, she has not had any seizures. Her Dilantin level came back a bit low at 4.4 this morning. MEDICATIONS: Reviewed and unchanged. She remains on: 1. Zonisamide 200 mg per day. 2. Phenytoin 300 mg per day. 3. Alprazolam was started today at 0.5 mg as needed for agitation. Psychiatry consultation was reviewed and lithium was recommended. LABORATORY DATA: Reviewed and other than the phenytoin level, it is notable for a chemistry profile with the sodium of 134, elevated, but somewhat decreased since yesterday. AST of 66 and ALT of 106. Albumin is down to 3.0. CBC today notable for platelet count hovering at 101,000. The patient was not examined today. PLAN: Discussed the case with Darrius Santos. He suggested and agree switching phenytoin to carbamazepine because of her apparent bipolar disorder. Either Dilantin or Tegretol could be effected by her liver function, but is probably a fair trade one for the other. She will continue zonisamide. I agreed with starting benzodiazepine and gradually tapering it for treatment of her anxiety and larry. I will continue to follow her along with you. [id number]/[facility] #: [id number] MTDD
[2017-09-09] MEDS: Mouth Piece, Nicotine* 1 EACH CARTRIDGE INH PRN ×2 (14:37→19:24)
[2017-09-09] MEDS: carBAMazepine TAB(*) 200 MG PO SCH (14:59)
[2017-09-09] MEDS: ALPRAZolam TAB* 0.5 MG PO PRN (15:34)
--- NOTE | 2017-09-09 16:51 | PN ---
Subjective Date of Service: 09/09/17 Interval History: Patient is very distractable and religiously obsessed. Combative and unable to participate in ROS. Discussed with daughter that this is immensely different from patient's baseline and that when she was acting this way before on previous hospitalization her agitation resolved quickly with reintroduction of benzodiazepines. Family History: Unchanged from Admission Social History: Unchanged from Admission Past Medical History: Unchanged from Admission Objective Active Medications: Al Hydrox/Mg Hydrox/Simethicone (Maalox Plus*) 30 ml PO Q6H PRN PRN Reason: INDIGESTION Albuterol (Ventolin 2.5 Mg/3 Ml Neb.Christin*) 2.5 mg INH Q2H PRN PRN Reason: SOB/WHEEZING Last Admin: 09/05/17 23:50 Dose: 2.5 mg Alprazolam (Xanax Tab*) 0.5 mg PO BID PRN PRN Reason: AGITATION Last Admin: 09/09/17 15:34 Dose: 0.5 mg Aspirin (Aspirin Ec Tab*) 81 mg PO DAILY [facility] Last Admin: 09/09/17 08:35 Dose: 81 mg Carbamazepine (Tegretol Tab(*)) 200 mg PO BID [facility] Last Admin: 09/09/17 14:59 Dose: 200 mg Carvedilol (Coreg Tab*) 3.125 mg PO BID [facility] Last Admin: 09/09/17 09:54 Dose: Not Given Device (Nicotine Mouth Piece*) 1 each INH .USE WITH NICOTROL PRN PRN Reason: CRAVING Last Admin: 09/09/17 14:37 Dose: 1 each Docusate Sodium (Colace Cap*) 100 mg PO BID PRN PRN Reason: CONSTIPATION Heparin Sodium (Porcine) (Heparin Vial(*)) 5,000 units SUBCUT Q8HR [facility] Last Admin: 09/09/17 14:59 Dose: 5,000 units Hydroxyzine HCl (Atarax Tab*) 25 mg PO Q6H PRN PRN Reason: ANXIETY Last Admin: 09/09/17 11:57 Dose: 25 mg Lactulose (Lactulose*) 30 ml PO QID [facility] Last Admin: 09/09/17 11:58 Dose: 30 ml Nicotine (Nicotine Inhaler*) 10 mg INH Q2H PRN PRN Reason: CRAVING Last Admin: 09/09/17 14:37 Dose: 10 mg Ondansetron HCl (Zofran 40 Mg Vial*) 4 mg IV Q4H PRN PRN Reason: NAUSEA/VOMITING Last Admin: 09/06/17 21:07 Dose: 4 mg Phenytoin Sodium (Dilantin Cap(*)) 300 mg PO BEDTIME [facility] Potassium Chloride (Klor Con Er Tab*) 20 meq PO DAILY [facility] Last Admin: 09/09/17 08:35 Dose: 20 meq Quetiapine Fumarate (Seroquel Tab*) 100 mg PO BEDTIME [facility] Zonisamide (Zonegran (Nf)) 200 mg PO DAILY [facility] Last Admin: 09/09/17 08:34 Dose: 200 mg Vital Signs - 8 hr 09/09/17 09/09/17 15:34 15:42 Temperature 97.7 F Pulse Rate 78 Respiratory 18 20 Rate Blood Pressure 114/60 (mmHg) O2 Sat by Pulse 100 Oximetry Oxygen Devices in Use Now: None Appearance: Patient is a 57yo female who appears older than stated age and is sitting in the bed in moderate distress with pressured speech. Eyes: No Scleral Icterus, PERRLA Ears/Nose/Mouth/Throat: NL Teeth, Lips, Gums, Clear Oropharnyx, Mucous Membranes Moist Neck: NL Appearance and Movements; NL JVP, Trachea Midline Respiratory: Symmetrical Chest Expansion and Respiratory Effort, Clear to Auscultation Cardiovascular: NL Sounds; No Murmurs; No JVD, RRR, No Edema Abdominal: NL Sounds; No Tenderness; No Distention, No Hepatosplenomegaly Lymphatic: No Cervical Adenopathy Extremities: No Edema, No Clubbing, Cyanosis Skin: No Rash or Ulcers, No Nodules or Sclerosis Neurological: NL Sensation, NL Gait, NL Muscle Strength and Tone, - - A/Ox3, tangential pressured speech. Result Diagrams: 09/09/17 05:45 09/09/17 05:45 Additional Lab and Data: Lab Results Microbiology and Other Data: Microbiology Assess/Plan/Problems-Billing Ms. Natalia Cruz is a 57-year-old female with a history of depression, anxiety, and polysubstance abuse who had status epilepticus related to benzodiazepine withdrawal in 2016 who presented on August 28, 2017 with recurrent seizure likel activity. The patient was found to have electrographic seizures correlating with the clinical symptoms of staring and unresponsive spells lasting from 4-15 minutes. She had a CSF analysis that revealed pleocytosis that was thought to be related to reactivity from her seizures. Her neurological examination has improved the last few days especially since starting phenytoin on 08/31/2017. Patient at this time is having an episode consistent with severe larry and is being started on Carbemazepine, Quetiapine, and Xanax for control of acute larry. - Patient Problems (1) Larry Current Visit: Yes Status: Acute Code(s): F30.9 - MANIC EPISODE, UNSPECIFIED SNOMED Code(s): 866633576 Comment: Classic Larry with religous preoccupation, lack of sleep, pressured speech, grandiosity. Appreciate Psych Consult. Started on Tegretol, Xanax, and Quetiapine for larry. (2) COPD (chronic obstructive pulmonary disease) Current Visit: Yes Status: Acute Code(s): J44.9 - CHRONIC OBSTRUCTIVE PULMONARY DISEASE, UNSPECIFIED SNOMED Code(s): 31196807 Comment: Patient does not want inhaled pulm meds. Not in exacerbation. (3) Cirrhosis Current Visit: Yes Status: Acute Comment: Well-compensated with MELD =5 Likely cause of thrombocytopenia Close monitoring of hepatically metabolized medications. Continue lactulose for possible hepatic encephalopathy with borderline ammonia level. (4) Depression Current Visit: Yes Status: Acute Onset Date: 03/26/15 Code(s): F32.9 - MAJOR DEPRESSIVE DISORDER, SINGLE EPISODE, UNSPECIFIED SNOMED Code(s): 41193901 Comment: Currently manic. Hold antidepressant until stabilized on current mood stabilizer therapy. (5) NSTEMI (non-ST elevated myocardial infarction) Current Visit: Yes Status: Acute Code(s): I21.4 - NON-ST ELEVATION (NSTEMI) MYOCARDIAL INFARCTION SNOMED Code(s): 656004261 Comment: The patient's trop peaked at 2.4. Continue ASA and carvdilol. Echo 08/28 showed LVEF 35-40%. AWMI uncertain age. Dr. Campbell recommended against statin or heparin. Eventually will need either stress test or cath, which can be done as an outpatient (6) Pneumonia Current Visit: Yes Status: Acute Code(s): J18.9 - PNEUMONIA, UNSPECIFIED ORGANISM SNOMED Code(s): 372552439 Comment: Completed treatment. (7) Seizure Current Visit: Yes Status: Acute Code(s): R56.9 - UNSPECIFIED CONVULSIONS SNOMED Code(s): 72703427 Comment: Likely due to abrupt benzodiazepine withdrawal. Self-discontinued likely due to larry. Continue on Zonisamide 200 mg daily Continue Phenytoin at 300 mg and taper down 100mg every 3 days. Start tegretol 200mg BID and increase to 400mg BID in a couple days. Check levels frequently due to liver dysfunction. Start Xanax BID. (8) Benzodiazepine abuse Current Visit: No Status: Acute Code(s): F13.10 - SEDATIVE, HYPNOTIC OR ANXIOLYTIC ABUSE, UNCOMPLICATED SNOMED Code(s): 309753243 Comment: Chcf use of Xanax, should be tapered. (9) Withdrawal seizures Current Visit: No Status: Chronic Code(s): F19.239 - OTH PSYCHOACTIVE SUBSTANCE DEPENDENCE WITH WITHDRAWAL, UNSP; R56.9 - UNSPECIFIED CONVULSIONS SNOMED Code(s): 179895774 Comment: Resume Xanax and taper slowly. (10) Full code status Current Visit: Yes Status: Acute Code(s): Z78.9 - OTHER SPECIFIED HEALTH STATUS SNOMED Code(s): 279999690 Status and Disposition: Inpatient, Hopefully to [facility] when medically stable.
[2017-09-09 19:32] VITALS: BP 116/71
[2017-09-09] MEDS ORDERED: Phenytoin CAP(*) 100 MG CAP.ER PO SCH ×2 (21:00)
[2017-09-09] MEDS ORDERED: QUEtiapine TAB* 100 MG PO SCH (21:00)
[2017-09-10] MEDS: Heparin VIAL(*) 5000 UNITS/ML VIAL (FIVE THOUSAND) SUBCUT SCH ×3 (02:22→15:15)
[2017-09-10] MEDS: Carvedilol TAB* 3.125 MG PO SCH ×2 (02:22→09:37)
[2017-09-10] MEDS: carBAMazepine TAB(*) 200 MG PO SCH ×2 (02:22→08:00)
[2017-09-10] MEDS ORDERED: Haloperidol INJ IV/IM* 5 MG/ML AMP IM ONE (07:49)
[2017-09-10] MEDS ORDERED: Haloperidol INJ IV/IM* 5 MG/ML AMP ONE (07:54)
[2017-09-10] MEDS: Aspirin EC TAB* 81 MG TAB.EC PO SCH (08:00)
[2017-09-10] MEDS: ALPRAZolam TAB* 0.5 MG PO PRN (08:00)
[2017-09-10] MEDS: hydrOXYzine HCL TAB* 25 MG PO PRN (08:00)
[2017-09-10] MEDS ORDERED: LORazepam INJ* 2 MG/ML 1 ML VIAL IM PRN (08:01)
[2017-09-10] MEDS: CMC:Zonisamide (NF) 50 MG CAP PO SCH (08:02)
[2017-09-10] MEDS: Potassium Chlor TAB* 20 MEQ TAB.ER PO SCH (08:04)
--- NOTE | 2017-09-10 13:11 | CONSULT ---
Identification - Patient Identification Reason for Psychiatric Consultation: Incapacitating Symptoms -: Patient is a 57 year old, F admitted on 08/28/17. - [facility] Identification Employment Status: Disabled Hx Psychiatric Hospitalization: Yes History - Objective HPI: Psychiatry returns to see Natalia for follow up. She is currently sleeping secondary to stat administration of haloperidol for manic agitation. Notes clearly demonstrate continued manic functioning with grandiosity, pressured speech, hyperkinesis and indiscrete behaviors. Lab Results: Laboratory Tests 08/28/17 08/28/17 08/28/17 04:45 05:02 05:02 WBC 14.3 H RBC 5.37 Hgb 17.2 H Hct 49 H MCV 91 MCH 32 H MCHC 35 RDW 15 Plt Count 86 L MPV 8.6 Neut % (Auto) 88.8 H Lymph % (Auto) 6.5 L [place] % (Auto) 4.3 Eos % (Auto) 0.2 Baso % (Auto) 0.2 Absolute Neuts (auto) 12.7 H Absolute Lymphs (auto) 0.9 L Absolute Monos (auto) 0.6 Absolute Eos (auto) 0 Absolute Basos (auto) 0 Absolute Nucleated RBC 0 Nucleated RBC % 0.1 INR (Anticoag Therapy) 1.14 H APTT 27.8 ABG pH 7.44 ABG pCO2 38 ABG pO2 64 L ABG HCO3 25.9 ABG O2 Saturation 95.5 ABG Base Excess 1.7 Sodium Potassium Chloride Carbon Dioxide Anion Gap BUN Creatinine Est GFR ( Amer) Est GFR (Non-Af Amer) BUN/Creatinine Ratio Glucose Lactic Acid Calcium Phosphorus Magnesium Total Bilirubin AST ALT Alkaline Phosphatase Ammonia Troponin I C-Reactive Protein B-Natriuretic Peptide Total Protein Albumin Globulin Albumin/Globulin Ratio Triglycerides Cholesterol LDL Cholesterol HDL Cholesterol Procalcitonin Cortisol Urine Color Urine Appearance Urine pH Ur Specific [place] Urine Protein Urine Ketones Urine Blood Urine Nitrate Urine Bilirubin Urine Urobilinogen Ur Leukocyte Esterase Urine WBC (Auto) Urine RBC (Auto) Ur Squamous Epith Cells Amorphous Crystals Urine Bacteria Urine Glucose Fluid Source Fluid Volume Fluid Color Fluid Appearance Fluid WBC Fluid RBC Fluid Tot Cell Count Fluid Neutrophils Fluid Band Neutrophils Fluid Lymphocytes Fluid Monocytes Fluid Metamyelocytes Fluid Cell Count Rvw By CSF Cell Count Tube # CSF Glucose CSF Total Protein CSF HSV I (PCR) CSF Herpes II DNA (PCR) Vancomycin Trough Salicylates Urine Opiates Screen Acetaminophen Ur Barbiturates Screen Phenytoin Free Phenytoin Total Phenytoin Ur Phencyclidine Scrn Ur Amphetamines Screen U Benzodiazepines Scrn Urine Cocaine Screen U Cannabinoids Screen Serum Alcohol HIV-1 RNA (PCR) VZV DNA (PCR) 08/28/17 08/28/17 08/28/17 05:02 05:02 05:02 WBC RBC Hgb Hct MCV MCH MCHC RDW Plt Count MPV Neut % (Auto) Lymph % (Auto) [place] % (Auto) Eos % (Auto) Baso % (Auto) Absolute Neuts (auto) Absolute Lymphs (auto) Absolute Monos (auto) Absolute Eos (auto) Absolute Basos (auto) Absolute Nucleated RBC Nucleated RBC % INR (Anticoag Therapy) APTT ABG pH ABG pCO2 ABG pO2 ABG HCO3 ABG O2 Saturation ABG Base Excess Sodium 135 Potassium 3.5 Chloride 98 L Carbon Dioxide 25 Anion Gap 12 H BUN 9 Creatinine 0.54 Est GFR ( Amer) 150.7 Est GFR (Non-Af Amer) 117.2 BUN/Creatinine Ratio 16.7 Glucose 137 H Lactic Acid 1.6 Calcium 9.0 Phosphorus Magnesium Total Bilirubin 1.90 H AST 24 ALT 13 Alkaline Phosphatase 58 Ammonia Troponin I 0.79 H* C-Reactive Protein 6.81 B-Natriuretic Peptide 142 H Total Protein 6.8 Albumin 4.1 Globulin 2.7 Albumin/Globulin Ratio 1.5 Triglycerides Cholesterol LDL Cholesterol HDL Cholesterol Procalcitonin Cortisol Urine Color Urine Appearance Urine pH Ur Specific [place] Urine Protein Urine Ketones Urine Blood Urine Nitrate Urine Bilirubin Urine Urobilinogen Ur Leukocyte Esterase Urine WBC (Auto) Urine RBC (Auto) Ur Squamous Epith Cells Amorphous Crystals Urine Bacteria Urine Glucose Fluid Source Fluid Volume Fluid Color Fluid Appearance Fluid WBC Fluid RBC Fluid Tot Cell Count Fluid Neutrophils Fluid Band Neutrophils Fluid Lymphocytes Fluid Monocytes Fluid Metamyelocytes Fluid Cell Count Rvw By CSF Cell Count Tube # CSF Glucose CSF Total Protein CSF HSV I (PCR) CSF Herpes II DNA (PCR) Vancomycin Trough Salicylates < 2.50 Urine Opiates Screen Acetaminophen < 15 Ur Barbiturates Screen Phenytoin Free Phenytoin Total Phenytoin Ur Phencyclidine Scrn Ur Amphetamines Screen U Benzodiazepines Scrn Urine Cocaine Screen U Cannabinoids Screen Serum Alcohol HIV-1 RNA (PCR) VZV DNA (PCR) 08/28/17 08/28/17 08/28/17 05:02 05:26 05:26 WBC RBC Hgb Hct MCV MCH MCHC RDW Plt Count MPV Neut % (Auto) Lymph % (Auto) [place] % (Auto) Eos % (Auto) Baso % (Auto) Absolute Neuts (auto) Absolute Lymphs (auto) Absolute Monos (auto) Absolute Eos (auto) Absolute Basos (auto) Absolute Nucleated RBC Nucleated RBC % INR (Anticoag Therapy) APTT ABG pH ABG pCO2 ABG pO2 ABG HCO3 ABG O2 Saturation ABG Base Excess Sodium Potassium Chloride Carbon Dioxide Anion Gap BUN Creatinine Est GFR ( Amer) Est GFR (Non-Af Amer) BUN/Creatinine Ratio Glucose Lactic Acid Calcium Phosphorus Magnesium Total Bilirubin AST ALT Alkaline Phosphatase Ammonia Troponin I C-Reactive Protein B-Natriuretic Peptide Total Protein Albumin Globulin Albumin/Globulin Ratio Triglycerides Cholesterol LDL Cholesterol HDL Cholesterol Procalcitonin Cortisol Urine Color Yellow Urine Appearance Cloudy Urine pH 7.0 Ur Specific [place] 1.013 Urine Protein 2+(100 mg/dl) A Urine Ketones 1+ A Urine Blood Negative Urine Nitrate Negative Urine Bilirubin Negative Urine Urobilinogen Positive A Ur Leukocyte Esterase Negative Urine WBC (Auto) Trace(0-5/hpf) Urine RBC (Auto) Trace(0-2/hpf) Ur Squamous Epith Cells Present A Amorphous Crystals Present A Urine Bacteria Absent Urine Glucose Negative Fluid Source Fluid Volume Fluid Color Fluid Appearance Fluid WBC Fluid RBC Fluid Tot Cell Count Fluid Neutrophils Fluid Band Neutrophils Fluid Lymphocytes Fluid Monocytes Fluid Metamyelocytes Fluid Cell Count Rvw By CSF Cell Count Tube # CSF Glucose CSF Total Protein CSF HSV I (PCR) CSF Herpes II DNA (PCR) Vancomycin Trough Salicylates Urine Opiates Screen None detected Acetaminophen Ur Barbiturates Screen None detected Phenytoin Free Phenytoin Total Phenytoin Ur Phencyclidine Scrn None detected Ur Amphetamines Screen None detected U Benzodiazepines Scrn None detected Urine Cocaine Screen None detected U Cannabinoids Screen Presumptive positive A Serum Alcohol HIV-1 RNA (PCR) Undetected VZV DNA (PCR) 08/28/17 08/28/17 08/28/17 06:07 06:07 06:07 WBC RBC Hgb Hct MCV MCH MCHC RDW Plt Count MPV Neut % (Auto) Lymph % (Auto) [place] % (Auto) Eos % (Auto) Baso % (Auto) Absolute Neuts (auto) Absolute Lymphs (auto) Absolute Monos (auto) Absolute Eos (auto) Absolute Basos (auto) Absolute Nucleated RBC Nucleated RBC % INR (Anticoag Therapy) APTT ABG pH ABG pCO2 ABG pO2 ABG HCO3 ABG O2 Saturation ABG Base Excess Sodium Potassium Chloride Carbon Dioxide Anion Gap BUN Creatinine Est GFR ( Amer) Est GFR (Non-Af Amer) BUN/Creatinine Ratio Glucose Lactic Acid Calcium Phosphorus Magnesium Total Bilirubin AST ALT Alkaline Phosphatase Ammonia 62 H Troponin I C-Reactive Protein B-Natriuretic Peptide Total Protein Albumin Globulin Albumin/Globulin Ratio Triglycerides Cholesterol LDL Cholesterol HDL Cholesterol Procalcitonin < 0.1 Cortisol Urine Color Urine Appearance Urine pH Ur Specific [place] Urine Protein Urine Ketones Urine Blood Urine Nitrate Urine Bilirubin Urine Urobilinogen Ur Leukocyte Esterase Urine WBC (Auto) Urine RBC (Auto) Ur Squamous Epith Cells Amorphous Crystals Urine Bacteria Urine Glucose Fluid Source Fluid Volume Fluid Color Fluid Appearance Fluid WBC Fluid RBC Fluid Tot Cell Count Fluid Neutrophils Fluid Band Neutrophils Fluid Lymphocytes Fluid Monocytes Fluid Metamyelocytes Fluid Cell Count Rvw By CSF Cell Count Tube # CSF Glucose CSF Total Protein CSF HSV I (PCR) CSF Herpes II DNA (PCR) Vancomycin Trough Salicylates Urine Opiates Screen Acetaminophen Ur Barbiturates Screen Phenytoin Free Phenytoin Total Phenytoin Ur Phencyclidine Scrn Ur Amphetamines Screen U Benzodiazepines Scrn Urine Cocaine Screen U Cannabinoids Screen Serum Alcohol < 10 HIV-1 RNA (PCR) VZV DNA (PCR) 08/28/17 08/28/17 08/28/17 08:39 08:39 11:27 WBC RBC Hgb Hct MCV MCH MCHC RDW Plt Count MPV Neut % (Auto) Lymph % (Auto) [place] % (Auto) Eos % (Auto) Baso % (Auto) Absolute Neuts (auto) Absolute Lymphs (auto) Absolute Monos (auto) Absolute Eos (auto) Absolute Basos (auto) Absolute Nucleated RBC Nucleated RBC % INR (Anticoag Therapy) APTT ABG pH ABG pCO2 ABG pO2 ABG HCO3 ABG O2 Saturation ABG Base Excess Sodium Potassium Chloride Carbon Dioxide Anion Gap BUN Creatinine Est GFR ( Amer) Est GFR (Non-Af Amer) BUN/Creatinine Ratio Glucose Lactic Acid 0.9 Calcium Phosphorus Magnesium Total Bilirubin AST ALT Alkaline Phosphatase Ammonia Troponin I 2.40 H* C-Reactive Protein B-Natriuretic Peptide Total Protein Albumin Globulin Albumin/Globulin Ratio Triglycerides 50 Cholesterol 118 LDL Cholesterol 65 HDL Cholesterol 43.4 Procalcitonin Cortisol 20.60 Urine Color Urine Appearance Urine pH Ur Specific [place] Urine Protein Urine Ketones Urine Blood Urine Nitrate Urine Bilirubin Urine Urobilinogen Ur Leukocyte Esterase Urine WBC (Auto) Urine RBC (Auto) Ur Squamous Epith Cells Amorphous Crystals Urine Bacteria Urine Glucose Fluid Source Fluid Volume Fluid Color Fluid Appearance Fluid WBC Fluid RBC Fluid Tot Cell Count Fluid Neutrophils Fluid Band Neutrophils Fluid Lymphocytes Fluid Monocytes Fluid Metamyelocytes Fluid Cell Count Rvw By CSF Cell Count Tube # CSF Glucose CSF Total Protein CSF HSV I (PCR) CSF Herpes II DNA (PCR) Vancomycin Trough Salicylates Urine Opiates Screen Acetaminophen Ur Barbiturates Screen Phenytoin Free Phenytoin Total Phenytoin Ur Phencyclidine Scrn Ur Amphetamines Screen U Benzodiazepines Scrn Urine Cocaine Screen U Cannabinoids Screen Serum Alcohol HIV-1 RNA (PCR) VZV DNA (PCR) 08/28/17 08/28/17 08/28/17 15:45 17:55 17:55 WBC RBC Hgb Hct MCV MCH MCHC RDW Plt Count MPV Neut % (Auto) Lymph % (Auto) [place] % (Auto) Eos % (Auto) Baso % (Auto) Absolute Neuts (auto) Absolute Lymphs (auto) Absolute Monos (auto) Absolute Eos (auto) Absolute Basos (auto) Absolute Nucleated RBC Nucleated RBC % INR (Anticoag Therapy) APTT 30.2 ABG pH ABG pCO2 ABG pO2 ABG HCO3 ABG O2 Saturation ABG Base Excess Sodium Potassium Chloride Carbon Dioxide Anion Gap BUN Creatinine Est GFR ( Amer) Est GFR (Non-Af Amer) BUN/Creatinine Ratio Glucose Lactic Acid Calcium Phosphorus Magnesium Total Bilirubin AST ALT Alkaline Phosphatase Ammonia Troponin I C-Reactive Protein B-Natriuretic Peptide Total Protein Albumin Globulin Albumin/Globulin Ratio Triglycerides Cholesterol LDL Cholesterol HDL Cholesterol Procalcitonin Cortisol Urine Color Urine Appearance Urine pH Ur Specific [place] Urine Protein Urine Ketones Urine Blood Urine Nitrate Urine Bilirubin Urine Urobilinogen Ur Leukocyte Esterase Urine WBC (Auto) Urine RBC (Auto) Ur Squamous Epith Cells Amorphous Crystals Urine Bacteria Urine Glucose Fluid Source Cerebral spinal Fluid Volume 1.3 Fluid Color Colorless Fluid Appearance Clear Fluid WBC 36 H* Fluid RBC 3 Fluid Tot Cell Count 100 Fluid Neutrophils 89 Fluid Band Neutrophils 2 Fluid Lymphocytes 2 Fluid Monocytes 3 Fluid Metamyelocytes 4 Fluid Cell Count Rvw By CSF Cell Count Tube # 2 CSF Glucose 86 H CSF Total Protein 50 H CSF HSV I (PCR) CSF Herpes II DNA (PCR) Vancomycin Trough Salicylates Urine Opiates Screen Acetaminophen Ur Barbiturates Screen Phenytoin Free Phenytoin Total Phenytoin Ur Phencyclidine Scrn Ur Amphetamines Screen U Benzodiazepines Scrn Urine Cocaine Screen U Cannabinoids Screen Serum Alcohol HIV-1 RNA (PCR) VZV DNA (PCR) 08/28/17 08/28/17 08/28/17 17:55 17:55 18:34 WBC RBC Hgb Hct MCV MCH MCHC RDW Plt Count MPV Neut % (Auto) Lymph % (Auto) [place] % (Auto) Eos % (Auto) Baso % (Auto) Absolute Neuts (auto) Absolute Lymphs (auto) Absolute Monos (auto) Absolute Eos (auto) Absolute Basos (auto) Absolute Nucleated RBC Nucleated RBC % INR (Anticoag Therapy) APTT ABG pH ABG pCO2 ABG pO2 ABG HCO3 ABG O2 Saturation ABG Base Excess Sodium Potassium Chloride Carbon Dioxide Anion Gap BUN Creatinine Est GFR ( Amer) Est GFR (Non-Af Amer) BUN/Creatinine Ratio Glucose Lactic Acid Calcium Phosphorus Magnesium Total Bilirubin AST ALT Alkaline Phosphatase Ammonia Troponin I 1.77 H* C-Reactive Protein B-Natriuretic Peptide Total Protein Albumin Globulin Albumin/Globulin Ratio Triglycerides Cholesterol LDL Cholesterol HDL Cholesterol Procalcitonin Cortisol Urine Color Urine Appearance Urine pH Ur Specific [place] Urine Protein Urine Ketones Urine Blood Urine Nitrate Urine Bilirubin Urine Urobilinogen Ur Leukocyte Esterase Urine WBC (Auto) Urine RBC (Auto) Ur Squamous Epith Cells Amorphous Crystals Urine Bacteria Urine Glucose Fluid Source Fluid Volume Fluid Color Fluid Appearance Fluid WBC Fluid RBC Fluid Tot Cell Count Fluid Neutrophils Fluid Band Neutrophils Fluid Lymphocytes Fluid Monocytes Fluid Metamyelocytes Fluid Cell Count Rvw By CSF Cell Count Tube # CSF Glucose CSF Total Protein CSF HSV I (PCR) Negative CSF Herpes II DNA (PCR) Negative Vancomycin Trough Salicylates Urine Opiates Screen Acetaminophen Ur Barbiturates Screen Phenytoin Free Phenytoin Total Phenytoin Ur Phencyclidine Scrn Ur Amphetamines Screen U Benzodiazepines Scrn Urine Cocaine Screen U Cannabinoids Screen Serum Alcohol HIV-1 RNA (PCR) VZV DNA (PCR) Negative 08/29/17 08/29/17 08/30/17 05:22 05:22 06:59 WBC 10.0 RBC 4.51 Hgb 14.3 Hct 42 MCV 93 MCH 32 H MCHC 34 RDW 15 Plt Count 71 L MPV 8.9 Neut % (Auto) 78.1 Lymph % (Auto) 14.9 L [place] % (Auto) 6.8 Eos % (Auto) 0 Baso % (Auto) 0.2 Absolute Neuts (auto) 7.8 H Absolute Lymphs (auto) 1.5 Absolute Monos (auto) 0.7 Absolute Eos (auto) 0 Absolute Basos (auto) 0 Absolute Nucleated RBC 0 Nucleated RBC % 0 INR (Anticoag Therapy) APTT ABG pH ABG pCO2 ABG pO2 ABG HCO3 ABG O2 Saturation ABG Base Excess Sodium 138 Potassium 3.6 Chloride 108 Carbon Dioxide 24 Anion Gap 6 BUN 13 Creatinine 0.46 L Est GFR ( Amer) 170.7 Est GFR (Non-Af Amer) 141.0 BUN/Creatinine Ratio 28.3 H Glucose 103 H Lactic Acid Calcium 7.9 L Phosphorus Magnesium Total Bilirubin AST ALT Alkaline Phosphatase Ammonia Troponin I C-Reactive Protein B-Natriuretic Peptide Total Protein Albumin Globulin Albumin/Globulin Ratio Triglycerides Cholesterol LDL Cholesterol HDL Cholesterol Procalcitonin Cortisol Urine Color Urine Appearance Urine pH Ur Specific [place] Urine Protein Urine Ketones Urine Blood Urine Nitrate Urine Bilirubin Urine Urobilinogen Ur Leukocyte Esterase Urine WBC (Auto) Urine RBC (Auto) Ur Squamous Epith Cells Amorphous Crystals Urine Bacteria Urine Glucose Fluid Source Fluid Volume Fluid Color Fluid Appearance Fluid WBC Fluid RBC Fluid Tot Cell Count Fluid Neutrophils Fluid Band Neutrophils Fluid Lymphocytes Fluid Monocytes Fluid Metamyelocytes Fluid Cell Count Rvw By CSF Cell Count Tube # CSF Glucose CSF Total Protein CSF HSV I (PCR) CSF Herpes II DNA (PCR) Vancomycin Trough 18.2 Salicylates Urine Opiates Screen Acetaminophen Ur Barbiturates Screen Phenytoin Free Phenytoin Total Phenytoin Ur Phencyclidine Scrn Ur Amphetamines Screen U Benzodiazepines Scrn Urine Cocaine Screen U Cannabinoids Screen Serum Alcohol HIV-1 RNA (PCR) VZV DNA (PCR) 08/30/17 08/31/17 08/31/17 14:34 15:19 15:19 WBC 5.9 RBC 5.10 Hgb 16.4 H Hct 47 MCV 93 MCH 32 H MCHC 35 RDW 15 Plt Count 67 L MPV 8.8 Neut % (Auto) 67.6 Lymph % (Auto) 23.7 L [place] % (Auto) 6.4 Eos % (Auto) 1.7 Baso % (Auto) 0.6 Absolute Neuts (auto) 4.0 Absolute Lymphs (auto) 1.4 Absolute Monos (auto) 0.4 Absolute Eos (auto) 0.1 Absolute Basos (auto) 0 Absolute Nucleated RBC 0 Nucleated RBC % 0.1 INR (Anticoag Therapy) APTT ABG pH ABG pCO2 ABG pO2 ABG HCO3 ABG O2 Saturation ABG Base Excess Sodium 138 Potassium 3.3 L Chloride 102 Carbon Dioxide 28 Anion Gap 8 BUN 11 Creatinine 0.56 Est GFR ( Amer) 136.0 Est GFR (Non-Af Amer) 112.4 BUN/Creatinine Ratio 19.6 Glucose 105 H Lactic Acid Calcium 8.6 Phosphorus Magnesium Total Bilirubin AST ALT Alkaline Phosphatase Ammonia Troponin I C-Reactive Protein B-Natriuretic Peptide Total Protein Albumin Globulin Albumin/Globulin Ratio Triglycerides Cholesterol LDL Cholesterol HDL Cholesterol Procalcitonin Cortisol Urine Color Urine Appearance Urine pH Ur Specific [place] Urine Protein Urine Ketones Urine Blood Urine Nitrate Urine Bilirubin Urine Urobilinogen Ur Leukocyte Esterase Urine WBC (Auto) Urine RBC (Auto) Ur Squamous Epith Cells Amorphous Crystals Urine Bacteria Urine Glucose Fluid Source Fluid Volume Fluid Color Fluid Appearance Fluid WBC Fluid RBC Fluid Tot Cell Count Fluid Neutrophils Fluid Band Neutrophils Fluid Lymphocytes Fluid Monocytes Fluid Metamyelocytes Fluid Cell Count Rvw By CSF Cell Count Tube # CSF Glucose CSF Total Protein CSF HSV I (PCR) CSF Herpes II DNA (PCR) Vancomycin Trough Salicylates Urine Opiates Screen Acetaminophen Ur Barbiturates Screen Phenytoin 24.3 H 16.2 Free Phenytoin Total Phenytoin Ur Phencyclidine Scrn Ur Amphetamines Screen U Benzodiazepines Scrn Urine Cocaine Screen U Cannabinoids Screen Serum Alcohol HIV-1 RNA (PCR) VZV DNA (PCR) 09/01/17 09/02/17 09/02/17 04:10 05:40 05:40 WBC RBC Hgb Hct MCV MCH MCHC RDW Plt Count MPV Neut % (Auto) Lymph % (Auto) [place] % (Auto) Eos % (Auto) Baso % (Auto) Absolute Neuts (auto) Absolute Lymphs (auto) Absolute Monos (auto) Absolute Eos (auto) Absolute Basos (auto) Absolute Nucleated RBC Nucleated RBC % INR (Anticoag Therapy) APTT ABG pH ABG pCO2 ABG pO2 ABG HCO3 ABG O2 Saturation ABG Base Excess Sodium 141 Potassium 3.6 Chloride 106 Carbon Dioxide 28 Anion Gap 7 BUN 9 Creatinine 0.51 Est GFR ( Amer) 151.5 Est GFR (Non-Af Amer) 125.2 BUN/Creatinine Ratio 17.6 Glucose 125 H Lactic Acid Calcium 9.0 Phosphorus Magnesium Total Bilirubin AST ALT Alkaline Phosphatase Ammonia 49 Troponin I C-Reactive Protein B-Natriuretic Peptide Total Protein Albumin Globulin Albumin/Globulin Ratio Triglycerides Cholesterol LDL Cholesterol HDL Cholesterol Procalcitonin Cortisol Urine Color Urine Appearance Urine pH Ur Specific [place] Urine Protein Urine Ketones Urine Blood Urine Nitrate Urine Bilirubin Urine Urobilinogen Ur Leukocyte Esterase Urine WBC (Auto) Urine RBC (Auto) Ur Squamous Epith Cells Amorphous Crystals Urine Bacteria Urine Glucose Fluid Source Fluid Volume Fluid Color Fluid Appearance Fluid WBC Fluid RBC Fluid Tot Cell Count Fluid Neutrophils Fluid Band Neutrophils Fluid Lymphocytes Fluid Monocytes Fluid Metamyelocytes Fluid Cell Count Rvw By CSF Cell Count Tube # CSF Glucose CSF Total Protein CSF HSV I (PCR) CSF Herpes II DNA (PCR) Vancomycin Trough Salicylates Urine Opiates Screen Acetaminophen Ur Barbiturates Screen Phenytoin 16.0 Free Phenytoin Total Phenytoin Ur Phencyclidine Scrn Ur Amphetamines Screen U Benzodiazepines Scrn Urine Cocaine Screen U Cannabinoids Screen Serum Alcohol HIV-1 RNA (PCR) VZV DNA (PCR) 09/03/17 09/03/17 09/03/17 06:24 06:24 06:24 WBC 6.2 RBC 4.96 Hgb 16.1 H Hct 46 MCV 94 MCH 32 H MCHC 35 RDW 15 Plt Count 83 L MPV 9.6 Neut % (Auto) Lymph % (Auto) [place] % (Auto) Eos % (Auto) Baso % (Auto) Absolute Neuts (auto) Absolute Lymphs (auto) Absolute Monos (auto) Absolute Eos (auto) Absolute Basos (auto) Absolute Nucleated RBC Nucleated RBC % INR (Anticoag Therapy) 0.91 APTT ABG pH ABG pCO2 ABG pO2 ABG HCO3 ABG O2 Saturation ABG Base Excess Sodium 141 Potassium 4.0 Chloride 105 Carbon Dioxide 28 Anion Gap 8 BUN 12 Creatinine 0.58 Est GFR ( Amer) 130.6 Est GFR (Non-Af Amer) 107.9 BUN/Creatinine Ratio 20.7 H Glucose 95 Lactic Acid Calcium 8.7 Phosphorus 5.1 H Magnesium 1.7 L Total Bilirubin 0.60 AST 21 ALT 19 Alkaline Phosphatase 69 Ammonia Troponin I C-Reactive Protein B-Natriuretic Peptide Total Protein 5.6 L Albumin 3.3 Globulin 2.3 Albumin/Globulin Ratio 1.4 Triglycerides Cholesterol LDL Cholesterol HDL Cholesterol Procalcitonin Cortisol Urine Color Urine Appearance Urine pH Ur Specific [place] Urine Protein Urine Ketones Urine Blood Urine Nitrate Urine Bilirubin Urine Urobilinogen Ur Leukocyte Esterase Urine WBC (Auto) Urine RBC (Auto) Ur Squamous Epith Cells Amorphous Crystals Urine Bacteria Urine Glucose Fluid Source Fluid Volume Fluid Color Fluid Appearance Fluid WBC Fluid RBC Fluid Tot Cell Count Fluid Neutrophils Fluid Band Neutrophils Fluid Lymphocytes Fluid Monocytes Fluid Metamyelocytes Fluid Cell Count Rvw By CSF Cell Count Tube # CSF Glucose CSF Total Protein CSF HSV I (PCR) CSF Herpes II DNA (PCR) Vancomycin Trough Salicylates Urine Opiates Screen Acetaminophen Ur Barbiturates Screen Phenytoin 10.6 Free Phenytoin Total Phenytoin Ur Phencyclidine Scrn Ur Amphetamines Screen U Benzodiazepines Scrn Urine Cocaine Screen U Cannabinoids Screen Serum Alcohol HIV-1 RNA (PCR) VZV DNA (PCR) 09/04/17 09/04/17 09/04/17 05:35 09:53 09:53 WBC RBC Hgb Hct MCV MCH MCHC RDW Plt Count MPV Neut % (Auto) Lymph % (Auto) [place] % (Auto) Eos % (Auto) Baso % (Auto) Absolute Neuts (auto) Absolute Lymphs (auto) Absolute Monos (auto) Absolute Eos (auto) Absolute Basos (auto) Absolute Nucleated RBC Nucleated RBC % INR (Anticoag Therapy) APTT ABG pH ABG pCO2 ABG pO2 ABG HCO3 ABG O2 Saturation ABG Base Excess Sodium Potassium Chloride Carbon Dioxide Anion Gap BUN Creatinine Est GFR ( Amer) Est GFR (Non-Af Amer) BUN/Creatinine Ratio Glucose Lactic Acid Calcium Phosphorus Magnesium Total Bilirubin AST ALT Alkaline Phosphatase Ammonia Troponin I C-Reactive Protein B-Natriuretic Peptide Total Protein Albumin Globulin Albumin/Globulin Ratio Triglycerides Cholesterol LDL Cholesterol HDL Cholesterol Procalcitonin Cortisol Urine Color Urine Appearance Urine pH Ur Specific [place] Urine Protein Urine Ketones Urine Blood Urine Nitrate Urine Bilirubin Urine Urobilinogen Ur Leukocyte Esterase Urine WBC (Auto) Urine RBC (Auto) Ur Squamous Epith Cells Amorphous Crystals Urine Bacteria Urine Glucose Fluid Source Fluid Volume Fluid Color Fluid Appearance Fluid WBC Fluid RBC Fluid Tot Cell Count Fluid Neutrophils Fluid Band Neutrophils Fluid Lymphocytes Fluid Monocytes Fluid Metamyelocytes Fluid Cell Count Rvw By CSF Cell Count Tube # CSF Glucose CSF Total Protein CSF HSV I (PCR) CSF Herpes II DNA (PCR) Vancomycin Trough Salicylates Urine Opiates Screen Acetaminophen Ur Barbiturates Screen Phenytoin 7.6 L 10.3 Free Phenytoin 1.1 Total Phenytoin 11.3 Ur Phencyclidine Scrn Ur Amphetamines Screen U Benzodiazepines Scrn Urine Cocaine Screen U Cannabinoids Screen Serum Alcohol HIV-1 RNA (PCR) VZV DNA (PCR) 09/04/17 09/05/17 09/05/17 13:49 05:34 05:34 WBC 11.0 H RBC 4.84 Hgb 15.1 Hct 45 MCV 93 MCH 31 MCHC 34 RDW 15 Plt Count 99 L MPV 9.2 Neut % (Auto) 70.2 Lymph % (Auto) 17.4 L [place] % (Auto) 9.8 H Eos % (Auto) 1.9 Baso % (Auto) 0.7 Absolute Neuts (auto) 7.7 Absolute Lymphs (auto) 1.9 Absolute Monos (auto) 1.1 H Absolute Eos (auto) 0.2 Absolute Basos (auto) 0.1 Absolute Nucleated RBC 0 Nucleated RBC % 0 INR (Anticoag Therapy) APTT ABG pH ABG pCO2 ABG pO2 ABG HCO3 ABG O2 Saturation ABG Base Excess Sodium 133 L D Potassium 4.4 Chloride 104 Carbon Dioxide 22 Anion Gap 7 BUN 10 Creatinine 0.50 L Est GFR ( Amer) 155.0 Est GFR (Non-Af Amer) 128.1 BUN/Creatinine Ratio 20.0 Glucose 110 H Lactic Acid Calcium 8.8 Phosphorus 3.7 Magnesium 1.8 L Total Bilirubin AST ALT Alkaline Phosphatase Ammonia Troponin I C-Reactive Protein B-Natriuretic Peptide Total Protein Albumin Globulin Albumin/Globulin Ratio Triglycerides Cholesterol LDL Cholesterol HDL Cholesterol Procalcitonin Cortisol Urine Color Urine Appearance Urine pH Ur Specific [place] Urine Protein Urine Ketones Urine Blood Urine Nitrate Urine Bilirubin Urine Urobilinogen Ur Leukocyte Esterase Urine WBC (Auto) Urine RBC (Auto) Ur Squamous Epith Cells Amorphous Crystals Urine Bacteria Urine Glucose Fluid Source Fluid Volume Fluid Color Fluid Appearance Fluid WBC Fluid RBC Fluid Tot Cell Count Fluid Neutrophils Fluid Band Neutrophils Fluid Lymphocytes Fluid Monocytes Fluid Metamyelocytes Fluid Cell Count Rvw By CSF Cell Count Tube # CSF Glucose CSF Total Protein CSF HSV I (PCR) CSF Herpes II DNA (PCR) Vancomycin Trough Salicylates Urine Opiates Screen Acetaminophen Ur Barbiturates Screen Phenytoin 15.9 14.9 Free Phenytoin Total Phenytoin Ur Phencyclidine Scrn Ur Amphetamines Screen U Benzodiazepines Scrn Urine Cocaine Screen U Cannabinoids Screen Serum Alcohol HIV-1 RNA (PCR) VZV DNA (PCR) 09/05/17 09/06/17 09/06/17 10:14 05:41 05:41 WBC 5.0 RBC 4.07 Hgb 12.8 Hct 38 MCV 94 MCH 31 MCHC 34 RDW 15 Plt Count 80 L MPV 8.8 Neut % (Auto) Lymph % (Auto) [place] % (Auto) Eos % (Auto) Baso % (Auto) Absolute Neuts (auto) Absolute Lymphs (auto) Absolute Monos (auto) Absolute Eos (auto) Absolute Basos (auto) Absolute Nucleated RBC Nucleated RBC % INR (Anticoag Therapy) APTT ABG pH ABG pCO2 ABG pO2 ABG HCO3 ABG O2 Saturation ABG Base Excess Sodium 140 Potassium 3.9 Chloride 110 Carbon Dioxide 23 Anion Gap 7 BUN 8 Creatinine 0.46 L Est GFR ( Amer) 170.7 Est GFR (Non-Af Amer) 141.0 BUN/Creatinine Ratio 17.4 Glucose 110 H Lactic Acid Calcium 8.4 L Phosphorus Magnesium 1.8 L Total Bilirubin AST ALT Alkaline Phosphatase Ammonia Troponin I C-Reactive Protein B-Natriuretic Peptide Total Protein Albumin Globulin Albumin/Globulin Ratio Triglycerides Cholesterol LDL Cholesterol HDL Cholesterol Procalcitonin Cortisol Urine Color Yellow Urine Appearance Clear Urine pH 7.0 Ur Specific [place] 1.006 L Urine Protein Negative Urine Ketones Negative Urine Blood Negative Urine Nitrate Negative Urine Bilirubin Negative Urine Urobilinogen Negative Ur Leukocyte Esterase Negative Urine WBC (Auto) Urine RBC (Auto) Ur Squamous Epith Cells Amorphous Crystals Urine Bacteria Urine Glucose Negative Fluid Source Fluid Volume Fluid Color Fluid Appearance Fluid WBC Fluid RBC Fluid Tot Cell Count Fluid Neutrophils Fluid Band Neutrophils Fluid Lymphocytes Fluid Monocytes Fluid Metamyelocytes Fluid Cell Count Rvw By CSF Cell Count Tube # CSF Glucose CSF Total Protein CSF HSV I (PCR) CSF Herpes II DNA (PCR) Vancomycin Trough Salicylates Urine Opiates Screen Acetaminophen Ur Barbiturates Screen Phenytoin Free Phenytoin Total Phenytoin Ur Phencyclidine Scrn Ur Amphetamines Screen U Benzodiazepines Scrn Urine Cocaine Screen U Cannabinoids Screen Serum Alcohol HIV-1 RNA (PCR) VZV DNA (PCR) 09/07/17 09/07/17 09/07/17 05:22 05:22 11:33 WBC 5.2 RBC 4.13 Hgb 13.3 Hct 39 MCV 94 MCH 32 H MCHC 34 RDW 15 Plt Count 94 L MPV 8.6 Neut % (Auto) Lymph % (Auto) [place] % (Auto) Eos % (Auto) Baso % (Auto) Absolute Neuts (auto) Absolute Lymphs (auto) Absolute Monos (auto) Absolute Eos (auto) Absolute Basos (auto) Absolute Nucleated RBC Nucleated RBC % INR (Anticoag Therapy) APTT ABG pH ABG pCO2 ABG pO2 ABG HCO3 ABG O2 Saturation ABG Base Excess Sodium 139 Potassium 3.9 Chloride 108 Carbon Dioxide 24 Anion Gap 7 BUN 7 Creatinine 0.55 Est GFR ( Amer) 138.9 Est GFR (Non-Af Amer) 114.8 BUN/Creatinine Ratio 12.7 Glucose 119 H Lactic Acid Calcium 8.8 Phosphorus Magnesium Total Bilirubin AST ALT Alkaline Phosphatase Ammonia 81 H Troponin I C-Reactive Protein B-Natriuretic Peptide Total Protein Albumin Globulin Albumin/Globulin Ratio Triglycerides Cholesterol LDL Cholesterol HDL Cholesterol Procalcitonin Cortisol Urine Color Urine Appearance Urine pH Ur Specific [place] Urine Protein Urine Ketones Urine Blood Urine Nitrate Urine Bilirubin Urine Urobilinogen Ur Leukocyte Esterase Urine WBC (Auto) Urine RBC (Auto) Ur Squamous Epith Cells Amorphous Crystals Urine Bacteria Urine Glucose Fluid Source Fluid Volume Fluid Color Fluid Appearance Fluid WBC Fluid RBC Fluid Tot Cell Count Fluid Neutrophils Fluid Band Neutrophils Fluid Lymphocytes Fluid Monocytes Fluid Metamyelocytes Fluid Cell Count Rvw By CSF Cell Count Tube # CSF Glucose CSF Total Protein CSF HSV I (PCR) CSF Herpes II DNA (PCR) Vancomycin Trough Salicylates Urine Opiates Screen Acetaminophen Ur Barbiturates Screen Phenytoin Free Phenytoin Total Phenytoin Ur Phencyclidine Scrn Ur Amphetamines Screen U Benzodiazepines Scrn Urine Cocaine Screen U Cannabinoids Screen Serum Alcohol HIV-1 RNA (PCR) VZV DNA (PCR) 09/08/17 09/08/17 09/08/17 09:55 09:55 09:55 WBC 6.7 RBC 4.56 Hgb 14.2 Hct 43 MCV 94 MCH 31 MCHC 33 RDW 15 Plt Count 108 L MPV 8.4 Neut % (Auto) 70.9 Lymph % (Auto) 18.5 L [place] % (Auto) 7.4 H Eos % (Auto) 2.6 Baso % (Auto) 0.6 Absolute Neuts (auto) 4.8 Absolute Lymphs (auto) 1.2 Absolute Monos (auto) 0.5 Absolute Eos (auto) 0.2 Absolute Basos (auto) 0 Absolute Nucleated RBC 0 Nucleated RBC % 0.1 INR (Anticoag Therapy) APTT ABG pH ABG pCO2 ABG pO2 ABG HCO3 ABG O2 Saturation ABG Base Excess Sodium 134 L Potassium 3.8 Chloride 103 Carbon Dioxide 22 Anion Gap 9 BUN 6 Creatinine 0.47 L Est GFR ( Amer) 166.5 Est GFR (Non-Af Amer) 137.6 BUN/Creatinine Ratio 12.8 Glucose 116 H Lactic Acid Calcium 9.3 Phosphorus 4.4 Magnesium 1.7 L Total Bilirubin 0.60 AST 109 H ALT 119 H Alkaline Phosphatase 120 H Ammonia 63 H Troponin I C-Reactive Protein B-Natriuretic Peptide Total Protein 6.5 Albumin 3.6 Globulin 2.9 Albumin/Globulin Ratio 1.2 Triglycerides Cholesterol LDL Cholesterol HDL Cholesterol Procalcitonin Cortisol Urine Color Urine Appearance Urine pH Ur Specific [place] Urine Protein Urine Ketones Urine Blood Urine Nitrate Urine Bilirubin Urine Urobilinogen Ur Leukocyte Esterase Urine WBC (Auto) Urine RBC (Auto) Ur Squamous Epith Cells Amorphous Crystals Urine Bacteria Urine Glucose Fluid Source Fluid Volume Fluid Color Fluid Appearance Fluid WBC Fluid RBC Fluid Tot Cell Count Fluid Neutrophils Fluid Band Neutrophils Fluid Lymphocytes Fluid Monocytes Fluid Metamyelocytes Fluid Cell Count Rvw By CSF Cell Count Tube # CSF Glucose CSF Total Protein CSF HSV I (PCR) CSF Herpes II DNA (PCR) Vancomycin Trough Salicylates Urine Opiates Screen Acetaminophen Ur Barbiturates Screen Phenytoin Free Phenytoin Total Phenytoin Ur Phencyclidine Scrn Ur Amphetamines Screen U Benzodiazepines Scrn Urine Cocaine Screen U Cannabinoids Screen Serum Alcohol HIV-1 RNA (PCR) VZV DNA (PCR) 09/08/17 09/09/17 09/09/17 16:58 05:45 05:45 WBC 6.7 RBC 4.08 Hgb 13.0 Hct 38 MCV 94 MCH 32 H MCHC 34 RDW 15 Plt Count 101 L MPV 7.9 Neut % (Auto) 70.6 Lymph % (Auto) 19.5 L [place] % (Auto) 7.1 H Eos % (Auto) 2.2 Baso % (Auto) 0.6 Absolute Neuts (auto) 4.8 Absolute Lymphs (auto) 1.3 Absolute Monos (auto) 0.5 Absolute Eos (auto) 0.1 Absolute Basos (auto) 0 Absolute Nucleated RBC 0 Nucleated RBC % 0 INR (Anticoag Therapy) APTT ABG pH ABG pCO2 ABG pO2 ABG HCO3 ABG O2 Saturation ABG Base Excess Sodium Potassium Chloride Carbon Dioxide Anion Gap BUN Creatinine Est GFR ( Amer) Est GFR (Non-Af Amer) BUN/Creatinine Ratio Glucose Lactic Acid Calcium Phosphorus Magnesium Total Bilirubin AST ALT Alkaline Phosphatase Ammonia Troponin I C-Reactive Protein B-Natriuretic Peptide Total Protein Albumin Globulin Albumin/Globulin Ratio Triglycerides Cholesterol LDL Cholesterol HDL Cholesterol Procalcitonin Cortisol Urine Color Urine Appearance Urine pH Ur Specific [place] Urine Protein Urine Ketones Urine Blood Urine Nitrate Urine Bilirubin Urine Urobilinogen Ur Leukocyte Esterase Urine WBC (Auto) Urine RBC (Auto) Ur Squamous Epith Cells Amorphous Crystals Urine Bacteria Urine Glucose Fluid Source Fluid Volume Fluid Color Fluid Appearance Fluid WBC Fluid RBC Fluid Tot Cell Count Fluid Neutrophils Fluid Band Neutrophils Fluid Lymphocytes Fluid Monocytes Fluid Metamyelocytes Fluid Cell Count Rvw By CSF Cell Count Tube # CSF Glucose CSF Total Protein CSF HSV I (PCR) CSF Herpes II DNA (PCR) Vancomycin Trough Salicylates Urine Opiates Screen Acetaminophen < 15 Ur Barbiturates Screen Phenytoin 4.4 L Free Phenytoin Total Phenytoin Ur Phencyclidine Scrn Ur Amphetamines Screen U Benzodiazepines Scrn Urine Cocaine Screen U Cannabinoids Screen Serum Alcohol HIV-1 RNA (PCR) VZV DNA (PCR) 09/09/17 05:45 WBC RBC Hgb Hct MCV MCH MCHC RDW Plt Count MPV Neut % (Auto) Lymph % (Auto) [place] % (Auto) Eos % (Auto) Baso % (Auto) Absolute Neuts (auto) Absolute Lymphs (auto) Absolute Monos (auto) Absolute Eos (auto) Absolute Basos (auto) Absolute Nucleated RBC Nucleated RBC % INR (Anticoag Therapy) APTT ABG pH ABG pCO2 ABG pO2 ABG HCO3 ABG O2 Saturation ABG Base Excess Sodium 134 L Potassium 3.9 Chloride 104 Carbon Dioxide 21 L Anion Gap 9 BUN 7 Creatinine 0.31 L Est GFR ( Amer) 269.1 Est GFR (Non-Af Amer) 222.4 BUN/Creatinine Ratio 22.6 H Glucose 98 Lactic Acid Calcium 8.9 Phosphorus 4.3 Magnesium 1.8 L Total Bilirubin 0.70 AST 66 H ALT 106 H Alkaline Phosphatase 108 H Ammonia Troponin I C-Reactive Protein B-Natriuretic Peptide Total Protein 6.0 L Albumin 3.0 L Globulin 3.0 Albumin/Globulin Ratio 1.0 Triglycerides Cholesterol LDL Cholesterol HDL Cholesterol Procalcitonin Cortisol Urine Color Urine Appearance Urine pH Ur Specific [place] Urine Protein Urine Ketones Urine Blood Urine Nitrate Urine Bilirubin Urine Urobilinogen Ur Leukocyte Esterase Urine WBC (Auto) Urine RBC (Auto) Ur Squamous Epith Cells Amorphous Crystals Urine Bacteria Urine Glucose Fluid Source Fluid Volume Fluid Color Fluid Appearance Fluid WBC Fluid RBC Fluid Tot Cell Count Fluid Neutrophils Fluid Band Neutrophils Fluid Lymphocytes Fluid Monocytes Fluid Metamyelocytes Fluid Cell Count Rvw By CSF Cell Count Tube # CSF Glucose CSF Total Protein CSF HSV I (PCR) CSF Herpes II DNA (PCR) Vancomycin Trough Salicylates Urine Opiates Screen Acetaminophen Ur Barbiturates Screen Phenytoin Free Phenytoin Total Phenytoin Ur Phencyclidine Scrn Ur Amphetamines Screen U Benzodiazepines Scrn Urine Cocaine Screen U Cannabinoids Screen Serum Alcohol HIV-1 RNA (PCR) VZV DNA (PCR) Exam Appearance: Well Developed/Nourished, Healthy Appearing, Other - Ill appearing Hygiene: Normal Grooming: Fairly Well Kept Psychomotor Activities: Abnormal-Increased Exhibits Abnormal Movement: No Attitude and Relatedness: Psychotically Related Eye Contact: Fair - Speech Quality: Pressured Latencies: Short Quantity: Copious Patient's Decription of Mood: "Great" Observed Affect: Expansive Affect Consistent with: Euphoria Patient's Thought Process: Disorganized, Filght of Ideas, Over Inclusive Thought Content: Yes Paranoid Ideation, No Passive Wish, No Suicidal Planning, No Homicidal Ideation Experiencing Hallucinations: No, Sensorium is Clear Type of Hallucinations: Visual: No, Auditory: No, Command: No Level of Consciousness: Agitated Orientation: Yes Intact, Yes Orientated to Place, Yes Orientated to Person, No Orientated to Time Impulse Control: Poor Insight and Judgement: Impaired Impression - Impression Clinical Impression: 57 y.o. , white female with a history of chronic alcoholism, now in sustained remission, cirrhosis, anxiety and depression, several psychiatric hospitalizations as well as serial non-adherence with outpatient mental health services, who is currently admitted to the hospitalist service due to seizures related to rapid self-discontinuation of prescribed alprazolam treatment. Inpatient DSM-V Dx: F31.13 Merits Inpatient Hospitalization: Yes Problem List - MHU Problems Type of Problem: Affect Status of Problem: Active Plan - Treatment Plan Treatment Plan: The patient is manic and agitated. Would benefit from transfer to [facility]. Continue carbamazepine and quetiapine therapies. Transfer to my care on involuntary legal status. Continued Medication Management: Different Medication Medications: Current Medications Al Hydrox/Mg Hydrox/Simethicone (Maalox Plus*) 30 ml PO Q6H PRN PRN Reason: INDIGESTION Albuterol (Ventolin 2.5 Mg/3 Ml Neb.Christin*) 2.5 mg INH Q2H PRN PRN Reason: SOB/WHEEZING Last Admin: 09/05/17 23:50 Dose: 2.5 mg Alprazolam (Xanax Tab*) 0.5 mg PO BID PRN PRN Reason: AGITATION Last Admin: 09/10/17 08:00 Dose: 0.5 mg Aspirin (Aspirin Ec Tab*) 81 mg PO DAILY [facility] Last Admin: 09/10/17 08:00 Dose: 81 mg Carbamazepine (Tegretol Tab(*)) 200 mg PO BID [facility] Last Admin: 09/10/17 08:00 Dose: 200 mg Carvedilol (Coreg Tab*) 3.125 mg PO BID [facility] Last Admin: 09/10/17 09:37 Dose: Not Given Device (Nicotine Mouth Piece*) 1 each INH .USE WITH NICOTROL PRN PRN Reason: CRAVING Last Admin: 09/09/17 19:24 Dose: 1 each Docusate Sodium (Colace Cap*) 100 mg PO BID PRN PRN Reason: CONSTIPATION Heparin Sodium (Porcine) (Heparin Vial(*)) 5,000 units SUBCUT Q8HR [facility] Last Admin: 09/10/17 06:05 Dose: Not Given Hydroxyzine HCl (Atarax Tab*) 25 mg PO Q6H PRN PRN Reason: ANXIETY Last Admin: 09/10/17 08:00 Dose: 25 mg Lactulose (Lactulose*) 30 ml PO QID [facility] Last Admin: 09/10/17 08:00 Dose: 30 ml Lorazepam (Ativan Inj*) 1 mg IM ONCE PRN PRN Reason: AGITATION Nicotine (Nicotine Inhaler*) 10 mg INH Q2H PRN PRN Reason: CRAVING Last Admin: 09/09/17 14:37 Dose: 10 mg Ondansetron HCl (Zofran 40 Mg Vial*) 4 mg IV Q4H PRN PRN Reason: NAUSEA/VOMITING Last Admin: 09/06/17 21:07 Dose: 4 mg Phenytoin Sodium (Dilantin Cap(*)) 300 mg PO BEDTIME [facility] Last Admin: 09/10/17 02:22 Dose: Not Given Potassium Chloride (Klor Con Er Tab*) 20 meq PO DAILY [facility] Last Admin: 09/10/17 08:04 Dose: 20 meq Quetiapine Fumarate (Seroquel Tab*) 100 mg PO BEDTIME [facility] Last Admin: 09/10/17 02:22 Dose: Not Given Zonisamide (Zonegran (Nf)) 200 mg PO DAILY [facility] Last Admin: 09/10/17 08:02 Dose: 200 mg - Discharge Plan Discharge Plan: Inpatient Hospitalization
--- NOTE | 2017-09-11 05:22 | DS ---
CC: Dr. Abe Pino; Dr. Anna Thomas; Dr. Jose Enrique Brush; Dr. Josefina Campbell; Dr. Melvi Telles* DISCHARGE SUMMARY: DATE OF ADMISSION: 08/28/17 DATE OF DISCHARGE: 09/10/17 PRIMARY CARE PROVIDER: Dr. Abe Pino. MY ATTENDING WHILE IN THE HOSPITAL: Dr. Anna Thomas* (dictated by RADHA Thomas). CONSULTING PSYCHIATRIST: Dr. Jose Enrique Brush. CONSULTING CORDWAINER: Dr. Josefina Campblel. CONSULTING NEUROLOGIST: Dr. Melvi Telles. PRIMARY DISCHARGE DIAGNOSES: 1. Larry due to bipolar disorder. 2. Benzodiazepine withdrawal precipitating seizures. 3. Pneumonia. 4. Non-ST segment myocardial infarction. 5. Cirrhosis. SECONDARY DISCHARGE DIAGNOSES: 1. Polysubstance abuse. 2. Alcohol abuse. 3. Tobacco abuse. 4. History of psychiatric admission for depression and suicidal ideation. 5. Chronic back pain. 6. Chronic benzodiazepine use. STUDIES DONE WHILE IN THE HOSPITAL: Chest x-ray from 08/28/17 read as patchy, alveolar consolidation at the right lung base concerning for pneumonia and chronic obstructive pulmonary disease. Electrocardiogram from 08/28/17 read as poor quality study, ST segment depression, upsloping in V4, V5, possible convex minor ST segment elevation in V2, concave ST segment elevation in V3, very poor quality study again, normal axis, rate of 100, QTc of 488, no other signs of hypertrophy and enlargement. Brain CT from 08/28/17 read as mildly limited examination due to motion artifact. No acute CT abnormalities. Transthoracic echocardiogram from 08/28/17 shows study was technically limited and difficult, mild concentric left ventricular hypertrophy was observed, inferior posterior infarct, hypokinesis of the anterior lateral wall, basal heart is hyperdynamic. Estimated ejection fraction is 35% to 40%. Right ventricular global systolic function is low normal. Aortic valve leaflets are sclerotic, [id number] mitral regurgitation, mild tricuspid regurgitation, right ventricular systolic pressure is estimated at 30 mmHg, possibly underestimated compared to echo from 10/03/14, EF has increased from 60% to 65%, wall motion abnormalities are new, RV function decreased from normal, MR new, TR is increased from trace. Electroencephalogram from 08/28/17 read as normal awakening EEG with no epileptiform abnormalities. Chest x-ray from 08/29/17 read as persistent patchy airspace in the right lung base. Brain MRI from 09/02/17 read as no intracranial lesion identified. Electroencephalogram from 09/03/17 read as prolonged electroclinical seizure lasting 25 minutes appearing to rise from left frontal region with polyspike and slow-wave discharges, most expressed in the left frontal region. The patient was staring and confused, unable to appropriately respond to answer. Lorazepam was administered. The interictal EEG was notable for bilateral independent epileptiform discharges in the temporal regions. These findings are suggestive of bilateral independent increased epileptic potential in the temporal regions and a single prolonged seizure arising from both hemispheres, initially maximum on the left frontal region and diffusely represented. Electroencephalogram from 09/04/17 read as mildly abnormal awake EEG due to the presence of semi-arrhythmic polymorphic slowing in the right frontal lobe, which suggests focal neuronal dysfunction in that region. The paroxysm was too short to raise suspicion for seizures. The patient had multiple documented episodes where she was confused, not answering properly, staring/glaring into space that was recorded and noted by the technologist. The majority of these episodes essentially when she was talking and answering questions appropriately. There are no EEG correlation or changes. Chest x-ray from 09/05/17 read as no active disease. Abdomen ultrasound from 09/09/17 read as cholelithiasis, mild gallbladder wall thickening. MEDICATIONS AT DISCHARGE: 1. Thiamine 100 mg p.o. daily. 2. Folic acid 1 tab p.o. daily. 3. Spironolactone 25 mg p.o. daily. 4. Alprazolam 0.5 mg p.o. b.i.d. as needed. 5. Aspirin 81 mg p.o. daily. 6. Carbamazepine 200 mg p.o. b.i.d. to be increased to 400 mg p.o. b.i.d. in 3 days. 7. Carvedilol 3.125 mg p.o. b.i.d. 8. Docusate 100 mg p.o. b.i.d. as needed. 9. Hydroxyzine 25 mg p.o. q.6 hours as needed. 10. Lactulose 30 mL p.o. 4 times a day. 11. Phenytoin 300 mg p.o. at bedtime, to be decreased by 100 mg every 3 days until discontinued. 12. Potassium chloride 20 mEq p.o. daily. 13. Quetiapine 100 mg p.o. at bedtime. 14. Zonisamide 200 mg p.o. daily. New medications at discharge: 1. Aspirin. 2. Tegretol. 3. Carvedilol. 4. Docusate. 5. Hydroxyzine. 6. Lactulose. 7. Phenytoin. 8. Potassium chloride. 9. Quetiapine. 10. Zonisamide. Medications discontinued at discharge: 1. Lactulose 50 mg p.o. at bedtime. 2. Citalopram 40 mg p.o. daily. 3. Oxycodone 5 mg p.o. q. 6 hours as needed. 4. Gabapentin 600 mg p.o. t.i.d. HOSPITAL COURSE: This is a brief summary of the patient's prolonged and complicated hospitalization. For more details, please see history and physical from Dr. Vicky Diaz on 08/28/17 as well as the subsequent medical record. In brief, the patient is a 57-year-old female with past medical history significant for the above, who presented to emergency department with altered mental status with associated nausea, vomiting, shortness of breath with reported seizures. In the emergency room, she was noted to be febrile. The patient could not give any history, but her daughter stated that she had recently discontinued her Xanax. The patient was admitted to the hospital for concern for pneumonia and NSTEMI. The patient was given aspirin, heparin drip, Solu-Medrol, DuoNebs, doxycycline, and azithromycin. The patient has multiple antibiotic allergies. The patient had an echocardiogram ordered, which was read as above showing wall motion abnormalities. The patient initially had white blood cell count of 14.3, hemoglobin 17.2. Low ABG PO2. Troponin of 0.79. BNP of 142. Procalcitonin of less than 0.1. The patient was started on antibiotics as above. The patient had LDL cholesterol of 65. The patient's troponin went from 1.79 to 2.4 and then back down to 1.7. The patient had no lactic acidosis. The patient was initially febrile with fever up to 102.7. The patient had tachycardia with pulse rate up to 107. The patient was seen in consultation by Dr. Melvi Telles due to seizures and had electroencephalogram as above. It was deemed that this was likely due to benzodiazepine withdrawal; however, the patient also underwent a lumbar puncture with viral serology, which came back negative for all viruses tested; however, positive for flavirus , powassen virus, and West Nile virus antibodies. The patient had continued encephalopathy, not deemed to be due to nonconvulsive status epilepticus. It was deemed that the patient's infection was also likely due to her fever following her seizure threshold. The patient, at this point, started to speak nonstop. She realized she was confused, but was able to state that she stopped taking her medications 2 days before admission. The patient was seen in consultation by Dr. Jensen Qureshi as well as Dr. Josefina Campbell. The patient was continued on doxycycline. The patient had negative HIV antibody, negative varicella PCR. Cardiology recommended initiating aspirin and beta-blockers. She was not started on statin due to low LDL cholesterol and the patient was not started on heparin. The patient was recommended to have an SYEDA inhibitor started. Further evaluation including cardiac catheterization and stress test were deferred until she was stabilized. The patient was continued on her doxycycline. The patient continued to be significantly altered; however, she did show improvement. The patient's fever resolved. The patient was started on acyclovir for a possible herpes simplex or varicella zoster encephalitis, but this was deemed to be unlikely due to her improvement. The patient continued to have rambling speech with tangentiality, significant anxiety. The patient had an elevated ammonia and had been off of her lactulose, this was restarted. The patient slept in response to Ativan. The patient was started on vancomycin and aztreonam for concern for meningitis with elevated white blood cell count in the CSF. The patient's Celexa was discontinued. The patient had some staring spells, which were not correlated to seizure activity as above. The patient seemed to improve after receiving her benzodiazepines. The patient initially was on Vapotherm and was able to be titrated off, requiring no supplemental O2. The patient was continued on vancomycin and doxycycline. The patient continued to have staring spells. The patient had electroencephalogram read as above which showed persistent seizures. The patient was loaded with fosphenytoin and monitored in the ICU. The patient was eventually changed to phenytoin p.o. and levels were checked. The patient's mental status improved greatly with absence of altered speech around 08/31/17. The patient had brain MRI as above. The patient's Dilantin levels became therapeutic, but the patient had continued "spacing out" with staring spells. The patient was having liquid stool. The patient had hyperammonemia and was restarted on her lactulose. The patient was started on zonisamide as well for continued seizure activity. The patient was seen in consultation by Dr. Jose Enrique Brush of Psychiatry. The patient, at this time, is speaking very tangentially. Denies suicidal ideation or homicidal ideation. The patient was started on a trial of mirtazapine for her lack of sleep, but was deemed to have lack of capacity to sign out AMA. This deemed unlikely that this is due to continued seizure activity. The patient had no other symptoms consistent with continued hepatic encephalopathy. The patient was continued on lactulose. The patient was briefly on Xifaxan, but it was deemed to be interfering with her levels of phenytoin, so it was stopped. The patient had no signs during this time of shortness of breath or benzodiazepine withdrawal. The patient finished a full course of vancomycin and doxycycline for her pneumonia. The patient had during this entire hospitalization asymptomatic hypotension. The patient had negative blood cultures x2. The patient's lactulose at this time was discontinued due to lack of clinical signs of metabolic encephalopathy. The patient, at this time, had a MELD score calculated, which was 5. The patient's liver function tests were intermittently elevated during her hospitalization as they had been previously on laboratory data. The patient had no abdominal pain as she reported during this time. The patient had significant deterioration in her mental status. The patient's mirtazapine was stopped due to concern for lowering the seizure threshold. The patient during this time had significant lack of sleep as well as continued episodes of tangential thoughts, tangential speaking as well as pressured speech. It was recommended that the patient be started on lithium for potential bipolar disorder with larry. The patient had an abdominal ultrasound as above due to increased liver function tests. The patient had no abdominal pain to suggest cholecystitis. The patient was having approximately 3 loose bowel movements a day. The patient's ammonia was trended down. The patient was switched to Tegretol for acute treatment of bipolar disorder. The patient was restarted on her Xanax b.i.d. as needed for anxiety to bridge her therapy for bipolar disorder. The patient continued to be disoriented, have pressured speech. The patient was seeing Psychiatry and it was labeled as acute manic episode. The patient was also started on quetiapine. At this point, the patient's vital signs remained borderline hypotensive, but stable. The patient had tachycardia in association with agitation. The patient was deemed on 09/10/17 to be medically stable and needing ongoing psychiatric hospitalization for treatment of bipolar larry. PHYSICAL EXAMINATION ON THE DAY OF DISCHARGE: General: The patient is a 57- year- old female, who appears stated age and sitting in the bed, in significant distress with pressured speech. HEENT: Head normocephalic and atraumatic. Sclerae anicteric. No conjunctival injection. Nasal mucosa moist. Oral mucosa moist. No pharyngeal erythema, discharge, or exudate. Neck: Supple and nontender. No lymphadenopathy. No carotid bruits auscultated. No JVD. Cardiac: Regular rate and rhythm. No clicks, murmurs, gallops, or rubs. Pulses 2+ in the bilateral dorsalis pedis, posterior tibial, and radial areas. Respiratory: Clear to auscultation bilaterally. No wheezes, rales, or rhonchi. Good air exchange bilaterally. Abdomen: Soft, nontender, nondistended. Bowel sounds present, normoactive in all 4 quadrants. No hepatosplenomegaly. No abdominal bruits auscultated. Genitourinary: No suprapubic or CVA tenderness. Skin: Clean, dry, and intact. No rash. Neurologic: Cranial nerves II through XII are grossly intact. No focal deficits. Normal gait. Psychiatric: Very agitated, pressured speech, mormonism preoccupation, grandiose speaking, paranoia. LABORATORY DATA: From 09/09/17, white blood cell count 6.7, hemoglobin 13.0, platelet count 101. Sodium 134, potassium 3.9, creatinine 0.31, glucose 98, BUN 7, anion gap 9, carbon dioxide 21, magnesium 1.8. Bilirubin 0.7, AST 66, ALT 106, alkaline phosphatase 108, protein 6.0, albumin 3.0, phenytoin 4.4. DISCHARGE PLAN: The patient will be discharged to inpatient behavioral services unit for continued treatment of her bipolar larry. The patient will have Tegretol substituted for phenytoin as above for its efficacy in both seizure treatment as well as bipolar disorder. The patient will also be started on quetiapine and be bridged with her Xanax for acute treatment of her larry, which will be tapered appropriately by Psychiatry. The patient should have mental health followup within the community. The patient should have a repeat CMP drawn in 3 days to assess for acute liver toxicity related to Tegretol. The patient will be continued on quetiapine and have her medications adjusted as needed by Psychiatry. When the patient's bipolar manic episode is over, the patient should be referred to Cardiology for an outpatient stress test related to her abnormal echocardiogram findings. The patient is to have a repeat echocardiogram in several months to assess for persistent wall motion abnormalities and possible resolution or improvement of ejection fraction as this may have been related to the patient's significant medical comorbidities while the echocardiogram was taken. The patient should be continued on aspirin and carvedilol. The patient should be continued on lactulose for her hepatic encephalopathy. If the patient develops other symptoms of hepatic encephalopathy, the patient should be started on Xifaxan as well; however, this is not necessary at this time. The patient should follow up with a plumbing inspector for terminal superintendent management of her cirrhosis as well as screening for hepatocellular cancer. The patient had a MELD of 5. The patient is not currently a surgical candidate. The patient should abstain entirely from drinking. The patient's carbamazepine level should be monitored closely, starting 3 days from initiation of therapy, which would be on , due to concern for slow metabolism due to cirrhosis. Valproic acid should be avoided for treatment of both her seizures and bipolar disorder due to hepatotoxicity and hyperammonemia. The patient should follow up with primary care provider within 1 week of discharge for general medical management. Treatment for the patient's COPD should be discussed as outpatient; however, she is not overly symptomatic at this time. The patient's pneumonia has been fully treated. The patient cautioned on the use of prescribed antidepressants as this may increase cycling and the patient's prescription of benzodiazepines at discharge should be avoided if possible due to history of abuse and multiple episodes of seizures related to withdrawal. Medications that lower the seizure threshold should be avoided. The patient should follow up with Neurology for ongoing treatment and monitoring of antiseizure medications. This probably should be obtained through the patient's primary care provider as Dr. Melvi Telles who was the initial inside sales consultant, will not be available for the outpatient followup. The patient should return to the hospital for alarming symptoms such as new-onset chest pain, increased shortness of breath, high fevers, or other alarming symptoms. TIME SPENT: Approximately 90 minutes were spent on this discharge, 45 of which was spent [id number] with the patient obtaining history and physical as well as discussing the treatment plan with consultants involved and as well as Psychiatry and the patient's daughter. RADHA THOMAS [id number]/[facility] #: [id number] LALO
== END 2017-09-10 16:51 | DRG 720 ==
LOC: ED 04:09 → ICU 06:07 → MED 08-29 20:42 → ICU 08-30 13:23 → MEDTELE 09-03 05:43
PROVIDERS: ADMIT Pediatrics; ATTEND Internal Medicine
PROC: 009U3ZX Drainage of Spinal Canal, Percutaneous Approach, Diagnostic (ICD-10-PCS; principal; 2017-08-28)
PROC: 4A00X4Z Measurement of Central Nervous Electrical Activity, External Approach (ICD-10-PCS; 2017-08-28)
DX: A41.9 Sepsis, unspecified organism (principal); G92 Toxic encephalopathy; J96.01 Acute respiratory failure with hypoxia; J18.9 Pneumonia, unspecified organism; I21.4 Non-ST elevation (NSTEMI) myocardial infarction; F11.23 Opioid dependence with withdrawal; F31.13 Bipolar disorder, current episode manic without psychotic features, severe; E72.20 Disorder of urea cycle metabolism, unspecified; F13.20 Sedative, hypnotic or anxiolytic dependence, uncomplicated; G40.209 Localization-related (focal) (partial) symptomatic epilepsy and epileptic syndromes with complex partial seizures, not intractable, without status epilepticus; I42.9 Cardiomyopathy, unspecified; J44.0 Chronic obstructive pulmonary disease with (acute) lower respiratory infection; F28 Other psychotic disorder not due to a substance or known physiological condition; F17.210 Nicotine dependence, cigarettes, uncomplicated; K57.90 Diverticulosis of intestine, part unspecified, without perforation or abscess without bleeding; G89.29 Other chronic pain; F19.10 Other psychoactive substance abuse, uncomplicated; M54.9 Dorsalgia, unspecified; D69.6 Thrombocytopenia, unspecified; F10.20 Alcohol dependence, uncomplicated; F41.1 Generalized anxiety disorder; K70.30 Alcoholic cirrhosis of liver without ascites; Y90.9 Presence of alcohol in blood, level not specified; R65.20 Severe sepsis without septic shock; I08.1 Rheumatic disorders of both mitral and tricuspid valves; K80.20 Calculus of gallbladder without cholecystitis without obstruction; K72.90 Hepatic failure, unspecified without coma; E83.42 Hypomagnesemia; Z88.1 Allergy status to other antibiotic agents; Z88.0 Allergy status to penicillin; Z91.14 Patient's other noncompliance with medication regimen; Z98.51 Tubal ligation status; Z90.49 Acquired absence of other specified parts of digestive tract; Z81.3 Family history of other psychoactive substance abuse and dependence; Z80.3 Family history of malignant neoplasm of breast; Z82.49 Family history of ischemic heart disease and other diseases of the circulatory system; Z79.82 Long term (current) use of aspirin
CPT/HCPCS: 36415; 70450; 70553; 71045; 76700; 80048; 80053; 80061; 80185; 80186; 80202; 80307; 80320; 80329; 81003; 81015; 82140; 82533; 82803; 82945; 83605; 83735; 83880; 84100; 84145; 84157; 84484; 85025; 85027; 85610; 85730; 86140; 87040; 87070; 87086; 87205; 87529; 87536; 87641; 87798; 87899; 89051; 93005; 93306; 94640; 95816; 99285; 99406; A9270-GY; A9579; G0480; J0133; J0456; J1630; J1644; J2060; J2270; J2930; J3370; J3475; J3486; J3490; Q2009

== ENCOUNTER 2017-09-10 12:46 | Inpatient (IN) | payer MEDICARE, MEDICAID ==
[2017-09-10] MEDS ORDERED: Acetaminophen TAB* 325 MG PO PRN (13:24)
[2017-09-10] MEDS ORDERED: Al Hydrox/Mg Hydrox/Simet LIQ* 30 ML UDC PO PRN (13:24)
[2017-09-10] MEDS ORDERED: Docusate CAP* 100 MG PO PRN (13:26)
[2017-09-10] MEDS: Mouth Piece, Nicotine* 1 EACH CARTRIDGE INH PRN (19:42)
[2017-09-10] MEDS: Haloperidol TAB* 5 MG PO PRN (19:42)
[2017-09-10] MEDS: Nicotine Inhaler* 10 MG AMP INH PRN (19:42)
[2017-09-10] MEDS: Phenytoin CAP(*) 100 MG CAP.ER PO SCH (20:59)
[2017-09-10] MEDS: carBAMazepine TAB(*) 200 MG PO SCH (21:00)
[2017-09-10] MEDS: QUEtiapine TAB* 100 MG PO SCH (21:04)
[2017-09-10] MEDS: Carvedilol TAB* 3.125 MG PO SCH (21:04)
[2017-09-11] MEDS: Nicotine Inhaler* 10 MG AMP INH PRN ×3 (04:15→23:49)
[2017-09-11] MEDS: CMC:Zonisamide (NF) 50 MG CAP PO SCH (08:53)
[2017-09-11] MEDS: carBAMazepine TAB(*) 200 MG PO SCH ×2 (08:53→21:15)
[2017-09-11] MEDS: Carvedilol TAB* 3.125 MG PO SCH ×2 (08:54→21:15)
[2017-09-11] MEDS: Aspirin EC TAB* 81 MG TAB.EC PO SCH (08:55)
[2017-09-11] MEDS: Spironolactone TAB* 25 MG PO SCH (08:56)
[2017-09-11] MEDS: Potassium Chlor TAB* 20 MEQ TAB.ER PO SCH (08:56)
[2017-09-11] MEDS: Folic Acid TAB* 1 MG PO SCH (08:56)
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
[2017-09-11] MEDS: Haloperidol TAB* 5 MG PO PRN ×2 (15:53→21:57)
[2017-09-11] MEDS: Mouth Piece, Nicotine* 1 EACH CARTRIDGE INH PRN (16:39)
[2017-09-11] MEDS: Phenytoin CAP(*) 100 MG CAP.ER PO SCH (21:14)
[2017-09-11] MEDS: QUEtiapine TAB* 100 MG PO SCH (21:14)
[2017-09-12] MEDS: Haloperidol TAB* 5 MG PO PRN (03:20)
[2017-09-12] MEDS: Ibuprofen TAB* 400 MG PO PRN (03:20)
[2017-09-12] MEDS: Nicotine Inhaler* 10 MG AMP INH PRN ×2 (03:20→18:10)
[2017-09-12] MEDS: Potassium Chlor TAB* 20 MEQ TAB.ER PO SCH (08:45)
[2017-09-12] MEDS: Aspirin EC TAB* 81 MG TAB.EC PO SCH (08:45)
[2017-09-12] MEDS: CMC:Zonisamide (NF) 50 MG CAP PO SCH (08:45)
[2017-09-12] MEDS: Spironolactone TAB* 25 MG PO SCH (08:46)
[2017-09-12] MEDS: Carvedilol TAB* 3.125 MG PO SCH ×2 (08:47→20:05)
[2017-09-12] MEDS: Folic Acid TAB* 1 MG PO SCH (08:47)
[2017-09-12] MEDS: carBAMazepine TAB(*) 200 MG PO SCH ×2 (08:47→20:05)
--- NOTE | 2017-09-12 13:35 | PN ---
Subjective - Subjective Date of Service: 09/12/17 Service Type: [id number] Hosp care 15 min low complexity Subjective: Layo was tearful on approach this morning, complaining vaguely about her daughters being convicted ex-felons and insisting that she would be doing better if we allowed her to go home. She appeared less hyperverbal than yesterday and we did get a chance to discuss her illness and prognosis, although I'm not sure how much of this information she retained. 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 The patient has been compliant thus far today with medications and expresses the understanding that she must take medications faithfully as a function of discharge and also to stay well after returning home. She denies SI or HI. Objective - Appearance Appearance: Well Developed/Nourished Dysmorphic Features: No Hygiene: Normal Grooming: Fairly Well Kept - Behavior Psychomotor Activities: Abnormal-Increased Exhibits Abnormal Movement: No - Attitude and Relatedness Attitude and Relatedness: Psychotically Related Eye Contact: Fair - Speech Quality: Pressured Latencies: Short Quantity: Copious - Mood Patient's Decription of Mood: "Terrible" - Affect Observed Affect: Tearful Affect Consistent with: Dysphoria - Thought Process Patient's Thought Process: Tangential Thought Content: Yes Paranoid Ideation, No Passive Wish, No Suicidal Planning, No Homicidal Ideation - Sensorium Experiencing Hallucinations: No, Sensorium is Clear Type of Hallucinations: Visual: No, Auditory: No, Command: No - Level of Consciousness Level of Consciousness: Alert Orientation: Yes Intact, Yes Orientated to Time, Yes Orientated to Place, Yes Orientated to Person - Impulse Control Impulse Control: Poor - Insight and Judgement Insight and Judgement: Impaired - Group Participation Particating in Group Activities: No - Medication Management Medication Management Adherence: Partial Assessment - Assessment Merits Inpatient Hospitalization: For Immediate Safety, For Stabilization Inpatient DSM-V Dx: F31.2 Clinical Impression: 57 y.o. , white female with a history of chronic alcoholism, now in sustained remission, cirrhosis, anxiety and depression, several psychiatric hospitalizations as well as serial non-adherence with outpatient mental health services, who is transferred from medicine where she was stabilized from benzodiazepine withdrawal seizures, who now presents with florid manic symptoms and inability to care for herself in a less restrictive environment. Plan - Plan Treatment Plan: Name: LAYO DE JESUS Birthdate: 1960 [id number] The patient has been taken off antidepressant and benzodiazapine therapies. We are currently pursuing a cross-titration between phenytoin, which is being slowly weaned, and carbamazepine, which is being increased (currently 200mg PO BID). We are augmenting her treatment with quetiapine 100mg PO qhs and may consider increasing this. The patient is unsafe to be treated in a less restrictive setting and warrants continued inpatient intensive psychiatric care. Continued Medication Management: Different Medication Medications: Current Medications Al Hydrox/Mg Hydrox/Simethicone (Maalox Plus*) 30 ml PO Q4H PRN PRN Reason: INDIGESTION Aspirin (Aspirin Ec Tab*) 81 mg PO DAILY [facility] Last Admin: 09/12/17 08:45 Dose: 81 mg Carbamazepine (Tegretol Tab(*)) 200 mg PO BID [facility] Stop: 09/13/17 07:00 Last Admin: 09/12/17 08:47 Dose: 200 mg Carbamazepine (Tegretol Tab(*)) 400 mg PO BID [facility] Carvedilol (Coreg Tab*) 3.125 mg PO BID [facility] Last Admin: 09/12/17 08:47 Dose: 3.125 mg Device (Nicotine Mouth Piece*) 1 each INH .USE WITH NICOTROL PRN PRN Reason: CRAVING Last Admin: 09/11/17 16:39 Dose: 1 each Docusate Sodium (Colace Cap*) 100 mg PO BID PRN PRN Reason: CONSTIPATION Folic Acid (Folvite Tab*) 1 mg PO DAILY [facility] Last Admin: 09/12/17 08:47 Dose: 1 mg Haloperidol (Haldol Tab*) 5 mg PO Q6H PRN PRN Reason: AGITATION Last Admin: 09/12/17 03:20 Dose: 5 mg Ibuprofen (Motrin Tab*) 400 mg PO Q4H PRN PRN Reason: PAIN Last Admin: 09/12/17 03:20 Dose: 400 mg Lactulose (Lactulose*) 30 ml PO QID [facility] Last Admin: 09/12/17 12:47 Dose: 30 ml Nicotine (Nicotine Inhaler*) 10 mg INH Q2H PRN PRN Reason: CRAVING Last Admin: 09/12/17 03:20 Dose: 10 mg Phenytoin Sodium (Dilantin Cap(*)) 300 mg PO BEDTIME [facility]; Taper Stop: 09/19/17 20:59 Last Admin: 09/11/17 21:14 Dose: 300 mg Potassium Chloride (Klor Con Er Tab*) 20 meq PO DAILY [facility] Last Admin: 09/12/17 08:45 Dose: 20 meq Quetiapine Fumarate (Seroquel Tab*) 100 mg PO BEDTIME [facility] Last Admin: 09/11/17 21:14 Dose: 100 mg Spironolactone (Aldactone Tab*) 25 mg PO DAILY [facility] Last Admin: 09/12/17 08:46 Dose: 25 mg Zonisamide (Zonegran (Nf)) 200 mg PO DAILY [facility]; Protocol Last Admin: 09/12/17 08:45 Dose: 200 mg - Discharge Plan Discharge Plan: Inpatient Hospitalization Lab Results - Lab Results Lab Results: 09/09/17 09/09/17 05:41 05:41 Hemoglobin A1c 5.8 H Triglycerides 71 Cholesterol 171 LDL Cholesterol 104 HDL Cholesterol 52.7
[2017-09-12] MEDS: Phenytoin CAP(*) 100 MG CAP.ER PO SCH (20:04)
[2017-09-12] MEDS: QUEtiapine TAB* 100 MG PO SCH (20:05)
[2017-09-13] MEDS: Ibuprofen TAB* 400 MG PO PRN ×2 (05:10→09:14)
[2017-09-13] MEDS: Nicotine Inhaler* 10 MG AMP INH PRN ×4 (05:10→22:10)
[2017-09-13] MEDS: CMC:Zonisamide (NF) 50 MG CAP PO SCH (08:29)
[2017-09-13] MEDS: carBAMazepine TAB(*) 200 MG PO SCH ×2 (08:30→22:18)
[2017-09-13] MEDS: Carvedilol TAB* 3.125 MG PO SCH ×2 (08:30→22:18)
[2017-09-13] MEDS: Spironolactone TAB* 25 MG PO SCH (08:30)
[2017-09-13] MEDS: Folic Acid TAB* 1 MG PO SCH (08:31)
[2017-09-13] MEDS: Potassium Chlor TAB* 20 MEQ TAB.ER PO SCH (08:31)
[2017-09-13] MEDS: Aspirin EC TAB* 81 MG TAB.EC PO SCH (08:31)
--- NOTE | 2017-09-13 10:26 | PN ---
Subjective - Subjective Date of Service: 09/13/17 Service Type: 47031 Hosp care 15 min low complexity Subjective: Layo remains manic and unpredictable. She is disruptive and disorganized in groups, necessitating individual recreation therapies to keep her occupied. The patient's adherence has improved and she is taking the carbamazepine and quetiapine as directed, seeming to tolerate them well. She denies SI or HI. Objective - Appearance Appearance: Well Developed/Nourished Dysmorphic Features: No Hygiene: Normal Grooming: Fairly Well Kept - Behavior Psychomotor Activities: Abnormal-Increased Exhibits Abnormal Movement: No - Attitude and Relatedness Attitude and Relatedness: Psychotically Related Eye Contact: Fair - Speech Quality: Pressured Latencies: Short Quantity: Copious - Mood Patient's Decription of Mood: "Great" - Affect Observed Affect: Euphoric Affect Consistent with: Euphoria - Thought Process Patient's Thought Process: Tangential Thought Content: Yes Paranoid Ideation, No Passive Wish, No Suicidal Planning, No Homicidal Ideation - Sensorium Experiencing Hallucinations: No, Sensorium is Clear Type of Hallucinations: Visual: No, Auditory: No, Command: No - Level of Consciousness Level of Consciousness: Alert Orientation: Yes Intact, Yes Orientated to Time, Yes Orientated to Place, Yes Orientated to Person - Impulse Control Impulse Control: Poor - Insight and Judgement Insight and Judgement: Impaired - Group Participation Particating in Group Activities: No - Medication Management Medication Management Adherence: Yes Assessment - Assessment Merits Inpatient Hospitalization: For Immediate Safety, For Stabilization Inpatient DSM-V Dx: F31.2 Clinical Impression: 57 y.o. , white female with a history of chronic alcoholism, now in sustained remission, cirrhosis, anxiety and depression, several psychiatric hospitalizations as well as serial non-adherence with outpatient mental health services, who is transferred from medicine where she was stabilized from benzodiazepine withdrawal seizures, who now presents with florid manic symptoms and inability to care for herself in a less restrictive environment. Plan - Plan Treatment Plan: Name: LAYO DE JESUS Birthdate: 1960 [id number] The patient has been taken off antidepressant and benzodiazapine therapies. We are currently pursuing a cross-titration between phenytoin, which is being slowly weaned, and carbamazepine, which is being increased (currently 400mg PO BID). We are augmenting her treatment with quetiapine 100mg PO qhs, which we will increase to 200mg. The patient is unsafe to be treated in a less restrictive setting and warrants continued inpatient intensive psychiatric care. Continued Medication Management: Start Medication Medications: Current Medications Al Hydrox/Mg Hydrox/Simethicone (Maalox Plus*) 30 ml PO Q4H PRN PRN Reason: INDIGESTION Aspirin (Aspirin Ec Tab*) 81 mg PO DAILY [facility] Last Admin: 09/13/17 08:31 Dose: 81 mg Carbamazepine (Tegretol Tab(*)) 400 mg PO BID [facility] Last Admin: 09/13/17 08:30 Dose: 400 mg Carvedilol (Coreg Tab*) 3.125 mg PO BID [facility] Last Admin: 09/13/17 08:30 Dose: 3.125 mg Device (Nicotine Mouth Piece*) 1 each INH .USE WITH NICOTROL PRN PRN Reason: CRAVING Last Admin: 09/11/17 16:39 Dose: 1 each Docusate Sodium (Colace Cap*) 100 mg PO BID PRN PRN Reason: CONSTIPATION Folic Acid (Folvite Tab*) 1 mg PO DAILY [facility] Last Admin: 09/13/17 08:31 Dose: 1 mg Haloperidol (Haldol Tab*) 5 mg PO Q6H PRN PRN Reason: AGITATION Last Admin: 09/12/17 03:20 Dose: 5 mg Ibuprofen (Motrin Tab*) 400 mg PO Q4H PRN PRN Reason: PAIN Last Admin: 09/13/17 09:14 Dose: 400 mg Lactulose (Lactulose*) 30 ml PO QID [facility] Last Admin: 09/13/17 08:29 Dose: 30 ml Nicotine (Nicotine Inhaler*) 10 mg INH Q2H PRN PRN Reason: CRAVING Last Admin: 09/13/17 08:34 Dose: 10 mg Phenytoin Sodium (Dilantin Cap(*)) 300 mg PO BEDTIME [facility]; Taper Stop: 09/19/17 20:59 Last Admin: 09/12/17 20:04 Dose: 300 mg Potassium Chloride (Klor Con Er Tab*) 20 meq PO DAILY [facility] Last Admin: 09/13/17 08:31 Dose: 20 meq Spironolactone (Aldactone Tab*) 25 mg PO DAILY [facility] Last Admin: 09/13/17 08:30 Dose: 25 mg Zonisamide (Zonegran (Nf)) 200 mg PO DAILY [facility]; Protocol Last Admin: 09/13/17 08:29 Dose: 200 mg - Discharge Plan Discharge Plan: Inpatient Hospitalization Lab Results - Lab Results Lab Results: 09/09/17 09/09/17 05:41 05:41 Hemoglobin A1c 5.8 H Triglycerides 71 Cholesterol 171 LDL Cholesterol 104 HDL Cholesterol 52.7
[2017-09-13] MEDS: Mouth Piece, Nicotine* 1 EACH CARTRIDGE INH PRN (22:10)
[2017-09-13] MEDS: QUEtiapine TAB* 100 MG PO SCH (22:19)
[2017-09-13] MEDS: Phenytoin CAP(*) 100 MG CAP.ER PO SCH (22:19)
[2017-09-14] MEDS: Nicotine Inhaler* 10 MG AMP INH PRN ×5 (00:10→21:42)
[2017-09-14] MEDS: CMC:Zonisamide (NF) 50 MG CAP PO SCH (08:22)
[2017-09-14] MEDS: Aspirin EC TAB* 81 MG TAB.EC PO SCH (08:23)
[2017-09-14] MEDS: carBAMazepine TAB(*) 200 MG PO SCH ×2 (08:23→21:43)
[2017-09-14] MEDS: Spironolactone TAB* 25 MG PO SCH (08:23)
[2017-09-14] MEDS: Potassium Chlor TAB* 20 MEQ TAB.ER PO SCH (08:23)
[2017-09-14] MEDS: Carvedilol TAB* 3.125 MG PO SCH ×2 (08:23→21:43)
[2017-09-14] MEDS: Folic Acid TAB* 1 MG PO SCH (08:24)
--- NOTE | 2017-09-14 11:45 | PN ---
Subjective - Subjective Date of Service: 09/14/17 Service Type: [id number] Hosp care 15 min low complexity Subjective: Layo remains manic this morning, ranting about how her children are abusing drugs and alcohol and demanding to be discharged home so that she can get a medical marijuana card. She refused medications last night but took them this morning. I understand that she has requested a court hearing fighting retention , likely under the influence of her daughter Ting, who is upset with the treatment team for holding the patient's alprazolam. On exam Layo is extremely hyperverbal with flight of ideas. She denies SI or HI. Objective - Appearance Appearance: Well Developed/Nourished Dysmorphic Features: No Hygiene: Normal Grooming: Fairly Well Kept - Behavior Psychomotor Activities: Abnormal-Increased Exhibits Abnormal Movement: No - Attitude and Relatedness Attitude and Relatedness: Psychotically Related Eye Contact: Fair - Speech Quality: Pressured Latencies: Short Quantity: Copious - Mood Patient's Decription of Mood: "Angry" - Affect Observed Affect: Labile Affect Consistent with: Euphoria - Thought Process Patient's Thought Process: Filght of Ideas Thought Content: Yes Paranoid Ideation, No Passive Wish, No Suicidal Planning, No Homicidal Ideation - Sensorium Experiencing Hallucinations: No, Sensorium is Clear Type of Hallucinations: Visual: Yes, Auditory: Yes, Command: Yes - Level of Consciousness Level of Consciousness: Alert Orientation: Yes Intact, Yes Orientated to Time, Yes Orientated to Place, Yes Orientated to Person - Impulse Control Impulse Control: Poor - Insight and Judgement Insight and Judgement: Impaired - Group Participation Particating in Group Activities: No - Medication Management Medication Management Adherence: Partial Assessment - Assessment Merits Inpatient Hospitalization: For Immediate Safety, For Stabilization Inpatient DSM-V Dx: F31.2 Clinical Impression: 57 y.o. , white female with a history of chronic alcoholism, now in sustained remission, cirrhosis, anxiety and depression, several psychiatric hospitalizations as well as serial non-adherence with outpatient mental health services, who is transferred from medicine where she was stabilized from benzodiazepine withdrawal seizures, who now presents with florid manic symptoms and inability to care for herself in a less restrictive environment. Plan - Plan Treatment Plan: Name: LAYO DE JESUS Birthdate: 1960 [id number] The patient has been taken off antidepressant and benzodiazapine therapies. We are currently pursuing a cross-titration between phenytoin, which is being slowly weaned, and carbamazepine, which is being increased (currently 400mg PO BID). We are augmenting her treatment with quetiapine 200mg PO qhs. The patient is unsafe to be treated in a less restrictive setting and warrants continued inpatient intensive psychiatric care. Continued Medication Management: Different Medication Medications: Current Medications Al Hydrox/Mg Hydrox/Simethicone (Maalox Plus*) 30 ml PO Q4H PRN PRN Reason: INDIGESTION Aspirin (Aspirin Ec Tab*) 81 mg PO DAILY [facility] Last Admin: 09/14/17 08:23 Dose: 81 mg Carbamazepine (Tegretol Tab(*)) 400 mg PO BID [facility] Last Admin: 09/14/17 08:23 Dose: 400 mg Carvedilol (Coreg Tab*) 3.125 mg PO BID [facility] Last Admin: 09/14/17 08:23 Dose: 3.125 mg Device (Nicotine Mouth Piece*) 1 each INH .USE WITH NICOTROL PRN PRN Reason: CRAVING Last Admin: 09/13/17 22:10 Dose: 1 each Docusate Sodium (Colace Cap*) 100 mg PO BID PRN PRN Reason: CONSTIPATION Folic Acid (Folvite Tab*) 1 mg PO DAILY [facility] Last Admin: 09/14/17 08:24 Dose: 1 mg Haloperidol (Haldol Tab*) 5 mg PO Q6H PRN PRN Reason: AGITATION Last Admin: 09/12/17 03:20 Dose: 5 mg Ibuprofen (Motrin Tab*) 400 mg PO Q4H PRN PRN Reason: PAIN Last Admin: 09/13/17 09:14 Dose: 400 mg Lactulose (Lactulose*) 30 ml PO QID [facility] Last Admin: 09/14/17 08:22 Dose: 30 ml Nicotine (Nicotine Inhaler*) 10 mg INH Q2H PRN PRN Reason: CRAVING Last Admin: 09/14/17 09:15 Dose: 10 mg Phenytoin Sodium (Dilantin Cap(*)) 200 mg PO BEDTIME [facility]; Taper Stop: 09/19/17 20:59 Last Admin: 09/13/17 22:19 Dose: Not Given Potassium Chloride (Klor Con Er Tab*) 20 meq PO DAILY [facility] Last Admin: 09/14/17 08:23 Dose: 20 meq Quetiapine Fumarate (Seroquel Tab*) 200 mg PO BEDTIME [facility] Last Admin: 09/13/17 22:19 Dose: Not Given Spironolactone (Aldactone Tab*) 25 mg PO DAILY [facility] Last Admin: 09/14/17 08:23 Dose: 25 mg Zonisamide (Zonegran (Nf)) 200 mg PO DAILY [facility]; Protocol Last Admin: 09/14/17 08:22 Dose: 200 mg - Discharge Plan Discharge Plan: Inpatient Hospitalization
[2017-09-14] MEDS: Ibuprofen TAB* 400 MG PO PRN (13:47)
[2017-09-14] MEDS: Haloperidol TAB* 5 MG PO PRN (15:59)
[2017-09-14] MEDS: QUEtiapine TAB* 100 MG PO SCH (21:43)
[2017-09-14] MEDS: Phenytoin CAP(*) 100 MG CAP.ER PO SCH (21:43)
[2017-09-15] MEDS: Aspirin EC TAB* 81 MG TAB.EC PO SCH (07:51)
[2017-09-15] MEDS: CMC:Zonisamide (NF) 50 MG CAP PO SCH (07:51)
[2017-09-15] MEDS: Folic Acid TAB* 1 MG PO SCH (07:51)
[2017-09-15] MEDS: Spironolactone TAB* 25 MG PO SCH (07:51)
[2017-09-15] MEDS: carBAMazepine TAB(*) 200 MG PO SCH ×2 (07:52→20:02)
[2017-09-15] MEDS: Carvedilol TAB* 3.125 MG PO SCH ×2 (07:52→20:02)
[2017-09-15] MEDS: Potassium Chlor TAB* 20 MEQ TAB.ER PO SCH (07:52)
[2017-09-15] MEDS: Haloperidol TAB* 5 MG PO PRN (11:43)
[2017-09-15] MEDS: Nicotine Inhaler* 10 MG AMP INH PRN ×2 (11:43→18:37)
[2017-09-15] MEDS: Phenytoin CAP(*) 100 MG CAP.ER PO SCH (20:03)
[2017-09-15] MEDS: QUEtiapine TAB* 100 MG PO SCH (20:03)
[2017-09-16] MEDS: Nicotine Inhaler* 10 MG AMP INH PRN ×7 (03:40→23:50)
[2017-09-16] MEDS: CMC:Zonisamide (NF) 50 MG CAP PO SCH (08:07)
[2017-09-16] MEDS: Aspirin EC TAB* 81 MG TAB.EC PO SCH (08:07)
[2017-09-16] MEDS: Potassium Chlor TAB* 20 MEQ TAB.ER PO SCH (08:07)
[2017-09-16] MEDS: Carvedilol TAB* 3.125 MG PO SCH ×2 (08:07→20:44)
[2017-09-16] MEDS: carBAMazepine TAB(*) 200 MG PO SCH ×2 (08:08→20:44)
[2017-09-16] MEDS: Folic Acid TAB* 1 MG PO SCH (08:09)
[2017-09-16] MEDS: Spironolactone TAB* 25 MG PO SCH (08:09)
--- NOTE | 2017-09-16 10:48 | PN ---
Subjective - Subjective Date of Service: 09/16/17 Service Type: 18174 Hosp care 15 min low complexity Subjective: Layo presents as tearful, labile and angry. "My daughter thinks that you're a chrissie. Wait till you deal with her. She's more hard-headed than I am." Layo is adherent with medications but remains confused and manic. There have been no reported seizure episodes. She denies SI or HI. Objective - Appearance Appearance: Well Developed/Nourished Dysmorphic Features: No Hygiene: Normal Grooming: Fairly Well Kept - Behavior Psychomotor Activities: Abnormal-Increased Exhibits Abnormal Movement: No - Attitude and Relatedness Attitude and Relatedness: Psychotically Related - Speech Quality: Pressured Latencies: Short Quantity: Copious - Mood Patient's Decription of Mood: "Irritable" - Affect Observed Affect: Labile Affect Consistent with: Dysphoria - Thought Process Patient's Thought Process: Filght of Ideas Thought Content: Yes Paranoid Ideation, No Passive Wish, No Suicidal Planning, No Homicidal Ideation - Sensorium Experiencing Hallucinations: No, Sensorium is Clear Type of Hallucinations: Visual: No, Auditory: No, Command: No - Level of Consciousness Level of Consciousness: Alert Orientation: Yes Intact, Yes Orientated to Time, Yes Orientated to Place, Yes Orientated to Person - Impulse Control Impulse Control: Poor - Insight and Judgement Insight and Judgement: Impaired - Group Participation Particating in Group Activities: No - Medication Management Medication Management Adherence: Yes Assessment - Assessment Merits Inpatient Hospitalization: For Immediate Safety, For Stabilization Inpatient DSM-V Dx: F31.2 Clinical Impression: 57 y.o. , white female with a history of chronic alcoholism, now in sustained remission, cirrhosis, anxiety and depression, several psychiatric hospitalizations as well as serial non-adherence with outpatient mental health services, who is transferred from medicine where she was stabilized from benzodiazepine withdrawal seizures, who now presents with florid manic symptoms and inability to care for herself in a less restrictive environment. Plan - Plan Treatment Plan: Name: LAYO DE JESUS Birthdate: 1960 [id number] The patient has been taken off antidepressant and benzodiazapine therapies. We are currently pursuing a cross-titration between phenytoin, which is being slowly weaned, and carbamazepine, which is being increased (currently 400mg PO BID). We collect CMP, CBC and carbamazepine level in the AM. We are augmenting her treatment with quetiapine 200mg PO qhs and this will be increased to 300mg nightly. The patient is unsafe to be treated in a less restrictive setting and warrants continued inpatient intensive psychiatric care. Continued Medication Management: Different Medication Medications: Current Medications Al Hydrox/Mg Hydrox/Simethicone (Maalox Plus*) 30 ml PO Q4H PRN PRN Reason: INDIGESTION Aspirin (Aspirin Ec Tab*) 81 mg PO DAILY [facility] Last Admin: 09/16/17 08:07 Dose: 81 mg Carbamazepine (Tegretol Tab(*)) 400 mg PO BID [facility] Last Admin: 09/16/17 08:08 Dose: 400 mg Carvedilol (Coreg Tab*) 3.125 mg PO BID [facility] Last Admin: 09/16/17 08:07 Dose: 3.125 mg Device (Nicotine Mouth Piece*) 1 each INH .USE WITH NICOTROL PRN PRN Reason: CRAVING Last Admin: 09/13/17 22:10 Dose: 1 each Docusate Sodium (Colace Cap*) 100 mg PO BID PRN PRN Reason: CONSTIPATION Folic Acid (Folvite Tab*) 1 mg PO DAILY [facility] Last Admin: 09/16/17 08:09 Dose: 1 mg Haloperidol (Haldol Tab*) 5 mg PO Q6H PRN PRN Reason: AGITATION Last Admin: 09/15/17 11:43 Dose: 5 mg Ibuprofen (Motrin Tab*) 400 mg PO Q4H PRN PRN Reason: PAIN Last Admin: 09/14/17 13:47 Dose: 400 mg Lactulose (Lactulose*) 30 ml PO QID [facility] Last Admin: 09/16/17 08:09 Dose: 30 ml Nicotine (Nicotine Inhaler*) 10 mg INH Q2H PRN PRN Reason: CRAVING Last Admin: 09/16/17 08:10 Dose: 10 mg Phenytoin Sodium (Dilantin Cap(*)) 200 mg PO BEDTIME [facility]; Taper Stop: 09/19/17 20:59 Last Admin: 09/15/17 20:03 Dose: 200 mg Potassium Chloride (Klor Con Er Tab*) 20 meq PO DAILY [facility] Last Admin: 09/16/17 08:07 Dose: 20 meq Quetiapine Fumarate (Seroquel Tab*) 300 mg PO BEDTIME [facility] Spironolactone (Aldactone Tab*) 25 mg PO DAILY [facility] Last Admin: 09/16/17 08:09 Dose: 25 mg Zonisamide (Zonegran (Nf)) 200 mg PO DAILY [facility]; Protocol Last Admin: 09/16/17 08:07 Dose: 200 mg - Discharge Plan Discharge Plan: Inpatient Hospitalization
[2017-09-16] MEDS: Ibuprofen TAB* 400 MG PO PRN ×2 (15:55→23:50)
[2017-09-16] MEDS: QUEtiapine TAB* 100 MG PO SCH ×2 (20:33→23:50)
[2017-09-16] MEDS: Phenytoin CAP(*) 100 MG CAP.ER PO SCH (20:44)
[2017-09-17] MEDS: Nicotine Inhaler* 10 MG AMP INH PRN ×3 (05:15→16:42)
[2017-09-17] MEDS: Haloperidol TAB* 5 MG PO PRN (05:15)
[2017-09-17] MEDS: Ibuprofen TAB* 400 MG PO PRN (05:15)
[2017-09-17] MEDS: Carvedilol TAB* 3.125 MG PO SCH ×2 (08:20→21:08)
[2017-09-17] MEDS: Folic Acid TAB* 1 MG PO SCH (08:21)
[2017-09-17] MEDS: CMC:Zonisamide (NF) 50 MG CAP PO SCH (08:21)
[2017-09-17] MEDS: Spironolactone TAB* 25 MG PO SCH (08:21)
[2017-09-17] MEDS: Aspirin EC TAB* 81 MG TAB.EC PO SCH (08:21)
[2017-09-17] MEDS: Potassium Chlor TAB* 20 MEQ TAB.ER PO SCH (08:21)
[2017-09-17 08:26] LABS: ABS Basophils 0.1 10^3/ul (0-0.2); ABS Eosinophils 0.2 10^3/ul (0-0.6); ABS Lymphocytes 1.1 10^3/ul (1.0-4.8); ABS Monocytes 0.4 10^3/ul (0-0.8); ABS Neutrophils 3.5 10^3/ul (1.5-7.7); ABS Nucleated RBC 0 10^3/ul; Eosinophil % 3.1 % (0-6); Hematocrit 39 % (35-47); Hemoglobin 13.4 g/dl (12.0-16.0); Lymphocyte % 21.6 % (25-47); Mean Corpuscular HGB Conc 34 g/dl (31-36); Mean Corpuscular Hemoglobin 32 pg (27-31); Mean Corpuscular Volume 93 fL (80-97); Mean Platelet Volume 7.8 um3 (7.4-10.4); Nucleated Red Blood Cells % 0.2; Platelet Count 142 10^3/ul (150-450); Red Blood Count 4.21 10^6/ul (4.00-5.40); Red Cell Distribution Width 15 % (10.5-15); White Blood Count 5.2 10^3/ul (3.5-10.8)
[2017-09-17 08:51] LABS: EGFR Non-African American 125.2 (>60)
[2017-09-17] MEDS: carBAMazepine TAB(*) 200 MG PO SCH ×2 (09:29→21:09)
--- NOTE | 2017-09-17 12:35 | PN ---
Subjective - Subjective Date of Service: 09/17/17 Service Type: [id number] Hosp care 15 min low complexity Subjective: The patient continues to take medication only reluctantly and with a great deal of staff redirection. She is insisting on being discharged home but continues to be confused and manic. On exam she is irritable with thought derailment and non-sequitur comments such as "They don't clean this place. I'm sitting in a mess. My apartment is spotless and he's getting ready to get on the bus." She denies SI or HI. Objective - Appearance Appearance: Well Developed/Nourished Dysmorphic Features: No Hygiene: Normal Grooming: Fairly Well Kept - Behavior Psychomotor Activities: Abnormal-Increased Exhibits Abnormal Movement: No - Attitude and Relatedness Attitude and Relatedness: Psychotically Related Eye Contact: Poor - Speech Quality: Pressured Latencies: Short Quantity: Copious - Mood Patient's Decription of Mood: "Terrible" - Affect Observed Affect: Labile Affect Consistent with: Dysphoria - Thought Process Patient's Thought Process: Disorganized, Tangential Thought Content: Yes Paranoid Ideation, No Passive Wish, No Suicidal Planning, No Homicidal Ideation - Sensorium Experiencing Hallucinations: No, Sensorium is Clear Type of Hallucinations: Visual: No, Auditory: No, Command: No - Level of Consciousness Level of Consciousness: Alert Orientation: Yes Intact, Yes Orientated to Time, Yes Orientated to Place, Yes Orientated to Person - Impulse Control Impulse Control: Poor - Insight and Judgement Insight and Judgement: Impaired - Group Participation Particating in Group Activities: No - Medication Management Medication Management Adherence: Partial Assessment - Assessment Merits Inpatient Hospitalization: For Immediate Safety, For Stabilization Inpatient DSM-V Dx: F31.2 Clinical Impression: 57 y.o. , white female with a history of chronic alcoholism, now in sustained remission, cirrhosis, anxiety and depression, several psychiatric hospitalizations as well as serial non-adherence with outpatient mental health services, who is transferred from medicine where she was stabilized from benzodiazepine withdrawal seizures, who now presents with florid manic symptoms and inability to care for herself in a less restrictive environment. Plan - Plan Treatment Plan: Name: LAYO DE JESUS Birthdate: 1960 [id number] The patient has been taken off antidepressant and benzodiazapine therapies. We are currently pursuing a cross-titration between phenytoin, which is being slowly weaned, and carbamazepine, which is being increased (currently 400mg PO BID). Tegretol level this morning was therapeutic at 8.0. We are augmenting her treatment with quetiapine 300mg PO qhs and this will be increased to 400mg nightly. The patient is unsafe to be treated in a less restrictive setting and warrants continued inpatient intensive psychiatric care. She may require injectable antipsychotic medication. Continued Medication Management: Different Medication Medications: Current Medications Al Hydrox/Mg Hydrox/Simethicone (Maalox Plus*) 30 ml PO Q4H PRN PRN Reason: INDIGESTION Aspirin (Aspirin Ec Tab*) 81 mg PO DAILY [facility] Last Admin: 09/17/17 08:21 Dose: 81 mg Carbamazepine (Tegretol Tab(*)) 400 mg PO BID [facility] Last Admin: 09/17/17 09:29 Dose: 400 mg Carvedilol (Coreg Tab*) 3.125 mg PO BID [facility] Last Admin: 09/17/17 08:20 Dose: 3.125 mg Device (Nicotine Mouth Piece*) 1 each INH .USE WITH NICOTROL PRN PRN Reason: CRAVING Last Admin: 09/13/17 22:10 Dose: 1 each Docusate Sodium (Colace Cap*) 100 mg PO BID PRN PRN Reason: CONSTIPATION Folic Acid (Folvite Tab*) 1 mg PO DAILY [facility] Last Admin: 09/17/17 08:21 Dose: 1 mg Haloperidol (Haldol Tab*) 5 mg PO Q6H PRN PRN Reason: AGITATION Last Admin: 09/17/17 05:15 Dose: 5 mg Ibuprofen (Motrin Tab*) 400 mg PO Q4H PRN PRN Reason: PAIN Last Admin: 09/17/17 05:15 Dose: 400 mg Lactulose (Lactulose*) 30 ml PO QID [facility] Last Admin: 09/17/17 08:21 Dose: 30 ml Nicotine (Nicotine Inhaler*) 10 mg INH Q2H PRN PRN Reason: CRAVING Last Admin: 09/17/17 10:59 Dose: 10 mg Phenytoin Sodium (Dilantin Cap(*)) 100 mg PO BEDTIME [facility]; Taper Stop: 09/19/17 20:59 Last Admin: 09/16/17 20:44 Dose: 100 mg Potassium Chloride (Klor Con Er Tab*) 20 meq PO DAILY [facility] Last Admin: 09/17/17 08:21 Dose: 20 meq Quetiapine Fumarate (Seroquel Tab*) 300 mg PO BEDTIME [facility] Quetiapine Fumarate (Seroquel Tab*) 100 mg PO BEDTIME [facility] Spironolactone (Aldactone Tab*) 25 mg PO DAILY [facility] Last Admin: 09/17/17 08:21 Dose: 25 mg Zonisamide (Zonegran (Nf)) 100 mg PO DAILY [facility]; Protocol - Discharge Plan Discharge Plan: Inpatient Hospitalization Lab Results - Lab Results Lab Results: 09/17/17 09/17/17 07:36 07:36 WBC 5.2 RBC 4.21 Hgb 13.4 Hct 39 MCV 93 MCH 32 H MCHC 34 RDW 15 Plt Count 142 L MPV 7.8 Neut % (Auto) 67.2 Lymph % (Auto) 21.6 L [place] % (Auto) 7.1 H Eos % (Auto) 3.1 Baso % (Auto) 1.0 Absolute Neuts (auto) 3.5 Absolute Lymphs (auto) 1.1 Absolute Monos (auto) 0.4 Absolute Eos (auto) 0.2 Absolute Basos (auto) 0.1 Absolute Nucleated RBC 0 Nucleated RBC % 0.2 Sodium 129 L Potassium 4.0 Chloride 95 L Carbon Dioxide 27 Anion Gap 7 BUN 10 Creatinine 0.51 Est GFR ( Amer) 151.5 Est GFR (Non-Af Amer) 125.2 BUN/Creatinine Ratio 19.6 Glucose 100 Calcium 9.1 Total Bilirubin 0.50 AST 25 ALT 39 Alkaline Phosphatase 139 H Total Protein 6.6 Albumin 3.7 Globulin 2.9 Albumin/Globulin Ratio 1.3 Carbamazepine 8.0
[2017-09-17] MEDS ORDERED: QUEtiapine TAB* 300 MG PO SCH (21:00)
[2017-09-17] MEDS ORDERED: QUEtiapine TAB* 100 MG PO SCH (21:00)
[2017-09-17] MEDS: Phenytoin CAP(*) 100 MG CAP.ER PO SCH (21:08)
[2017-09-18] MEDS: Nicotine Inhaler* 10 MG AMP INH PRN ×4 (07:48→21:20)
[2017-09-18] MEDS: Aspirin EC TAB* 81 MG TAB.EC PO SCH (09:40)
[2017-09-18] MEDS: CMC:Zonisamide (NF) 50 MG CAP PO SCH (09:41)
[2017-09-18] MEDS: Potassium Chlor TAB* 20 MEQ TAB.ER PO SCH (09:42)
[2017-09-18] MEDS: Spironolactone TAB* 25 MG PO SCH (09:42)
[2017-09-18] MEDS: Folic Acid TAB* 1 MG PO SCH (09:42)
[2017-09-18] MEDS: carBAMazepine TAB(*) 200 MG PO SCH ×2 (09:43→21:15)
[2017-09-18] MEDS: Carvedilol TAB* 3.125 MG PO SCH ×2 (09:43→21:16)
--- NOTE | 2017-09-18 10:21 | PN ---
Subjective - Subjective Date of Service: 09/18/17 Service Type: 85080 Hosp care 15 min low complexity Subjective: Patient up late into the night roaming the unit, being loud and disruptive, demanding discharge. Says she will self-discontinue all meds after discharge to home. Uncooperative and unsafe secondary to larry. Objective - Appearance Appearance: Well Developed/Nourished Dysmorphic Features: No Hygiene: Normal Grooming: Fairly Well Kept - Behavior Psychomotor Activities: Abnormal-Increased Exhibits Abnormal Movement: No - Attitude and Relatedness Attitude and Relatedness: Psychotically Related Eye Contact: Poor - Speech Quality: Pressured Latencies: Short Quantity: Copious - Mood Patient's Decription of Mood: "Irritable" - Affect Observed Affect: Labile Affect Consistent with: Dysphoria - Thought Process Patient's Thought Process: Disorganized, Tangential Thought Content: Yes Paranoid Ideation, No Passive Wish, No Suicidal Planning, No Homicidal Ideation - Sensorium Experiencing Hallucinations: No, Sensorium is Clear Type of Hallucinations: Visual: No, Auditory: No, Command: No - Level of Consciousness Level of Consciousness: Alert Orientation: Yes Intact, Yes Orientated to Time, Yes Orientated to Place, Yes Orientated to Person - Impulse Control Impulse Control: Poor - Insight and Judgement Insight and Judgement: Impaired - Group Participation Particating in Group Activities: No - Medication Management Medication Management Adherence: Partial Assessment - Assessment Merits Inpatient Hospitalization: For Immediate Safety, For Stabilization Inpatient DSM-V Dx: F31.2 Clinical Impression: 57 y.o. , white female with a history of chronic alcoholism, now in sustained remission, cirrhosis, anxiety and depression, several psychiatric hospitalizations as well as serial non-adherence with outpatient mental health services, who is transferred from medicine where she was stabilized from benzodiazepine withdrawal seizures, who now presents with florid manic symptoms and inability to care for herself in a less restrictive environment. Plan - Plan Treatment Plan: Name: LAYO DE JESUS Birthdate: 1960 [id number] The patient has been taken off antidepressant and benzodiazapine therapies. We are currently pursuing a cross-titration between phenytoin, which is being slowly weaned, and carbamazepine, which is being increased (currently 400mg PO BID). Tegretol level this morning was therapeutic at 8.0. We are augmenting her treatment with quetiapine 400mg PO qhs but this has been ineffective and we will switch to paliperidone 6mg PO qhs in hopes of preparing her for RAY treatment. The patient is unsafe to be treated in a less restrictive setting and warrants continued inpatient intensive psychiatric care. Continued Medication Management: Different Medication Medications: Current Medications Al Hydrox/Mg Hydrox/Simethicone (Maalox Plus*) 30 ml PO Q4H PRN PRN Reason: INDIGESTION Aspirin (Aspirin Ec Tab*) 81 mg PO DAILY [facility] Last Admin: 09/18/17 09:40 Dose: 81 mg Carbamazepine (Tegretol Tab(*)) 400 mg PO BID [facility] Last Admin: 09/18/17 09:43 Dose: 400 mg Carvedilol (Coreg Tab*) 3.125 mg PO BID [facility] Last Admin: 09/18/17 09:43 Dose: 3.125 mg Device (Nicotine Mouth Piece*) 1 each INH .USE WITH NICOTROL PRN PRN Reason: CRAVING Last Admin: 09/13/17 22:10 Dose: 1 each Docusate Sodium (Colace Cap*) 100 mg PO BID PRN PRN Reason: CONSTIPATION Folic Acid (Folvite Tab*) 1 mg PO DAILY [facility] Last Admin: 09/18/17 09:42 Dose: 1 mg Haloperidol (Haldol Tab*) 5 mg PO Q6H PRN PRN Reason: AGITATION Last Admin: 09/17/17 05:15 Dose: 5 mg Ibuprofen (Motrin Tab*) 400 mg PO Q4H PRN PRN Reason: PAIN Last Admin: 09/17/17 05:15 Dose: 400 mg Lactulose (Lactulose*) 30 ml PO QID [facility] Last Admin: 09/18/17 09:44 Dose: 30 ml Nicotine (Nicotine Inhaler*) 10 mg INH Q2H PRN PRN Reason: CRAVING Last Admin: 09/18/17 07:48 Dose: 10 mg Phenytoin Sodium (Dilantin Cap(*)) 100 mg PO BEDTIME [facility]; Taper Stop: 09/19/17 20:59 Last Admin: 09/17/17 21:08 Dose: 100 mg Potassium Chloride (Klor Con Er Tab*) 20 meq PO DAILY [facility] Last Admin: 09/18/17 09:42 Dose: 20 meq Quetiapine Fumarate (Seroquel Tab*) 300 mg PO BEDTIME [facility] Last Admin: 09/17/17 21:08 Dose: 300 mg Quetiapine Fumarate (Seroquel Tab*) 100 mg PO BEDTIME [facility] Last Admin: 09/17/17 21:08 Dose: 100 mg Spironolactone (Aldactone Tab*) 25 mg PO DAILY [facility] Last Admin: 09/18/17 09:42 Dose: 25 mg Zonisamide (Zonegran (Nf)) 100 mg PO DAILY [facility]; Protocol Last Admin: 09/18/17 09:41 Dose: 100 mg - Discharge Plan Discharge Plan: Inpatient Hospitalization Lab Results - Lab Results Lab Results: 09/17/17 09/17/17 09/17/17 07:36 07:36 12:47 WBC 5.2 RBC 4.21 Hgb 13.4 Hct 39 MCV 93 MCH 32 H MCHC 34 RDW 15 Plt Count 142 L MPV 7.8 Neut % (Auto) 67.2 Lymph % (Auto) 21.6 L [place] % (Auto) 7.1 H Eos % (Auto) 3.1 Baso % (Auto) 1.0 Absolute Neuts (auto) 3.5 Absolute Lymphs (auto) 1.1 Absolute Monos (auto) 0.4 Absolute Eos (auto) 0.2 Absolute Basos (auto) 0.1 Absolute Nucleated RBC 0 Nucleated RBC % 0.2 Sodium 129 L Potassium 4.0 Chloride 95 L Carbon Dioxide 27 Anion Gap 7 BUN 10 Creatinine 0.51 Est GFR ( Amer) 151.5 Est GFR (Non-Af Amer) 125.2 BUN/Creatinine Ratio 19.6 Glucose 100 Calcium 9.1 Total Bilirubin 0.50 AST 25 ALT 39 Alkaline Phosphatase 139 H Ammonia 62 H Total Protein 6.6 Albumin 3.7 Globulin 2.9 Albumin/Globulin Ratio 1.3 Carbamazepine 8.0
[2017-09-18] MEDS: Paliperidone ER TAB* 6 MG TAB.ER PO SCH (21:17)
[2017-09-18] MEDS: Phenytoin CAP(*) 100 MG CAP.ER PO SCH (21:17)
[2017-09-19] MEDS: Folic Acid TAB* 1 MG PO SCH (07:59)
[2017-09-19] MEDS: Aspirin EC TAB* 81 MG TAB.EC PO SCH (07:59)
[2017-09-19] MEDS: carBAMazepine TAB(*) 200 MG PO SCH ×2 (07:59→20:45)
[2017-09-19] MEDS: CMC:Zonisamide (NF) 50 MG CAP PO SCH (07:59)
[2017-09-19] MEDS: Carvedilol TAB* 3.125 MG PO SCH ×2 (07:59→20:46)
[2017-09-19] MEDS: Potassium Chlor TAB* 20 MEQ TAB.ER PO SCH (07:59)
[2017-09-19] MEDS: Spironolactone TAB* 25 MG PO SCH (07:59)
[2017-09-19] MEDS: Nicotine Inhaler* 10 MG AMP INH PRN ×3 (11:56→20:48)
--- NOTE | 2017-09-19 16:19 | PN ---
[facility]HU: Group Therapy Note - Service Type Service Type: [id number] Group Psychotherapy - Medication Education Group: Patient presented as disorganized and disruptive in discussion and needed repeated redirection to attend to presented materials. Patient receptive to redirection when monopolizing group.
[2017-09-19] MEDS: Paliperidone ER TAB* 6 MG TAB.ER PO SCH (20:46)
[2017-09-20] MEDS: CMC:Zonisamide (NF) 50 MG CAP PO SCH (08:16)
[2017-09-20] MEDS: Carvedilol TAB* 3.125 MG PO SCH ×2 (08:17→21:01)
[2017-09-20] MEDS: Folic Acid TAB* 1 MG PO SCH (08:17)
[2017-09-20] MEDS: Aspirin EC TAB* 81 MG TAB.EC PO SCH (08:17)
[2017-09-20] MEDS: Spironolactone TAB* 25 MG PO SCH (08:17)
[2017-09-20] MEDS: Potassium Chlor TAB* 20 MEQ TAB.ER PO SCH (08:17)
[2017-09-20] MEDS: carBAMazepine TAB(*) 200 MG PO SCH ×2 (08:17→21:00)
[2017-09-20] MEDS: Nicotine Inhaler* 10 MG AMP INH PRN ×3 (08:24→16:55)
[2017-09-20] MEDS ORDERED: Paliperidone SUSTENNA* 234 MG/1.5 ML IM ONE (09:00)
--- NOTE | 2017-09-20 13:14 | PN ---
Subjective - Subjective Date of Service: 09/20/17 Service Type: 04066 Hosp care 15 min low complexity Subjective: Layo is slightly irritable, mostly on the subject of wanting to leave the hospital today instead of Saturday. I remind her of the agreement we made yesterday in court, in which she agreed to stay until September 23 so we could enroll her in ACT services and give her her booster of paliperidone Sustenna. She received the loading dose of this this morning and is tolerating it well. She denies SI or HI. Objective - Appearance Appearance: Well Developed/Nourished Dysmorphic Features: No Hygiene: Normal Grooming: Well Kept - Behavior Psychomotor Activities: Normal Exhibits Abnormal Movement: No - Attitude and Relatedness Attitude and Relatedness: Irritable Eye Contact: Fair - Speech Quality: Unpressured Latencies: Normal Quantity: Appropriate - Mood Patient's Decription of Mood: "Good" - Affect Observed Affect: Fair Affect Consistent with: Euthymia - Thought Process Patient's Thought Process: Coherent Thought Content: No Passive Wish, No Suicidal Planning, No Homicidal Ideation, No Paranoid Ideation - Sensorium Experiencing Hallucinations: No, Sensorium is Clear Type of Hallucinations: Visual: No, Auditory: No, Command: No - Level of Consciousness Level of Consciousness: Alert Orientation: Yes Intact, Yes Orientated to Time, Yes Orientated to Place, Yes Orientated to Person - Impulse Control Impulse Control: Tenuous - Insight and Judgement Insight and Judgement: Fair - Group Participation Particating in Group Activities: Yes - Medication Management Medication Management Adherence: Yes Assessment - Assessment Merits Inpatient Hospitalization: Consolidate Improvements, Pending Safe DC Plan Inpatient DSM-V Dx: F31.2 Clinical Impression: 57 y.o. , white female with a history of chronic alcoholism, now in sustained remission, cirrhosis, anxiety and depression, several psychiatric hospitalizations as well as serial non-adherence with outpatient mental health services, who is transferred from medicine where she was stabilized from benzodiazepine withdrawal seizures, who now presents with florid manic symptoms and inability to care for herself in a less restrictive environment. Plan - Plan Treatment Plan: Name: LAYO DE JESUS Birthdate: 1960 [id number] The patient has been taken off antidepressant and benzodiazapine therapies and her anticonvulsant was changed from phenytoin/zonisimide polytherapy to carbamazepine monotherapy at the dose of 400mg PO BID. Tegretol level is therapeutic at 8.0 (09/17). We are augmenting her treatment with paliperidone Sustenna, which she received the loading 234mg dose of today (09/20), and will need a booster dose (already ordered) on Saturday, September 23. If she is good through the weekend and tolerating the RAY well, I have told her we will likely discharge her on Saturday. SW is working on getting her referred to the local [facility] ([facility]. I have called her primary care provider, Abe Pino, to strongly dissuade him from resuming benzodiazepine therapy. Continued Medication Management: Different Medication Medications: Current Medications Al Hydrox/Mg Hydrox/Simethicone (Maalox Plus*) 30 ml PO Q4H PRN PRN Reason: INDIGESTION Aspirin (Aspirin Ec Tab*) 81 mg PO DAILY [facility] Last Admin: 09/20/17 08:17 Dose: 81 mg Carbamazepine (Tegretol Tab(*)) 400 mg PO BID [facility] Last Admin: 09/20/17 08:17 Dose: 400 mg Carvedilol (Coreg Tab*) 3.125 mg PO BID [facility] Last Admin: 09/20/17 08:17 Dose: 3.125 mg Device (Nicotine Mouth Piece*) 1 each INH .USE WITH NICOTROL PRN PRN Reason: CRAVING Last Admin: 09/13/17 22:10 Dose: 1 each Docusate Sodium (Colace Cap*) 100 mg PO BID PRN PRN Reason: CONSTIPATION Folic Acid (Folvite Tab*) 1 mg PO DAILY [facility] Last Admin: 09/20/17 08:17 Dose: 1 mg Haloperidol (Haldol Tab*) 5 mg PO Q6H PRN PRN Reason: AGITATION Last Admin: 09/17/17 05:15 Dose: 5 mg Ibuprofen (Motrin Tab*) 400 mg PO Q4H PRN PRN Reason: PAIN Last Admin: 09/17/17 05:15 Dose: 400 mg Lactulose (Lactulose*) 30 ml PO QID [facility] Last Admin: 09/20/17 13:05 Dose: Not Given Nicotine (Nicotine Inhaler*) 10 mg INH Q2H PRN PRN Reason: CRAVING Last Admin: 09/20/17 08:24 Dose: 10 mg Potassium Chloride (Klor Con Er Tab*) 20 meq PO DAILY [facility] Last Admin: 09/20/17 08:17 Dose: 20 meq Spironolactone (Aldactone Tab*) 25 mg PO DAILY [facility] Last Admin: 09/20/17 08:17 Dose: 25 mg - Discharge Plan Discharge Plan: Outpatient Follow Up Outpatient Program: ACT Team
[2017-09-21] MEDS: Nicotine Inhaler* 10 MG AMP INH PRN ×5 (04:14→15:28)
[2017-09-21] MEDS: Carvedilol TAB* 3.125 MG PO SCH ×2 (08:55→21:14)
[2017-09-21] MEDS: carBAMazepine TAB(*) 200 MG PO SCH ×2 (08:56→21:14)
[2017-09-21] MEDS: Potassium Chlor TAB* 20 MEQ TAB.ER PO SCH (08:56)
[2017-09-21] MEDS: Folic Acid TAB* 1 MG PO SCH (08:56)
[2017-09-21] MEDS: Aspirin EC TAB* 81 MG TAB.EC PO SCH (08:56)
[2017-09-21] MEDS: Spironolactone TAB* 25 MG PO SCH (08:56)
[2017-09-22] MEDS: Nicotine Inhaler* 10 MG AMP INH PRN ×2 (04:40→16:47)
[2017-09-22] MEDS: Folic Acid TAB* 1 MG PO SCH (09:18)
[2017-09-22] MEDS: Potassium Chlor TAB* 20 MEQ TAB.ER PO SCH (09:18)
[2017-09-22] MEDS: Aspirin EC TAB* 81 MG TAB.EC PO SCH (09:18)
[2017-09-22] MEDS: Spironolactone TAB* 25 MG PO SCH (09:19)
[2017-09-22] MEDS: carBAMazepine TAB(*) 200 MG PO SCH ×2 (09:19→20:57)
[2017-09-22] MEDS: Carvedilol TAB* 3.125 MG PO SCH ×2 (09:19→20:57)
[2017-09-23] MEDS ORDERED: Mouth Piece, Nicotine* 1 EACH CARTRIDGE ONE (04:38)
[2017-09-23] MEDS: Nicotine Inhaler* 10 MG AMP INH PRN ×2 (04:39→11:56)
[2017-09-23] MEDS: Mouth Piece, Nicotine* 1 EACH CARTRIDGE INH PRN (04:39)
[2017-09-23] MEDS: Folic Acid TAB* 1 MG PO SCH (08:17)
[2017-09-23] MEDS: Aspirin EC TAB* 81 MG TAB.EC PO SCH (08:18)
[2017-09-23] MEDS: Potassium Chlor TAB* 20 MEQ TAB.ER PO SCH (08:18)
[2017-09-23] MEDS: carBAMazepine TAB(*) 200 MG PO SCH (08:18)
[2017-09-23] MEDS: Spironolactone TAB* 25 MG PO SCH (08:18)
[2017-09-23] MEDS: Carvedilol TAB* 3.125 MG PO SCH (08:19)
[2017-09-23] MEDS ORDERED: Paliperidone SUSTENNA* 156 MG/1 ML IM ONE (09:00)
[2017-09-23 09:33] VITALS: BP 110/67
--- NOTE | 2017-09-23 14:49 | PN ---
Subjective - Subjective Date of Service: 09/23/17 Service Type: 44344 Hosp care 15 min low complexity Subjective: Patient was seen by self, discussed with treatment team, chart was reviewed. Patient has been compliant with her medications, no reported side effects. Patient reports improvement n her symptoms, which was noticed by the staff as well. Patient sleeping has been good. Patient eating has been good. Patient has been cooperative with staff. Patient behavior has been in control, with no aggression and agitation, more organized behavior and thinking. Patient mood was stable. Patient has been reporting no suicidal or homicidal ideation. No psychotic symptoms of delusions or hallucinations. Patient was doing well, was not a danger to self and others, hence after discussing with team patient was discharged to family and medications were sent to her pharmacy for 14 days. Patient not interested in drug/alcohol treatment at this time but was encouraged to revisit that. Objective - Appearance Appearance: Thin Framed Dysmorphic Features: No Hygiene: Normal Grooming: Fairly Well Kept - Behavior Psychomotor Activities: Normal Exhibits Abnormal Movement: No - Attitude and Relatedness Attitude and Relatedness: Cooperative Eye Contact: Good - Speech Quality: Unpressured Latencies: Normal Quantity: Appropriate - Mood Patient's Decription of Mood: "Fine" - Affect Observed Affect: Good Affect Consistent with: Euthymia - Thought Process Patient's Thought Process: Coherent Thought Content: No Passive Wish, No Suicidal Planning, No Homicidal Ideation, No Paranoid Ideation - Sensorium Experiencing Hallucinations: No, Sensorium is Clear Type of Hallucinations: Visual: No, Auditory: No, Command: No - Level of Consciousness Orientation: Yes Intact, Yes Orientated to Time, Yes Orientated to Place, Yes Orientated to Person - Impulse Control Impulse Control: Intact - Insight and Judgement Insight and Judgement: Fair - Medication Management Medication Management Adherence: Yes Assessment - Assessment Inpatient DSM-V Dx: F31.2 Clinical Impression: Patient with history of Bipolar Disorder and psychotic features with alcohol and benzodizepine abuse. Patient currently admitted due to worsening of her symptoms and alcohol/Denys withdrawal. Patient has improved overtime after treatment over objection and more consistent medication management. Patient was stabilized on inpatient unit before discharge. Plan - Plan Treatment Plan: Name: LAYO DE JESUS Birthdate: 1960 [id number] - Discharge Plan Discharge Plan: Outpatient Follow Up Outpatient Program: ACT team
== END 2017-09-23 13:46 | disposition home or self-care (01) | DRG 885 ==
LOC: BSU 17:01
PROVIDERS: ADMIT Psychiatry & Neurology Psychiatry; ATTEND Psychiatry & Neurology Psychiatry
DX: F31.2 Bipolar disorder, current episode manic severe with psychotic features (principal); F15.20 Other stimulant dependence, uncomplicated; F12.10 Cannabis abuse, uncomplicated; F10.10 Alcohol abuse, uncomplicated; F17.210 Nicotine dependence, cigarettes, uncomplicated; G89.29 Other chronic pain; K74.60 Unspecified cirrhosis of liver; G40.909 Epilepsy, unspecified, not intractable, without status epilepticus; K72.90 Hepatic failure, unspecified without coma; Z79.82 Long term (current) use of aspirin; Z79.899 Other long term (current) drug therapy; Z88.0 Allergy status to penicillin; Z88.8 Allergy status to other drugs, medicaments and biological substances; Z81.3 Family history of other psychoactive substance abuse and dependence
CPT/HCPCS: 36415; 80053; 80061; 80156; 82140; 83036; 85025; 90853; 99222; 99231; 99238; A9270-GY; J2426

== ENCOUNTER 2018-08-08 14:30 | Inpatient (IN) | payer MEDICARE, MEDICAID ==
[2018-08-08] MEDS ORDERED: Norepinephrine 16MCG/ML IVPRE* 4,000 MCG/250 ML BAG IV ONE (14:40)
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
[2018-08-08] MEDS ORDERED: DOXYcycline IV* 100 MG in NS 0.9% 250 ML* 250 ML IVPB ONE (14:44)
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
[2018-08-08] MEDS ORDERED: NS 0.9% IVPB ONE (14:47)
[2018-08-08] MEDS ORDERED: GENTAMICIN ADULT IVPB ONE (14:47)
[2018-08-08] MEDS ORDERED: NS 0.9% 1000 ML** 1,000 ML IV ONE ×3 (14:48→16:10)
[2018-08-08] MEDS ORDERED: Rocuronium* 10 MG/ML VIAL ONE (15:00)
[2018-08-08] MEDS ORDERED: KETAMINE HCL* 50 MG/ML 10 ML VIAL ONE (15:00)
[2018-08-08] MEDS ORDERED: Norepinephrine 16MCG/ML IVPRE* 4,000 MCG/250 ML BAG IV SCH (15:00)
[2018-08-08] MEDS ORDERED: Rocuronium* 10 MG/ML VIAL IV ONE (15:07)
[2018-08-08] MEDS ORDERED: KETAMINE HCL* 50 MG/ML 10 ML VIAL IV ONE (15:07)
[2018-08-08 15:19] LABS: Hematocrit 39 % (35-47); Hemoglobin 12.6 g/dL (12.0-16.0); Mean Corpuscular HGB Conc 32 g/dL (31-36); Mean Corpuscular Hemoglobin 29 pg (27-31); Mean Corpuscular Volume 90 fL (80-97); Mean Platelet Volume 8.4 fL (7.4-10.4); Platelet Count 177 10^3/uL (150-450); Red Blood Count 4.36 10^6 /uL (3.70-4.87); Red Cell Distribution Width 17 % (10.5-15); White Blood Count 26.3 10^3/uL (3.5-10.8)
[2018-08-08 15:36] LABS: Urine Appearance Cloudy; Urine Bacteria 1+ (Absent); Urine Bilirubin Negative (Negative); Urine Blood 2+ (Negative); Urine Color Yellow; Urine Glucose Negative (Negative); Urine Ketones Negative (Negative); Urine Nitrite Negative (Negative); Urine Protein Negative (Negative); Urine Red Blood Cell Trace(0-2/hpf) (Absent); Urine Specific Gravity 1.008 (1.010-1.030); Urine Squamous Epithelial Cell Present (Absent); Urine Urobilinogen Negative (Negative); Urine White Blood Cell Trace(0-5/hpf) (Absent)
[2018-08-08 15:47] LABS: AST 756 U/L (13-39); Albumin/Globulin Ratio 1.1 (1-3); Alkaline Phosphatase 151 U/L (34-104); Anion Gap 13 mmol/L (2-11); BUN/Creatinine Ratio 21.9 (8-20); Blood Urea Nitrogen 74 mg/dL (6-24); CO2 Carbon Dioxide 24 mmol/L (22-32); Calcium 6.7 mg/dL (8.6-10.3); Chloride 99 mmol/L (101-111); EGFR African American 17.1 (>60); EGFR Non-African American 14.1 (>60); Globulin 2.7 g/dL (2-4); Glucose 187 mg/dL (70-100); Magnesium 2.2 mg/dL (1.9-2.7); Phosphorus 7.3 mg/dL (2.5-5.0); Potassium 4.5 mmol/L (3.5-5.0); Sodium 136 mmol/L (135-145); Total Protein 5.7 g/dL (6.4-8.9)
[2018-08-08 15:48] LABS: ABS Basophils 0.1 10^3/ul (0-0.2); ABS Lymphocytes 0.3 10^3/ul (1.0-4.8); ABS Monocytes 0.3 10^3/ul (0-0.8); ABS Neutrophils 25.7 10^3/ul (1.5-7.7); Nucleated Red Blood Cells % 0.1
[2018-08-08] MEDS ORDERED: Famotidine IV * 20 MG in NS 0.9% 100 ML* 100 ML IVPB SCH (16:00)
[2018-08-08] MEDS ORDERED: Midazolam IV for DRIP* 100 MG in NS 0.9% 100 ML* 80 ML IV SCH (16:00)
[2018-08-08 16:04] LABS: Urine Benzodiazepine Screen None Detected (None Detect); Urine Opiates Screen None Detected (None Detect)
[2018-08-08] MEDS ORDERED: ED Vancomycin 1 GM/250 ML 1 GM/250 ML PREMIX.SET IVPB ONE (16:05)
[2018-08-08] MEDS ORDERED: Propofol* 100 ML ONE (16:13)
[2018-08-08] MEDS ORDERED: Gentamicin ADULT (*) 200 MG in NS 0.9% 100 ML* 100 ML IVPB ONE (16:30)
[2018-08-08 17:15] LABS: ALT 977 U/L (7-52)
[2018-08-08 18:15] LABS: Hematocrit 40 % (35-47); Hemoglobin 12.7 g/dL (12.0-16.0); Mean Corpuscular HGB Conc 32 g/dL (31-36); Mean Corpuscular Hemoglobin 29 pg (27-31); Mean Corpuscular Volume 91 fL (80-97); Mean Platelet Volume 8.4 fL (7.4-10.4); Platelet Count 204 10^3/uL (150-450); Red Cell Distribution Width 17 % (10.5-15); White Blood Count 31.4 10^3/uL (3.5-10.8)
[2018-08-08 18:17] LABS: ABS Basophils 0.2 10^3/ul (0-0.2); ABS Eosinophils 0.1 10^3/ul (0-0.6); ABS Lymphocytes 0.3 10^3/ul (1.0-4.8); ABS Monocytes 0.3 10^3/ul (0-0.8); ABS Neutrophils 30.5 10^3/ul (1.5-7.7); Eosinophil % 0.3 %; Lymphocyte % 1.1 %
[2018-08-08 18:20] LABS: Troponin I 0.32 ng/mL (<0.04)
[2018-08-08 18:26] LABS: Activated Partial Thrombo Time 28.1 seconds (26.0-38.0); INR 1.54 (0.82-1.09)
[2018-08-08 18:33] LABS: EGFR African American 25.1 (>60); EGFR Non-African American 20.8 (>60)
[2018-08-08] MEDS: NS 0.9% 1000 ML** 1,000 ML IV SCH (18:40)
[2018-08-08] MEDS: Propofol* 100 ML IV SCH ×3 (18:40→23:30)
[2018-08-08] MEDS: Norepinephrine 16MCG/ML IVPRE* 4,000 MCG/250 ML BAG IV SCH ×3 (18:41→20:56)
[2018-08-08] MEDS: Chlorhexidine MOUTHWASH 0.12%* 15 ML UDC TOPICAL SCH ×2 (18:42→20:36)
--- NOTE | 2018-08-08 18:46 | OP ---
Operative Report - Blank - Operative Report Date of Operation: 08/08/18 Note: Right Triple lumen catheter note Procedure: Central Line Indication: Hypotension Anesthesia: 2% Lidocaine A time-out was completed, verifying correct patient, procedure, site, positioning, and implant(s) or special equipment if applicable. Patients right IJ area was prepped and draped in usual sterile fashion. 2% Lidocaine was used to anesthetize the area. A Triple lumen central line was introduced over a wire via the Seldinger technique, then sutured in place. Good blood flow was noted from all ports. The patient tolerated the procedure well. Chest x-ray was ordered to assess for pneumothorax and catheter placement. CXR wnl. Complications: None Blood loss: Minimal
[2018-08-08] MEDS: metroNIDAZOLE IV 500 MG/100ML* 500 MG/100 ML BAG IVPB SCH (18:54)
[2018-08-08] MEDS: Famotidine IV* 10 MG/ML 2 ML (20 mg) IV SLOW PU SCH (18:55)
[2018-08-08] MEDS ORDERED: Azithromycin 500 mg/250 ml NS 500 MG/250 ML BAG IVPB SCH (19:30)
[2018-08-08] MEDS: Albuterol/Ipratropium NEB.SOL* Albuterol 2.5 MG/Ipratropium 0.5 MG 3 ML INH SCH (19:31)
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
[2018-08-08] MEDS ORDERED: Vancomycin(*) 1,000 MG in NS 0.9% 250 ML* 250 ML IVPB ONE (20:00)
[2018-08-08] MEDS ORDERED: Dextrose 50% Syringe 50 ML* 25 GM/50 ML SYRINGE IV PUSH PRN (20:13)
[2018-08-08] MEDS: Aztreonam (*) 1 GM in NS 0.9% 50 ML* 50 ML IVPB SCH (20:29)
[2018-08-08] MEDS: Heparin VIAL(*) 5000 UNITS/ML VIAL (FIVE THOUSAND) SUBCUT SCH (20:36)
[2018-08-08] MEDS: busPIRone TAB* 15 MG PO SCH (20:36)
[2018-08-08 21:05] LABS: Troponin I 0.19 ng/mL (<0.04)
[2018-08-08] MEDS: Vancomycin(*) 1,000 MG in NS 0.9% 250 ML* 250 ML IVPB ONE (21:10)
[2018-08-09] MEDS: Chlorhexidine MOUTHWASH 0.12%* 15 ML UDC TOPICAL SCH ×7 (00:14→23:21)
[2018-08-09] MEDS: Insulin LISPRO* 1 UNITS UNIT SUBCUT SCH ×5 (00:38→23:38)
[2018-08-09] MEDS: Norepinephrine 16MCG/ML IVPRE* 4,000 MCG/250 ML BAG IV SCH ×2 (00:41→06:40)
[2018-08-09] MEDS: metroNIDAZOLE IV 500 MG/100ML* 500 MG/100 ML BAG IVPB SCH ×3 (00:41→17:10)
[2018-08-09] MEDS: NS 0.9% 1000 ML** 1,000 ML IV SCH ×4 (00:44→21:26)
[2018-08-09 00:51] LABS: Troponin I 0.16 ng/mL (<0.04)
[2018-08-09] MEDS: Albuterol/Ipratropium NEB.SOL* Albuterol 2.5 MG/Ipratropium 0.5 MG 3 ML INH SCH ×4 (01:54→19:09)
[2018-08-09 03:09] LABS: Troponin I 0.15 ng/mL (<0.04)
[2018-08-09] MEDS: Propofol* 100 ML IV SCH ×5 (04:00→22:53)
[2018-08-09] MEDS: Heparin VIAL(*) 5000 UNITS/ML VIAL (FIVE THOUSAND) SUBCUT SCH ×3 (05:09→21:18)
[2018-08-09 06:03] LABS: Hematocrit 39 % (35-47); Hemoglobin 12.6 g/dL (12.0-16.0); Mean Corpuscular HGB Conc 33 g/dL (31-36); Mean Corpuscular Hemoglobin 29 pg (27-31); Mean Corpuscular Volume 89 fL (80-97); Mean Platelet Volume 7.9 fL (7.4-10.4); Platelet Count 188 10^3/uL (150-450); Red Blood Count 4.36 10^6 /uL (3.70-4.87); Red Cell Distribution Width 17 % (10.5-15)
[2018-08-09 06:28] LABS: Anion Gap 10 mmol/L (2-11); BUN/Creatinine Ratio 38.3 (8-20); Blood Urea Nitrogen 49 mg/dL (6-24); CO2 Carbon Dioxide 24 mmol/L (22-32); Calcium 6.9 mg/dL (8.6-10.3); Chloride 106 mmol/L (101-111); Creatine Kinase 693 U/L (10-223); EGFR African American 52.4 (>60); EGFR Non-African American 43.3 (>60); Glucose 166 mg/dL (70-100); Potassium 3.6 mmol/L (3.5-5.0); Sodium 140 mmol/L (135-145)
[2018-08-09 06:32] LABS: Troponin I 0.16 ng/mL (<0.04)
[2018-08-09 07:31] LABS: ABS Lymphocytes 0.3 10^3/ul (1.0-4.8); ABS Monocytes 0.5 10^3/ul (0-0.8); ABS Neutrophils 22.2 10^3/ul (1.5-7.7); ABS Nucleated RBC 0.1 10^3/ul; Lymphocyte % 1.1 %; Nucleated Red Blood Cells % 0.2
[2018-08-09] MEDS: Aztreonam (*) 1 GM in NS 0.9% 50 ML* 50 ML IVPB SCH ×2 (08:16→22:11)
[2018-08-09] MEDS: Famotidine IV* 10 MG/ML 2 ML (20 mg) IV SLOW PU SCH (10:59)
[2018-08-09] MEDS: Thiamine TAB* 100 MG TAB PO SCH (11:00)
[2018-08-09] MEDS: Citalopram TAB* 20 MG PO SCH (11:00)
[2018-08-09] MEDS: Folic Acid TAB* 1 MG PO SCH (11:00)
[2018-08-09] MEDS: Cyanocobalamin TAB* 500 MCG PO SCH (11:00)
[2018-08-09] MEDS: busPIRone TAB* 15 MG PO SCH ×2 (11:00→21:18)
[2018-08-09] MEDS: Multivitamins/Minerals TAB PO SCH (11:00)
--- NOTE | 2018-08-09 12:41 | PN ---
Date of Service: 08/09/18 Critical Care Services: 24 Hour Events H.influenza in sputum renal functions improving. good uop AF. Decreasing Vasopressor needs ABG's improved and good oxygenation on minimal vent settings Left lobe atelectasis. cholelithiasis with GS's(old) not having good BM's despite lactulose Vital Signs: Temp Pulse Resp BP SpO2 FiO2 98.2 F 84 18 101/55 96 96 08/09/18 12:00 08/09/18 12:19 08/09/18 12:19 08/09/18 07:45 08/09/18 12:19 08/09 12:19 Physical Exam: Gen:intubated. sedated. Lungs: coarse BS's. no wheezing. not using accessory muscles Cardiac: RRR Abdomen:+ BS's, soft, NTP Extremities: No SAFIA Neuro: Sedated. Not following. moving all extremities per nursing when awake Fluid Balance (Past 24 Hours): I= O= Net Intake & Output 08/07/18 08/08/18 08/09/18 08/10/18 06:59 06:59 06:59 06:59 Intake Total 5183 Output Total 5840 1290 Balance -657 -1290 Weight 183 lb 3.266 oz Intake: IV Fluids 3935 ABX - VANCOMYCIN 242 NS (0.9%) 2693 IVPB 269 NS (0.9%) 269 Medicated IV 979 CC - Norepinephrine/ 655 Levophed CC - Propofol/Diprivan 324 Output: [place] 5840 1290 Labs: Laboratory Results - last 24 hr 08/08/18 08/08/18 08/08/18 14:51 14:51 14:51 WBC 26.3 H RBC 4.36 Hgb 12.6 Hct 39 MCV 90 MCH 29 MCHC 32 RDW 17 H Plt Count 177 MPV 8.4 Neut % (Auto) 97.8 Lymph % (Auto) 1.0 Walsh % (Auto) 1.0 Eos % (Auto) 0.0 Baso % (Auto) 0.2 Absolute Neuts (auto) 25.7 H Absolute Lymphs (auto) 0.3 L Absolute Monos (auto) 0.3 Absolute Eos (auto) 0.0 Absolute Basos (auto) 0.1 Absolute Nucleated RBC 0.0 Nucleated RBC % 0.1 INR (Anticoag Therapy) APTT Patient Temperature ABG pH ABG pH (Temp Correct) ABG pCO2 ABG pCO2 (Temp Corrct ABG pO2 ABG pO2 (Temp Correct ABG HCO3 ABG O2 Saturation ABG Base Excess Respiration Rate O2 Delivery Device Ventilator Type Vent Mode FiO2 Inspiratory Time PEEP Pressure Support Pressure Control EPAP IPAP BiPAP Sodium 136 Potassium 4.5 Chloride 99 L Carbon Dioxide 24 Anion Gap 13 H BUN 74 H Creatinine 3.38 H Est GFR ( Amer) 17.1 Est GFR (Non-Af Amer) 14.1 BUN/Creatinine Ratio 21.9 H Glucose 187 H POC Glucose (mg/dL) Lactic Acid Calcium 6.7 L Phosphorus 7.3 H Magnesium 2.2 Total Bilirubin 0.80 AST 756 H ALT 977 H Alkaline Phosphatase 151 H Ammonia 70 H Total Creatine Kinase Troponin I 0.32 H* Total Protein 5.7 L Albumin 3.0 L Globulin 2.7 Albumin/Globulin Ratio 1.1 TSH Urine Color Urine Appearance Urine pH Ur Specific [place] Urine Protein Urine Ketones Urine Blood Urine Nitrate Urine Bilirubin Urine Urobilinogen Ur Leukocyte Esterase Urine WBC (Auto) Urine RBC (Auto) Ur Squamous Epith Cells Urine Bacteria Urine Glucose Urine Opiates Screen Ur Barbiturates Screen Ur Phencyclidine Scrn Ur Amphetamines Screen U Benzodiazepines Scrn Urine Cocaine Screen U Cannabinoids Screen 08/08/18 08/08/18 08/08/18 14:51 14:51 15:17 WBC RBC Hgb Hct MCV MCH MCHC RDW Plt Count MPV Neut % (Auto) Lymph % (Auto) Walsh % (Auto) Eos % (Auto) Baso % (Auto) Absolute Neuts (auto) Absolute Lymphs (auto) Absolute Monos (auto) Absolute Eos (auto) Absolute Basos (auto) Absolute Nucleated RBC Nucleated RBC % INR (Anticoag Therapy) APTT 25.8 L Patient Temperature ABG pH ABG pH (Temp Correct) ABG pCO2 ABG pCO2 (Temp Corrct ABG pO2 ABG pO2 (Temp Correct ABG HCO3 ABG O2 Saturation ABG Base Excess Respiration Rate O2 Delivery Device Ventilator Type Vent Mode FiO2 Inspiratory Time PEEP Pressure Support Pressure Control EPAP IPAP BiPAP Sodium Potassium Chloride Carbon Dioxide Anion Gap BUN Creatinine Est GFR ( Amer) Est GFR (Non-Af Amer) BUN/Creatinine Ratio Glucose POC Glucose (mg/dL) Lactic Acid 1.7 Calcium Phosphorus Magnesium Total Bilirubin AST ALT Alkaline Phosphatase Ammonia Total Creatine Kinase Troponin I Total Protein Albumin Globulin Albumin/Globulin Ratio TSH Urine Color Yellow Urine Appearance Cloudy Urine pH 5.0 Ur Specific [place] 1.008 L Urine Protein Negative Urine Ketones Negative Urine Blood 2+ A Urine Nitrate Negative Urine Bilirubin Negative Urine Urobilinogen Negative Ur Leukocyte Esterase Negative Urine WBC (Auto) Trace(0-5/hpf) Urine RBC (Auto) Trace(0-2/hpf) Ur Squamous Epith Cells Present A Urine Bacteria 1+ A Urine Glucose Negative Urine Opiates Screen Ur Barbiturates Screen Ur Phencyclidine Scrn Ur Amphetamines Screen U Benzodiazepines Scrn Urine Cocaine Screen U Cannabinoids Screen 08/08/18 08/08/18 08/08/18 15:38 17:05 17:05 WBC RBC Hgb Hct MCV MCH MCHC RDW Plt Count MPV Neut % (Auto) Lymph % (Auto) Walsh % (Auto) Eos % (Auto) Baso % (Auto) Absolute Neuts (auto) Absolute Lymphs (auto) Absolute Monos (auto) Absolute Eos (auto) Absolute Basos (auto) Absolute Nucleated RBC Nucleated RBC % INR (Anticoag Therapy) 1.54 H APTT 28.1 Patient Temperature ABG pH ABG pH (Temp Correct) ABG pCO2 ABG pCO2 (Temp Corrct ABG pO2 ABG pO2 (Temp Correct ABG HCO3 ABG O2 Saturation ABG Base Excess Respiration Rate O2 Delivery Device Ventilator Type Vent Mode FiO2 Inspiratory Time PEEP Pressure Support Pressure Control EPAP IPAP BiPAP Sodium Potassium Chloride Carbon Dioxide Anion Gap BUN 64 H Creatinine 2.42 H Est GFR ( Amer) 25.1 Est GFR (Non-Af Amer) 20.8 BUN/Creatinine Ratio Glucose POC Glucose (mg/dL) Lactic Acid Calcium Phosphorus Magnesium Total Bilirubin AST ALT Alkaline Phosphatase Ammonia Total Creatine Kinase 1251 H Troponin I Total Protein Albumin Globulin Albumin/Globulin Ratio TSH Urine Color Urine Appearance Urine pH Ur Specific [place] Urine Protein Urine Ketones Urine Blood Urine Nitrate Urine Bilirubin Urine Urobilinogen Ur Leukocyte Esterase Urine WBC (Auto) Urine RBC (Auto) Ur Squamous Epith Cells Urine Bacteria Urine Glucose Urine Opiates Screen None detected Ur Barbiturates Screen None detected Ur Phencyclidine Scrn None detected Ur Amphetamines Screen None detected U Benzodiazepines Scrn None detected Urine Cocaine Screen None detected U Cannabinoids Screen None detected 08/08/18 08/08/18 08/08/18 17:05 17:55 17:56 WBC 31.4 H RBC 4.40 Hgb 12.7 Hct 40 MCV 91 MCH 29 MCHC 32 RDW 17 H Plt Count 204 MPV 8.4 Neut % (Auto) 97.0 Lymph % (Auto) 1.1 Walsh % (Auto) 0.9 Eos % (Auto) 0.3 Baso % (Auto) 0.7 Absolute Neuts (auto) 30.5 H Absolute Lymphs (auto) 0.3 L Absolute Monos (auto) 0.3 Absolute Eos (auto) 0.1 Absolute Basos (auto) 0.2 Absolute Nucleated RBC 0.0 Nucleated RBC % 0.0 INR (Anticoag Therapy) APTT Patient Temperature Not Reportable ABG pH 7.11 L* ABG pH (Temp Correct) Not Reportable ABG pCO2 64 H ABG pCO2 (Temp Corrct Not Reportable ABG pO2 246 H ABG pO2 (Temp Correct Not Reportable ABG HCO3 17.1 L ABG O2 Saturation 100.0 H ABG Base Excess -10.0 L Respiration Rate 16 O2 Delivery Device vent Ventilator Type 450 Vent Mode cmv FiO2 100 Inspiratory Time Not Reportable PEEP 5 Pressure Support Not Reportable Pressure Control Not Reportable EPAP Not Reportable IPAP Not Reportable BiPAP Not Reportable Sodium Potassium Chloride Carbon Dioxide Anion Gap BUN Creatinine Est GFR ( Amer) Est GFR (Non-Af Amer) BUN/Creatinine Ratio Glucose POC Glucose (mg/dL) Lactic Acid Calcium Phosphorus Magnesium Total Bilirubin AST ALT Alkaline Phosphatase Ammonia Total Creatine Kinase Troponin I Total Protein Albumin Globulin Albumin/Globulin Ratio TSH 0.99 Urine Color Urine Appearance Urine pH Ur Specific [place] Urine Protein Urine Ketones Urine Blood Urine Nitrate Urine Bilirubin Urine Urobilinogen Ur Leukocyte Esterase Urine WBC (Auto) Urine RBC (Auto) Ur Squamous Epith Cells Urine Bacteria Urine Glucose Urine Opiates Screen Ur Barbiturates Screen Ur Phencyclidine Scrn Ur Amphetamines Screen U Benzodiazepines Scrn Urine Cocaine Screen U Cannabinoids Screen 08/08/18 08/09/18 08/09/18 20:13 00:10 00:18 WBC RBC Hgb Hct MCV MCH MCHC RDW Plt Count MPV Neut % (Auto) Lymph % (Auto) Walsh % (Auto) Eos % (Auto) Baso % (Auto) Absolute Neuts (auto) Absolute Lymphs (auto) Absolute Monos (auto) Absolute Eos (auto) Absolute Basos (auto) Absolute Nucleated RBC Nucleated RBC % INR (Anticoag Therapy) APTT Patient Temperature ABG pH ABG pH (Temp Correct) ABG pCO2 ABG pCO2 (Temp Corrct ABG pO2 ABG pO2 (Temp Correct ABG HCO3 ABG O2 Saturation ABG Base Excess Respiration Rate O2 Delivery Device Ventilator Type Vent Mode FiO2 Inspiratory Time PEEP Pressure Support Pressure Control EPAP IPAP BiPAP Sodium Potassium Chloride Carbon Dioxide Anion Gap BUN Creatinine Est GFR ( Amer) Est GFR (Non-Af Amer) BUN/Creatinine Ratio Glucose POC Glucose (mg/dL) 215 H Lactic Acid Calcium Phosphorus Magnesium Total Bilirubin AST ALT Alkaline Phosphatase Ammonia Total Creatine Kinase Troponin I 0.19 H* 0.16 H* Total Protein Albumin Globulin Albumin/Globulin Ratio TSH Urine Color Urine Appearance Urine pH Ur Specific [place] Urine Protein Urine Ketones Urine Blood Urine Nitrate Urine Bilirubin Urine Urobilinogen Ur Leukocyte Esterase Urine WBC (Auto) Urine RBC (Auto) Ur Squamous Epith Cells Urine Bacteria Urine Glucose Urine Opiates Screen Ur Barbiturates Screen Ur Phencyclidine Scrn Ur Amphetamines Screen U Benzodiazepines Scrn Urine Cocaine Screen U Cannabinoids Screen 08/09/18 08/09/18 08/09/18 02:30 05:15 05:15 WBC 23.0 H RBC 4.36 Hgb 12.6 Hct 39 MCV 89 MCH 29 MCHC 33 RDW 17 H Plt Count 188 MPV 7.9 Neut % (Auto) 96.5 Lymph % (Auto) 1.1 Walsh % (Auto) 2.3 Eos % (Auto) 0.0 Baso % (Auto) 0.1 Absolute Neuts (auto) 22.2 H Absolute Lymphs (auto) 0.3 L Absolute Monos (auto) 0.5 Absolute Eos (auto) 0.0 Absolute Basos (auto) 0.0 Absolute Nucleated RBC 0.1 Nucleated RBC % 0.2 INR (Anticoag Therapy) APTT Patient Temperature ABG pH ABG pH (Temp Correct) ABG pCO2 ABG pCO2 (Temp Corrct ABG pO2 ABG pO2 (Temp Correct ABG HCO3 ABG O2 Saturation ABG Base Excess Respiration Rate O2 Delivery Device Ventilator Type Vent Mode FiO2 Inspiratory Time PEEP Pressure Support Pressure Control EPAP IPAP BiPAP Sodium 140 Potassium 3.6 Chloride 106 Carbon Dioxide 24 Anion Gap 10 BUN 49 H Creatinine 1.28 H Est GFR ( Amer) 52.4 Est GFR (Non-Af Amer) 43.3 BUN/Creatinine Ratio 38.3 H Glucose 166 H POC Glucose (mg/dL) Lactic Acid Calcium 6.9 L Phosphorus Magnesium Total Bilirubin AST ALT Alkaline Phosphatase Ammonia Total Creatine Kinase 693 H Troponin I 0.15 H* 0.16 H* Total Protein Albumin Globulin Albumin/Globulin Ratio TSH Urine Color Urine Appearance Urine pH Ur Specific [place] Urine Protein Urine Ketones Urine Blood Urine Nitrate Urine Bilirubin Urine Urobilinogen Ur Leukocyte Esterase Urine WBC (Auto) Urine RBC (Auto) Ur Squamous Epith Cells Urine Bacteria Urine Glucose Urine Opiates Screen Ur Barbiturates Screen Ur Phencyclidine Scrn Ur Amphetamines Screen U Benzodiazepines Scrn Urine Cocaine Screen U Cannabinoids Screen 08/09/18 08/09/18 05:19 09:05 WBC RBC Hgb Hct MCV MCH MCHC RDW Plt Count MPV Neut % (Auto) Lymph % (Auto) Walsh % (Auto) Eos % (Auto) Baso % (Auto) Absolute Neuts (auto) Absolute Lymphs (auto) Absolute Monos (auto) Absolute Eos (auto) Absolute Basos (auto) Absolute Nucleated RBC Nucleated RBC % INR (Anticoag Therapy) APTT Patient Temperature Not Reportable ABG pH 7.29 L ABG pH (Temp Correct) Not Reportable ABG pCO2 52 H ABG pCO2 (Temp Corrct Not Reportable ABG pO2 77 L ABG pO2 (Temp Correct Not Reportable ABG HCO3 23.1 ABG O2 Saturation 96.7 ABG Base Excess -2.3 L Respiration Rate 18 O2 Delivery Device vent Ventilator Type 450 Vent Mode cmv FiO2 40 Inspiratory Time .75 PEEP 5 Pressure Support Not Reportable Pressure Control Not Reportable EPAP Not Reportable IPAP Not Reportable BiPAP Not Reportable Sodium Potassium Chloride Carbon Dioxide Anion Gap BUN Creatinine Est GFR ( Amer) Est GFR (Non-Af Amer) BUN/Creatinine Ratio Glucose POC Glucose (mg/dL) 174 H Lactic Acid Calcium Phosphorus Magnesium Total Bilirubin AST ALT Alkaline Phosphatase Ammonia Total Creatine Kinase Troponin I Total Protein Albumin Globulin Albumin/Globulin Ratio TSH Urine Color Urine Appearance Urine pH Ur Specific [place] Urine Protein Urine Ketones Urine Blood Urine Nitrate Urine Bilirubin Urine Urobilinogen Ur Leukocyte Esterase Urine WBC (Auto) Urine RBC (Auto) Ur Squamous Epith Cells Urine Bacteria Urine Glucose Urine Opiates Screen Ur Barbiturates Screen Ur Phencyclidine Scrn Ur Amphetamines Screen U Benzodiazepines Scrn Urine Cocaine Screen U Cannabinoids Screen Impression: 57 F with MMP's including cirrhosis with portal HTN and psych disorders p/w ARF requiring intubation c/b septic shock. Sputum + H. Influenza. Labs notable for improving renal functions and ABG's. Oxygenating well on minimal Vent settings. CT scan notable for atelectasis and some mild PNA. Plan: Continue minimal vent settings. Continue Low TV and increase Peep 7-8 2/2 atelectasis wean off Vasopressors if MAP > 65 Keep input > output. Putting out high UOP so will need to monitor Check US RUQ F/U LFT's Will need to restart psych medications continue empiric ABX and Aztreonam for H. influenza continue lactulose for high ammonia Critical Care Time: 35. minutes
[2018-08-09 13:41] LABS: AST 340 U/L (13-39); Albumin 2.9 g/dL (3.2-5.2); Alkaline Phosphatase 145 U/L (34-104); Indirect Bilirubin 0.4 mg/dL (0.3-1.0); Total Protein 5.9 g/dL (6.4-8.9)
[2018-08-09 14:24] LABS: ALT 688 U/L (7-52)
[2018-08-09 17:09] LABS: BUN/Creatinine Ratio 42.2 (8-20); Calcium 7.5 mg/dL (8.6-10.3); EGFR African American 78.7 (>60); Potassium 3.5 mmol/L (3.5-5.0)
[2018-08-10] MEDS: metroNIDAZOLE IV 500 MG/100ML* 500 MG/100 ML BAG IVPB SCH ×2 (00:36→09:24)
[2018-08-10] MEDS: Albuterol/Ipratropium NEB.SOL* Albuterol 2.5 MG/Ipratropium 0.5 MG 3 ML INH SCH ×4 (01:07→19:07)
[2018-08-10] MEDS: Propofol* 100 ML IV SCH ×7 (02:38→23:55)
[2018-08-10] MEDS: Chlorhexidine MOUTHWASH 0.12%* 15 ML UDC TOPICAL SCH ×5 (03:44→23:06)
[2018-08-10] MEDS: NS 0.9% 1000 ML** 1,000 ML IV SCH ×2 (03:46→12:47)
[2018-08-10] MEDS: Heparin VIAL(*) 5000 UNITS/ML VIAL (FIVE THOUSAND) SUBCUT SCH ×3 (05:10→21:23)
[2018-08-10 05:17] LABS: INR 1.36 (0.82-1.09)
[2018-08-10 05:29] LABS: Albumin 2.5 g/dL (3.2-5.2); Albumin/Globulin Ratio 0.8 (1-3); Calcium 7.8 mg/dL (8.6-10.3); EGFR African American 97.1 (>60); EGFR Non-African American 80.2 (>60); Globulin 3.2 g/dL (2-4); Indirect Bilirubin 0.2 mg/dL (0.3-1.0); Magnesium 1.9 mg/dL (1.9-2.7); Phosphorus 2.1 mg/dL (2.5-5.0); Potassium 3.2 mmol/L (3.5-5.0); Total Bilirubin 0.6 mg/dL (0.2-1.0); Total Protein 5.7 g/dL (6.4-8.9)
[2018-08-10] MEDS: Insulin LISPRO* 1 UNITS UNIT SUBCUT SCH ×4 (05:58→23:58)
[2018-08-10] MEDS: Famotidine IV* 10 MG/ML 2 ML (20 mg) IV SLOW PU SCH (09:22)
[2018-08-10] MEDS: Thiamine TAB* 100 MG TAB PO SCH (09:23)
[2018-08-10] MEDS: busPIRone TAB* 15 MG PO SCH ×2 (09:23→20:19)
[2018-08-10] MEDS: Folic Acid TAB* 1 MG PO SCH (09:23)
[2018-08-10] MEDS: Cyanocobalamin TAB* 500 MCG PO SCH (09:23)
[2018-08-10] MEDS: Citalopram TAB* 20 MG PO SCH (09:23)
[2018-08-10] MEDS: Multivitamins/Minerals TAB PO SCH (09:23)
[2018-08-10] MEDS: Aztreonam (*) 1 GM in NS 0.9% 50 ML* 50 ML IVPB SCH ×2 (10:27→21:23)
--- NOTE | 2018-08-10 11:11 | ECHO ---
*[facility]* [place] [address] Fax #: [phone] Transthoracic Echocardiogram Patient: Natalia Cruz Height: 63 in / 160 cm : 1960 Weight: 184.6 lb / Study Date: 08/10/2018 83.9 kg Age: 57 BP: 110 / 60 Gender: F BMI/BSA: 32.8 kg/m^2 / HR: 82 bpm 1.87 m^2 *Business Improvement Manager: * Rena Isbell [facility] [[email or web address]] *Referring Physician: * Bonnie Choudhury *Reading Physician: * Coleman Henry MD Indications: Hypotension. History: PMH: COPD exacerbation. Risk factors: Current tobacco use. Hypertension. Obese. Seizures. Conclusions Summary: 1. Left ventricle: Systolic function is at the lower limits of normal. The estimated ejection fraction is 50-55%. Systolic function is improved from the study of August 2017. 2. Right ventricle: The cavity size is mildly dilated. Wall thickness is mildly increased. The wall thickness has increased in comparison with the study of August 2017. Systolic function is mildly reduced. Overall RV function is worse in comparison with the study of August 2017. Systolic pressure is mildly increased. The estimated peak pressure is >= 35 mm Hg. 3. Ventricular septum: There is diastolic flattening and systolic flattening. 4. Mitral valve: Prolapse. There is mild regurgitation. 5. Tricuspid valve: There is mild-moderate regurgitation. Study data: Transthoracic echocardiogram. Procedure: Transthoracic echocardiography was performed. Image quality was fair. The study was technically limited due to Patient on ventilator. Complete 2D, spectral Doppler, and color flow Doppler. Location: ICU Patient status: Inpatient. Patient room number: ICU-8. The previous study was not available, so comparison is made to the report of August 2017. Rhythm: Normal sinus rhythm. Findings Left ventricle: The cavity size is normal. Wall thickness is normal. Systolic function is at the lower limits of normal. The estimated ejection fraction is 50-55%. Systolic function is improved from the study of August 2017. Wall motion is normal; there are no regional wall motion abnormalities. There is no consistent Doppler evidence of clinically significant diastolic dysfunction. Right ventricle: The cavity size is mildly dilated. Wall thickness is mildly increased. The wall thickness has increased in comparison with the study of August 2017. Systolic function is mildly reduced. Overall RV function is worse in comparison with the study of August 2017. Systolic pressure is mildly increased. The estimated peak pressure is >= 35 mm Hg. Ventricular septum: There is diastolic flattening and systolic flattening. Left atrium: The atrium is mildly dilated. Right atrium: The atrium is at the upper limits of normal in size. Mitral valve: The leaflets are mildly thickened. Prolapse. There is no evidence of stenosis. There is mild regurgitation. Aortic valve: The valve is trileaflet. The leaflets are mildly thickened. There is no evidence of stenosis. There is no significant regurgitation. Tricuspid valve: The leaflets are normal thickness. There is no evidence of stenosis. There is mild-moderate regurgitation. Pulmonic valve: The leaflets are normal thickness. There is no evidence of stenosis. There is trivial regurgitation. Aorta: Ascending aorta: The ascending aorta is appears normal. Aortic arch: The aortic arch is appears normal. The aortic root is not dilated. Pericardium: A prominent pericardial fat pad is present. There is no pericardial effusion. Pulmonary arteries: The main pulmonary artery is normal-sized. Systemic veins: Well visualized. Unable to accurately evaluate the inferior vena cava due to the patient being on a ventilator. Measurements Left ventricle Value Ref Aortic valve Value Ref DIAN, LAX 4.3 cm 3.8 - 5.2 Krystyna diam, ED 2.2 cm ----- ESD, LAX 3.2 cm 2.2 - 3.5 Krystyna diam/bsa, ED 1.1 cm/m^2 ----- FS, LAX (L) 26 % 27 - 45 Peak v, S 1.4 m/sec ----- PW, ED, LAX 0.9 cm 0.6 - 0.9 VTI, S 30.4 cm ----- FS (L) 26 % 27 - 45 Mean grad, S 4.0 mm Hg ----- PW, ED 0.9 cm 0.6 - 0.9 Peak grad, S 8.0 mm Hg ----- E', lat krystyna, TDI 12.9 cm/sec >=10.0 LVOT/AV, VTI ratio 0.72 -- --- E/e', lat krystyna, 7 TDI Mitral valve Value Ref E', med krystyna, TDI 10.4 cm/sec >=7.0 Peak E 0.96 m/sec -- --- E/e', med krystyna, 9 Peak A 0.68 m/sec ----- TDI Decel time 155 ms ----- E', avg, TDI 11.7 cm/sec Peak grad, D 3.7 mm Hg ----- E/e', avg, TDI 8 <=14 Peak E/A ratio 1.4 -- --- LVOT Value Ref Pulmonic valve Value Ref Peak santos, S 1.15 m/sec Peak v, S 1.06 m/sec ----- VTI, S 22.0 cm Peak grad, S 4.0 mm Hg ----- Peak grad, S 5 mm Hg Mean grad, S 2 mm Hg Tricuspid valve Value Ref TR peak v 2.74 m/sec <=2.8 Ventricular septum Value Ref Peak RV-RA grad, S 30 mm Hg ----- IVS, ED 0.9 cm 0.6 - 0.9 Aortic root Value Ref Right ventricle Value Ref Root diam 2.9 cm <4.0 AW thickness, ED (H) 0.8 cm 0.1 - 0.5 DIAN, LAX 3.4 cm Ascending aorta Value Ref DIAN minor ax, (H) 4.3 cm 1.9 - 3.5 AAo AP diam, S 3.0 cm ----- A4C mid Aortic arch Value Ref Left atrium Value Ref Arch diam 2.1 cm ----- AP dim, ES (H) 3.90 cm 2.70 - 3.80 Decending aorta Value Ref ML dim, A4C 4.0 cm Arpan peak santos 0.73 m/sec ----- SI dim, A4C 5.6 cm Vol/bsa, ES, 1-p 33 ml/m^2 11 - 40 A4C Vol/bsa, ES, A/L (H) 37 ml/m^2 16 - 34 Right atrium Value Ref SI dim, ES 5.2 cm 3.4 - 5.3 ML dim, ES, A4C 4.4 cm 2.6 - 4.4 SI dim, ES, A4C 5.2 cm 3.4 - 5.3 Legend: (L) and (H) cally values outside specified reference range. Prepared and electronically signed by Coleman Henry MD 08/10/2018 11:10
--- NOTE | 2018-08-10 13:35 | PN ---
Date of Service: 08/10/18 Critical Care Services: 24 Hour Events high amount of secretions. requiring suctioning q1 remains on low vent settings. AF. Oxygenating well with improved ABG's TTE wnl S Na increased LFT's and renal functions normalized Vital Signs: Temp Pulse Resp BP SpO2 FiO2 97.5 F 76 18 110/60 94 30 08/10/18 12:00 08/10/18 07:10 08/10/18 07:10 08/10/18 05:30 08/10/18 07:10 08/10 07:10 Physical Exam: Gen: intubated. following off sedation Lungs: coarse BS's, no wheezing. Cardiac: RRR Abdomen: + BS's, Soft, NTP Extremities: No SAFIA Neuro: Moving all extremities Fluid Balance (Past 24 Hours): I= O= Net Intake & Output 08/08/18 08/09/18 08/10/18 08/11/18 06:59 06:59 06:59 06:59 Intake Total 5183 4301 Output Total 5840 3530 Balance -657 771 Weight 183 lb 3.266 oz 182 lb 1.629 oz Intake: IV Fluids 3935 3069 ABX - VANCOMYCIN 242 NS (0.9%) 2693 3069 IVPB 269 461 NS (0.9%) 269 461 Medicated IV 979 751 CC - Norepinephrine/ 655 191 Levophed CC - Propofol/Diprivan 324 560 NG Tube Irrigate Amount 20 Output: NG Tube Drainage Amount 100 [place] 5840 3430 Other: Date of Last Bowel t Movement # Bowel Movements 1 Estimated Stool Amount Large Labs: Laboratory Results - last 24 hr 08/09/18 08/09/18 08/09/18 05:15 16:45 23:23 INR (Anticoag Therapy) Patient Temperature ABG pH ABG pH (Temp Correct) ABG pCO2 ABG pCO2 (Temp Corrct ABG pO2 ABG pO2 (Temp Correct ABG HCO3 ABG O2 Saturation ABG Base Excess Respiration Rate O2 Delivery Device Ventilator Type Vent Mode FiO2 Inspiratory Time PEEP Pressure Support Pressure Control EPAP IPAP BiPAP Sodium 140 145 Potassium 3.6 3.5 Chloride 106 109 Carbon Dioxide 24 30 Anion Gap 10 6 BUN 49 H 38 H Creatinine 1.28 H 0.90 Est GFR ( Amer) 52.4 78.7 Est GFR (Non-Af Amer) 43.3 65.0 BUN/Creatinine Ratio 38.3 H 42.2 H Glucose 166 H 162 H POC Glucose (mg/dL) 141 H Calcium 6.9 L 7.5 L Phosphorus Magnesium Iron Total Bilirubin 0.70 Direct Bilirubin 0.30 H Indirect Bilirubin 0.4 AST 340 H ALT 688 H Alkaline Phosphatase 145 H Ammonia Total Creatine Kinase 693 H Troponin I 0.16 H* Total Protein 5.9 L Albumin 2.9 L Globulin 3.0 Albumin/Globulin Ratio 1.0 08/10/18 08/10/18 08/10/18 05:00 05:00 05:00 INR (Anticoag Therapy) 1.36 H Patient Temperature ABG pH ABG pH (Temp Correct) ABG pCO2 ABG pCO2 (Temp Corrct ABG pO2 ABG pO2 (Temp Correct ABG HCO3 ABG O2 Saturation ABG Base Excess Respiration Rate O2 Delivery Device Ventilator Type Vent Mode FiO2 Inspiratory Time PEEP Pressure Support Pressure Control EPAP IPAP BiPAP Sodium 150 H Potassium 3.2 L Chloride 115 H Carbon Dioxide 30 Anion Gap 5 BUN 30 H Creatinine 0.75 Est GFR ( Amer) 97.1 Est GFR (Non-Af Amer) 80.2 BUN/Creatinine Ratio 40.0 H Glucose 155 H POC Glucose (mg/dL) Calcium 7.8 L Phosphorus 2.1 L Magnesium 1.9 Iron 17 L Total Bilirubin 0.60 Direct Bilirubin 0.40 H Indirect Bilirubin 0.2 L AST 127 H ALT 456 H Alkaline Phosphatase 130 H Ammonia 76 H Total Creatine Kinase Troponin I Total Protein 5.7 L Albumin 2.5 L Globulin 3.2 Albumin/Globulin Ratio 0.8 L 08/10/18 08/10/18 05:59 12:12 INR (Anticoag Therapy) Patient Temperature Not Reportable ABG pH 7.40 ABG pH (Temp Correct) Not Reportable ABG pCO2 49 H ABG pCO2 (Temp Corrct Not Reportable ABG pO2 71 L ABG pO2 (Temp Correct Not Reportable ABG HCO3 28.3 ABG O2 Saturation 95.0 ABG Base Excess 4.5 H Respiration Rate 18 O2 Delivery Device vent Ventilator Type 400 Vent Mode cmv FiO2 30 Inspiratory Time Not Reportable PEEP 8 Pressure Support Not Reportable Pressure Control Not Reportable EPAP Not Reportable IPAP Not Reportable BiPAP Not Reportable Sodium Potassium Chloride Carbon Dioxide Anion Gap BUN Creatinine Est GFR ( Amer) Est GFR (Non-Af Amer) BUN/Creatinine Ratio Glucose POC Glucose (mg/dL) 141 H Calcium Phosphorus Magnesium Iron Total Bilirubin Direct Bilirubin Indirect Bilirubin AST ALT Alkaline Phosphatase Ammonia Total Creatine Kinase Troponin I Total Protein Albumin Globulin Albumin/Globulin Ratio Impression: 57 F with MMP's including cirrhosis with portal HTN and psych disorders p/w ARF requiring intubation c/b septic shock. Sputum + H. Influenza. Remains off Vasopressors times 24 hours. Sukh resolved with good UOP. Now with hype-natremia. Plan: Plan: Cannot wean to extubate today 2/2 high amount of secretions. Continue minimal vent settings. Continue Low TV and Peep at 7 Replete lytes Keep input > output. Check US RUQ continue lactulose for high ammonia. just today started having BM's psych meds restarted continue empiric ABX and Aztreonam for H. influenza change to d5 1/2 NS SQH Critical Care Time: 35 minutes
[2018-08-10] MEDS ORDERED: Potassium Chlor TAB* 20 MEQ TAB.ER PO ONE (13:36)
[2018-08-10] MEDS ORDERED: Potassium Acid Phosphate TAB* 500 MG PO ONE (13:39)
[2018-08-10] MEDS ORDERED: Potassium Chloride* LIQUID 20 MEQ/15 ML UDC PO ONE (14:00)
[2018-08-10] MEDS: NS 0.45% KCl 20 Meq 1000 ML* 1,000 ML IV SCH (14:01)
[2018-08-11] MEDS: Albuterol/Ipratropium NEB.SOL* Albuterol 2.5 MG/Ipratropium 0.5 MG 3 ML INH SCH ×2 (01:00→08:03)
[2018-08-11] MEDS: Propofol* 100 ML IV SCH ×2 (02:49→07:23)
[2018-08-11] MEDS: NS 0.45% KCl 20 Meq 1000 ML* 1,000 ML IV SCH (02:49)
[2018-08-11] MEDS: Chlorhexidine MOUTHWASH 0.12%* 15 ML UDC TOPICAL SCH ×6 (02:50→23:47)
[2018-08-11] MEDS: Insulin LISPRO* 1 UNITS UNIT SUBCUT SCH ×4 (05:35→23:51)
[2018-08-11] MEDS: Heparin VIAL(*) 5000 UNITS/ML VIAL (FIVE THOUSAND) SUBCUT SCH ×3 (05:35→21:11)
[2018-08-11 05:43] LABS: ABS Lymphocytes 0.8 10^3/ul (1.0-4.8); ABS Monocytes 0.5 10^3/ul (0-0.8); ABS Neutrophils 6.8 10^3/ul (1.5-7.7); Eosinophil % 0.1 %; Hematocrit 37 % (35-47); Hemoglobin 11.9 g/dL (12.0-16.0); Lymphocyte % 9.9 %; Mean Corpuscular HGB Conc 32 g/dL (31-36); Mean Corpuscular Hemoglobin 29 pg (27-31); Mean Corpuscular Volume 90 fL (80-97); Mean Platelet Volume 7.8 fL (7.4-10.4); Nucleated Red Blood Cells % 0.6; Platelet Count 113 10^3/uL (150-450); Red Cell Distribution Width 17 % (10.5-15); White Blood Count 8.1 10^3/uL (3.5-10.8)
[2018-08-11 06:07] LABS: INR 1.29 (0.82-1.09)
[2018-08-11 06:22] LABS: Albumin 2.7 g/dL (3.2-5.2); BUN/Creatinine Ratio 35.1 (8-20); Calcium 8.7 mg/dL (8.6-10.3); EGFR African American 133.2 (>60); EGFR Non-African American 110.1 (>60); Globulin 2.7 g/dL (2-4); Magnesium 1.9 mg/dL (1.9-2.7); Potassium 3.5 mmol/L (3.5-5.0); Total Bilirubin 0.6 mg/dL (0.2-1.0); Total Protein 5.4 g/dL (6.4-8.9)
[2018-08-11] MEDS ORDERED: Albuterol/Ipratropium NEB.SOL* Albuterol 2.5 MG/Ipratropium 0.5 MG 3 ML INH PRN (08:08)
[2018-08-11] MEDS: Multivitamins/Minerals TAB PO SCH (08:59)
[2018-08-11] MEDS: Cyanocobalamin TAB* 500 MCG PO SCH (08:59)
[2018-08-11] MEDS: Thiamine TAB* 100 MG TAB PO SCH (08:59)
[2018-08-11] MEDS: Folic Acid TAB* 1 MG PO SCH (08:59)
[2018-08-11] MEDS: Citalopram TAB* 20 MG PO SCH (08:59)
[2018-08-11] MEDS: Famotidine IV* 10 MG/ML 2 ML (20 mg) IV SLOW PU SCH (08:59)
[2018-08-11] MEDS: busPIRone TAB* 15 MG PO SCH ×2 (09:00→20:11)
[2018-08-11] MEDS ORDERED: NS 0.9% IV ONE (10:00)
[2018-08-11] MEDS ORDERED: DEXMEDETOMIDINE IV ONE (10:00)
[2018-08-11] MEDS: Aztreonam (*) 1 GM in NS 0.9% 50 ML* 50 ML IVPB SCH ×2 (10:50→17:15)
--- NOTE | 2018-08-11 12:32 | PN ---
Date of Service: 08/11/18 Critical Care Services: extubated after tolerated PST. extubated oxygenating well remains AF. WBC decreasing. Vital Signs: Temp Pulse Resp BP SpO2 FiO2 97.4 F 77 22 148/75 97 30 08/11/18 07:40 08/11/18 08:00 08/11/18 08:00 08/11/18 06:01 08/11/18 10:03 08/11 09:34 Physical Exam: Gen lethargic though following Heart- NSR Lungs- Decreased Breath sounds, not using accessory muscles Abdomen- +BSs. Soft, Non-tender to palpation. No rebound or guarding. Extremities- No SAFIA Neuro- Moving all extremities Fluid Balance (Past 24 Hours): I= O= Net Intake & Output 08/09/18 08/10/18 08/11/18 08/12/18 06:59 06:59 06:59 06:59 Intake Total 5183 4301 3535 345 Output Total 5840 3530 3840 125 Balance -657 771 -305 220 Weight 183 lb 3.266 oz 182 lb 1.629 oz 182 lb 8.684 oz Intake: IV Fluids 3935 3069 2279 ABX - VANCOMYCIN 242 NS (0.45%) 20 meq KCL 1166 NS (0.9%) 2693 3069 1113 IVPB 269 461 224 NS (0.45%) 20 meq KCL 48 NS (0.9%) 269 461 176 Medicated IV 979 751 657 CC - Norepinephrine/ 655 191 Levophed CC - Propofol/Diprivan 324 560 657 Tube Feeding 305 305 Tube Feeding Flush Amount 40 40 NG Tube Irrigate Amount 20 30 0 Output: NG Tube Drainage Amount 100 100 0 Urine 995 [place] 5840 3430 1045 125 Liquid Stool 1700 0 Other: Date of Last Bowel t Movement # Bowel Movements 1 Estimated Stool Amount Large Labs: Laboratory Results - last 24 hr 08/10/18 08/10/18 08/10/18 12:12 20:00 23:09 WBC RBC Hgb Hct MCV MCH MCHC RDW Plt Count MPV Neut % (Auto) Lymph % (Auto) Kane % (Auto) Eos % (Auto) Baso % (Auto) Absolute Neuts (auto) Absolute Lymphs (auto) Absolute Monos (auto) Absolute Eos (auto) Absolute Basos (auto) Absolute Nucleated RBC Nucleated RBC % INR (Anticoag Therapy) Patient Temperature ABG pH ABG pH (Temp Correct) ABG pCO2 ABG pCO2 (Temp Corrct ABG pO2 ABG pO2 (Temp Correct ABG HCO3 ABG O2 Saturation ABG Base Excess Respiration Rate O2 Delivery Device Ventilator Type Vent Mode FiO2 Inspiratory Time PEEP Pressure Support Pressure Control EPAP IPAP BiPAP Sodium Potassium Chloride Carbon Dioxide Anion Gap BUN Creatinine Est GFR ( Amer) Est GFR (Non-Af Amer) BUN/Creatinine Ratio Glucose POC Glucose (mg/dL) 141 H 154 H 133 H Calcium Magnesium Total Bilirubin AST ALT Alkaline Phosphatase Total Protein Albumin Globulin Albumin/Globulin Ratio 08/11/18 08/11/18 08/11/18 05:30 05:30 05:30 WBC 8.1 RBC 4.10 Hgb 11.9 L Hct 37 MCV 90 MCH 29 MCHC 32 RDW 17 H Plt Count 113 L MPV 7.8 Neut % (Auto) 83.7 Lymph % (Auto) 9.9 Kane % (Auto) 5.8 Eos % (Auto) 0.1 Baso % (Auto) 0.5 Absolute Neuts (auto) 6.8 Absolute Lymphs (auto) 0.8 L Absolute Monos (auto) 0.5 Absolute Eos (auto) 0.0 Absolute Basos (auto) 0.0 Absolute Nucleated RBC 0.0 Nucleated RBC % 0.6 INR (Anticoag Therapy) Patient Temperature ABG pH ABG pH (Temp Correct) ABG pCO2 ABG pCO2 (Temp Corrct ABG pO2 ABG pO2 (Temp Correct ABG HCO3 ABG O2 Saturation ABG Base Excess Respiration Rate O2 Delivery Device Ventilator Type Vent Mode FiO2 Inspiratory Time PEEP Pressure Support Pressure Control EPAP IPAP BiPAP Sodium 154 H Potassium 3.5 Chloride 119 H Carbon Dioxide 31 Anion Gap 4 BUN 20 Creatinine 0.57 Est GFR ( Amer) 133.2 Est GFR (Non-Af Amer) 110.1 BUN/Creatinine Ratio 35.1 H Glucose 153 H POC Glucose (mg/dL) 163 H Calcium 8.7 Magnesium 1.9 Total Bilirubin 0.60 AST 59 H ALT 295 H Alkaline Phosphatase 134 H Total Protein 5.4 L Albumin 2.7 L Globulin 2.7 Albumin/Globulin Ratio 1.0 08/11/18 08/11/18 05:53 09:33 WBC RBC Hgb Hct MCV MCH MCHC RDW Plt Count MPV Neut % (Auto) Lymph % (Auto) Kane % (Auto) Eos % (Auto) Baso % (Auto) Absolute Neuts (auto) Absolute Lymphs (auto) Absolute Monos (auto) Absolute Eos (auto) Absolute Basos (auto) Absolute Nucleated RBC Nucleated RBC % INR (Anticoag Therapy) 1.29 H Patient Temperature Not Reportable ABG pH 7.41 ABG pH (Temp Correct) Not Reportable ABG pCO2 47 H ABG pCO2 (Temp Corrct Not Reportable ABG pO2 77 L ABG pO2 (Temp Correct Not Reportable ABG HCO3 28.2 ABG O2 Saturation 97.0 ABG Base Excess 4.3 H Respiration Rate Not Reportable O2 Delivery Device Spont 8/5 Ventilator Type Not Reportable Vent Mode Not Reportable FiO2 30 Inspiratory Time Not Reportable PEEP Not Reportable Pressure Support Not Reportable Pressure Control Not Reportable EPAP Not Reportable IPAP Not Reportable BiPAP Not Reportable Sodium Potassium Chloride Carbon Dioxide Anion Gap BUN Creatinine Est GFR ( Amer) Est GFR (Non-Af Amer) BUN/Creatinine Ratio Glucose POC Glucose (mg/dL) Calcium Magnesium Total Bilirubin AST ALT Alkaline Phosphatase Total Protein Albumin Globulin Albumin/Globulin Ratio Impression: # s/p septic shock #s/p ARF on MV #s/p HAIM #Hypernatremia #H. influenza PNA #Cirrhosis with portal HTN and encephalopathy #severe anxiety Plan: change to d5w for hypernatremia continue lactulose for high ammonia\ continue ABX for H.Influenza continue psych meds Precedex or benzo's PRN for high anxiety possible transfer to floor in the next 24 hours Critical Care Time: 45
[2018-08-11] MEDS ORDERED: ALPRAZolam TAB* 0.5 MG PO PRN (12:38)
[2018-08-11] MEDS ORDERED: D5W 1000 ML BAG* 1,000 ML IV SCH (13:00)
--- NOTE | 2018-08-11 15:22 | CONS ---
CONSULTATION REPORT: DATE OF CONSULT: 08/11/18 REQUESTING PHYSICIAN: Dr. Bowden. CONSULTING SERVICE: Infectious Disease. REASON FOR CONSULTATION: Pneumonia. IMPRESSION: 1. Acute hypoxemic respiratory failure, mechanical ventilation, now extubated. A CT of the chest showed new complete atelectasis of the left lower lobe and patchy bilateral pulmonary infiltrates in the lingula and right middle and right lower lobe. She also has Haemophilus influenzae in her sputum. It is not a beta-lactamase print producer. Her blood cultures are negative. Her leukocytosis has improved. Her respiratory status has improved while on aztreonam. 2. Encephalopathy due to sepsis which is still present and as such, she cannot provide many of the details of her presentation. 3. Cirrhosis. 4. Allergies to CARBAPENEM, CEPHALOSPORIN,FLUOROQUINOLONES, PENICILLIN, but she cannot give us any history on that. 5. COPD. RECOMMENDATIONS: We will continue aztreonam, her acute kidney injury is improved, so I increased the dose from 1 g every 12 hours to 1 g every 8 hours, plan on a 7- day course of antibiotics. She will follow up chest imaging to rule out underlying mass after she has had some time to recover in the next 3 or 4 weeks. HISTORY OF PRESENT ILLNESS: This is a 57-year-old woman with cirrhosis, transferred from [facility] with respiratory failure. She cannot provide any details of admission given her underlying and current encephalopathy. Her history is obtained by review of the medical record and discussion with Dr. Bowden. She had apparently been camping over the last couple of weeks and then was becoming more and more short of breath, admitted to [facility], started on pressors for septic shock, was transferred here and intubated. She had been started on vancomycin, aztreonam, and Flagyl, but sputum culture came back with haemophilus and the other agents were discontinued. A CT chest, abdomen, and pelvis showed the pulmonary findings as above as well as a gallstone. Today, she was extubated, having ongoing secretions. Her ALT was 977 on admission, is down to 295 today. Her CK was 1251 on admission, was down to 700 the next day. Blood cultures were negative here. PAST MEDICAL HISTORY: 1. Cirrhosis. 2. COPD. 3. Anxiety disorder. 4. Panic disorder with agoraphobia. 5. Polysubstance abuse including opiate abuse. 6. History of withdrawal seizure. 7. Depression. 8. Chronic pain. MEDICATIONS: 1. Aztreonam 1 g every 12 hours. 2. BuSpar. 3. Citalopram. 4. Famotidine. 5. Folic acid. 6. Heparin subcutaneous injection. 7. Lactulose. ALLERGIES: CARBAPENEM, CEPHALOSPORIN, CIPROFLOXACIN, PENICILLIN. FAMILY HISTORY: Unobtainable. SOCIAL HISTORY: She lives in [facility]. Uses cannabis, apparently no other injection drugs. REVIEW OF SYSTEMS: Unobtainable. PHYSICAL EXAM: Vital Signs: Temperature 36.3, heart rate is 82, respiratory rate is 22, blood pressure 148/75, oxygen saturation is 97% on 3 L by facemask. In general, she is awake, mumbling a bit, not answering questions or following commands. HEENT: There is no conjunctival hemorrhage. Oropharynx without lesions. There are some mucous secretions on her chin. Neck: Supple without mass. There is a right IJ catheter. Heart: Regular rate and rhythm without murmurs. Lungs: Decreased breath sounds at the bases bilaterally without wheeze or rale. Abdomen: Soft, nontender, and nondistended. Bowel sounds present. Skin: There is no rash or splinter hemorrhages. Musculoskeletal: There is no spine tenderness to palpation or muscle tenderness to palpation. DIAGNOSTIC STUDIES/LAB DATA: Creatinine 0.5, sodium 154. While blood cell count 8, hemoglobin 11, platelets 113. Please see impressions and recommendations outlined above, which I have discussed with Dr. Bwoden. Thank you for asking me to see Ms. Cruz in consultation. [id number]/CPS #: [id number] LALO
[2018-08-12] MEDS: Aztreonam (*) 1 GM in NS 0.9% 50 ML* 50 ML IVPB SCH ×4 (02:07→17:52)
[2018-08-12] MEDS: Chlorhexidine MOUTHWASH 0.12%* 15 ML UDC TOPICAL SCH ×4 (05:25→12:01)
[2018-08-12] MEDS: Heparin VIAL(*) 5000 UNITS/ML VIAL (FIVE THOUSAND) SUBCUT SCH ×3 (05:26→20:06)
[2018-08-12] MEDS: Insulin LISPRO* 1 UNITS UNIT SUBCUT SCH ×3 (05:33→20:00)
[2018-08-12] MEDS: Vancomycin(*) 1,000 MG in NS 0.9% 250 ML* 250 ML IVPB ONE (08:21)
[2018-08-12] MEDS: metFORMIN* 500 MG TAB PO SCH ×2 (08:31→20:07)
[2018-08-12] MEDS: busPIRone TAB* 15 MG PO SCH ×2 (08:31→20:07)
[2018-08-12] MEDS: Citalopram TAB* 20 MG PO SCH (08:31)
[2018-08-12] MEDS: Folic Acid TAB* 1 MG PO SCH (08:31)
[2018-08-12] MEDS: Thiamine TAB* 100 MG TAB PO SCH (08:31)
[2018-08-12] MEDS: Famotidine IV* 10 MG/ML 2 ML (20 mg) IV SLOW PU SCH (08:31)
[2018-08-12] MEDS: Multivitamins/Minerals TAB PO SCH ×2 (08:31→08:42)
[2018-08-12] MEDS: Cyanocobalamin TAB* 500 MCG PO SCH (08:31)
[2018-08-12 09:32] LABS: Hematocrit 39 % (35-47); Hemoglobin 12.5 g/dL (12.0-16.0); Mean Corpuscular HGB Conc 33 g/dL (31-36); Mean Corpuscular Hemoglobin 29 pg (27-31); Mean Corpuscular Volume 89 fL (80-97); Red Blood Count 4.34 10^6 /uL (3.70-4.87); Red Cell Distribution Width 17 % (10.5-15)
[2018-08-12 09:57] LABS: Albumin 2.7 g/dL (3.2-5.2); Albumin/Globulin Ratio 0.9 (1-3); BUN/Creatinine Ratio 23.3 (8-20); Calcium 8.8 mg/dL (8.6-10.3); EGFR African American 184.5 (>60); EGFR Non-African American 152.4 (>60); Magnesium 1.4 mg/dL (1.9-2.7); Potassium 3.6 mmol/L (3.5-5.0); Total Bilirubin 1.1 mg/dL (0.2-1.0); Total Protein 5.7 g/dL (6.4-8.9)
[2018-08-12 10:32] LABS: ABS Basophils 0.1 10^3/ul (0-0.2); ABS Eosinophils 0.1 10^3/ul (0-0.6); ABS Lymphocytes 0.8 10^3/ul (1.0-4.8); ABS Monocytes 0.5 10^3/ul (0-0.8); ABS Neutrophils 8.5 10^3/ul (1.5-7.7); ABS Nucleated RBC 0.1 10^3/ul; Eosinophil % 0.6 %; Lymphocyte % 8.1 %; Mean Platelet Volume 7.4 fL (7.4-10.4); Nucleated Red Blood Cells % 0.5; Platelet Count 88 10^3/uL (150-450)
--- NOTE | 2018-08-12 12:15 | PN ---
Date of Service: 08/12/18 Critical Care Services: OOB in chair. oxygenating well. more awake. good BM's with lactulose. odd affect though. states "wants to go home" requiring though 2 assist with PT/OT Vital Signs: Temp Pulse Resp BP SpO2 FiO2 98.3 F 84 20 152/81 96 30 08/12/18 08:22 08/12/18 06:00 08/12/18 10:01 08/12/18 10:01 08/12/18 10:01 08/11 16:00 Physical Exam: Gen: AO times 4. Lethargic though Lungs: Decreased BS's Cardiac: RRR Abdomen: +BS's, Soft, NTP. no rebound or guarding Extremities: No SAFIA Neuro: Moving all extremities Fluid Balance (Past 24 Hours): I= O= Net Intake & Output 08/10/18 08/11/18 08/12/18 08/13/18 06:59 06:59 06:59 06:59 Intake Total 4301 3535 3722 340 Output Total 3530 3840 2310 600 Balance 771 -305 1412 -260 Weight 182 lb 1.629 oz 182 lb 8.684 oz 180 lb 12.465 oz Intake: IV Fluids 3069 2279 1905 D5W 1208 NS (0.45%) 20 meq KCL 1166 697 NS (0.9%) 3069 1113 IVPB 461 224 NS (0.45%) 20 meq KCL 48 NS (0.9%) 461 176 Medicated IV 751 657 37 CC - Norepinephrine/ 191 Levophed CC - Propofol/Diprivan 560 657 precedex 37 Oral 1090 340 Tube Feeding 305 610 Tube Feeding Flush Amount 40 80 NG Tube Irrigate Amount 20 30 0 Output: NG Tube Drainage Amount 100 100 0 Urine 995 [place] 3430 1045 2010 600 Liquid Stool 1700 300 Other: Date of Last Bowel t 08/12/18 Movement # Bowel Movements 1 Estimated Stool Amount Large Labs: Laboratory Results - last 24 hr 08/11/18 08/11/18 08/11/18 12:35 18:00 23:41 WBC RBC Hgb Hct MCV MCH MCHC RDW Plt Count MPV Neut % (Auto) Lymph % (Auto) Gaines % (Auto) Eos % (Auto) Baso % (Auto) Absolute Neuts (auto) Absolute Lymphs (auto) Absolute Monos (auto) Absolute Eos (auto) Absolute Basos (auto) Absolute Nucleated RBC Nucleated RBC % Sodium Potassium Chloride Carbon Dioxide Anion Gap BUN Creatinine Est GFR ( Amer) Est GFR (Non-Af Amer) BUN/Creatinine Ratio Glucose POC Glucose (mg/dL) 139 H 168 H 142 H Calcium Magnesium Total Bilirubin AST ALT Alkaline Phosphatase Total Protein Albumin Globulin Albumin/Globulin Ratio 08/12/18 08/12/18 08/12/18 05:32 09:22 09:22 WBC 10.0 RBC 4.34 Hgb 12.5 Hct 39 MCV 89 MCH 29 MCHC 33 RDW 17 H Plt Count 88 L MPV 7.4 Neut % (Auto) 85.7 Lymph % (Auto) 8.1 Gaines % (Auto) 4.9 Eos % (Auto) 0.6 Baso % (Auto) 0.7 Absolute Neuts (auto) 8.5 H Absolute Lymphs (auto) 0.8 L Absolute Monos (auto) 0.5 Absolute Eos (auto) 0.1 Absolute Basos (auto) 0.1 Absolute Nucleated RBC 0.1 Nucleated RBC % 0.5 Sodium 143 D Potassium 3.6 Chloride 107 Carbon Dioxide 31 Anion Gap 5 BUN 10 Creatinine 0.43 L Est GFR ( Amer) 184.5 Est GFR (Non-Af Amer) 152.4 BUN/Creatinine Ratio 23.3 H Glucose 143 H POC Glucose (mg/dL) 128 H Calcium 8.8 Magnesium 1.4 L Total Bilirubin 1.10 H AST 36 ALT 192 H Alkaline Phosphatase 120 H Total Protein 5.7 L Albumin 2.7 L Globulin 3.0 Albumin/Globulin Ratio 0.9 L Impression: # s/p septic shock #s/p ARF on MV #s/p HAIM #Hypernatremia - resolved #H. influenza PNA (refuses vaccines) #Cirrhosis with portal HTN and hepatic encephalopathy (elevated ammonia on admit ) #severe anxiety #DM # tobacco abuse # depression #low Mg #deconditioning. Plan: Plan: transfer to floor continue lactulose for high ammonia continue ABX for H.Influenza continue psych meds Precedex or benzo's PRN for high anxiety restart patient's lasix called pharmacy myself today and confirmed her medications. Patient not on Neurontin or Aldactone. continue PT/OT. Patient not able to take care of herself at home replete Mg Critical Care Time:
[2018-08-12] MEDS ORDERED: Magnesium Sulfate 2 GM IV* 2 GM/50 ML BAG IVPB ONE (12:17)
[2018-08-12] MEDS: Furosemide TAB* 40 MG PO SCH (13:05)
[2018-08-13] MEDS: Aztreonam (*) 1 GM in NS 0.9% 50 ML* 50 ML IVPB SCH ×3 (01:49→18:12)
[2018-08-13] MEDS: Heparin VIAL(*) 5000 UNITS/ML VIAL (FIVE THOUSAND) SUBCUT SCH ×3 (06:12→21:10)
[2018-08-13] MEDS: Insulin LISPRO* 1 UNITS UNIT SUBCUT SCH ×4 (09:08→21:03)
[2018-08-13] MEDS: busPIRone TAB* 15 MG PO SCH ×2 (09:23→21:03)
[2018-08-13] MEDS: Cyanocobalamin TAB* 500 MCG PO SCH (09:23)
[2018-08-13] MEDS: Folic Acid TAB* 1 MG PO SCH (09:23)
[2018-08-13] MEDS: Multivitamins/Minerals TAB PO SCH (09:23)
[2018-08-13] MEDS: Thiamine TAB* 100 MG TAB PO SCH (09:23)
[2018-08-13] MEDS: Citalopram TAB* 20 MG PO SCH (09:24)
[2018-08-13] MEDS: metFORMIN* 500 MG TAB PO SCH ×2 (09:25→21:10)
[2018-08-13] MEDS: Furosemide TAB* 40 MG PO SCH (09:25)
[2018-08-13] MEDS ORDERED: EPINEPHrine,Rac 2.25% NEB.SOL* 0.5 ML INH ONE (09:55)
--- NOTE | 2018-08-13 11:26 | PN ---
Subjective Date of Service: 08/13/18 Interval History: Ms. Cruz is feeling ok this morning. She offers no complaints. Denies SOB or CP. No difficulty breathing. Occasional cough. She feels better when she is able to expectorate her sputum. Denies N/V. Appetite is good. No concerns from nursing, but RT called this morning concerned for stridor and requesting an epi neb. Family History: Unchanged from Admission Social History: Unchanged from Admission Past Medical History: Unchanged from Admission Objective Active Medications: Albuterol/Ipratropium (Duoneb (Albuterol 2.5 Mg/Ipratropium 0.5 Mg)) 1 neb INH [id number] AWAKE PRN SOB/WHEEZING Alprazolam (Xanax Tab*) 0.5 mg PO TID PRN ANXIETY Buspirone HCl (Buspar Tab *) 15 mg PO BID [place] Citalopram Hydrobromide (Celexa Tab*) 20 mg PO DAILY [facility] Cyanocobalamin (Vitamin B12 Tab*) 1,000 mcg PO DAILY [facility] Folic Acid (Folvite Tab*) 1 mg PO DAILY [facility] Furosemide (Lasix Tab*) 40 mg PO DAILY [facility] Heparin Sodium (Porcine) (Heparin Vial(*)) 5,000 units SUBCUT Q8HR [facility] Aztreonam 1 gm/ Sodium (Chloride) 50 mls @ 100 mls/hr IVPB Q8H [facility] Insulin Human Lispro (Humalog*) 0 units SUBCUT ACHS [facility]; Protocol Lactulose (Lactulose*) 30 ml PO QID [facility] Metformin HCl (Glucophage*) 500 mg PO BID [facility] Multivitamins/Minerals (Theragran/Minerals Tab*) 1 tab PO DAILY [facility] Thiamine HCl (Vitamin B-1 Tab*) 100 mg PO DAILY [facility] Vital Signs - 8 hr 08/13/18 08/13/18 08/13/18 04:27 07:51 08:00 Temperature 97.9 F 97.6 F Pulse Rate 82 93 Respiratory 18 20 18 Rate Blood Pressure 140/70 134/75 (mmHg) O2 Sat by Pulse 95 94 Oximetry Oxygen Devices in Use Now: Nasal Cannula - 2L Appearance: Middle-aged female sitting in bed in NAD, but slightly dyspneic Eyes: No Scleral Icterus Ears/Nose/Mouth/Throat: Mucous Membranes Moist Neck: NL Appearance and Movements; NL JVP, Trachea Midline Respiratory: Symmetrical Chest Expansion and Respiratory Effort, - - Scattered rhonchi and wheezing, but no obvious stridor Cardiovascular: NL Sounds; No Murmurs; No JVD, RRR Abdominal: NL Sounds; No Tenderness; No Distention Extremities: No Edema Neurological: - - Oriented to self and place Lines/Tubes/Other Access: Clean, Dry and Intact Woodall, Clean, Dry and Intact Peripheral IV Nutrition: Taking PO's Result Diagrams: 08/12/18 09:22 08/12/18 09:22 Assess/Plan/Problems-Billing Assessment: Ms. Cruz is a 57 yo F with PMH of COPD, polysubstance, cirrhosis, ETOH abuse with withdrawal seizures, chronic pain, and anxiety; who presented to the ED with SOB where she was intubated and admitted to ICU for respiratory failure and septic shock. - Patient Problems (1) Acute respiratory failure with hypoxia and hypercapnia Code(s): J96.01 - ACUTE RESPIRATORY FAILURE WITH HYPOXIA; J96.02 - ACUTE RESPIRATORY FAILURE WITH HYPERCAPNIA Comment: - Intubated on admission and extubated on 08/11/18 - Now saturating well on 2L - Received epi neb x1 this morning d/t concern for stridor, but was evaluated by RT and [employer] Consultant and determined to be stable - Wean oxygen (2) Pneumonia Code(s): J18.9 - PNEUMONIA, UNSPECIFIED ORGANISM Comment: - Sputum culture grew H. influenzae - Previously seen by ID who recommended 7 day course of aztreonam and f/u imaging in 3-4 weeks to r/o underlying mass - Continue aztreonam (day 5/7) (3) Septic shock Code(s): A41.9 - SEPSIS, UNSPECIFIED ORGANISM; R65.21 - SEVERE SEPSIS WITH SEPTIC SHOCK Comment: - Resolved - Met criteria on arrival, requiring ICU admission - Secondary to pneumonia (4) COPD (chronic obstructive pulmonary disease) Code(s): J44.9 - CHRONIC OBSTRUCTIVE PULMONARY DISEASE, UNSPECIFIED Comment: - Does not appear to be on outpatient medication (5) Cirrhosis of liver Comment: - Elevated ammonia and LFTs - Continue lactulose, rifaximin (6) Diabetes type 2, controlled Code(s): E11.9 - TYPE 2 DIABETES MELLITUS WITHOUT COMPLICATIONS Comment: - A1c 6.5% - Continue metformin (7) Anxiety disorder, unspecified Code(s): F41.9 - ANXIETY DISORDER, UNSPECIFIED Comment: - Continue alprazolam, buspirone, citalopram (8) DVT prophylaxis Comment: - Heparin SQ (9) Full code status Code(s): Z78.9 - OTHER SPECIFIED HEALTH STATUS Comment: Status and Disposition: Inpatient. Anticipate d/c to [facility] when medically stable. Attending: Anna Price
[2018-08-13] MEDS ORDERED: Albuterol/Ipratropium NEB.SOL* Albuterol 2.5 MG/Ipratropium 0.5 MG 3 ML INH PRN (14:49)
[2018-08-13] MEDS ORDERED: Albuterol/Ipratropium NEB.SOL* Albuterol 2.5 MG/Ipratropium 0.5 MG 3 ML INH SCH (15:00)
[2018-08-13] MEDS: RiFAXimin* 550 MG TAB PO SCH (21:03)
[2018-08-14] MEDS: Aztreonam (*) 1 GM in NS 0.9% 50 ML* 50 ML IVPB SCH ×3 (02:06→17:24)
[2018-08-14] MEDS: Heparin VIAL(*) 5000 UNITS/ML VIAL (FIVE THOUSAND) SUBCUT SCH ×3 (05:57→20:49)
[2018-08-14] MEDS: Insulin LISPRO* 1 UNITS UNIT SUBCUT SCH ×4 (07:26→20:45)
[2018-08-14] MEDS: Furosemide TAB* 40 MG PO SCH (08:57)
[2018-08-14] MEDS: RiFAXimin* 550 MG TAB PO SCH ×2 (08:57→20:49)
[2018-08-14] MEDS: metFORMIN* 500 MG TAB PO SCH ×2 (08:58→20:49)
[2018-08-14] MEDS: Citalopram TAB* 20 MG PO SCH (08:58)
[2018-08-14] MEDS: Folic Acid TAB* 1 MG PO SCH (08:59)
[2018-08-14] MEDS: busPIRone TAB* 15 MG PO SCH ×2 (08:59→20:49)
[2018-08-14] MEDS: Thiamine TAB* 100 MG TAB PO SCH (09:00)
[2018-08-14] MEDS: Cyanocobalamin TAB* 500 MCG PO SCH (09:00)
[2018-08-14] MEDS: Multivitamins/Minerals TAB PO SCH (09:00)
[2018-08-14 10:05] LABS: Albumin 2.9 g/dL (3.2-5.2); Calcium 8.9 mg/dL (8.6-10.3); Magnesium 1.8 mg/dL (1.9-2.7); Potassium 3.5 mmol/L (3.5-5.0); Total Bilirubin 1.4 mg/dL (0.2-1.0)
[2018-08-14 10:11] LABS: Albumin/Globulin Ratio 0.9 (1-3); BUN/Creatinine Ratio 22.7 (8-20); EGFR African American 179.6 (>60); EGFR Non-African American 148.5 (>60); Globulin 3.4 g/dL (2-4); Total Protein 6.3 g/dL (6.4-8.9)
[2018-08-14 10:15] LABS: ABS Eosinophils 0.1 10^3/ul (0-0.6); ABS Lymphocytes 0.5 10^3/ul (1.0-4.8); ABS Monocytes 0.5 10^3/ul (0-0.8); ABS Neutrophils 8.3 10^3/ul (1.5-7.7); Eosinophil % 0.8 %; Hematocrit 43 % (35-47); Lymphocyte % 5.5 %; Mean Corpuscular HGB Conc 33 g/dL (31-36); Mean Corpuscular Hemoglobin 29 pg (27-31); Mean Corpuscular Volume 89 fL (80-97); Mean Platelet Volume 8.8 fL (7.4-10.4); Nucleated Red Blood Cells % 0.1; Platelet Count 81 10^3/uL (150-450); Red Blood Count 4.79 10^6 /uL (3.70-4.87); Red Cell Distribution Width 16 % (10-15); White Blood Count 9.4 10^3/uL (3.5-10.8)
--- NOTE | 2018-08-14 11:37 | PN ---
Subjective Date of Service: 08/14/18 Interval History: Pt is feeling well. She states she is ready to go home. She thinks she is walking just fine at this time. Her breathing is comfortable. She has been coughing and bringing up some thin clear/white sputum. Family History: Unchanged from Admission Social History: Unchanged from Admission Past Medical History: Unchanged from Admission Objective Active Medications: Albuterol/Ipratropium (Duoneb (Albuterol 2.5 Mg/Ipratropium 0.5 Mg)) 1 neb INH Q4H PRN PRN Reason: SOB/WHEEZING Last Admin: 08/13/18 18:23 Dose: 1 neb Alprazolam (Xanax Tab*) 0.5 mg PO TID PRN PRN Reason: ANXIETY Last Admin: 08/12/18 02:12 Dose: 0.5 mg Buspirone HCl (Buspar Tab *) 15 mg PO BID [facility] Last Admin: 08/14/18 08:59 Dose: 15 mg Citalopram Hydrobromide (Celexa Tab*) 20 mg PO DAILY [facility] Last Admin: 08/14/18 08:58 Dose: 20 mg Cyanocobalamin (Vitamin B12 Tab*) 1,000 mcg PO DAILY [facility] Last Admin: 08/14/18 09:00 Dose: 1,000 mcg Folic Acid (Folvite Tab*) 1 mg PO DAILY [facility] Last Admin: 08/14/18 08:59 Dose: 1 mg Furosemide (Lasix Tab*) 40 mg PO DAILY [facility] Last Admin: 08/14/18 08:57 Dose: 40 mg Heparin Sodium (Porcine) (Heparin Vial(*)) 5,000 units SUBCUT Q8HR [facility] Last Admin: 08/14/18 05:57 Dose: 5,000 units Aztreonam 1 gm/ Sodium (Chloride) 50 mls @ 100 mls/hr IVPB Q8H [facility] Last Admin: 08/14/18 11:17 Dose: 100 mls/hr Insulin Human Lispro (Humalog*) 0 units SUBCUT ACHS [facility]; Protocol Last Admin: 08/14/18 07:26 Dose: Not Given Lactulose (Lactulose*) 30 ml PO QID [facility] Last Admin: 08/14/18 09:00 Dose: 30 ml Metformin HCl (Glucophage*) 500 mg PO BID [facility] Last Admin: 08/14/18 08:58 Dose: 500 mg Multivitamins/Minerals (Theragran/Minerals Tab*) 1 tab PO DAILY [facility] Last Admin: 08/14/18 09:00 Dose: 1 tab Rifaximin (Xifaxan*) 550 mg PO BID [facility] Last Admin: 08/14/18 08:57 Dose: 550 mg Thiamine HCl (Vitamin B-1 Tab*) 100 mg PO DAILY [facility] Last Admin: 08/14/18 09:00 Dose: 100 mg Vital Signs - 8 hr 08/14/18 08/14/18 07:20 07:39 Temperature 98.1 F Pulse Rate 89 Respiratory 18 22 Rate Blood Pressure 125/55 (mmHg) O2 Sat by Pulse 95 Oximetry Oxygen Devices in Use Now: Nasal Cannula Appearance: Middle aged chronically ill appearing female sitting up in bed, NAD Eyes: No Scleral Icterus Ears/Nose/Mouth/Throat: Mucous Membranes Moist, - - nu complexion Respiratory: Symmetrical Chest Expansion and Respiratory Effort, Clear to Auscultation Cardiovascular: NL Sounds; No Murmurs; No JVD, RRR, - - trace LE edema Abdominal: NL Sounds; No Tenderness; No Distention Extremities: No Clubbing, Cyanosis Skin: No Nodules or Sclerosis Neurological: - - alert and oriented to place and situation, ? slightly confused about events of the hospitalization Result Diagrams: 08/14/18 09:31 08/14/18 09:31 Microbiology and Other Data: Microbiology 08/08/18 15:39 Blood Culture - Final Blood Venous No Growth Day 5 08/08/18 15:22 Gram Stain - Final Sputum Sputum Culture - Final Haemophilus Influenzae Normal [place] 08/08/18 15:39 Blood Culture - Final Blood Venous Staphylococcus Epidermidis Blood MRSA/MSSA (PCR) - Final Mrsa Negative S.aureus Negative 08/08/18 20:48 Nasal Screen MRSA (PCR) - Final Nasal Mrsa Not Detected Assess/Plan/Problems-Billing Ms. Cruz is a 57 yo F with PMH of COPD, polysubstance, cirrhosis, ETOH abuse with withdrawal seizures, chronic pain, and anxiety; who presented to the ED with SOB where she was intubated and admitted to ICU for respiratory failure and septic shock which was ultimately found to be secondary to H. influenzae pneumonia. - Patient Problems (1) Acute respiratory failure with hypoxia and hypercapnia Current Visit: Yes Status: Acute Code(s): J96.01 - ACUTE RESPIRATORY FAILURE WITH HYPOXIA; J96.02 - ACUTE RESPIRATORY FAILURE WITH HYPERCAPNIA SNOMED Code(s): 132403598 Comment: Intubated on admission (08/08/18) and extubated on 08/11/18. O2 sat is good on 2L O2. No evidence of stridor. She has a noisy forced exhalation. Try to d/c O2 today. (2) Septic shock Current Visit: Yes Status: Acute Code(s): A41.9 - SEPSIS, UNSPECIFIED ORGANISM; R65.21 - SEVERE SEPSIS WITH SEPTIC SHOCK SNOMED Code(s): 02842217 Comment: In septic shock on presentation. Now resolved. (3) Pneumonia Current Visit: Yes Status: Acute Code(s): J18.9 - PNEUMONIA, UNSPECIFIED ORGANISM SNOMED Code(s): 053015044 Comment: Sputum culture grew H. influenzae. Today is D#6/7 of aztreonam. Respiratory status is stable. (4) COPD (chronic obstructive pulmonary disease) Current Visit: Yes Status: Acute Code(s): J44.9 - CHRONIC OBSTRUCTIVE PULMONARY DISEASE, UNSPECIFIED SNOMED Code(s): 63410308 Comment: No signs of exacerbation at this time. (5) Diabetes type 2, controlled Current Visit: Yes Status: Acute Code(s): E11.9 - TYPE 2 DIABETES MELLITUS WITHOUT COMPLICATIONS SNOMED Code(s): 93684012 Comment: Blood sugars are under good control. Continue metformin 500mg BID. (6) Cirrhosis of liver Current Visit: Yes Status: Chronic Comment: Pt with elevated LFTs, h/o cirrhosis. Continue lactulose and rifaximin. (7) Anxiety disorder, unspecified Current Visit: Yes Status: Acute Priority: High Onset Date: 10/03/14 Code(s): F41.9 - ANXIETY DISORDER, UNSPECIFIED SNOMED Code(s): 254153925 Comment: Stable. Continue alprazolam, buspirone, citalopram. (8) Depression Current Visit: Yes Status: Acute Onset Date: 03/26/15 Code(s): F32.9 - MAJOR DEPRESSIVE DISORDER, SINGLE EPISODE, UNSPECIFIED SNOMED Code(s): 57790941 Comment: Continue celexa. (9) DVT prophylaxis Current Visit: Yes Status: Acute Code(s): LZE2063 - SNOMED Code(s): 877251253 Comment: SQ heparin (10) Full code status Current Visit: Yes Status: Acute Code(s): Z78.9 - OTHER SPECIFIED HEALTH STATUS SNOMED Code(s): 877961913 Comment: Status and Disposition: Inpatient. Anticipate d/c to [facility] when medically stable.
[2018-08-15] MEDS: Aztreonam (*) 1 GM in NS 0.9% 50 ML* 50 ML IVPB SCH ×2 (01:57→10:24)
[2018-08-15] MEDS: Heparin VIAL(*) 5000 UNITS/ML VIAL (FIVE THOUSAND) SUBCUT SCH (05:48)
[2018-08-15] MEDS: Insulin LISPRO* 1 UNITS UNIT SUBCUT SCH ×3 (08:44→17:10)
[2018-08-15] MEDS: Citalopram TAB* 20 MG PO SCH (08:51)
[2018-08-15] MEDS: RiFAXimin* 550 MG TAB PO SCH (08:51)
[2018-08-15] MEDS: Folic Acid TAB* 1 MG PO SCH (08:53)
[2018-08-15] MEDS: Thiamine TAB* 100 MG TAB PO SCH (08:53)
[2018-08-15] MEDS: metFORMIN* 500 MG TAB PO SCH (08:54)
[2018-08-15] MEDS: busPIRone TAB* 15 MG PO SCH (08:54)
[2018-08-15] MEDS: Cyanocobalamin TAB* 500 MCG PO SCH (08:54)
[2018-08-15] MEDS: Multivitamins/Minerals TAB PO SCH (08:54)
[2018-08-15] MEDS: Furosemide TAB* 40 MG PO SCH (08:54)
[2018-08-15 12:58] LABS: Hematocrit 45 % (35-47); Hemoglobin 14.4 g/dL (12.0-16.0); Mean Corpuscular HGB Conc 32 g/dL (31-36); Mean Corpuscular Hemoglobin 29 pg (27-31); Mean Corpuscular Volume 90 fL (80-97); Platelet Count Platelets clumped. 10^3/uL (150-450); Red Blood Count 4.95 10^6 /uL (3.70-4.87); Red Cell Distribution Width 17 % (10-15)
[2018-08-15 15:35] VITALS: BP 108/64
[2018-08-15 16:22] LABS: Mean Platelet Volume 9.1 fL (7.4-10.4); Platelet Count 106 10^3/uL (150-450)
--- NOTE | 2018-08-15 21:04 | DS ---
CC: Dr. Pino* DISCHARGE SUMMARY: DATE OF ADMISSION: 08/08/18 DATE OF DISCHARGE: 08/15/18 PRIMARY CARE PROVIDER: Dr. Pino. PRINCIPAL DIAGNOSIS: Septic shock secondary to Haemophilus influenzae pneumonia. SECONDARY DIAGNOSES: 1. Chronic obstructive pulmonary disease. 2. Type 2 diabetes. 3. Cirrhosis. 4. Anxiety/depression. DISCHARGE MEDICATIONS: 1. Oxycodone 5 mg p.o. 4 times daily p.r.n. pain. 2. Lasix 40 mg p.o. daily. 3. Folic acid 1 mg p.o. daily. 4. Celexa 40 mg p.o. daily. 5. Albuterol 1 puff inhaled q.4 hours p.r.n. shortness of breath. 6. Xanax 0.5 mg p.o. t.i.d. p.r.n. anxiety. 7. Multivitamin 1 tab p.o. daily. 8. Metformin ER 500 mg p.o. daily. 9. Epinephrine 0.3 mg IM once p.r.n. anaphylaxis. 10. Thiamine 100 mg p.o. daily. 11. Lactulose 30 mL p.o. 4 times daily. 12. Vitamin B12 1000 mcg p.o. daily. 13. BuSpar 15 mg p.o. b.i.d. 14. Potassium chloride 20 mEq p.o. b.i.d. HOSPITAL COURSE: Ms. Cruz is a 57-year-old female with a complicated medical history who presents to the emergency room with complaints of shortness of breath. The patient was transferred to [facility] from [facility] due to respiratory distress. The patient was on a dopamine infusion and using BiPAP with little relief before transfer to [facility]. On arrival, the patient was found to be barely responsive. Blood pressure was noted to be markedly hypotensive. The patient was started on Levophed drip. The patient was intubated. The patient was ultimately admitted by the principal associate. The patient was felt to have septic shock likely secondary to possible pneumonia versus UTI. Ultimately , the patient was found to have sputum positive for Haemophilus influenzae. The patient completed a full 7- day course of therapy for this. She was able to be extubated on day 4 of her hospitalization. She has been maintaining a good O2 saturation on 2 L of oxygen. The patient again was in septic shock and acute respiratory failure with hypoxia on presentation. Both of these have now resolved. The patient was attempted to be taken off oxygen today; however, her O2 saturation at rest was only 87%. She is continuing to cough up sputum. She has been instructed to use a flutter valve to help with this. There may have been a component of COPD exacerbation at the time of her admission. The patient was also noted to have elevated LFTs during the course of her hospitalization. These have improved. My suspicion is that this is related to shock liver. CTA chest, abdomen, and pelvis on admission was obtained. This revealed a slightly nodular and small liver suggesting cirrhosis. Cholelithiasis with a large gallstone, which was noted back in 2016 was present. Gallbladder ultrasound was also obtained. This continued to reveal cholelithiasis without pathologic gallbladder wall thickening. The LFTs have almost completely normalized by the time of discharge. Her ALT is still elevated at 98; however, had peaked at 977. Her alkaline phosphatase remains mildly elevated at 141 on the day of discharge. Her total bilirubin remains slightly elevated at 1.4. Given the patient's history of cirrhosis, she was maintained on her usual dose of lactulose. Rifaximin was also added; however, this is being stopped on discharge. The patient also had an elevated troponin of 0.32 on admission. This is subsequently trended down to 0.16 on the day of discharge. The suspicion is that the elevated troponin is likely secondary to demand ischemia. Once the patient has fully recovered from this acute illness, an ischemic workup would be recommended. Over the course of the patient's hospitalization, her platelet count dropped to a low of 81. Both aztreonam, which was used to treat her pneumonia and heparin can cause this. Both of these medications were stopped on the day of discharge. PF4 antibodies were sent and results of this are pending at the time of this dictation. The patient will be seen by visiting nurses and will have a CBC obtained on 08/18/18. The patient's primary care provider will need to follow up on the results of this to ensure that her platelet count continues to improve. On the day of discharge, the patient's platelet count had increased from 81 back up to 106. That makes me less suspicious that this in fact represents heparin-induced thrombocytopenia. In terms of the patient's chronic medical conditions, the patient has been maintained on metformin and Celexa. Her sugars have been under good control. She will continue on BuSpar p.r.n., Xanax, and her Celexa for her depression and anxiety. The patient has been working with physical therapy. It was felt that by the day of discharge, she was ambulating decently, however, had poor safety awareness. The patient absolutely refused to go to subacute rehab or even acute rehab if that were offered. The patient insists on going home. The patient will be staying with her daughter who will be caring for her. The patient's daughter will also try to arrange for other care when she is not home. The patient's mental status at this point is almost back to normal. At times, she does seem slightly wispy; however, has been very appropriate in her behaviors. The patient is going to need supplemental oxygen. There are concerns by the patient's daughter about the patient managing this at home; however, again here in the hospital, the patient has had no issues with keeping her oxygen in place. PHYSICAL EXAMINATION: On the day of discharge, the patient is awake, alert and oriented, sitting up in bed, in no acute distress. Cardiac exam revealed a normal S1, S2 with a regular rate and rhythm. She had minimal lower extremity edema. Lungs are clear though generally she has coarse breath sounds. Abdomen is soft, nontender, and nondistended. Musculoskeletal: The patient moves all 4 extremities. Skin appears very nu in complexion. FOLLOWUP CONCERNS: The patient is being discharged home today, 08/15/18. Activity level is as tolerated. Diet is diabetic, heart healthy. Condition on discharge is stable. The patient should follow up with Dr. Pino in the next 4 to 7 days and again followup outpatient ischemic workup would be indicated given her elevated troponin this admission. She also needs followup CBC to ensure that her platelet count continues to improve. TIME SPENT: Thirty five minutes was spent discharging this patient. [id number]/[facility] #: [id number] [facility]
[2018-08-17 12:16] LABS: HIT ELISA < 0.075 OD (<0.400)
== END 2018-08-15 17:49 | disposition home or self-care (01) | DRG 871 ==
LOC: ED 14:30 → ICU 15:22 → MEDTELE 08-12 12:46
PROVIDERS: ADMIT Internal Medicine; ATTEND Hospitalist
PROC: 0BH17EZ Insertion of Endotracheal Airway into Trachea, Via Natural or Artificial Opening (ICD-10-PCS; principal; 2018-08-08)
PROC: 5A1945Z Respiratory Ventilation, 24-96 Consecutive Hours (ICD-10-PCS; 2018-08-08)
PROC: 3E033XZ Introduction of Vasopressor into Peripheral Vein, Percutaneous Approach (ICD-10-PCS; 2018-08-08)
PROC: 05HM33Z Insertion of Infusion Device into Right Internal Jugular Vein, Percutaneous Approach (ICD-10-PCS; 2018-08-09)
PROC: 0BP1XDZ Removal of Intraluminal Device from Trachea, External Approach (ICD-10-PCS; 2018-08-11)
DX: A41.9 Sepsis, unspecified organism (principal); R65.21 Severe sepsis with septic shock; J96.01 Acute respiratory failure with hypoxia; G93.41 Metabolic encephalopathy; J96.02 Acute respiratory failure with hypercapnia; J14 Pneumonia due to Hemophilus influenzae; K72.00 Acute and subacute hepatic failure without coma; J44.0 Chronic obstructive pulmonary disease with (acute) lower respiratory infection; N17.9 Acute kidney failure, unspecified; K76.6 Portal hypertension; E87.0 Hyperosmolality and hypernatremia; J44.1 Chronic obstructive pulmonary disease with (acute) exacerbation; N39.0 Urinary tract infection, site not specified; I24.8 Other forms of acute ischemic heart disease; I10 Essential (primary) hypertension; K74.60 Unspecified cirrhosis of liver; K57.90 Diverticulosis of intestine, part unspecified, without perforation or abscess without bleeding; M19.90 Unspecified osteoarthritis, unspecified site; G89.29 Other chronic pain; G43.909 Migraine, unspecified, not intractable, without status migrainosus; F17.210 Nicotine dependence, cigarettes, uncomplicated; F43.10 Post-traumatic stress disorder, unspecified; E11.9 Type 2 diabetes mellitus without complications; K80.20 Calculus of gallbladder without cholecystitis without obstruction; F31.9 Bipolar disorder, unspecified; F40.01 Agoraphobia with panic disorder; R41.9 Unspecified symptoms and signs involving cognitive functions and awareness; D75.82 Heparin induced thrombocytopenia (HIT); T45.515A Adverse effect of anticoagulants, initial encounter; Y92.239 Unspecified place in hospital as the place of occurrence of the external cause; Z88.1 Allergy status to other antibiotic agents; Z88.0 Allergy status to penicillin; Z88.8 Allergy status to other drugs, medicaments and biological substances; Z79.84 Long term (current) use of oral hypoglycemic drugs
CPT/HCPCS: 36415; 36600; 71045; 71250; 74176; 76705; 80048; 80053; 80076; 80307; 81003; 81015; 82140; 82248; 82550; 82565; 82803; 83036; 83540; 83605; 83735; 84100; 84443; 84484; 84520; 85025; 85027; 85049; 85610; 85730; 86022; 87040; 87070; 87077; 87150; 87185; 87205; 87641; 93005; 93306; 94003; 94640; 99285; 99406; A9270-GY; G8978-GP-CL; G8979-GP-CH; G8987-GO-CK; G8988-GO-CI; J0456; J1580; J1644; J2250; J2704; J3370; J3475; J3490

== ENCOUNTER 2019-02-07 23:59 | Inpatient (IN) | payer MEDICARE, MEDICAID ==
[2019-02-08] MEDS ORDERED: Nicotine* 4MG (FRUIT FLAVOR) GUM PO PRN (00:23)
[2019-02-08] MEDS ORDERED: Nicotine PATCH 21 MG/24 HR* PATCH ONE (00:29)
[2019-02-08] MEDS ORDERED: Nicotine PATCH 21 MG/24 HR* PATCH TRANSDERM ONE (00:29)
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
[2019-02-08] MEDS ORDERED: Albuterol/Ipratropium NEB.SOL* Albuterol 2.5 MG/Ipratropium 0.5 MG 3 ML INH ONE (00:46)
[2019-02-08 00:50] LABS: ABS Eosinophils 0.1 10^3/ul (0-0.6); ABS Lymphocytes 1.7 10^3/ul (1.0-4.8); ABS Monocytes 0.5 10^3/ul (0-0.8); ABS Neutrophils 5.8 10^3/ul (1.5-7.7); Eosinophil % 1.6 %; Hematocrit 47 % (35-47); Hemoglobin 16.1 g/dL (12.0-16.0); Lymphocyte % 20.8 %; Mean Corpuscular HGB Conc 35 g/dL (31-36); Mean Corpuscular Hemoglobin 31 pg (27-31); Mean Corpuscular Volume 90 fL (80-97); Nucleated Red Blood Cells % 0.2; Platelet Count 130 10^3/uL (150-450); Red Blood Count 5.18 10^6 /uL (3.70-4.87); Red Cell Distribution Width 16 % (10-15); White Blood Count 8.1 10^3/uL (3.5-10.8)
[2019-02-08 00:50] LABS: Urine Appearance Clear; Urine Bilirubin Negative (Negative); Urine Blood Negative (Negative); Urine Color Straw; Urine Glucose Negative (Negative); Urine Ketones Negative (Negative); Urine Nitrite Negative (Negative); Urine Protein Negative (Negative); Urine Specific Gravity 1.001 (1.010-1.030); Urine Urobilinogen Negative (Negative)
[2019-02-08 01:05] LABS: ALT 14 U/L (7-52); AST 24 U/L (13-39); Albumin 4.5 g/dL (3.2-5.2); Albumin/Globulin Ratio 1.5 (1-3); Alkaline Phosphatase 88 U/L (34-104); Anion Gap 8 mmol/L (2-11); BUN/Creatinine Ratio 7.4 (8-20); Blood Urea Nitrogen 5 mg/dL (6-24); CO2 Carbon Dioxide 33 mmol/L (22-32); Calcium 9.9 mg/dL (8.6-10.3); Chloride 93 mmol/L (101-111); EGFR African American 108.3 (>60); EGFR Non-African American 89.5 (>60); Glucose 119 mg/dL (70-100); Potassium 3.3 mmol/L (3.5-5.0); Sodium 134 mmol/L (135-145); Total Protein 7.5 g/dL (6.4-8.9)
[2019-02-08 01:16] LABS: Urine Benzodiazepine Screen None Detected (None Detect); Urine Opiates Screen None Detected (None Detect)
[2019-02-08 01:22] LABS: INR 1.11 (0.82-1.09)
[2019-02-08 01:34] LABS: Acetaminophen < 15 mcg/mL; Alcohol < 10 mg/dL (<10); Salicylate < 2.50 mg/dL (<30)
[2019-02-08 01:50] LABS: TSH (Thyroid Stimulating Horm) 3.09 mcIU/mL (0.34-5.60)
--- NOTE | 2019-02-08 03:11 | ED ---
Progress - Progress Note Progress Note: Patient is received as a sign-out from RADHA Kong at 0230 02/08/19 PA shift end pending MHE of this patient. MHE was completed and patient is awaiting disposition. - Consult/PCP Time Called: 02:00 Course/Dx - Course Course Of Treatment: Patient is received as a sign-out from RADHA Kong at 0230 02/08/19 PA shift end pending MHE of this patient. MHE was completed and patient is awaiting disposition. 0310 - Patient's case was reviewed by Dr. Vela, patient will be admitted to [facility]. - Diagnoses Provider Diagnoses: Mood disorder - Provider Notifications Discussed Care Of Patient With: Zakiya Vela Time Discussed With Above Provider: 03:10 Instructed by Provider To: Other - Patient's case was reviewed by Dr. Vela, patient will be admitted to [facility]. Discharge ED - Sign-Out/Discharge Documenting (check all that apply): Patient Departure - admit All imaging exams completed and their final reports reviewed: No Studies - Discharge Plan Condition: Stable Disposition: PSYCHIATRIC FACILITY-[facility] - Attestation Statements Document Initiated by Scribe: Yes Documenting Scribe: AAKASH TINAJERO Provider For Whom Scribe is Documenting (Include Credential): OLIVER FIORE MD Scribe Attestation: I, AAKASH TINAJERO, scribed for OLIVER FIORE MD on 02/08/19 at 0606. Status of Scribe Document: Ready
[2019-02-08] MEDS ORDERED: Al Hydrox/Mg Hydrox/Simet LIQ* 30 ML UDC PO PRN (05:04)
[2019-02-08] MEDS ORDERED: Acetaminophen TAB* 325 MG PO PRN (05:04)
[2019-02-08] MEDS ORDERED: Nicotine* 2MG (FRUIT FLAVOR) GUM PO PRN (05:04)
[2019-02-08] MEDS ORDERED: Docusate CAP* 100 MG PO PRN (05:13)
[2019-02-08] MEDS: Nicotine PATCH 21 MG/24 HR* PATCH TRANSDERM SCH (10:57)
[2019-02-08] MEDS: carBAMazepine TAB(*) 200 MG PO SCH ×3 (10:57→20:33)
[2019-02-08] MEDS: Aspirin 81 mg CHEW TAB* 81 MG TAB.CHEW PO SCH (10:57)
[2019-02-08] MEDS: Carvedilol TAB* 3.125 MG PO SCH ×2 (10:57→20:19)
[2019-02-08] MEDS: Folic Acid TAB* 1 MG PO SCH (10:57)
[2019-02-08] MEDS: Nicotine Patch Removal NOTE PATCH OFF SCH ×2 (10:57→20:19)
[2019-02-08] MEDS: Potassium Chlor TAB* 20 MEQ TAB.ER PO SCH (10:58)
[2019-02-08] MEDS: Spironolactone TAB* 25 MG PO SCH (10:58)
[2019-02-08] MEDS: risperiDONE TAB* 1 MG PO SCH ×3 (10:58→20:34)
[2019-02-08] MEDS: Vitamin THERAPEUTIC TAB PO SCH (10:58)
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
[2019-02-09] MEDS: Aspirin 81 mg CHEW TAB* 81 MG TAB.CHEW PO SCH (09:43)
[2019-02-09] MEDS: carBAMazepine TAB(*) 200 MG PO SCH ×2 (09:43→20:09)
[2019-02-09] MEDS: Folic Acid TAB* 1 MG PO SCH (09:43)
[2019-02-09] MEDS: Carvedilol TAB* 3.125 MG PO SCH ×2 (09:43→20:09)
[2019-02-09] MEDS: Nicotine PATCH 21 MG/24 HR* PATCH TRANSDERM SCH (09:44)
[2019-02-09] MEDS: Spironolactone TAB* 25 MG PO SCH (09:44)
[2019-02-09] MEDS: Vitamin THERAPEUTIC TAB PO SCH (09:44)
[2019-02-09] MEDS: Potassium Chlor TAB* 20 MEQ TAB.ER PO SCH (09:44)
[2019-02-09] MEDS: risperiDONE TAB* 1 MG PO SCH ×2 (09:44→20:09)
--- NOTE | 2019-02-09 17:13 | PN ---
Subjective - Subjective Date of Service: 02/09/19 Service Type: [id number] Hosp care 35 min high complexity Subjective: Layo is doing very well. She denies feeling negative feelings and asserts that she should be allowed to go home. She has changed into clothes from the donation bin and says she feels comfortable on the unit. We discuss emotion regulation and mood disorders and mood dysregulation. Objective - General Observations Appearance: Well Groomed Appears Stated Age: Yes Stature: Overweight Posture: Slumped Eye Contact: Average Behavior/Activity: WNL - Interaction Observations Attitude Towards Examiner: Cooperative, Anxious Stated Mood: Euthymic, Anxious Affect: Restricted Speech Pattern/Tone: Clear Thought Process: Coherent, Goal Directed Perception: WNL Thought Content: Preoccupation/Ruminations Hallucination Type: None Delusion Type: None, Denies - Cognitive Function Orientation: A&O x 4 Level of Consciousness: Awake, Alert, Appropriate Cognition: WNL Estimated Intelligence: Normal Insight: Difficulty Acknowledging Presence of Psyciatric Problems Judgment Within Normal Limits: No Ability to Make Reasonable Decisions: Mildly Impaired - Medication Compliance Cooperative with Inpatient Medication Regimen: Partial - Group Participation Participates in Group Activities: Yes Assessment - Assessment Merits Inpatient Hospitalization: For Immediate Safety Clinical Impression: Layo is a 58-year-old woman with a history of mood dysregulation and drug use who is many years sober who comes to the hospital with what her daughter termed manic symptoms. Plan - Plan Treatment Plan: Name: LAYO DE JESUS Birthdate: 1960 [id number] 02/09/19 Prepare Layo for discharge tomorrow. Continue on Lactulose as described by Layo to be the only medication she is taking. Continued Medication Management: Continue Outpt Medication Medications: Current Medications Acetaminophen (Tylenol Tab*) 650 mg PO Q4H PRN PRN Reason: PAIN or TEMP > 101 F Al Hydrox/Mg Hydrox/Simethicone (Maalox Plus*) 30 ml PO Q4H PRN PRN Reason: INDIGESTION Aspirin (Aspirin 81 Mg Chew Tab*) 81 mg PO DAILY [facility] Last Admin: 02/09/19 09:43 Dose: Not Given Carbamazepine (Tegretol Tab(*)) 400 mg PO BID [facility] Last Admin: 02/09/19 09:43 Dose: Not Given Carvedilol (Coreg Tab*) 3.125 mg PO BID [facility] Last Admin: 02/09/19 09:43 Dose: Not Given Docusate Sodium (Colace Cap*) 100 mg PO BID PRN PRN Reason: CONSTIPATION Folic Acid (Folvite Tab*) 1 mg PO DAILY [facility] Last Admin: 02/09/19 09:43 Dose: Not Given Lactulose (Lactulose*) 30 ml PO QID [facility] Last Admin: 02/09/19 12:34 Dose: Not Given Multivitamins (Theragran Tab*) 1 tab PO DAILY [facility] Last Admin: 02/09/19 09:44 Dose: Not Given Nicotine (Nicotine Patch 21 Mg/24 Hr*) 1 patch TRANSDERM DAILY [facility] Last Admin: 02/09/19 09:44 Dose: Not Given Nicotine Polacrilex (Nicotine Gum*) 4 mg PO Q2H PRN PRN Reason: CRAVING Nicotine Polacrilex (Nicotine Gum*) 2 mg PO Q2H PRN PRN Reason: CRAVINGS Pharmacy Profile Note (Nicotine Patch Removal Note*) 1 note PATCH OFF 2100 [facility] Last Admin: 02/08/19 20:19 Dose: Not Given Potassium Chloride (Klor Con Er Tab*) 20 meq PO DAILY [facility] Last Admin: 02/09/19 09:44 Dose: Not Given Risperidone (Risperdal*) 1 mg PO BID [facility] Last Admin: 02/09/19 09:44 Dose: Not Given Spironolactone (Aldactone Tab*) 25 mg PO DAILY [facility] Last Admin: 02/09/19 09:44 Dose: Not Given - Discharge Plan Discharge Plan: Outpatient Follow Up
[2019-02-09] MEDS: Nicotine Patch Removal NOTE PATCH OFF SCH (20:12)
[2019-02-10 08:37] LABS: HDL Cholesterol 39.3 mg/dL
[2019-02-10] MEDS: Potassium Chlor TAB* 20 MEQ TAB.ER PO SCH (09:06)
[2019-02-10] MEDS: carBAMazepine TAB(*) 200 MG PO SCH (09:06)
[2019-02-10] MEDS: Carvedilol TAB* 3.125 MG PO SCH (09:06)
[2019-02-10] MEDS: Vitamin THERAPEUTIC TAB PO SCH (09:06)
[2019-02-10] MEDS: Folic Acid TAB* 1 MG PO SCH (09:06)
[2019-02-10] MEDS: Aspirin 81 mg CHEW TAB* 81 MG TAB.CHEW PO SCH (09:06)
[2019-02-10] MEDS: Spironolactone TAB* 25 MG PO SCH (09:06)
[2019-02-10] MEDS: Nicotine PATCH 21 MG/24 HR* PATCH TRANSDERM SCH (09:07)
[2019-02-10] MEDS: risperiDONE TAB* 1 MG PO SCH (09:07)
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
[2019-02-12] MEDS ORDERED: Al Hydrox/Mg Hydrox/Simet LIQ* 30 ML UDC PO PRN (19:52)
[2019-02-12] MEDS ORDERED: Acetaminophen TAB* 325 MG PO PRN (19:52)
[2019-02-12] MEDS ORDERED: Albuterol HFA INHALER* 8 gm MDI INH PRN (19:58)
[2019-02-12] MEDS ORDERED: LORazepam TAB(*) 1 MG ONE (20:19)
[2019-02-12] MEDS ORDERED: Haloperidol TAB* 5 MG ONE (20:19)
[2019-02-12] MEDS ORDERED: Haloperidol INJ IV/IM* 5 MG/ML AMP ONE (20:20)
[2019-02-12] MEDS ORDERED: Lorazepam PYXIS KEY ONE (20:21)
[2019-02-12] MEDS ORDERED: LORazepam INJ* 2 MG/ML 1 ML VIAL ONE (20:21)
[2019-02-12] MEDS ORDERED: LORazepam INJ* 2 MG/ML 1 ML VIAL IM ONE (20:38)
[2019-02-12] MEDS ORDERED: Haloperidol INJ IV/IM* 5 MG/ML AMP IM ONE (20:38)
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
[2019-02-13] MEDS: Potassium Chlor TAB* 20 MEQ TAB.ER PO SCH ×2 (03:53→12:54)
[2019-02-13] MEDS ORDERED: metFORMIN* 500 MG TAB PO SCH (09:00)
[2019-02-13] MEDS ORDERED: Cyanocobalamin TAB* 500 MCG PO SCH (09:00)
[2019-02-13] MEDS ORDERED: Vitamin THERAPEUTIC TAB PO SCH (09:00)
[2019-02-13 12:45] VITALS: BP 104/72
== END 2019-02-10 11:05 | disposition home or self-care (01) | DRG 885 ==
LOC: ED 23:59 → BSU 02-08 03:40 → UNDODISIN 02-10 11:05 → TMPLOALOC 02-10 11:05 → UNDOLOA 02-10 11:05 → TMPLOALOC 02-12 16:01 → BSU 02-12 16:01
PROVIDERS: ADMIT Psychiatry & Neurology Psychiatry; ATTEND Psychiatry & Neurology Psychiatry
DX: F39 Unspecified mood [affective] disorder (principal); I10 Essential (primary) hypertension; J44.9 Chronic obstructive pulmonary disease, unspecified; K74.60 Unspecified cirrhosis of liver; M19.90 Unspecified osteoarthritis, unspecified site; G89.29 Other chronic pain; G43.909 Migraine, unspecified, not intractable, without status migrainosus; F41.9 Anxiety disorder, unspecified; F43.10 Post-traumatic stress disorder, unspecified; F31.9 Bipolar disorder, unspecified; Z96.659 Presence of unspecified artificial knee joint; G40.909 Epilepsy, unspecified, not intractable, without status epilepticus; F17.210 Nicotine dependence, cigarettes, uncomplicated; Z88.0 Allergy status to penicillin; Z88.8 Allergy status to other drugs, medicaments and biological substances; Z88.1 Allergy status to other antibiotic agents; Z91.030 Bee allergy status
CPT/HCPCS: 36415; 80053; 80061; 80307; 80320; 80329; 81003; 82140; 83036; 84443; 85025; 85610; 99222; 99233; 99238; 99284; A9270-GY; G0480; J1630; J2060

== ENCOUNTER 2019-02-12 14:01 | Inpatient (IN) | payer MEDICARE, MEDICAID ==
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
[2019-02-12] MEDS ORDERED: LORazepam INJ* 2 MG/ML 1 ML VIAL ONE (14:37)
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
[2019-02-13 19:45] LABS: Urine Appearance Cloudy; Urine Bilirubin Negative (Negative); Urine Blood Negative (Negative); Urine Color Yellow; Urine Glucose Negative (Negative); Urine Ketones Negative (Negative); Urine Nitrite Negative (Negative); Urine Protein Negative (Negative); Urine Specific Gravity 1.018 (1.010-1.030); Urine Urobilinogen Negative (Negative)
[2019-02-13 19:47] LABS: Urine Bacteria Absent (Absent); Urine Red Blood Cell Trace(0-2/hpf) (Absent); Urine Squamous Epithelial Cell Present (Absent); Urine White Blood Cell Trace(0-5/hpf) (Absent)
[2019-02-13] MEDS: busPIRone TAB* 15 MG PO SCH (20:38)
[2019-02-13] MEDS: Gabapentin CAP(*) 400 MG PO SCH (20:38)
[2019-02-13] MEDS: Potassium Chlor TAB* 20 MEQ TAB.ER PO SCH (20:39)
[2019-02-13] MEDS ORDERED: Melatonin 3 MG TAB PO ONE (21:44)
[2019-02-13] MEDS: Melatonin 3 MG TAB PO PRN (21:45)
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
[2019-02-14] MEDS: Furosemide TAB* 40 MG PO SCH (10:39)
[2019-02-14] MEDS: busPIRone TAB* 15 MG PO SCH ×2 (10:39→22:13)
[2019-02-14] MEDS: Cyanocobalamin TAB* 500 MCG PO SCH (10:39)
[2019-02-14] MEDS: Citalopram TAB* 40 MG PO SCH (10:39)
[2019-02-14] MEDS: metFORMIN* 500 MG TAB PO SCH (10:40)
[2019-02-14] MEDS: Potassium Chlor TAB* 20 MEQ TAB.ER PO SCH ×2 (10:40→22:13)
[2019-02-14] MEDS: Gabapentin CAP(*) 400 MG PO SCH ×2 (10:40→22:12)
[2019-02-14] MEDS: Multivitamins/Minerals TAB PO SCH (10:40)
[2019-02-14] MEDS: Melatonin 3 MG TAB PO PRN (22:15)
[2019-02-15] MEDS: Albuterol HFA INHALER* 8 gm MDI INH PRN ×3 (03:05→17:55)
[2019-02-15] MEDS: metFORMIN* 500 MG TAB PO SCH (08:52)
[2019-02-15] MEDS: busPIRone TAB* 15 MG PO SCH ×2 (08:52→20:04)
[2019-02-15] MEDS: Multivitamins/Minerals TAB PO SCH (08:52)
[2019-02-15] MEDS: Furosemide TAB* 40 MG PO SCH (08:53)
[2019-02-15] MEDS: Cyanocobalamin TAB* 500 MCG PO SCH (08:53)
[2019-02-15] MEDS: Citalopram TAB* 40 MG PO SCH (08:53)
[2019-02-15] MEDS: Gabapentin CAP(*) 400 MG PO SCH ×2 (08:53→20:05)
[2019-02-15] MEDS: Potassium Chlor TAB* 20 MEQ TAB.ER PO SCH (08:56)
[2019-02-15] MEDS: Potassium Chloride* LIQUID 20 MEQ/15 ML UDC PO SCH ×2 (09:56→21:32)
--- NOTE | 2019-02-15 18:25 | PN ---
Subjective - Subjective Date of Service: 02/15/19 Subjective: Layo tripped and fell during off-unit staff pass and scraped both her knees and hands. She did not hit her head. She reports having completed her grieving process, removed her wedding ring and looking forward to new beginning. She reports having made up with daughter Minna Alas and is allowed to return there. Mood is ok, anxiety is manageable, she denies SI/HI or urges for sib. Objective - General Observations Appearance: Neat Appears Stated Age: Yes Stature: WNL Posture: WNL Eye Contact: Average Behavior/Activity: WNL - Interaction Observations Attitude Towards Examiner: Cooperative Stated Mood: Anxious Affect: Restricted Speech Pattern/Tone: Clear, Normal Volume Thought Process: Coherent, Goal Directed Perception: WNL Thought Content: WNL Hallucination Type: None Delusion Type: None - Cognitive Function Orientation: A&O x 4 Level of Consciousness: Alert Cognition: WNL Estimated Intelligence: Normal Judgment Within Normal Limits: Yes - Medication Compliance Cooperative with Inpatient Medication Regimen: Yes - Group Participation Participates in Group Activities: Yes Assessment - Assessment Merits Inpatient Hospitalization: Consolidate Improvements, For Discharge Planning Clinical Impression: Stabilizing in this structured setting. Plan - Plan Treatment Plan: Name: LAYO DE JESUS Birthdate: 1960 [id number] Medications: Current Medications Albuterol (Ventolin Hfa Inhaler*) 1 puff INH Q4H PRN PRN Reason: SOB/WHEEZING Last Admin: 02/15/19 17:55 Dose: 1 puff Buspirone HCl (Buspar Tab *) 15 mg PO BID [facility] Last Admin: 02/15/19 08:52 Dose: 15 mg Citalopram Hydrobromide (Celexa Tab*) 40 mg PO DAILY [facility] Last Admin: 02/15/19 08:53 Dose: 40 mg Cyanocobalamin (Vitamin B12 Tab*) 1,000 mcg PO DAILY [facility] Last Admin: 02/15/19 08:53 Dose: 1,000 mcg Furosemide (Lasix Tab*) 40 mg PO DAILY [facility] Last Admin: 02/15/19 08:53 Dose: 40 mg Gabapentin (Neurontin Cap(*)) 1,200 mg PO BID [facility] Last Admin: 02/15/19 08:53 Dose: 1,200 mg Lactulose (Lactulose*) 30 ml PO QID [facility] Last Admin: 02/15/19 18:00 Dose: Not Given Melatonin (Melatonin) 6 mg PO BEDTIME PRN PRN Reason: INSOMNIA Last Admin: 02/14/19 22:15 Dose: 6 mg Metformin HCl (Glucophage*) 500 mg PO DAILY [facility] Last Admin: 02/15/19 08:52 Dose: Not Given Multivitamins/Minerals (Theragran/Minerals Tab*) 1 tab PO DAILY [facility] Last Admin: 02/15/19 08:52 Dose: 1 tab Potassium Chloride (Potassium Chloride Liquid) 20 meq PO BID [facility] Last Admin: 02/15/19 09:56 Dose: 20 meq - Discharge Plan Discharge Plan: Outpatient Follow Up Outpatient Program: [facility]
[2019-02-15] MEDS ORDERED: Acetaminophen TAB* 325 MG ONE (19:58)
[2019-02-15] MEDS: Melatonin 3 MG TAB PO PRN (20:06)
--- NOTE | 2019-02-15 21:05 | PN ---
Hospitalist Progress Note Date of Service: 02/15/19 Called by Nursing staff who reported that the patient was out on pass today and tripped and fell landing on her wrist. Now c/o left arm, wrist and shoulder pain. Patient seen at the bedside, noted to have skin tears to bilat knees and left hand. Patient c/o severe pain to left wrist, elbow and shoulder. also c/o of right wrist pain. Patient is very tender to the touch over the left wrist and forearm as well as the shoulder and humerus. decrease mobility d/t pain on the left arm. mild tenderness with palpation to right wrist. Patient denies any head or neck pain. Denies LOC. Denies any dizziness prior to fall. patient reports that she was walking and tripped and fell landing on her knees and wrists. Will get x ray of the left wrist forearm, elbow and shoulder and right wrist. recommend Bacitracin ointment and dry non-adhering dressing to bilat knees and left hand skin tears.
[2019-02-15] MEDS: Bacitracin OINTMENT* 0.5% 0.5 oz TUBE TOPICAL SCH (22:35)
[2019-02-16] MEDS: Albuterol HFA INHALER* 8 gm MDI INH PRN (01:06)
[2019-02-16] MEDS: Acetaminophen TAB* 325 MG PO PRN ×3 (03:55→22:14)
--- NOTE | 2019-02-16 08:58 | PN ---
Progress Note - Progress Note Date of Service: 02/16/19 Note: CAT team called for pt stated that she had a seizure. Staff described the episode as pt was approaching the nurses' station and requesting Tylenol, after she waited for a moment she "became rigid" when standing up and continued to answer but with one word at a time. Upon CAT arrival pt was sitting down stating that she just had a seizure "because she didn't get her Tylenol in time." Pt is neurologically intact, speaking in full sentences, appears upset and anxious and also argumentative. SBP at 160, HR 80's, 02 sat 96% on RA. Lungs with scant wheezes in mid zones CV: RRR, no murmur. LE's: large scar on R thigh(old), trace pedal edema, b/l knee abrasions(wrapped in bandages) A/P: the above described episode was psychogenic and does not appear to be related to seizure. Recommend: cont psychiatric tx.
[2019-02-16] MEDS: Multivitamins/Minerals TAB PO SCH (09:03)
[2019-02-16] MEDS: Cyanocobalamin TAB* 500 MCG PO SCH (09:03)
[2019-02-16] MEDS: busPIRone TAB* 15 MG PO SCH ×2 (09:03→20:37)
[2019-02-16] MEDS: Furosemide TAB* 40 MG PO SCH (09:03)
[2019-02-16] MEDS: Gabapentin CAP(*) 400 MG PO SCH (09:04)
[2019-02-16] MEDS: Citalopram TAB* 40 MG PO SCH (09:04)
[2019-02-16] MEDS: metFORMIN* 500 MG TAB PO SCH (09:06)
[2019-02-16] MEDS: Potassium Chloride* LIQUID 20 MEQ/15 ML UDC PO SCH ×2 (09:07→20:40)
[2019-02-16] MEDS: Bacitracin OINTMENT* 0.5% 0.5 oz TUBE TOPICAL SCH (09:08)
[2019-02-16] MEDS ORDERED: hydrOXYzine HCL TAB* 50 MG ONE (12:00)
[2019-02-16] MEDS ORDERED: hydrOXYzine HCL TAB* 50 MG PO ONE (12:30)
[2019-02-16] MEDS ORDERED: Spironolactone/HCTZ 25-25 MG* 1 TAB PO SCH (13:00)
[2019-02-16] MEDS: Lithium Carbonate TAB* 300 MG PO SCH ×2 (14:53→20:37)
[2019-02-16] MEDS: Gabapentin CAP(*) 300 MG PO SCH ×2 (14:53→20:36)
[2019-02-16] MEDS: Ibuprofen TAB* 600 MG PO PRN ×2 (15:53→22:14)
[2019-02-16] MEDS: hydrOXYzine HCL TAB* 50 MG PO PRN (15:54)
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
[2019-02-16] MEDS: Melatonin 3 MG TAB PO PRN (22:15)
[2019-02-17] MEDS: Ibuprofen TAB* 600 MG PO PRN ×2 (05:40→21:34)
[2019-02-17] MEDS: Multivitamins/Minerals TAB PO SCH (08:55)
[2019-02-17] MEDS: Furosemide TAB* 40 MG PO SCH (08:55)
[2019-02-17] MEDS: Lithium Carbonate TAB* 300 MG PO SCH (08:55)
[2019-02-17] MEDS: busPIRone TAB* 15 MG PO SCH ×2 (08:56→21:33)
[2019-02-17] MEDS: Cyanocobalamin TAB* 500 MCG PO SCH (08:56)
[2019-02-17] MEDS: Gabapentin CAP(*) 300 MG PO SCH ×3 (08:56→21:34)
[2019-02-17] MEDS: metFORMIN* 500 MG TAB PO SCH (08:57)
[2019-02-17] MEDS: Potassium Chloride* LIQUID 20 MEQ/15 ML UDC PO SCH ×2 (08:58→23:04)
[2019-02-17] MEDS ORDERED: Phenytoin IV(*) 50 MG/ML 5 ML VIAL (250 MG) IVPB ONE (10:00)
[2019-02-17] MEDS: Albuterol HFA INHALER* 8 gm MDI INH PRN (10:13)
[2019-02-17] MEDS ORDERED: FOSPHENYTOIN IVPB ONE (10:45)
[2019-02-17] MEDS ORDERED: NS 0.9% IVPB ONE (10:45)
[2019-02-17] MEDS: Bacitracin OINTMENT* 0.5% 0.5 oz TUBE TOPICAL SCH (11:01)
[2019-02-17] MEDS ORDERED: LaCOSAMide TAB* 150 MG TAB PO SCH (12:00)
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
[2019-02-17] MEDS: hydrOXYzine HCL TAB* 50 MG PO PRN ×2 (13:38→21:53)
[2019-02-17] MEDS ORDERED: Lorazepam PYXIS KEY ONE (15:08)
[2019-02-17] MEDS ORDERED: diPHENhydraMINE IV* 50 MG/ML 1 ml VIAL (BENADRYL) ONE (15:22)
[2019-02-17 15:38] LABS: ABS Eosinophils 0.2 10^3/ul (0-0.6); ABS Lymphocytes 1.9 10^3/ul (1.0-4.8); ABS Monocytes 0.6 10^3/ul (0-0.8); ABS Neutrophils 7.9 10^3/ul (1.5-7.7); Eosinophil % 1.8 %; Hematocrit 47 % (35-47); Hemoglobin 15.7 g/dL (12.0-16.0); Lymphocyte % 18.1 %; Mean Corpuscular HGB Conc 34 g/dL (31-36); Mean Corpuscular Hemoglobin 31 pg (27-31); Mean Corpuscular Volume 91 fL (80-97); Mean Platelet Volume 8.8 fL (7.4-10.4); Nucleated Red Blood Cells % 0.1; Platelet Count 172 10^3/uL (150-450); Red Blood Count 5.08 10^6 /uL (3.70-4.87); Red Cell Distribution Width 16 % (10-15); White Blood Count 10.7 10^3/uL (3.5-10.8)
[2019-02-17 15:58] LABS: Albumin 4.6 g/dL (3.2-5.2); Calcium 9.8 mg/dL (8.6-10.3); Potassium 3.7 mmol/L (3.5-5.0); Total Bilirubin 0.6 mg/dL (0.2-1.0)
[2019-02-17] MEDS ORDERED: diPHENhydraMINE IV* 50 MG/ML 1 ml VIAL (BENADRYL) IM ONE (16:00)
[2019-02-17 16:04] LABS: Albumin/Globulin Ratio 1.5 (1-3); BUN/Creatinine Ratio 21.8 (8-20); EGFR African American 92.4 (>60); EGFR Non-African American 76.4 (>60); Globulin 3.1 g/dL (2-4); Total Protein 7.7 g/dL (6.4-8.9)
[2019-02-17 17:03] LABS: TSH (Thyroid Stimulating Horm) 3.62 mcIU/mL (0.34-5.60)
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
[2019-02-17] MEDS ORDERED: Phenytoin CAP(*) 100 MG CAP.ER PO SCH (21:00)
[2019-02-17] MEDS ORDERED: LaCOSAMide ORAL LIQ 10 MG/ML PO SCH (21:00)
[2019-02-17] MEDS: Lacosamide TAB* 100 MG TAB PO SCH (21:37)
--- NOTE | 2019-02-17 21:42 | EEG ---
ELECTROENCEPHALOGRAPHY REPORT: DATE OF SERVICE: 02/17/19 ORDERED BY: Dr. Nidia Singh. INDICATION: Ms. Natalia Cruz is a 58-year-old female who has history of benzodiazepine-related withdrawal seizures, who presented to [facility] with homicide ideation. The patient has had episodes of word finding difficulty and speech disturbance. This EEG was obtained to evaluate for any epileptiform discharges. CLINICAL STATE: Awake. REPORT: This is a limited EEG due to continuous muscle artifact. There were few readable epochs that showed an appropriate organized background with clearly defined anterior-posterior voltage and frequency gradients. There was well- defined posterior dominant rhythm of 10 Hz which was symmetrical and showed normal reactivity. Anteriorly, there was an expected pattern of lower voltage, irregular mixed faster frequency. Throughout the recording, there were intermittent, diffuse, higher amplitude, 2- 4 Hz delta and theta slowing lasting 1-2 seconds. The slowing was irregular with the sharp wave contoured margins. There were no epileptiform discharges. Hyperventilation and photic stimulation were not performed. Please note that the patient did not have any episodes of word finding difficulty or slurred speech during this recording The degree of artifact limits the ability to assess for epileptiform discharges or electrographic seizures. CLINICAL IMPRESSION: This is a limited awake EEG due to muscle artifact. The background did show areas of intermittent diffuse polymorphic slowing of the background. This finding is suggestive of a mild, nonspecific diffuse encephalopathy most likely related to medication effect. Please note that the patient did not have any episodes of word finding difficulty or slurred speech during this recording. [id number] #: [id number] [facility]
[2019-02-18] MEDS: Ibuprofen TAB* 600 MG PO PRN ×3 (06:15→19:07)
[2019-02-18] MEDS: hydrOXYzine HCL TAB* 50 MG PO PRN ×3 (06:25→18:00)
--- NOTE | 2019-02-18 07:59 | PN ---
Subjective Date of Service: 02/18/19 Length of Stay: 6 Days Neurology is following for the evaluation of the patient's seizure like activity that took place on 02/16 and 02/17/2019. Interval History: The patient tolerated the lacosamide 150 mg one time dose although she did not take the 100 mg dose last night. She has not had any seizure like activity overnight or this morning. She is talking fluently. She wants to go home and is frustrated that she is being kept in the hospital. She denied any suicide or homicide ideation. She agreed to take the Vimpat starting this morning. She denied any headache or visual disturbance. She denied any focal weakness or paresthesia. Review of Systems: Denied CP, SOB, or palpitations. Objective Active Medications: Acetaminophen (Tylenol Tab*) 650 mg PO Q4H PRN PRN Reason: PAIN Last Admin: 02/16/19 22:14 Dose: 650 mg Albuterol (Ventolin Hfa Inhaler*) 1 puff INH Q4H PRN PRN Reason: SOB/WHEEZING Last Admin: 02/17/19 10:13 Dose: 1 puff Bacitracin (Bacitracin Ointment*) 1 applic TOPICAL DAILY [facility] Last Admin: 02/17/19 11:01 Dose: 1 applic Buspirone HCl (Buspar Tab *) 15 mg PO BID [facility] Last Admin: 02/17/19 21:33 Dose: 15 mg Cyanocobalamin (Vitamin B12 Tab*) 1,000 mcg PO DAILY [facility] Last Admin: 02/17/19 08:56 Dose: 1,000 mcg Furosemide (Lasix Tab*) 80 mg PO DAILY [facility] Last Admin: 02/17/19 08:55 Dose: 80 mg Gabapentin (Neurontin Cap(*)) 900 mg PO TID [facility] Last Admin: 02/17/19 21:34 Dose: 900 mg Hydroxyzine HCl (Atarax Tab*) 50 mg PO Q4H PRN PRN Reason: agitation/anxiety Last Admin: 02/18/19 06:25 Dose: 50 mg Ibuprofen (Motrin Tab*) 600 mg PO Q6H PRN PRN Reason: PAIN - MILD Last Admin: 02/18/19 06:15 Dose: 600 mg Lacosamide (Vimpat Tab*) 100 mg PO BID [facility] Stop: 02/18/19 12:01 Last Admin: 02/17/19 21:37 Dose: Not Given Lactulose (Lactulose*) 30 ml PO QID [facility] Last Admin: 02/17/19 21:35 Dose: 30 ml Melatonin (Melatonin) 6 mg PO BEDTIME PRN PRN Reason: INSOMNIA Last Admin: 02/16/19 22:15 Dose: 6 mg Metformin HCl (Glucophage*) 500 mg PO DAILY [facility] Last Admin: 02/17/19 08:57 Dose: 500 mg Multivitamins/Minerals (Theragran/Minerals Tab*) 1 tab PO DAILY [facility] Last Admin: 02/17/19 08:55 Dose: 1 tab Potassium Chloride (Potassium Chloride Liquid) 20 meq PO BID [facility] Last Admin: 02/17/19 23:04 Dose: Not Given Vital Signs 02/17/19 02/17/19 02/17/19 08:56 13:15 15:30 Respiratory 16 16 20 Rate 02/17/19 02/17/19 02/17/19 15:49 16:31 21:34 Respiratory 16 20 16 Rate 02/18/19 03:16 Respiratory 16 Rate Neurology Exam: General: Well nourished, well developed, and in no acute distress HEENT: Normocephelic/atraumatic, sclera anicteric, mucous membranes moist Neurological Findings: Awake, alert, and oriented to person, place, and time. Speech: fluent without dysarthria, repetition intact Cranial Nerve: PERRL, EOM intact, normal facial symmetry. Motor: s/s throughout, proximal and distal extremities x4 tone/bulk normal Sensation: intact to LT/PP bilaterally upper and lower extremities Finger to nose, rapid alternating movements intact without tremor, no dysdiadochokinesia Gait: intact with good arm swing and stride Result Diagrams: 02/17/19 15:25 02/17/19 15:25 Microbiology and Other Data: Microbiology 02/13/19 19:03 Urine Culture - Final Urine Assessment/Plan Ms. 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 The patient has had episodes of inability to speak, starring spells, and one episode of urinary incontinence on 02/16 and 02/17. These episodes are intermittent. The patient reports no seizure like activity overnight. I started her on Vimpat since she is suppose to be on phenytoin and zonisamide from a previous hospitalization for seizures in 2018. The patient is not taking any of those seizures medications. Her seizures seem to be controlled with Klonopin and gabapentin. She is off Klonopin since the hospitalization (02/12/2019). Today, she was frustrated and requesting to go home. After our interview, the patient was calm and agreed to cooperate with staff members which could potentially facilitate her discharge if her psychiatric illness is better controlled. She is off lithium now. She denied suicide or homicide ideation. She wants to go back to her daughter's house to see her animals and care for her grandchildren. From the neurology standpoint, it's unclear if the patient's seizure-like activity are epileptic vs. non-epileptic. The EEG she had yesterday was very limited due to muscle artifact and she did not have any episode during the recording. She has not had any event overnight or this morning. For now, I recommend lacosamide 100 mg PO twice daily in replacement of phenytoin and zonisamide. She is outside the window for benzodiazepine withdrawal. She needs to follow-up with my colleagues at [facility] in 6-8 weeks to see if she really needs the Vimpat long-term. The patient does not drive. She was instructed not to use any heavy machinery, swim unattended, or climb rooftops or ladders. I will sign off but we are available for any questions.
[2019-02-18] MEDS: Acetaminophen TAB* 325 MG PO PRN ×3 (09:44→21:57)
[2019-02-18] MEDS: Lacosamide TAB* 100 MG TAB PO SCH (09:45)
[2019-02-18] MEDS: Gabapentin CAP(*) 300 MG PO SCH ×3 (09:45→20:39)
[2019-02-18] MEDS: busPIRone TAB* 15 MG PO SCH ×2 (09:45→20:39)
[2019-02-18] MEDS: Cyanocobalamin TAB* 500 MCG PO SCH (09:46)
[2019-02-18] MEDS: Multivitamins/Minerals TAB PO SCH (09:48)
[2019-02-18] MEDS: metFORMIN* 500 MG TAB PO SCH (09:49)
[2019-02-18] MEDS: Albuterol HFA INHALER* 8 gm MDI INH PRN ×2 (09:49→12:41)
[2019-02-18] MEDS: Potassium Chloride* LIQUID 20 MEQ/15 ML UDC PO SCH ×2 (09:51→20:41)
[2019-02-18] MEDS: Furosemide TAB* 40 MG PO SCH (09:51)
[2019-02-18] MEDS: Bacitracin OINTMENT* 0.5% 0.5 oz TUBE TOPICAL SCH (12:08)
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
[2019-02-18] MEDS: Melatonin 3 MG TAB PO PRN (21:59)
[2019-02-19] MEDS: hydrOXYzine HCL TAB* 50 MG PO PRN ×2 (02:25→09:33)
[2019-02-19] MEDS: Ibuprofen TAB* 600 MG PO PRN (02:25)
[2019-02-19] MEDS: Acetaminophen TAB* 325 MG PO PRN ×2 (03:50→07:59)
[2019-02-19] MEDS: Albuterol HFA INHALER* 8 gm MDI INH PRN ×2 (05:00→09:33)
[2019-02-19] MEDS: Cyanocobalamin TAB* 500 MCG PO SCH (07:55)
[2019-02-19] MEDS: Gabapentin CAP(*) 300 MG PO SCH (07:55)
[2019-02-19] MEDS: Potassium Chloride* LIQUID 20 MEQ/15 ML UDC PO SCH (07:56)
[2019-02-19] MEDS: busPIRone TAB* 15 MG PO SCH (07:56)
[2019-02-19] MEDS: metFORMIN* 500 MG TAB PO SCH (07:56)
[2019-02-19] MEDS: Multivitamins/Minerals TAB PO SCH (07:56)
[2019-02-19 08:33] VITALS: BP 115/65
[2019-02-19] MEDS: Furosemide TAB* 40 MG PO SCH (09:33)
--- NOTE | 2019-02-19 10:45 | DCNOTE ---
Subjective - Subjective Service Types: 57292 Hosp DC Day Mgmt simple under 30 min Discharge Date: 02/19/19 Subjective: Patient reports readiness for discharge and to return home. She slept well last night with the exception of being awakened by unit activity. no seizure activity has been noted. Patient denies SI or passive wish. She is pleasant and in behavioral control. Prior authorization request for Vimpat electronically submitted by typewriter ribbon winder. Objective - General Observations Appearance: Well Groomed Stature: WNL Posture: WNL Eye Contact: Average Behavior/Activity: WNL - Interaction Observations Attitude Towards Examiner: Cooperative Stated Mood: Euthymic Affect: Bright Speech Pattern/Tone: Clear, Appropriate, Normal Volume Thought Process: Coherent, Goal Directed Perception: WNL Thought Content: WNL Hallucination Type: None Delusion Type: None - Cognitive Function Orientation: A&O x 4 Level of Consciousness: Alert Cognition: WNL Estimated Intelligence: Normal Insight: WNL Judgment Within Normal Limits: Yes - Medication Compliance Cooperative with Inpatient Medication Regimen: Yes - Group Participation Participates in Group Activities: Yes DC Assessment - Assessment Clinical Impression: Natalia is a 58-year-old woman with history of bipolar 1 disorder and questionable seizure disorder who presented to ED with c/o toward family members. She has stabilized in this structured setting. Merits Inpatient Hospitalization: No Clear for Discharge: Adequate Clinical Respons, Acceptable Safety Profile Inpatient DSM-V Dx: F31.62 Discharge Planning - Discharge Planning Discharge Plan: Outpatient Follow Up Outpatient Program: [facility] Recommendations for Continuing Care: Medication Management, Psychotherapy, Routine Metabolic Monitoring, Primary Care Followup, Specialty Followup Medications: Current Medications Buspirone HCl (Buspar Tab *) 15 mg PO BID [facility] Last Admin: 02/19/19 07:56 Dose: 15 mg Cyanocobalamin (Vitamin B12 Tab*) 1,000 mcg PO DAILY [facility] Last Admin: 02/19/19 07:55 Dose: 1,000 mcg Furosemide (Lasix Tab*) 80 mg PO DAILY [facility] Last Admin: 02/19/19 09:33 Dose: 80 mg Gabapentin (Neurontin Cap(*)) 900 mg PO TID [facility] Last Admin: 02/19/19 07:55 Dose: 900 mg Hydroxyzine HCl (Atarax Tab*) 50 mg PO BID PRN PRN Reason: agitation/anxiety Last Admin: 02/19/19 09:33 Dose: 50 mg Last Admin: 02/19/19 02:25 Dose: 600 mg Lactulose (Lactulose*) 30 ml PO QID [facility] Last Admin: 02/19/19 07:55 Dose: Not Given Melatonin (Melatonin) 6 mg PO BEDTIME PRN PRN Reason: INSOMNIA Last Admin: 02/18/19 21:59 Dose: 6 mg Metformin HCl (Glucophage*) 500 mg PO DAILY [facility] Last Admin: 02/19/19 07:56 Dose: 500 mg Multivitamins/Minerals (Theragran/Minerals Tab*) 1 tab PO DAILY [facility] Last Admin: 02/19/19 07:56 Dose: 1 tab Potassium Chloride (Potassium Chloride Liquid) 20 meq PO BID [facility] Last Admin: 02/19/19 07:56 Dose: Not Given Vimpat 100mg PO BID Discharge Planning: Prescriptions provided for discharge [x] Yes [] No Follow up care details as per social work arrangements: [facility] Primary care- Dr Pino Neurology- [facility] Patient response to discharge plan: [x] eager for discharge [x] agreeable with discharge plan [] ambivalent about discharge [] disagrees with discharge today
--- NOTE | 2019-02-19 11:32 | PN ---
[facility]: Group Therapy Note - Service Type Service Type: 91722 Group Psychotherapy - Cognitive Behavioral Group Therapy ( CBT):Patient was attentive and participatory in CBT programming this morning, and remained in good behavioral control. Patient expressed positive insights regarding relevant treatment interventions and goals.
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
== END 2019-02-19 11:20 | disposition home or self-care (01) | DRG 885 ==
LOC: ED 14:01 → BSU 19:52
PROVIDERS: ADMIT Psychiatry & Neurology Psychiatry; ATTEND Psychiatry & Neurology Psychiatry
PROC: 4A00X4Z Measurement of Central Nervous Electrical Activity, External Approach (ICD-10-PCS; 2019-02-17)
PROC: GZHZZZZ Group Psychotherapy (ICD-10-PCS; principal; 2019-02-19)
DX: F31.9 Bipolar disorder, unspecified (principal); R45.850 Homicidal ideations; G40.909 Epilepsy, unspecified, not intractable, without status epilepticus; K74.60 Unspecified cirrhosis of liver; I10 Essential (primary) hypertension; J44.9 Chronic obstructive pulmonary disease, unspecified; M19.90 Unspecified osteoarthritis, unspecified site; K57.90 Diverticulosis of intestine, part unspecified, without perforation or abscess without bleeding; G43.909 Migraine, unspecified, not intractable, without status migrainosus; S81.012A Laceration without foreign body, left knee, initial encounter; S81.011A Laceration without foreign body, right knee, initial encounter; S61.412A Laceration without foreign body of left hand, initial encounter; F41.9 Anxiety disorder, unspecified; F43.10 Post-traumatic stress disorder, unspecified; Z96.651 Presence of right artificial knee joint; W01.0XXA Fall on same level from slipping, tripping and stumbling without subsequent striking against object, initial encounter; Z91.5 Personal history of self-harm; Z87.891 Personal history of nicotine dependence; Z88.0 Allergy status to penicillin; Z88.1 Allergy status to other antibiotic agents; Z91.030 Bee allergy status; Y92.9 Unspecified place or not applicable
CPT/HCPCS: 36415; 80053; 81003; 81015; 82140; 84443; 85025; 87086; 90853; 95816; 99222; 99231; 99232; 99233; 99238; 99285; A9270-GY; J1200; J2060; Q2009